=== PATIENT | male | born 1960 | race Caucasian/White ===

== ENCOUNTER → 2017-12-19 14:55 | Outpatient (CLI) | payer MEDICARE, SELFPAY ==
--- NOTE | 2017-12-19 15:12 | ECHOD_ITS ---
Reason For Study: High Risk Meds, SOB Procedure This was a 2D Doppler, Color Flow transthoracic echocardiogram. Exam performed in department. Left Ventricle Normal LV size. Mild concentric left ventricular hypertrophy. Left ventricular systolic function is normal. The estimated ejection fraction is 60 %. No regional wall motion abnormalities noted. Right Ventricle Normal RV size. Normal systolic function. Atria Normal left atrium. Normal right atrium. Lipomatous hypertrophy of the atrial septum. Mitral Valve Normal mitral valve. Tricuspid Valve Normal tricuspid valve. Aortic Valve Trisinus/trileaflet aortic valve. Mild (1+) eccentric aortic valve insufficiency. Pulmonic Valve Normal pulmonic valve. Great Vessels Normal aortic root. The pulmonary artery is normal size. Normal inferior vena cava. Pericardium/Pleural No pericardial effusion. MMode/2D Measurements & Calculations LVIDd: 5.2 cm IVSd: 1.2 cm Ao root diam: 4.1 cm LVIDs: 3.5 cm LVPWd: 1.2 cm LA dimension: 4.7 cm RVDd: 3.5 cm FS: 32.1 % LAV(MOD-bp): 36.5 ml LA A4 area: 13.2 cm2 RA A4 area: 8.7 cm2 LAV(MOD-bp) Indexed: 19.5 ml/m2 LAV(MOD-sp2): 38.0 ml LAV(MOD-sp4): 33.9 ml Doppler Measurements & Calculations MV E max alfredo: 62.6 cm/sec Lat Peak E' Alfredo: 6.6 cm/sec Med Peak E' Alfredo: 5.0 cm/sec MV A max alfredo: 62.1 cm/sec E/E' lat: 9.5 E/E' med: 12.6 MV E/A: 1.0 Ao V2 max: 128.0 cm/sec LV V1 max: 126.2 cm/sec PA V2 max: 120.2 cm/sec Ao max P.6 mmHg LV V1 max P.4 mmHg Ao V2 mean: 97.0 cm/sec Ao mean P.1 mmHg Ao V2 VTI: 20.8 cm Interpretation Summary Normal LV size. Mild concentric left ventricular hypertrophy. Left ventricular systolic function is normal. The estimated ejection fraction is 60 %. Mild (1+) eccentric aortic valve insufficiency. Lipomatous hypertrophy of the atrial septum. Ordering Physician: Delbert Montes Referring Physician: Lolly Meyer Performed By: Pati Buchanan, LEO, RVT
== END ==
PROVIDERS: Family Provider Family Medicine; PCP Family Medicine
DX: R06.02 Shortness of breath (principal)
CPT/HCPCS: 93306

== ENCOUNTER → 2017-12-27 11:32 | Outpatient (CLI) | payer MEDICARE, SELFPAY ==
[2017-12-27 12:53] LABS: Rheumatoid Factor < 10.0 IU/mL (<15)
[2017-12-29 03:07] LABS: Cytoplasmic Ab (C-ANCA) <1:20 titer (Neg:<1:20)
[2017-12-29 10:13] LABS: CCP IgG Antibodies 6 units (0-19); Perinuclear Ab (P-ANCA) <1:20 titer (Neg:<1:20)
[2017-12-29 14:04] LABS: ANTINUCLEAR ANTIBODIES DIRECT Negative (Negative)
== END ==
PROVIDERS: Family Provider Family Medicine; PCP Family Medicine; Visit Provider Internal Medicine Critical Care Medicine
DX: J98.4 Other disorders of lung (principal)
CPT/HCPCS: 36415; 86038; 86200; 86225; 86235; 86256; 86431

== ENCOUNTER → 2018-01-13 13:33 | Outpatient (CLI) | payer MEDICARE, SELFPAY | PROVIDERS: Family Provider Family Medicine; PCP Family Medicine; Visit Provider Nurse Practitioner Acute Care | DX: G47.19 Other hypersomnia (principal) | CPT/HCPCS: 95806 ==

== ENCOUNTER → 2018-01-19 11:00 | Outpatient (CLI) | payer MEDICARE, SELFPAY ==
--- NOTE | 2018-01-19 13:33 | PFT ---
INTRODUCTION: The patient is a 57-year-old male currently under the care of myself the presents for pulmonary function testing secondary to a diagnosis of restrictive airway disease. Respiratory therapy reports good patient effort. Bronchodilators were used during testing. INTERPRETATION: Forced expiration spirometry demonstrates the presence of a severe large airways obstructive ventilatory defect. There was a significant response to aerosolized bronchodilators noted, based upon changes in FEV1. Spirograms are of good quality and do not plateau. The respiratory flow volume loop reveals decreased expiratory flow rates at all lung volumes consistent with airways obstruction. Body plethysmography was performed and reveals a decreased TLC to 4.69 L, 70% of predicted, indicative of a mild restrictive ventilatory impairment. The remainder of the lung volumes are symmetrically reduced. Diffusing capacity by single breath CO is within normal limits at 93% of predicted. IMPRESSION: These pulmonary function studies demonstrate the presence of a partially reversible severe mixed ventilatory defect with preserved diffusing capacity. There are no previous pulmonary function studies available for comparison.
== END ==
PROVIDERS: Family Provider Family Medicine; PCP Family Medicine; Visit Provider Internal Medicine Critical Care Medicine
DX: J98.4 Other disorders of lung (principal)
CPT/HCPCS: 94060; 94726; 94729

== ENCOUNTER → 2018-01-20 12:33 | Outpatient (CLI) | payer MEDICARE, SELFPAY ==
[2018-01-20 12:30] VITALS: PULSE 102; PULSE 103; PULSE 105; PULSE 107; PULSE 111; O2SAT 88; O2SAT 89; O2SAT 90; O2SAT 94
--- NOTE | 2018-01-22 09:48 | WT_ITS ---
PSN 6 Minute Walk Test - 6 Minute Walk Test 6 Minute Walk Test: 6 Minute Walk Test PSN:6-Minute Walk Test Start: 01/20/18 13: 01 Freq: Status: Active Protocol: [id number] Document 01/20/18 12:30 HG (Rec: 01/20/18 13:05 HG [id number]) 6 Minute Walk Test Date Performed 01/20/18 Time Performed 12:30 Height 5 ft 10 in Weight: 158 lb Weight in Pounds 158.[address]: Ruy Regan Assistive device used: None Pre-test Oxygen Delivery Method Room Air Pulse Ox (%) 90 Pulse Rate (60-100 beats/min) 102 H Dyspnea Addison Scale (0-10) 2 Exertion Addison Scale (6-20) 8 1st minute Oxygen Delivery Method Room Air Pulse Ox (%) 88 Pulse Rate (60-100 beats/min) 105 H 2nd minute Oxygen Flow Rate (L/min) (L/min) 2 Oxygen Delivery Method Nasal Cannula Pulse Ox (%) 89 Pulse Rate (60-100 beats/min) 103 H 3rd minute Oxygen Flow Rate (L/min) (L/min) 2 Oxygen Delivery Method Nasal Cannula Pulse Ox (%) 89 Pulse Rate (60-100 beats/min) 103 H 4th minute Oxygen Flow Rate (L/min) (L/min) 2 Oxygen Delivery Method Nasal Cannula Pulse Ox (%) 90 Pulse Rate (60-100 beats/min) 107 H 5th minute Oxygen Flow Rate (L/min) (L/min) 2 Oxygen Delivery Method Nasal Cannula Pulse Ox (%) 90 Pulse Rate (60-100 beats/min) 107 H 6th minute Oxygen Flow Rate (L/min) (L/min) 2 Oxygen Delivery Method Nasal Cannula Pulse Ox (%) 90 Pulse Rate (60-100 beats/min) 111 H Post-test Oxygen Flow Rate (L/min) (L/min) 2 Oxygen Delivery Method Nasal Cannula Pulse Ox (%) 94 Pulse Rate (60-100 beats/min) 103 H Dyspnea Addison Scale (0-10) 3 Exertion Addison Scale (6-20) 13 Full Laps Walked 16 Partial Lap, Number of Tiles Walked 0 Total Distance Walked (ft) 944 - Interpretation Interpretation: The patient ambulated 944 feet over the course of 6 minutes on room air without assistive devices or breaks. Pretesting oxygen saturation was noted to be 90% on room air. With ambulation, the ifeoma oxygen saturation was 88% at minute 1 of testing. 2 L/min of supplemental oxygen was applied, and the patient was able to complete the remainder of the test while maintaining oxygen saturations at or above 88%. The patient did develop physiologic tachycardia with exertion. There was evidence of significant exertional oxygen desaturation. - Recommendations Recommendations: 2 L/min of supplemental oxygen should be utilized with exertion.
== END ==
PROVIDERS: Family Provider Family Medicine; PCP Family Medicine; Visit Provider Internal Medicine Critical Care Medicine
DX: J98.4 Other disorders of lung (principal)
CPT/HCPCS: 94618

== ENCOUNTER → 2018-02-14 13:00 | Outpatient (CLI) | payer MEDICARE, SELFPAY | PROVIDERS: Family Provider Family Medicine; PCP Family Medicine; Visit Provider Nurse Practitioner Acute Care | DX: G47.33 Obstructive sleep apnea (adult) (pediatric) (principal) | CPT/HCPCS: 95811 ==

== ENCOUNTER 2018-04-24 10:15 | Outpatient (RCR) | payer MEDICARE, SELFPAY ==
--- NOTE | 2018-04-19 13:04 | PCM.PR.TP ---
General Information - General Information Admitting Diagnosis: COPD Gold Classification:: GOLD 3: Severe Oxygen: 2 liters 21/03 home use; [facility] - PFT FEV1:: 1.51 FVC:: 2.40 FEV1/FVC%:: 63 - Education/Goals Barriers to Learning: None Individual Counseling: Initial Assessment: Dyspnea control techniques at rest, activity, and ADLs, O2, Rx, system, safety, ADL management and pacing, Home exercise plan & guidelines Patient Goals: Breathe better: Initial Assessment, Increase endurance/stamina: Initial Assessment, Return to recreation/hobby: Initial Assessment Exercise - Initial Assessment - Visit Date of Eval: 04/19/18 - Problem/Goals Problems: Knowledge deficit exercise guidelines, Knowledge deficit exercise safety Goals:: Aerobic exercise 30-60 mins x 9 weeks - Exercise Prescription Mode:: Treadmill, Rower, Airdyne, NuStep Frequency (x/week): 3 Duration:: 30 MET LEVEL:: 2.5 HR (bpm):: 113 - 106-113 THHR - Plan Plan and Plan to Review:: Benefits of exercise, Core components of exercise, How to measure dyspnea level, How to monitor dyspnea level, Exercise intensity, Exercise safety guideline, Home exercise guidelines, Addison: 3-4/11-13 Disease Management - Initial - Problems/Goals-Hypoxemia Hypoxemia Problems:: Hypoxemia Hypoxemia Goals:: Using O2 as Rx's safely - Problems/Goals-Bronchial Hygiene Bronchial Hygiene Goals:: Pt demonstrates effective cough, effective secretion clearance., Pt describes signs and symptoms of infection. - Initial Assessment SpO2:: 90 FiO2:: 21 Port O2:: 2 DME:: [facility] Does pt report taking home meds as prescribed?: Yes Medications: Yes MDI, Yes NEB, Yes Spacer Patient Reports:: No cough - Plans Hypoxemia Plan:: Monitor SpO2 rest & with exercise, Train appropriate O2 use at rest, Train appropriate O2 use with exercise, Train O2 safety & systems Reviewed prescribed medications:: Purpose, Schedule, Side effects, Importance of compliance Instruct correct technique/timing & care:: Return demo use of inhaler Bronchial Hygiene Plan: Controlled cough, Vibratory PEP device, Hydration, Hand hygiene, Signs/symptoms to report: Psychosocial - Initial Assess - Problems/Goals Problems: Impaired Q.O.L. Psychosocial Goals: Improved Q.O.L. - Psychosocial Test Depression:: Impaired QOL Referred to MD for counseling:: No - Plan Reviewed screening results: Yes Instructions given regarding:: Benefits of exercise, Relaxation techniques, Training in coping strategies Tobacco - Initial Assessment - Program Goals Tobacco Program Goals: Complete smoking cessation. Attend education classes. Improve Knowledge Test score - Stage of Change Stages of Change:: Action - Learning Barriers Learning Barriers: Vision, Ready to Learn - Family Support Do you have family support?: Yes - Tobacco Use Tobacco Use: Non-smoker How long ago did you quit using tobacco products?: Less than 6 months ago Do you use smokeless tobacco?: No - Intervention Smoking Cessation Referral:: No Individual Education/Counseling:: No Education Schedule Given:: Yes - Education Gave Education Materials For:: Tobacco Triggers, Pulmonary Disease, Risk Factors, Breathing Techniques, Medical Compliance, Pulmonary A&P, Exacerbation Signs & Symptoms, Stress & Relaxation Nutrition/Wt Mgmt - Initial - Problems/Goals Goals: BMI 21-25 - Weight Management Admit Height:: 5 ft 10 in Admit Weight:: 157 lb Admit BMI:: 22.5 - Diabetes Diabetes:: No - Intervention Referral to dietitian:: No Referral to Diabetic Clinic:: No Will attend diet classes:: Yes - Plan Nutrition Plan: Yes Nutrition education class:, Yes Education re: Need for ongoing weight monitoring Patient Health Questionnaire Initial Assessment 1. Little interest or pleasure in doing things: Not at all 2. Feeling down, depressed, or hopeless: Several days 3. Trouble falling or staying asleep, or sleeping too much: More than half the days 4. Feeling tired or having little energy: Several days 5. Poor appetite or overeating: Not at all 6. Feeling bad about yourself -- or that you are a failure or have let yourself or your family down: Not at all 7. Trouble concentrating on things, such as reading the newspaper or watching television: Not at all 8. Moving or speaking so slowly that other people could have noticed. Or the opposite - being so fidgety or restless that you have been moving around a lot more than usual: Not at all 9. Thoughts that you would be better off , or of hurting yourself in some way: Not at all How difficult have these problems made it for you to do your work, take care of things at home, or get along with other people?: Somewhat difficult Total Score: 4 COPD Knowledge Test Initial COPD is a lung disease that:: Makes it hard to breathe & gets worse over time In the [place] the term COPD describes 2 main lung conditions:: Cystic fibrosis & chronic bronchitis The most common lung irritant that causes COPD is:: Allergies Common signs and symptoms of COPD include:: An ongoing cough/cough that produces a large amount of mucus, & SOB If you have COPD, what steps can you take?: All of the above Swelling of the ankles is common in COPD:: True Fatigue [tiredness] is common in COPD:: True Wheezing is common in COPD:: True Crushing chest pain is common in COPD:: False Rapid weight loss is common in COPD:: False Breathlessness is a normal response to exercise: True Exercise should be avoided if it makes you short of breath: False All bronchodilators act within 10 minutes: False A spacer device increases the medication to the lungs: True Annual flu vaccine is recommended for pts w/lung disease: False COPD Knowledge Test Total Score:: 11 COPD Assessment Test [CAT] - Questions Never cough = 0, Cough all the time = 5: 0 No phlegm = 0, Chest full of phlegm = 5: 4 No chest tightness = 0, Chest very tight = 5: 4 No breathless w/exertion = 0, Very breathless w/exertion = 5: 4 No limitations w/activity = 0, Very limited w/activity = 5: 4 Confident leaving home = 0, Not at all confident = 5: 2 Sleep soundly = 0, Don't sleep soundly = 5: 4 Lots of energy = 0, No energy at all = 5: 3 Total CAT score:: 25 Self-Efficacy Initial Assessment We would like to know how confident you are in doing certain activities. Please select your confidence level for:: Select your confidence level for the following using the scale 1-10 where 1 is not at all confident and 10 is totally confident. Your score is the average of all 6 responses. Fatigue: How confident are you that you can keep the fatigue caused by your disease from interfering with the things you want to do? Select Number: 4 Physical Discomfort or Pain: How confident are you that you can keep the physical discomfort or pain of your disease from interfering with the things you want to do? Select Number: 3 Emotional Distress: How confident are you that you can keep the emotional distress caused by your disease from interfering with the things you want to do? Select Number: 4 Other Symptoms or Health Problems: How confident are you that you can keep other symptoms or health problems from interfering with the things you want to do? Select Number: 4 Different Tasks and Activities: How confident are you that you can do the different tasks and activities needed to manage your health condition so as to reduce your need to see a doctor? Select Number: 3 Medication: How confident are you that you can do things other than just taking medication to reduce how much your illness affects your everyday life? Select Number: 8 Total Score:: 4 Nutrition Survey - Nutrition Survey Instructions Scoring Instructions: Scoring is as follows: Yes = 1 points. No = 0 point. Patient score that is >/=12 is considered to be at potential nutritional risk and could benefit from a referral to a registered dietitian. - Nutrition Survey Initial Have you lost >10 lbs over the past 2 months without trying?: No Are you following a special diet at home for diabetes, low fat, or low salt?: No Are you interested in meeting with a dietitian for help understanding your diet?: No Do you eat less than 3 meals a day?: No Do you eat fatty meats (tsang, sausage, ribs, etc), fried foods, desserts, large amounts of salad dressings, margarine, butter, or cheese most days?: Yes Do you have food allergies? [Enter types in comment field]: No Do you eat in restaurants more than 3 times a week?: Yes Do you season food with salt, seasoning salt, or garlic salt?: No Do you used canned, boxed, frozen meals, or soups, seasoning packets?: No Total Score:: 2
--- NOTE | 2018-04-19 13:04 | PCM.PR.HP ---
History of Present Illness Arrival date:: 04/19/18 Arrival time:: 13:04 Date of Referral:: 03/15/18 Date of Evaluation: 04/19/18 Referring Physician: Dr. Russel Marquez Primary Diagnosis: COPD Gold III severe History of Present Illness: The patient is a 57 yr old male of Dr. Marquez's who presents to pulmonary rehab today for his COPD. [facility] Breathless Scale: When is the patient short of breath? Y/N Grade: Description of Breathlessness: 0 I only get breathless with strenuous exercise. 1 I get short of breath when hurrying on level ground or walking up a slight hill. 2 On level ground, I walk slower than people of the same age because of breathless, or have to stop for breath when walking at my own pace. 3 I stop for breath after walking 100 yards or after a few minutes on level ground. 4 I am too breathless to leave the house or I am breathless when dressing. Respiratory Problems: Yes: Fatigue, Wheezing, Able to Speak in Full Sentences, Dyspnea with Activity No: Dizziness, Ankle Swelling, Dyspnea at Rest Home Medications: Home Medications Albuterol Aerosols [Ventolin Aerosols] 2.5 mg INHALATION BID 04/02/16 Ondansetron [Zofran Odt] 4 mg PO Q8H PRN PRN 04/02/16 Diclofenac 5%, baclofen 2% and ketamine 10 % cream TRANSDERMAL .q4-6h PRN 12/26/17 diazepam 5 mg tablet See Label Instructions PO TID PRN 12/26/17 doxycycline hyclate 50 mg capsule 50 mg PO BID PRN cap 12/26/17 etodolac 200 mg capsule 400 mg PO ONCE cap 12/26/17 gabapentin 300 mg capsule 300 mg PO TID cap 12/26/17 ginkgo biloba 120 mg tablet 120 mg PO BID 12/26/17 hydromorphone 2 mg tablet See Label Instructions PO Q4H PRN tab 12/26/17 ibrutinib 140 mg capsule See Label Instructions PO QDAY 12/26/17 loteprednol etabonate 0.5 % eye gel drops 2 drp OPHTHALMIC ONCE 12/26/17 melatonin 10 mg capsule 10 mg PO HS 12/26/17 methadone 5 mg tablet 5 mg PO Q12H tab 12/26/17 methylphenidate 5 mg tablet 5 mg PO BID 12/26/17 miconazole nitrate 2 % topical cream 1 applic TOPICAL BID 12/26/17 omega-3 fatty acids 500 mg capsule 2,000 mg PO BID cap 12/26/17 pantoprazole 40 mg tablet,delayed release 40 mg PO QAM 12/26/17 sulfamethoxazole 800 mg-trimethoprim 160 mg tablet 1 tab PO .COMPLEX 12/26/17 tadalafil 5 mg tablet 5 mg PO ONCE PRN 12/26/17 testosterone cypionate 200 mg/mL intramuscular oil 100 mg IM QWEEK ml 12/26/17 tizanidine 2 mg capsule 2 mg PO BID PRN cap 12/26/17 triamcinolone acetonide 0.1 % topical cream 1 applic TOPICAL QDAY 12/26/17 zolpidem 5 mg tablet 5 mg PO HS PRN 12/26/17 montelukast 10 mg tablet 10 mg PO QPM #30 tab 03/15/18 fluticasone 100 mcg-umeclid 62.5 mcg-vilant 25 mcg powd for inhalation 1 inh INHALATION QDAY #1 device 03/30/18 albuterol sulfate HFA 90 mcg/actuation aerosol inhaler 2 puff INHALATION Q4H #1 inh 04/12/18 prednisone 10 mg tablet 8.5 mg PO DAILY tab 04/12/18 Allergies/Adverse Reactions: Allergies No Known Allergies Allergy (Unverified 03/15/18 10:52) - Secretions Thick:: No Thin:: No Hx of Sleep Apnea: Yes Do you snore loudly (louder than talking or can be heard through closed doors)?: Yes - Diagnosed wtih JUAN ALBERTO and uses home BiPaP system w/oxygen. Do you often feel tired/ fatigued/ sleepy during daytime?: No Has anyone observed you stop breathing during sleep?: No History of Hypertension (for STOP score): Yes STOP Results: Positive Medical Utilization Do you use a peak flow meter at home?: No Do you use a spacer device with your inhalers?: Yes Number of hospital visits in the last year?: 0 Number of emergency room visits in the last year?: 0 Do you see your physician on a regular schedule?: Yes How often?: 3 mo w/each doctor Advanced Directives - Advanced Directives Power of Supply Chain Specialist: Yes Living Will: Yes Advance Directives Information Provided: No Advance Directives on File: Yes - can't say for sure DNR Order?:: Yes - MOLST See MOLST form: No Past Medical History Medical History: Past Medical History (Last Reviewed 04/13/18 @ 11:53 by Tiarra Sales NP-C) Non-Hodgkin lymphoma (Chronic) C85.90 History of immunosuppression therapy (Chronic) Z92.25 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 History of asthma (Chronic) Z87.09 Cardiogenic shock R57.0 Respiratory failure J96.90 Severe sepsis A41.9, R65.20 Bronchiolitis obliterans syndrome J42 DVT prophylaxis Hypogonadism 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 Restrictive lung disease J98.4 Surgical History: Past Surgical History (Last Reviewed 04/13/18 @ 11:53 by Tiarra Sales NP-C) H/O eye surgery Z98.890 bilateral lacrimal plugs 11/08 History of lung surgery Z98.890 S/P PICC central line placement Z95.828 11/12/12 Family History: Family History (Last Reviewed 04/13/18 @ 11:53 by Tiarra Sales NP-C) Father Leukemia Grandfather Lymphoma Uncle Leukemia - Current/ Previous Services Pulmonary Rehab:: No Social History - Smoking History Smoking Status: Former smoker Years Smokin Packs Smoked per Day: 1 - daily cigar per day. Hx Tobacco Use: Yes Hx Smoking Exposure: No - Alcohol Use Alcohol Usage: Yes - couple of drinks per week. - Substance Abuse Hx Substance Use: No - Occupation Occupation (List type of work in comments):: Retired - Hobbies, Recreation, Social Activities Hobbies: Reading, Walking, Exercise - home elliptical Recreational Activities: I am able to engage in most, but not all activities Functioning ADL/IADL - Current Ability Current Ability: Independent Self-Care (e.g.,grooming, dressing, & bathing), Independent Ambulation, Independent Transfer, Independent Household tasks (e.g., light meal prep, laundry, shopping) - Pt Functioning Prior to Problem Prior Functioning: Self-Care (e.g.,grooming, dressing, & bathing): Independent, Ambulation: Independent, Transfer: Independent, Household tasks (e.g., light meal prep, laundry, shopping): Independent Social Environment - Status Marital Status: - Current Living Arrangements Living Environment:: Spouse - Children How many children do you have?: 3 Do any of your children live nearby?: Yes - [place], [facility] - Safety Do you feel safe in your surroundings?: Yes - Assistance Do you need any assistance at home?: none Review of Systems Review of Systems: Right click = Denies ([place]ash). Left click = Reports ([place]) Respiratory: Reports: SOB upon Exertion, Appetite, Normal, Fatigue, Sexual changes - not really change, but sometimes struggle with lack of oxygen., Sleep, Normal - 4-5 hr sleep a night 1-2 laying around. Denies: Cough, SOB at Rest, Wheezing, Dizziness/Lightheadedness Is Patient Pain Free?: No Pain Location: other - jaw pain from wisdom tooth extraction yesterday. Pain Level: 09/07 Risk Factor Assessment - Vital Signs Temperature: 98.7 F Pulse Rate: 96 Pulse Rhythm: Regular Respiratory Rate: 16 Pulse Ox: 90 Blood Pressure: 154/84 Nailbeds:: pink - Diabetes Nutrition Referral for Diabetes: No - Obesity Height: 5 ft 10 in Weight:: 157 lb Weight in Pounds: 157.0 lbs Weight Source: Standing Scale Body Mass Index (BMI): 22.5 Nutritional Referral for Obesity: No - Physical Activity Physical Inactivity: Reg Exercise 30 min/day - Risk Stratification Risk Guidelines: Lowest Risk: Risk Factor for Smoking, Risk Factor for Dyslipidemia, Risk Factor for Diabetes, Risk Factor for Obesity, Risk Factor for Hypertension, Risk Factor for Sedentary Lifestyle, Risk Factor for Depression - For Smoking Smoking Risk Guidelines: Smoking Low Risk: None or quit greater than 6 months ago. Smoking Moderate Risk: Smoker or quit 6 months or less ago. Smoking High Risk: Smoker - For Dyslipidemia Dyslipidemia Risk Guidelines: Low Risk: Moderate Risk: High Risk: 15-25% fat 25.1-29% fat >/= 30% fat. <7% sat fat 7-9% sat fat >9% sat fat. <150 mg chol 150-299 mg chol >/= 300 mg chol. LDL <100 LDL 100-129 LDL >/= 130. Chol/HDL ratio <5.0 Chol/HDL ratio 5.0-6.0 Chol/HDL ratio >6.0. Triglycerides <100 Triglycerides 100-149 Triglycerides >/= 150 - For Diabetes Mellitus Diabetes Risk Guidelines: Diabetes Low Risk: HgA1c <6.5% and/or FBG <120. Diabetes Moderate Risk: HgA1c 6.6-7.9% and/or FBG 120-180. Diabetes High Risk: HgA1c >/= 8% and/or FBG >180 - For Obesity/Overweight Obesity/Overweight Risk Guidelines: Obesity Low Risk: BMI <25.0. Obesity Moderate Risk: BMI 25-29.9. Obesity High Risk: BMI >/= 30.0 - For Hypertension Hypertension Risk Guidelines: Hypertension Low Risk: Systolic <120 and Diastolic <80. Hypertension Moderate Risk: Systolic 120-139 and Diastolic 80-89. Hypertension High Risk: Systolic >/= 140 and Diastolic >/= 90 - For Sedentary Lifestyle Sedentary Lifestyle Risk Guidelines: Sedentary Lifestyle Low Risk: >/= 1,500 kcal/week. Sedentary Lifestyle Moderate Risk: 700-1,499 kcal/week. Sedentary Lifestyle High Risk: < 700 kcal/week - For Depression Depression Risk Guidelines: Depression Low Risk: Not clinically depressed. Depression Moderate Risk: Mildly depressed. Depression High Risk: Clinically depressed Motivation - Motivation to Participate On a scale of 1 to 10, how prepared are you to commit to attending program?: 8 What do you see as barriers to successfully being able to complete the program?: traveling June and again in August What do you see as the benefits of succesfully completing the program? In other words, what do you hope to get out of participating in the program?: improve my breathing, generally with any exertion drops and runs out of air Are there issues you are dealing with that will interfere with completing the program?: last year started using oxygen Do you have a spouse or signficant other, family or friends who will help support you to complete the program?: yes Diagnostic Data Review - Pulmonary Function Test FEV1:: 1.51 FVC:: 2.4 FEV1/FVC%:: 63 Gold Classification: GOLD class III(severe COPD)with FEV1/FVC<70, 30%</=FEV1< 50% predicted
--- NOTE | 2018-04-19 13:08 | PR.HP_ITS ---
History of Present Illness Arrival date:: 04/19/18 Arrival time:: 13:04 Date of Referral:: 03/15/18 Date of Evaluation: 04/19/18 Referring Physician: Dr. Russel Marquez Primary Diagnosis: COPD Gold III severe History of Present Illness: The patient is a 57 yr old male of Dr. Marquez's who presents to pulmonary rehab today for his COPD. [facility] Breathless Scale: When is the patient short of breath? Y/N Grade: Description of Breathlessness: 0 I only get breathless with strenuous exercise. 1 I get short of breath when hurrying on level ground or walking up a slight hill. 2 On level ground, I walk slower than people of the same age because of breathless, or have to stop for breath when walking at my own pace. 3 I stop for breath after walking 100 yards or after a few minutes on level ground. 4 I am too breathless to leave the house or I am breathless when dressing. Respiratory Problems: Yes: Fatigue, Wheezing, Able to Speak in Full Sentences, Dyspnea with Activity No: Dizziness, Ankle Swelling, Dyspnea at Rest Home Medications: Home Medications Albuterol Aerosols [Ventolin Aerosols] 2.5 mg INHALATION BID 04/02/16 Ondansetron [Zofran Odt] 4 mg PO Q8H PRN PRN 04/02/16 Diclofenac 5%, baclofen 2% and ketamine 10 % cream TRANSDERMAL .q4-6h PRN diazepam 5 mg tablet See Label Instructions PO TID PRN 12/26/17 doxycycline hyclate 50 mg capsule 50 mg PO BID PRN cap 12/26/17 etodolac 200 mg capsule 400 mg PO ONCE cap 12/26/17 gabapentin 300 mg capsule 300 mg PO TID cap 12/26/17 ginkgo biloba 120 mg tablet 120 mg PO BID 12/26/17 hydromorphone 2 mg tablet See Label Instructions PO Q4H PRN tab 12/26/17 ibrutinib 140 mg capsule See Label Instructions PO QDAY 12/26/17 loteprednol etabonate 0.5 % eye gel drops 2 drp OPHTHALMIC ONCE 12/26/17 melatonin 10 mg capsule 10 mg PO HS 12/26/17 methadone 5 mg tablet 5 mg PO Q12H tab 12/26/17 methylphenidate 5 mg tablet 5 mg PO BID 12/26/17 miconazole nitrate 2 % topical cream 1 applic TOPICAL BID 12/26/17 omega-3 fatty acids 500 mg capsule 2,000 mg PO BID cap 12/26/17 pantoprazole 40 mg tablet,delayed release 40 mg PO QAM 12/26/17 sulfamethoxazole 800 mg-trimethoprim 160 mg tablet 1 tab PO .COMPLEX 12/26/17 tadalafil 5 mg tablet 5 mg PO ONCE PRN 12/26/17 testosterone cypionate 200 mg/mL intramuscular oil 100 mg IM QWEEK ml 12/26/17 tizanidine 2 mg capsule 2 mg PO BID PRN cap 12/26/17 triamcinolone acetonide 0.1 % topical cream 1 applic TOPICAL QDAY 12/26/17 zolpidem 5 mg tablet 5 mg PO HS PRN 12/26/17 montelukast 10 mg tablet 10 mg PO QPM #30 tab 03/15/18 fluticasone 100 mcg-umeclid 62.5 mcg-vilant 25 mcg powd for inhalation 1 inh INHALATION QDAY #1 device 03/30/18 albuterol sulfate HFA 90 mcg/actuation aerosol inhaler 2 puff INHALATION Q4H #1 inh 04/12/18 prednisone 10 mg tablet 8.5 mg PO DAILY tab 04/12/18 Allergies/Adverse Reactions: Allergies No Known Allergies Allergy (Unverified 03/15/18 10:52) - Secretions Thick:: No Thin:: No Hx of Sleep Apnea: Yes Do you snore loudly (louder than talking or can be heard through closed doors)? : Yes - Diagnosed wtih JUAN ALBERTO and uses home BiPaP system w/oxygen. Do you often feel tired/ fatigued/ sleepy during daytime?: No Has anyone observed you stop breathing during sleep?: No History of Hypertension (for STOP score): Yes STOP Results: Positive Medical Utilization Do you use a peak flow meter at home?: No Do you use a spacer device with your inhalers?: Yes Number of hospital visits in the last year?: 0 Number of emergency room visits in the last year?: 0 Do you see your physician on a regular schedule?: Yes How often?: 3 mo w/each doctor Advanced Directives - Advanced Directives Power of Planograph Operator: Yes Living Will: Yes Advance Directives Information Provided: No Advance Directives on File: Yes - can't say for sure DNR Order?:: Yes - MOLST See MOLST form: No Past Medical History Medical History: Past Medical History (Last Reviewed 04/13/18 @ 11:53 by Tiarra Sales NP-C) Non-Hodgkin lymphoma (Chronic) C85.90 History of immunosuppression therapy (Chronic) Z92.25 Krylj-acqrqm-ecbm disease (Chronic) D89.813 History of asthma (Chronic) Z87.09 Cardiogenic shock R57.0 Respiratory failure J96.90 Severe sepsis A41.9, R65.20 Bronchiolitis obliterans syndrome J42 DVT prophylaxis Hypogonadism 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 Restrictive lung disease J98.4 Surgical History: Past Surgical History (Last Reviewed 04/13/18 @ 11:53 by Tiarra Sales NP-C) H/O eye surgery Z98.890 bilateral lacrimal plugs 11/08 History of lung surgery Z98.890 S/P PICC central line placement Z95.828 11/12/12 Family History: Family History (Last Reviewed 04/13/18 @ 11:53 by Tiarra Sales NP-C) Father Leukemia Grandfather Lymphoma Uncle Leukemia - Current/ Previous Services Pulmonary Rehab:: No Social History - Smoking History Smoking Status: Former smoker Years Smokin Packs Smoked per Day: 1 - daily cigar per day. Hx Tobacco Use: Yes Hx Smoking Exposure: No - Alcohol Use Alcohol Usage: Yes - couple of drinks per week. - Substance Abuse Hx Substance Use: No - Occupation Occupation (List type of work in comments):: Retired - Hobbies, Recreation, Social Activities Hobbies: Reading, Walking, Exercise - home elliptical Recreational Activities: I am able to engage in most, but not all activities Functioning ADL/IADL - Current Ability Current Ability: Independent Self-Care (e.g.,grooming, dressing, & bathing), Independent Ambulation, Independent Transfer, Independent Household tasks (e.g. , light meal prep, laundry, shopping) - Pt Functioning Prior to Problem Prior Functioning: Self-Care (e.g.,grooming, dressing, & bathing): Independent, Ambulation: Independent, Transfer: Independent, Household tasks (e.g., light meal prep, laundry, shopping): Independent Social Environment - Status Marital Status: - Current Living Arrangements Living Environment:: Spouse - Children How many children do you have?: 3 Do any of your children live nearby?: Yes - [place], [facility] - Safety Do you feel safe in your surroundings?: Yes - Assistance Do you need any assistance at home?: none Review of Systems Review of Systems: Right click = Denies (Slash). Left click = Reports ([place]) Respiratory: Reports: SOB upon Exertion, Appetite, Normal, Fatigue, Sexual changes - not really change, but sometimes struggle with lack of oxygen., Sleep , Normal - 4-5 hr sleep a night 1-2 laying around. Denies: Cough, SOB at Rest, Wheezing, Dizziness/Lightheadedness Is Patient Pain Free?: No Pain Location: other - jaw pain from wisdom tooth extraction yesterday. Pain Level: 09/07 Risk Factor Assessment - Vital Signs Temperature: 98.7 F Pulse Rate: 96 Pulse Rhythm: Regular Respiratory Rate: 16 Pulse Ox: 90 Blood Pressure: 154/84 Nailbeds:: pink - Diabetes Nutrition Referral for Diabetes: No - Obesity Height: 5 ft 10 in Weight:: 157 lb Weight in Pounds: 157.0 lbs Weight Source: Standing Scale Body Mass Index (BMI): 22.5 Nutritional Referral for Obesity: No - Physical Activity Physical Inactivity: Reg Exercise 30 min/day - Risk Stratification Risk Guidelines: Lowest Risk: Risk Factor for Smoking, Risk Factor for Dyslipidemia, Risk Factor for Diabetes, Risk Factor for Obesity, Risk Factor for Hypertension, Risk Factor for Sedentary Lifestyle, Risk Factor for Depression - For Smoking Smoking Risk Guidelines: Smoking Low Risk: None or quit greater than 6 months ago. Smoking Moderate Risk: Smoker or quit 6 months or less ago. Smoking High Risk: Smoker - For Dyslipidemia Dyslipidemia Risk Guidelines: Low Risk: Moderate Risk: High Risk: 15-25% fat 25.1-29% fat >/= 30% fat. <7% sat fat 7-9% sat fat >9% sat fat. <150 mg chol 150-299 mg chol >/= 300 mg chol. LDL <100 LDL 100-129 LDL >/= 130. Chol/HDL ratio <5.0 Chol/HDL ratio 5.0-6.0 Chol/HDL ratio >6.0. Triglycerides <100 Triglycerides 100-149 Triglycerides >/= 150 - For Diabetes Mellitus Diabetes Risk Guidelines: Diabetes Low Risk: HgA1c <6.5% and/or FBG <120. Diabetes Moderate Risk: HgA1c 6.6-7.9% and/or FBG 120-180. Diabetes High Risk: HgA1c >/= 8% and/or FBG >180 - For Obesity/Overweight Obesity/Overweight Risk Guidelines: Obesity Low Risk: BMI <25.0. Obesity Moderate Risk: BMI 25-29.9. Obesity High Risk: BMI >/= 30.0 - For Hypertension Hypertension Risk Guidelines: Hypertension Low Risk: Systolic <120 and Diastolic <80. Hypertension Moderate Risk: Systolic 120-139 and Diastolic 80-89. Hypertension High Risk: Systolic >/= 140 and Diastolic >/= 90 - For Sedentary Lifestyle Sedentary Lifestyle Risk Guidelines: Sedentary Lifestyle Low Risk: >/= 1 ,500 kcal/week. Sedentary Lifestyle Moderate Risk: 700-1,499 kcal/week. Sedentary Lifestyle High Risk: < 700 kcal/week - For Depression Depression Risk Guidelines: Depression Low Risk: Not clinically depressed. Depression Moderate Risk: Mildly depressed. Depression High Risk: Clinically depressed Motivation - Motivation to Participate On a scale of 1 to 10, how prepared are you to commit to attending program?: 8 What do you see as barriers to successfully being able to complete the program? : traveling June and again in August What do you see as the benefits of succesfully completing the program? In other words, what do you hope to get out of participating in the program?: improve my breathing, generally with any exertion drops and runs out of air Are there issues you are dealing with that will interfere with completing the program?: last year started using oxygen Do you have a spouse or signficant other, family or friends who will help support you to complete the program?: yes Diagnostic Data Review - Pulmonary Function Test FEV1:: 1.51 FVC:: 2.4 FEV1/FVC%:: 63 Gold Classification: GOLD class III(severe COPD)with FEV1/FVC<70, 30%</=FEV1< 50 % predicted
[2018-04-19 13:20] VITALS: BP 154/84; PULSE 96; RESP 16; TEMP 37.1; O2SAT 90; BMI 22.5
[2018-04-19 14:14] VITALS: O2SAT 90; BMI 22.5
--- NOTE | 2018-04-19 14:16 | PR.DATECOV_ITS ---
Dates of Coverage Times for Dates Of Coverage; All dates of coverage are for physician supervision /medical practice administrator for during the times of 08:00 AM through 4:30 PM. Effective Apr 29, 2013 our hours will be changing to 8:00 to 4:30 on Tuesday, Tuesday and Tuesday. First Date of the Month: 04/24/18 Last Date of the Month: 04/28/18
== END 2018-04-28 23:59 ==
LOC: PR 10:15
PROVIDERS: Family Provider Family Medicine; PCP Family Medicine; Visit Provider Internal Medicine Critical Care Medicine
DX: J44.9 Chronic obstructive pulmonary disease, unspecified (principal)
CPT/HCPCS: 97150; G0424

== ENCOUNTER 2018-05-03 10:02 | Outpatient (RCR) | payer MEDICARE, SELFPAY ==
[2018-04-29 00:21] VITALS: BP 154/84; PULSE 96; RESP 16; TEMP 37.1; O2SAT 90
== END 2018-05-28 23:59 ==
LOC: PR 10:02
PROVIDERS: Family Provider Family Medicine; PCP Family Medicine; Visit Provider Internal Medicine Critical Care Medicine
DX: J44.9 Chronic obstructive pulmonary disease, unspecified (principal)
CPT/HCPCS: 97150; G0424

== ENCOUNTER → 2018-05-16 14:59 | Outpatient (CLI) | payer MEDICARE, SELFPAY ==
[2018-05-16 18:56] LABS: Absolute Lymphocyte Count 1.78 X10^3/ul (0.83-4.51); Absolute Neutrophil Count 5.1 X10^3/uL (2.0-7.7); Basophil# 0.03 X10^3/uL; Basophil% 0.4 % (0-1); Eosinophil# 0.08 X10^3/uL; Hematocrit 51.8 % (40-54); Hemoglobin 17.2 g/dl (13.0-16.5); Lymphocyte # 1.78 X10^3/ul (4.0); Lymphocyte % 22.8 % (19-41); Mean Corp Hgb Conc 33.2 g/gl (32-36); Mean Corpuscular Hgb 33.9 pg (27.0-32.0); Mean Platelet Vol. 10.2 fl (6.2-12.0); Monocyte# 0.77 X10^3/uL; Monocyte% 9.9 % (0-10); Neutrophil # 5.12 X10^3/uL (2.7-7.7); Neutrophil % 65.8 % (47-70); POSITIVE COUNT NO; POSITIVE DIFFERENTIAL NO; POSITIVE MORPHOLOGY NO; Platelet Count 227 K/mm3 (150-450); RBC Distribution Width CV 15.2 % (11.6-14.6); RBC Distribution Width SD 57.5 fl (35.1-43.9); Red Blood Count 5.08 M/mm3 (4.6-6.2); White Blood Count 7.8 K/mm3 (4.4-11.0)
== END ==
PROVIDERS: Family Provider Family Medicine; PCP Family Medicine; Visit Provider Family Medicine
DX: E29.1 Testicular hypofunction (principal); R39.15 Urgency of urination
CPT/HCPCS: 36415; 84403; 85025

== ENCOUNTER 2018-08-08 12:02 | Day surgery (SDC) | payer MEDICARE, SELFPAY ==
[2018-07-27 14:30] VITALS: BP 147/85; PULSE 89; RESP 16; TEMP 37.1; O2SAT 90; BMI 22.4
--- NOTE | 2018-07-27 14:39 | SDCEKG_ITS ---
Test Reason : Blood Pressure : / mmHG Vent. Rate : 085 BPM Atrial Rate : 085 BPM P-R Int : 152 ms QRS Dur : 112 ms QT Int : 382 ms P-R-T Axes : 056 001 042 degrees QTc Int : 454 ms Normal sinus rhythm Possible Left atrial enlargement Poor R wave progression Borderline ECG Confirmed by LAZARUS SALINAS, YOUNG ([id number]), general expeditor JO ANN DELEON ([id number]) on 08/01/2018 2:12:59 PM Referred By: Matias Day Confirmed By:YOUNG QIU MD
[2018-07-27 15:15] LABS: Hematocrit 48.5 % (40-54); Hemoglobin 16.7 g/dl (13.0-16.5); Mean Corp Hgb Conc 34.4 g/gl (32-36); Mean Corpuscular Hgb 35.5 pg (27.0-32.0); Mean Corpuscular Volume 103.2 fL (80-94); Mean Platelet Vol. 9.8 fl (6.2-12.0); Platelet Count 207 K/mm3 (150-450); RBC Distribution Width CV 15.9 % (11.6-14.6); RBC Distribution Width SD 61.5 fl (35.1-43.9); White Blood Count 7.2 K/mm3 (4.4-11.0)
[2018-07-27 15:18] LABS: Scan Indicated on CBC? Y/N NO
[2018-07-27 15:32] LABS: Anion Gap 3 (5-15); BUN 18 mg/dL (7-18); BUN/Creat Ratio 19.3 RATIO (10-20); Calcium,Total 8.8 mg/dL (8.5-10.1); Chloride 104 mmol/L (98-107); Creatinine, Serum 0.93 mg/dL (0.70-1.30); EST Glomerular Filtration Rate 88 mL/min (>60); Est Glom Filt Rate - Afr Amer 107 mL/min (>60); Estimated Creatinine Clearance 87.07 ml/min; Glucose 112 mg/dL (74-106); Potassium 4.2 mmol/L (3.5-5.1); Sodium Level 139 mmol/L (136-145)
[2018-08-08] VITALS (7 sets, daily range): BP systolic 121–152; BP diastolic 84–95; PULSE 79–88; RESP 16; TEMP 36.8–37.3; O2SAT 92–99; BMI 22.4
--- NOTE | 2018-08-08 14:05 | DCINST_ITS ---
You will use the following diet at home:: No restrictions Discharge Activity: Return to Normal Activity Call your doctor if your incision/area has: Increased Pain/ Swelling Additional Dressing/Incision Instructions:: irrigate nose 5-6 times / day with saline spray. place the given mupirocin ointment on your incision twice daily. sleep with your head of bed elevated. do not get the bridge of nose wet until the morning of your follow up, then get it very wet so it comes off in the office easily Allergies/Adverse Reactions: Allergies No Known Allergies Allergy (Unverified 07/27/18 14:12) Medications to take at Discharge Albuterol Aerosols [Ventolin Aerosols] 2.5 mg INHALATION BID 04/02/16 Ondansetron [Zofran Odt] 4 mg PO Q8H PRN PRN 04/02/16 Diclofenac 5%, baclofen 2% and ketamine 10 % cream 1 TRANSDERMAL .q4-6h PRN 12/26/17 diazepam 5 mg tablet See Rx Instructions PO TID PRN 12/26/17 doxycycline hyclate 50 mg capsule 50 mg PO BID PRN cap 12/26/17 etodolac 200 mg capsule 400 mg PO PRN PRN cap 12/26/17 gabapentin 300 mg capsule 300 mg PO TID PRN cap 12/26/17 ginkgo biloba 120 mg tablet 120 mg PO BID PRN 12/26/17 hydromorphone 2 mg tablet See Rx Instructions PO Q4H PRN tab 12/26/17 loteprednol etabonate 0.5 % eye gel drops 2 drp RIGHT EYE DAILY 12/26/17 melatonin 10 mg capsule 10 mg PO HS 12/26/17 methadone 5 mg tablet 5 mg PO Q12H PRN tab 12/26/17 methylphenidate 5 mg tablet 5 mg PO BID PRN 12/26/17 miconazole nitrate 2 % topical cream 1 applic TOPICAL BID PRN 12/26/17 omega-3 fatty acids 500 mg capsule 2,000 mg PO BID cap 12/26/17 pantoprazole 40 mg tablet,delayed release 40 mg PO QAM 12/26/17 tadalafil 5 mg tablet 5 mg PO ONCE PRN 12/26/17 testosterone cypionate 200 mg/mL intramuscular oil 100 mg IM QWEEK ml 12/26/17 tizanidine 2 mg capsule 2 mg PO BID PRN cap 12/26/17 triamcinolone acetonide 0.1 % topical cream 1 applic TOPICAL QDAY 12/26/17 zolpidem 5 mg tablet 5 mg PO HS PRN 12/26/17 fluticasone 100 mcg-umeclid 62.5 mcg-vilant 25 mcg powd for inhalation 1 inh INH ALATION QDAY #1 device 03/30/18 montelukast 10 mg tablet 10 mg PO QPM #90 tab 05/29/18 Albuterol Sulfate [Proventil Hfa] 2 puff INHALATION Q4H 07/27/18 Hydrocortisone 40 mg PO DAILY 07/27/18 Oxycodone HCl/Acetaminophen [Percocet 5/325] 1 tab PO Q6H PRN PRN 5 Days #15 tab 08/08/18 Smz/Tmp Ds [Bactrim Ds] 1 tab PO BID #14 tab 08/08/18 The following prescriptions were given: Oxycodone HCl/Acetaminophen [Percocet 5/325] 1 tab PO Q6H PRN PRN 5 Days #15 tab PRN Reason: Pain Smz/Tmp Ds [Bactrim Ds] 1 tab PO BID #14 tab Primary Care Physician: Lolly Meyer MD [Primary Care Provider] - Test Results: Test results from this visit will be discussed in further detail at your follow- up appointment, if applicable. Please Follow Up With: Moose Day MD When: 1 week
--- NOTE | 2018-08-08 14:09 | PCM.OPRPT ---
Problem List (1) Nasal congestion Status: Chronic (2) Nasal turbinate hypertrophy Status: Chronic (3) Nasal valve collapse Status: Chronic Report of Operation Date of Procedure: 08/08/18 Pre-Operative Diagnosis: 1. nasal congestion. 2. nasal septal deviation. 3. internal nasal valve collapse, right and left. 4. inferior turbinate hypertrophy, right and left Post-Operative Diagnosis: 1. nasal congestion. 2. nasal septal deviation. 3. internal nasal valve collapse, right and left. 4. inferior turbinate hypertrophy, right and left Surgery/Procedure Performed:: 1. open septorhinoplasty with anterior septal reconstruction. 2. correction internal nasal valve stenosis, right and left. 3. submucous resection inferior turbinates, right and left Type of Anesthesia:: General Description of Procedure: on the day of the procedure, after appropriate informed consent was obtained, the patient was brought to the operating room and placed in supine position on the operating table. he was placed under general endotracheal anesthesia by the anesthesiologist; the endotracheal tube was secured, the eyes were taped. the table was rotated 90 degrees toward the surgeon. the nose was injected with lidocaine/epinephrine and decongested with oxymetazoline soaked pledgets. the face was prepped and draped in sterile fashion. an inverted v columellar incision was made with a confederated goshute blade. this traversed to marginal incisions on the left then right using three point retraction and an iris scissor. the lower lateral cartilages were skeletonized with an iris scissor. the medial crura were lateralized and the anterior septal angle was located. the bovie was used to expose the anterior septum which was severely deviated in a C-shaped deformity with the tip to the left. a submucoperichondrial plane was developed on the left then the right with a jose elevator. this was taken posteriorly to the bony/cartilaginous junction and inferiorly to the maxillary crest. the upper lateral cartilages were skeletonized and then disarticulated from the septum with a #15 blade. a 1cm area of cartilaginous septum was preserved off of the keystone area and the remainder of the septum was removed with a D knife and jose elevator. a large left-sided septal spur was removed with a jose elevator as well. the septum was saved for future use. a jennifer mata was used to remove deviated portions of the perpendicular plate of the ethmoid and vomer. the head of the right and left inferior turbinates were injected with lidocaine/epinephrine. the head of the left inferior turbinate was incised with a #15 blade, reduced using suction cautery and outfractured using a boies elevator. the head of the right inferior turbinate was incised with a #15 blade, reduced using suction cautery and outfractured using a boies elevator. the harvested septal cartilage was reshaped to perform an anterior septal reconstruction. due to its fragmentation, it was sutured in multiple places to a PDS plate. the graft was placed as a right internal blacktop spreader graft and sutured between the septum and right upper lateral cartilage as well as to the maxillary crest with a 4-0 PDS. a 1cm x 2mm internal blacktop spreader graft was placed on the right with 4-0 PDS. the septal flaps were reapproximated with numerous 4-0 chromic quilting sutures, several incorporating the anterior septal reconstruction. the inverted V columellar incision was closed with 7-0 vicryl. the marginal incisions were closed with 4-0 chromic. the latera implant was loaded into the trocar. the right ala was everted using a double pronged skin hook and the vestibular skin was entered. the trocar was taken deep to the skin and soft tissue envelope lateral to the nasal bones. the implant was deployed and the trocar removed. the latera implant was loaded into the trocar. the left ala was everted using a double pronged skin hook and the vestibular skin was entered. the trocar was taken deep to the skin and soft tissue envelope lateral to the nasal bones. the implant was deployed and the trocar removed. a dorsal nasal splint and peña splints were placed. the patient was rotated 90 degrees toward the anesthesiologist and extubated uneventfully. the patient was transferred to the PACU in stable condition. - Admit VTE Documentation VTE Mechan Device Prophylaxis: SCD's
--- NOTE | 2018-08-08 14:15 | OP.PCM_ITS ---
Problem List (1) Nasal congestion Status: Chronic (2) Nasal turbinate hypertrophy Status: Chronic (3) Nasal valve collapse Status: Chronic Report of Operation Date of Procedure: 08/08/18 Pre-Operative Diagnosis: 1. nasal congestion. 2. nasal septal deviation. 3. internal nasal valve collapse, right and left. 4. inferior turbinate hypertrophy, right and left Post-Operative Diagnosis: 1. nasal congestion. 2. nasal septal deviation. 3. internal nasal valve collapse, right and left. 4. inferior turbinate hypertrophy, right and left Surgery/Procedure Performed:: 1. open septorhinoplasty with anterior septal reconstruction. 2. correction internal nasal valve stenosis, right and left. 3. submucous resection inferior turbinates, right and left Type of Anesthesia:: General Description of Procedure: on the day of the procedure, after appropriate informed consent was obtained, the patient was brought to the operating room and placed in supine position on the operating table. he was placed under general endotracheal anesthesia by the anesthesiologist; the endotracheal tube was secured, the eyes were taped. the table was rotated 90 degrees toward the surgeon. the nose was injected with lidocaine/epinephrine and decongested with oxymetazoline soaked pledgets. the face was prepped and draped in sterile fashion. an inverted v columellar incision was made with a qawalangin blade. this traversed to marginal incisions on the left then right using three point retraction and an iris scissor. the lower lateral cartilages were skeletonized with an iris scissor. the medial crura were lateralized and the anterior septal angle was located. the bovie was used to expose the anterior septum which was severely deviated in a C-shaped deformity with the tip to the left. a submucoperichondrial plane was developed on the left then the right with a jose elevator. this was taken posteriorly to the bony/cartilaginous junction and inferiorly to the maxillary crest. the upper lateral cartilages were skeletonized and then disarticulated from the septum with a #15 blade. a 1cm area of cartilaginous septum was preserved off of the keystone area and the remainder of the septum was removed with a D knife and jose elevator. a large left-sided septal spur was removed with a jose elevator as well. the septum was saved for future use. a jennifer mata was used to remove deviated portions of the perpendicular plate of the ethmoid and vomer. the head of the right and left inferior turbinates were injected with lidocaine/epinephrine. the head of the left inferior turbinate was incised with a #15 blade, reduced using suction cautery and outfractured using a boies elevator. the head of the right inferior turbinate was incised with a #15 blade, reduced using suction cautery and outfractured using a boies elevator. the harvested septal cartilage was reshaped to perform an anterior septal reconstruction. due to its fragmentation, it was sutured in multiple places to a PDS plate. the graft was placed as a right internal farm management agent graft and sutu red between the septum and right upper lateral cartilage as well as to the maxillary crest with a 4-0 PDS. a 1cm x 2mm internal farm management agent graft was placed on the right with 4-0 PDS. the septal flaps were reapproximated with numerous 4-0 chromic quilting sutures, several incorporating the anterior septal reconstruction. the inverted V columellar incision was closed with 7-0 vicryl. the marginal incisions were closed with 4-0 chromic. the latera implant was loaded into the trocar. the right ala was everted using a double pronged skin hook and the vestibular skin was entered. the trocar was taken deep to the skin and soft tissue envelope lateral to the nasal bones. the implant was deployed and the trocar removed. the latera implant was loaded into the trocar. the left ala was everted using a double pronged skin hook and the vestibular skin was entered. the trocar was taken deep to the skin and soft tissue envelope lateral to the nasal bones. the implant was deployed and the trocar removed. a dorsal nasal splint and peña splints were placed. the patient was rotated 90 degrees toward the anesthesiologist and extubated uneventfully. the patient was transferred to the PACU in stable condition. - Admit VTE Documentation VTE Mechan Device Prophylaxis: SCD's
[2018-08-08] MEDS: Oxymetazoline 0.05% 1 SPRAY SPRAY.BTL 15 SPRAY (14:30)
[2018-08-08] MEDS: Mupirocin Ointment 22gm Tube 1 APPLIC (14:30)
== END 2018-08-08 18:20 | disposition home or self-care (01) ==
LOC: SDC 12:03 → AC 12:04
PROVIDERS: Family Provider Family Medicine; PCP Family Medicine; Referring Provider Otolaryngology; Visit Provider Otolaryngology
PROC: (CPT C9749; principal; 2018-08-08 13:15)
DX: J34.2 Deviated nasal septum (principal); J34.3 Hypertrophy of nasal turbinates; M95.0 Acquired deformity of nose; D89.89 Other specified disorders involving the immune mechanism, not elsewhere classified; C85.90 Non-Hodgkin lymphoma, unspecified, unspecified site; F17.290 Nicotine dependence, other tobacco product, uncomplicated; K21.9 Gastro-esophageal reflux disease without esophagitis; Z90.2 Acquired absence of lung [part of]; Z99.81 Dependence on supplemental oxygen; Z79.899 Other long term (current) drug therapy
CPT/HCPCS: 00160; 30140; 30420; C9749; 80048; 85027; 93005; J7120; J2405; J3490

== ENCOUNTER → 2018-08-14 12:45 | Outpatient (CLI) | payer MEDICARE, SELFPAY ==
[2018-08-08 12:28] VITALS: BMI 22.4
[2018-08-14 13:43] VITALS: PULSE 100; PULSE 103; PULSE 104; PULSE 107; PULSE 109; PULSE 88; PULSE 89; O2SAT 87; O2SAT 88; O2SAT 89; O2SAT 91; O2SAT 93; O2SAT 96
[2018-08-14 14:10] LABS: Allen Test POS; Base Excess 4 mmol/L (-2 to +2); Blood Gas Specimen Type ART; O2 Delivery Device Room Air; PO2 53 mmHG (75-100); SITE R Radial; SO2 84 % (95-99); Time Given 1350; Total Carbon Dioxide 32 mmol/L; pCO2 55.6 mmHg (35-45); pH 7.34 (7.35-7.45)
--- NOTE | 2018-08-16 15:10 | PCM.PSN.6M ---
PSN 6 Minute Walk Test - 6 Minute Walk Test 6 Minute Walk Test: 6 Minute Walk Test PSN:6-Minute Walk Test Start: 08/14/18 13:42 Freq: Status: Active Protocol: RESP.6MINW Document 08/14/18 13:43 GISSELLE (Rec: 08/14/18 13:45 ANKITAENTON [id number]) 6 Minute Walk Test Date Performed 08/14/18 Time Performed 13:00 Height 5 ft 10 in Weight: 157 lb Weight in Pounds 157.[address]: Ruy Regan Assistive device used: None Pre-test Oxygen Flow Rate (L/min) (L/min) 2 Oxygen Delivery Method Nasal Cannula Pulse Ox (%) 93 Pulse Rate (60-100 beats/min) 88 Dyspnea Addison Scale (0-10) 0 Exertion Addison Scale (6-20) 6 1st minute Oxygen Flow Rate (L/min) (L/min) 2 Oxygen Delivery Method Nasal Cannula Pulse Ox (%) 87 Pulse Rate (60-100 beats/min) 100 2nd minute Oxygen Flow Rate (L/min) (L/min) 3 Oxygen Delivery Method Nasal Cannula Pulse Ox (%) 88 Pulse Rate (60-100 beats/min) 103 H 3rd minute Oxygen Flow Rate (L/min) (L/min) 4 Oxygen Delivery Method Nasal Cannula Pulse Ox (%) 91 Pulse Rate (60-100 beats/min) 104 H 4th minute Oxygen Flow Rate (L/min) (L/min) 4 Oxygen Delivery Method Nasal Cannula Pulse Ox (%) 88 Pulse Rate (60-100 beats/min) 107 H 5th minute Oxygen Flow Rate (L/min) (L/min) 6 Oxygen Delivery Method Nasal Cannula Pulse Ox (%) 89 Pulse Rate (60-100 beats/min) 109 H 6th minute Oxygen Flow Rate (L/min) (L/min) 6 Oxygen Delivery Method Nasal Cannula Pulse Ox (%) 89 Pulse Rate (60-100 beats/min) 109 H Dyspnea Addison Scale (0-10) 3 Exertion Addison Scale (6-20) 11 Post-test Oxygen Flow Rate (L/min) (L/min) 6 Oxygen Delivery Method Nasal Cannula Pulse Ox (%) 96 Pulse Rate (60-100 beats/min) 89 Full Laps Walked 19 Partial Lap, Number of Tiles Walked 20 Total Distance Walked (ft) 1141 - Interpretation Interpretation: The patient ambulated 1141 feet over the course of 6 minutes beginning on room air without assistive devices or breaks. Pretesting oxygen saturation was noted to be 86% on room air. 2 L of supplemental oxygen was applied prior to the beginning of the test. However, throughout the test, the patient desaturated multiple times requiring an escalation in his supplemental oxygen flow rate to 6 L/min. There was evidence of both resting and exertional oxygen desaturations. - Recommendations Recommendations: 2 L/min of supplemental oxygen should be utilized at rest and 6 L/min should be utilized with exertion.
== END ==
PROVIDERS: Family Provider Family Medicine; PCP Family Medicine; Referring Provider Nurse Practitioner Acute Care; Visit Provider Nurse Practitioner Acute Care
DX: J96.11 Chronic respiratory failure with hypoxia (principal)
CPT/HCPCS: 36600; 82803; 94618

== ENCOUNTER → 2018-11-06 12:30 | Outpatient (CLI) | payer MEDICARE, SELFPAY ==
[2018-08-24 14:40] VITALS: BMI 22.4
[2018-11-06 13:57] LABS: Absolute Lymphocyte Count 1.53 X10^3/ul (0.83-4.51); Basophil# 0.04 X10^3/uL; Basophil% 0.4 % (0-1); Eosinophil# 0.03 X10^3/uL; Eosinophils% 0.3 % (0-5); Hematocrit 54.6 % (40-54); Hemoglobin 17.8 g/dl (13.0-16.5); Lymphocyte # 1.53 X10^3/ul (4.0); Lymphocyte % 16.1 % (19-41); Mean Corp Hgb Conc 32.6 g/gl (32-36); Mean Corpuscular Hgb 33.6 pg (27.0-32.0); Mean Corpuscular Volume 103.2 fL (80-94); Mean Platelet Vol. 10.3 fl (6.2-12.0); Monocyte# 0.89 X10^3/uL; Monocyte% 9.4 % (0-10); Neutrophil # 7.01 X10^3/uL (2.7-7.7); Neutrophil % 73.7 % (47-70); Platelet Count 238 K/mm3 (150-450); RBC Distribution Width CV 15.8 % (11.6-14.6); RBC Distribution Width SD 60.3 fl (35.1-43.9); Red Blood Count 5.29 M/mm3 (4.6-6.2); White Blood Count 9.5 K/mm3 (4.4-11.0)
[2018-11-06 14:02] LABS: POSITIVE COUNT NO; POSITIVE DIFFERENTIAL NO; POSITIVE MORPHOLOGY NO
[2018-11-06 14:24] LABS: ALB/GLOB Ratio 0.9 RATIO (0.9-2.4); AST(SGOT) 38 U/L (15-37); Alanine Aminotransfer ALT/SGPT 67 U/L (16-61); Albumin, Serum 3.9 g/dL (3.2-5.0); Alkaline Phosphatase 89 U/L (45-117); Anion Gap 10 (5-15); BUN 14 mg/dL (7-18); BUN/Creat Ratio 19.6 RATIO (10-20); Chloride 102 mmol/L (98-107); Creatinine, Serum 0.71 mg/dL (0.70-1.30); EST Glomerular Filtration Rate 120 mL/min (>60); Est Glom Filt Rate - Afr Amer 145 mL/min (>60); Globulin 4.3 g/dL (2.2-4.2); Glucose 101 mg/dL (74-106); Potassium 4.2 mmol/L (3.5-5.1); Protein, Total 8.2 g/dL (6.4-8.2); Sodium Level 141 mmol/L (136-145)
== END ==
PROVIDERS: Family Provider Family Medicine; PCP Family Medicine; Referring Provider Family Medicine; Visit Provider Family Medicine
DX: R53.81 Other malaise (principal); R53.83 Other fatigue
CPT/HCPCS: 36415; 80053; 84403; 84443; 85025

== ENCOUNTER → 2018-12-22 13:26 | Outpatient (CLI) | payer MEDICARE, SELFPAY ==
[2018-12-13 10:21] VITALS: BMI 22.4
[2018-12-22 14:10] LABS: Absolute Lymphocyte Count 1.54 X10^3/ul (0.83-4.51); Absolute Neutrophil Count 6.6 X10^3/uL (2.0-7.7); Basophil# 0.02 X10^3/uL; Basophil% 0.2 % (0-1); Eosinophil# 0.06 X10^3/uL; Eosinophils% 0.7 % (0-5); Hemoglobin 16.4 g/dl (13.0-16.5); Lymphocyte # 1.54 X10^3/ul (4.0); Lymphocyte % 17.2 % (19-41); Mean Corp Hgb Conc 34.2 g/gl (32-36); Mean Corpuscular Hgb 35.1 pg (27.0-32.0); Mean Corpuscular Volume 102.8 fL (80-94); Mean Platelet Vol. 10.1 fl (6.2-12.0); Monocyte# 0.69 X10^3/uL; Monocyte% 7.7 % (0-10); Neutrophil # 6.61 X10^3/uL (2.7-7.7); Neutrophil % 74.1 % (47-70); Platelet Count 241 K/mm3 (150-450); RBC Distribution Width CV 14.3 % (11.6-14.6); RBC Distribution Width SD 53.4 fl (35.1-43.9); Red Blood Count 4.67 M/mm3 (4.6-6.2); White Blood Count 8.9 K/mm3 (4.4-11.0)
[2018-12-22 14:12] LABS: POSITIVE COUNT NO; POSITIVE DIFFERENTIAL NO; POSITIVE MORPHOLOGY NO
== END ==
PROVIDERS: Family Provider Family Medicine; PCP Family Medicine; Referring Provider Family Medicine; Visit Provider Family Medicine
DX: E29.1 Testicular hypofunction (principal); R53.81 Other malaise
CPT/HCPCS: 36415; 84403; 85025

== ENCOUNTER → 2019-01-24 13:48 | Outpatient (CLI) | payer MEDICARE, SELFPAY ==
[2018-12-13 10:21] VITALS: BMI 22.4
--- NOTE | 2019-01-24 13:54 | RAD_ITS ---
STUDY: X-RAY - THORACIC SPINE REASON FOR EXAM: Male, 58 years old. Back pain. TECHNIQUE: 3 view(s) of the thoracic spine were obtained. COMPARISON: None. FINDINGS: Normal kyphosis of the thoracic spine. There is no substantial scoliosis. There is multilevel endplate spondylosis of the thoracic vertebrae. Normal disc space heights. The soft tissue structures are unremarkable. RAD/Thoracic Spine 3 Views IMPRESSION: Spondylosis in the lower dorsal spine. Electronically Signed: Ash Montaño, at 15:32 EDT , Service support ,
== END ==
LOC: MTLAB 13:50 → MTRAD 13:51
PROVIDERS: Family Provider Family Medicine; PCP Family Medicine; Referring Provider Family Medicine; Visit Provider Family Medicine
DX: M81.0 Age-related osteoporosis without current pathological fracture (principal)
CPT/HCPCS: 72072

== ENCOUNTER → 2019-01-26 16:47 | Outpatient (CLI) | payer MEDICARE, SELFPAY ==
[2018-12-13 10:21] VITALS: BMI 22.4
--- NOTE | 2019-01-26 16:50 | RAD_ITS ---
HISTORY:CHRONIC LBP, NKI CHRONIC LBP, NKI EXAMINATION/TECHNIQUE: XR Spine Lumbar Min 4 Views: COMPARISON: None FINDINGS: VERTEBRAE: Preserved vertebral body height. No fracture. No spondylolisthesis. Degenerative changes of the posterior elements. Preservation of the normal lumbar lordosis. DISCS: Degenerative changes are noted. Decreased disc space at L1-2, L4-5 with anterior osteophytes INCLUDED ABDOMEN: Included bowel gas pattern is non-obstructive. RAD/L/S Spine Min 4 Views IMPRESSION: Degenerative changes. No acute fracture or spondylolisthesis. at 2228 Reported and signed by: Tasneem Vazquez DO Electronically Signed: Tasneem Vazquez DO at 22:26 EDT Tel , Service support ,
== END ==
PROVIDERS: Family Provider Family Medicine; PCP Family Medicine; Referring Provider Family Medicine; Visit Provider Family Medicine
DX: M54.9 Dorsalgia, unspecified (principal)
CPT/HCPCS: 72110

== ENCOUNTER 2019-03-06 12:52 | Outpatient (RCR) | payer MEDICARE, SELFPAY ==
[2018-12-13 10:21] VITALS: BMI 22.4
--- NOTE | 2019-03-06 14:01 | HP.PTEVAL_ITS ---
Patient's Visit Information AKSHAT LUCERO is a 58 year old M referred to Physical Therapy by Lolly Meyer MD with a diagnosis of CHRONIC BACK PAIN. Date of Evaluation: 03/06/19 Physical Therapist: Jimbo Garza, PT, Cert MDT, OCS - Visit Plan Frequency: 1 VISIT Plan: PT EVALUATION ONLY FOR HEP - Subjective Findings: This 58 y/o male presents to physical therapy with chronic low back pain for many years. Patient has had left lumbar pain which became progessivly worse . Patient seen chiropractor which helped some. Patient has comorbities with non hodkins lympoma , auto-immnune ,osteoporosis ,graft verses host diseaae(GVHD) causes other medical condtion fascai,vision,hearing,nerves Patient had h/o doner blood. Patient condition causes muscle spasms,cramping,dry eyes. Aggravating factors worse in morning ,walking,standing . Alleviating factors dilodid ,sitting. Denies parathesia/tingling. Bowel/bladder-.Coughing/sneezing-. Sleeping okay from pain. Patient condition of back pain affects ability to perform ADL'S and housework chores. Patient condition affects QOL and function. SOCAIL: . VOCATION: disablity - Pain Left Back Pain Intensity (Out of 10): 2 Pain Intensity Range: 10 Comment: 7/10 in morning - Objective POSTURE : mild foward posture. GAIT: ambulates with reciprocal patterm. NEURO: denies parathesia/tingling,reflexes L3-4,L4-5,L5-S1. MMT: quads/hams/hip 4- /5,ankl e4/5. FLEXABILITY: hams severe tight. LUMBAR ROM: flexion mod loss ,extension mod loss,side glides mod loss - Special Tests L/S Slump test left side: Negative L/S Slump test right side: Negative L/S Left Straight Leg Raise: Negative L/S Right Straight Leg Raise: Negative - Goals Goal 1:: Independant with HEP. Goal Time Frame: 1visits Goal 2:: Provide exercises for prophalaxis and strengthening Goal Time Frame: 1 visits - Rehabilitation Potential Physical Therapy Diagnosis: This patient has chronic back pain with poor ROM ,strength ,poor endurance along with comorbities affects QOL and function. Rehabilitation Potential: Good - Anticipated Interventions Patient/Client Instruction: Educate patient on: Condition, Plan of Care For the Purpose of:: To decrease pain, To increase ROM, To improve muscle performance and motor function, To improve ability to perform ADL's, To increase tolerance to activity/condition/position, To improve performance and independence with ADL's, To decrease level of supervision to perform tasks, To improve health of tissue, To decrease soft tissue restriction, To increase flexibility/ROM, To reduce risk of recurrence Therapeutic Exercise to Include: Strength training, Postural training, Flexibilty training, Dynamic Lumbar Stabilization For the Purpose of:: To decrease pain, To improve muscle performance and motor function, To improve ability to perform ADL's, To improve ability of physical actions for home/community/work/leisure, To improve health of tissue, To decrease soft tissue restriction, To improve health and function, To improve ability to perform tasks related to life management Thank you for the opportunity to evaluate your patient. For Medicare and Medicare HMO plans, please review the plan of care and approve it. It will need to be FAXED BACK to us at [phone] for Medicare purposes. For Medicare only, by signing this I certify the plan of care. Please let me know if there are questions or concerns regarding this plan of care. Physician Signature: Date:
== END 2019-03-06 19:00 | disposition home or self-care (01) ==
LOC: PT 12:52
PROVIDERS: Family Provider Family Medicine; PCP Family Medicine; Referring Provider Family Medicine; Visit Provider Family Medicine
DX: M54.9 Dorsalgia, unspecified (principal); G89.29 Other chronic pain
CPT/HCPCS: 97110; 97162

== ENCOUNTER → 2019-03-29 14:18 | Outpatient (CLI) | payer MEDICARE, SELFPAY ==
[2018-12-13 10:21] VITALS: BMI 22.4
--- NOTE | 2019-03-29 14:23 | CT_ITS ---
STUDY: CT MAXILLOFACIAL SINUSES REASON FOR EXAM: Male, 58 years old. Sinus RADIATION DOSAGE (If Supplied By Facility): CTDIvol = ( 33.45 ) mGy, DLP = ( 855.81 ) mGycm TECHNIQUE: The patient was scanned in a multi detector CT scanner. High resolution axial imaging was performed without the administration of intravenous contrast material. Sagittal and coronal images were reconstructed. Individualized dose optimization techniques were used for this CT. COMPARISON: None. FINDINGS: FRONTAL SINUSES: Normal aeration, without mucosal inflammatory disease. ETHMOIDAL SINUSES: Normal aeration, without mucosal inflammatory disease. MAXILLARY SINUSES: Normal aeration, without mucosal inflammatory disease. SPHENOIDAL SINUSES: Normal aeration, without mucosal inflammatory disease. There is patency of the bilateral maxillary infundibuli with normal uncinate processes, ethmoid bullae, and hiatus semilunaris. Normal bilateral middle turbinates. Normal bilateral inferior turbinates. Normal midline nasal septum. There is patency of the bilateral nasal airways. The visualized osseous structures are normal. The visualized bilateral orbital contents are normal. CT/Sinus/Facial Bone IMPRESSION: Normal CT examination of the maxillofacial sinuses. Electronically Signed: Clemente Huerta, at 15:44 EDT Tel , Service support ,
== END ==
PROVIDERS: Family Provider Family Medicine; PCP Family Medicine; Referring Provider Otolaryngology; Visit Provider Otolaryngology
DX: J32.9 Chronic sinusitis, unspecified (principal)
CPT/HCPCS: 70486

== ENCOUNTER 2019-04-24 07:55 | Emergency (ER) | payer MEDICARE, SELFPAY ==
[2018-12-13 10:21] VITALS: BMI 22.4
[2019-04-24 07:56] VITALS: BP 125/74; PULSE 102; RESP 16; TEMP 36.9; O2SAT 90; BMI 22.2
--- NOTE | 2019-04-24 08:13 | ED.VIS.GEN ---
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 He states he stretches daily because of his scleroderma. He localizes the pain to the left AC, proximal humerus and shoulder region. He denies paresthesia, anesthesia or motor weakness. He is short of breath. He is normally on oxygen at home. He has stage III COPD. He denies cardiac symptoms. He denies fever, chills or night sweats. He denies history of gout or pseudogout. He denies history of infected joint. Prior similar symptoms: No Recent Illness/Hospitalization: No - Past Medical History (1) JUAN ALBERTO (obstructive sleep apnea) Status: Acute Comment: BiPAP 13/07 (2) Avoal-uiymxu-fnpl disease Status: Chronic (3) History of immunosuppression therapy Status: Chronic (4) Non-Hodgkin lymphoma Status: Chronic Past Medical History - Allergies and Home Meds Allergies/Adverse Reactions: Allergies No Known Allergies Allergy (Unverified 12/13/18 09:11) Primary Care Physician: Lolly Meyer MD [Primary Care Provider] - Prior records reviewed: Yes - Daily hydrocortisone use Surgical History: bone marrow transplant Lives: Spouse/ Significant Other Smoking Status: Current some day smoker Alcohol: Rare Drugs: None Review of Systems General: Denies: Chills, Fever, Malaise, Subjective, Sweats, Weight loss, - Eyes: Denies: Visual changes - bilaterally, Blurred Vision - bilaterally ENT: Reports: - - Lateral jaw spasm, which patient and informed me is secondary to 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 Denies: Cough, Orthopnea Gastrointestinal: Denies: Abdominal pain, Nausea, Vomiting, Diarrhea, Melena, Hematochezia Genitourinary: Denies: Dysuria, Hematuria, Frequency Musculoskeletal: Reports: Myalgias, Extremity Pain. Denies: Neck pain, Back pain, Swelling Skin: Reports: Rash - In [place] to scleroderma Neurological: Denies: Weakness, Parasthesia, Numbness Hematologic: Denies: Easy bruising, Easy bleeding Allergy: Denies: Uticaria, Swelling of the mouth Physical Exam Vital Signs/Narrative: Vital Signs Temp Pulse Resp BP Pulse Ox 04/24/19 07:56 98.5 F 102 H 16 125/74 H 90 Inital Vital Signs reviewed: Yes General: Well nourished, Well developed, Acute Distress Head: Normocephalic, Atraumatic Eyes: Perrl, EOMI. Negative for: Pale conjunctiva, Scleral icterus, - ENT: Moist mucous membranes, No rhinorrhea Neck: Supple, Nontender, No JVD Cardiovascular: Regular rate, Regular rhythm, No murmurs, Normal S1, Normal S2 Respiratory: No distress, CTA bilaterally, Chest nontender Extremities: Nontender, No edema, - - Passive range of motion causes patient exquisite pain. There is no pain the patient of the clavicle or AC joint. There is no fullness or bogginess to the left shoulder joint. Axillary, median, radial and ulnar function intact. Radial pulses palpable and 2+. There is limited extension and flexion at the elbow. There is atrophy of his left upper extremity. Skin: No Trauma, Rash - Dermatologic changes with discoloration secondary to scleroderma. Negative for: Cyanosis, Diaphoresis, Jaundice Neurological: Alert, Oriented x3, Cranial nerves II-XII grossly intact, Normal Strength, Normal Sensation Psychological: Normal affect Diagnostic/Tx/Re-eval Chest X-Ray - ED: 2 View Three-view x-ray of the shoulder reveals no acute changes. There is no widening of the joint space. There is no abnormality of the clavicle or AC joint. The ribs that are seen revealed no acute process. No obvious infiltrate or pneumothorax noted. - Medical Decision Making Frontal diagnosis includes crystal induced arthritis, degenerative arthritis, pyogenic arthritis. Work-up included an x-ray, CBC, conference of metabolic panel, ESR and CRP. This may also represent his graft versus host disease. Patient reports improvement after 1 mg of Dilaudid. His ESR is normal. Based on onset of symptoms one would expect ESR to be elevated at this point in time. CRP is elevated. Uncertain whether this is secondary to the host graft reaction versus scleroderma versus other causes. Patient has atrophy of the left upper extremity with limited range of motion prior to today's presentation. He states he is never been seen by an orthopedic surgeon. Plan is to minimize pain so it is tolerable. He was ordered an additional dose of Dilaudid and received 50 mg of Toradol IV push and 5 mg of Valium p.o. Will reassess in 30 to 60 minutes. Performed at 1105 patient states his pain is much better and would like to go home. He was referred to orthopedics. ED Disposition - Plan for ED Patient: Disposition: Home or Assisted Living Diagnosis: Pain of left shoulder joint on movement Instructions: SHOULDER PAIN (Uncertain Cause) Referrals: Lolly Meyer MD [Primary Care Provider] - As Needed Mack Ross DO [STAFF PHYSICIAN] - 3-5 Days
[2019-04-24] MEDS: HYDROmorphone 1 MG/ML Syringe IV ×2 (08:41→10:38)
--- NOTE | 2019-04-24 08:45 | RAD_ITS ---
STUDY: X-RAY - LEFT SHOULDER REASON FOR EXAM: Male, 58 years old. Atraumatic left shoulder pain. TECHNIQUE: 3 view(s) of the shoulder. COMPARISON: None. FINDINGS: Normal glenohumeral articulation. Normal acromioclavicular joint. Normal acromion. Heterogeneous appearance of the proximal shaft of the left humerus. The soft tissue structures are unremarkable. Surgical sutures overlying the right lung base. Increased markings at the left lung base. RAD/Shoulder min 2 Views IMPRESSION: No fracture or dislocation. Heterogeneous appearance of the proximal shaft of the humerus. Dedicated imaging of the left humerus is recommended. Electronically Signed: Ash Montaño, at 9:12 EDT , Service support ,
[2019-04-24 08:54] LABS: Erythrocyte Sedimentation Rate 10 mm/hr (0-20)
[2019-04-24 08:55] LABS: Absolute Lymphocyte Count 0.92 X10^3/uL (0.83-4.51); Absolute Neutrophil Count 10.3 X10^3/uL (2.0-7.7); Basophil# 0.03 X10^3/uL; Basophil% 0.2 % (0-1); Eosinophils% 1.5 % (0-5); Hematocrit 50.4 % (40-54); Hemoglobin 16.9 g/dL (13.0-16.5); Lymphocyte # 0.92 X10^3/ul (4.0); Mean Corp Hgb Conc 33.5 g/dL (32-36); Mean Corpuscular Hgb 34.4 pg (27.0-32.0); Mean Corpuscular Volume 102.6 fL (80-94); Mean Platelet Vol. 9.6 fl (6.2-12.0); Monocyte# 1.72 X10^3/uL; NRBC Flagged by Analyzer 0 % (0-5); Neutrophil # 10.29 X10^3/uL (2.7-7.7); POSITIVE DIFFERENTIAL YES; Platelet Count 181 K/mm3 (150-450); RBC Distribution Width CV 15.1 % (11.6-14.6); RBC Distribution Width SD 58.1 fl (35.1-43.9); Red Blood Count 4.91 M/mm3 (4.6-6.2); White Blood Count 13.2 K/mm3 (4.4-11.0)
[2019-04-24 09:00] LABS: Differential Indicated SCAN CRITERIA MET
[2019-04-24 09:07] LABS: ALB/GLOB Ratio 0.9 RATIO (0.9-2.4); AST(SGOT) 29 U/L (15-37); Alanine Aminotransfer ALT/SGPT 45 U/L (16-61); Albumin, Serum 3.3 g/dL (3.2-5.0); Alkaline Phosphatase 77 U/L (45-117); Anion Gap 6 (5-15); BUN 13 mg/dL (7-18); Calcium,Total 8.5 mg/dL (8.5-10.1); Chloride 105 mmol/L (98-107); Creatinine, Serum 0.69 mg/dL (0.70-1.30); EST Glomerular Filtration Rate 125 mL/min (>60); Est Glom Filt Rate - Afr Amer 152 mL/min (>60); Estimated Creatinine Clearance 114.63 ml/min; Globulin 3.5 g/dL (2.2-4.2); Glucose 103 mg/dL (74-106); Potassium 3.5 mmol/L (3.5-5.1); Protein, Total 6.8 g/dL (6.4-8.2); Sodium Level 142 mmol/L (136-145)
[2019-04-24] MEDS: Ketorolac 15 MG/ML Vial IV (10:38)
[2019-04-24] MEDS: diazePAM 5 MG Tablet PO (10:38)
[2019-04-24 11:31] VITALS: BP 132/69; PULSE 75; RESP 16; O2SAT 98
[2019-04-26 08:25] LABS: Pathologist Review Reviewed
== END 2019-04-24 11:33 | disposition home or self-care (01) ==
PROVIDERS: Emergency Provider Emergency Medicine; Family Provider Family Medicine; PCP Family Medicine
DX: M25.512 Pain in left shoulder (principal); J44.9 Chronic obstructive pulmonary disease, unspecified; M34.9 Systemic sclerosis, unspecified; G47.33 Obstructive sleep apnea (adult) (pediatric); D89.811 Chronic graft-versus-host disease; Z85.72 Personal history of non-Hodgkin lymphomas; Z99.81 Dependence on supplemental oxygen; Z79.899 Other long term (current) drug therapy; Z87.891 Personal history of nicotine dependence
CPT/HCPCS: 73030; 80053; 85025; 85652; 86140; 96374; 96375; 96376; 99284; A4216

== ENCOUNTER 2019-04-27 15:25 | Inpatient (IN) | payer MEDICARE, SELFPAY ==
[2019-04-27] VITALS (12 sets, daily range): BP systolic 159–195; BP diastolic 90–120; PULSE 101–129; RESP 20–31; TEMP 36.8–39.1; O2SAT 89–96; BMI 22.9; BMI 23.0; BMI 22.7
--- NOTE | 2019-04-27 15:56 | EKG12_ITS ---
Test Reason : FEVER Blood Pressure : / mmHG Vent. Rate : 126 BPM Atrial Rate : 126 BPM P-R Int : 142 ms QRS Dur : 108 ms QT Int : 302 ms P-R-T Axes : 051 092 -01 degrees QTc Int : 437 ms Sinus tachycardia Possible Left atrial enlargement Rightward axis Inferior infarct , age undetermined , cannot be excluded Poor R-wave progression Abnormal ECG When compared with ECG of 27-JUL-2018 14:43, Inferior infarct is now Present T wave inversion now evident in Inferior leads Confirmed by LAZARUS SALINAS, YOUNG ([id number]), web content editor RUSS VERA ([id number]) on 05/01/2019 11:18:21 AM Referred By: GEOFF Confirmed By:YOUNG QIU MD
[2019-04-27] MEDS: Morphine 4 MG/ML Syringe IV (15:58)
[2019-04-27] MEDS: Ondansetron 4 MG/2 ML Vial IV (15:58)
--- NOTE | 2019-04-27 16:00 | RAD_ITS ---
STUDY: X-RAY CHEST REASON FOR EXAM: Male, 58 years old. Chest pain and left shoulder pain TECHNIQUE: AP portable COMPARISON: April 02, 2016 FINDINGS: There is mild pulmonary vascular congestion.. Blunted right costophrenic sulcus possibly due to pleural effusion. Heart is enlarged Normal mediastinum and april. Normal visualized pulmonary arteries. Tortuous visualized aortic arch and descending thoracic aorta. Dorsal spine demonstrates degenerative change. Normal visualized ribs, clavicles, and shoulders. Postsurgical changes at the level of the right diaphragm There is no demonstrated abnormality of the visualized soft tissue structures of the upper abdomen. RAD/Chest 1 View (Portable) IMPRESSION: Probable congestive failure. Clinical correlation recommended Electronically Signed: Yasmany Salomon MD at 16:17 EDT , Service support ,
--- NOTE | 2019-04-27 16:02 | ED.DCSUM_ITS ---
History of Present Illness Chief Complaint: Fever Informant: Patient, Family Onset: Today Narrative: Patient was seen here for acute onset left shoulder pain while stretching the skin on his chest which he does daily because of tight skin from scleroderma, 3 days ago. The pain has been getting worse, he was at the office to see orthopedics today, but had developed a high fever and so was sent to the ER. He denies any new symptoms. He has chronic dyspnea related to non-COPD chronic lung disease, states that is no worse. Denies any coughing. No dysuria, states he is actually urinating less than usual, but seems to be drinking fluids well but is extremely thirsty and mouth feels very dry. - Past Medical History (1) JUAN ALBERTO (obstructive sleep apnea) Status: Chronic Comment: BiPAP 13/07 (2) Rsmbl-bvjsag-adhp disease Status: Chronic (3) Non-Hodgkin lymphoma Status: Chronic Past Medical History - Allergies and Home Meds Allergies/Adverse Reactions: Allergies No Known Allergies Allergy (Unverified 12/13/18 09:11) Primary Care Physician: Lolly Meyer MD [Primary Care Provider] - Surgical History: bone marrow transplant Lives: Spouse/ Significant Other Smoking Status: Former smoker Drugs: None Review of Systems General: Reports: Chills, Fever, Malaise. Denies: Sweats Eyes: Denies: Visual changes - bilaterally, Diplopia ENT: Denies: Bilateral ear pain, Rhinorrhea, Sore throat Cardiovascular: Denies: Chest pain, Palpitations, Heart racing Respiratory: Reports: Dyspnea, Dyspnea on exertion. Denies: Cough, Sputum, Orthopnea Gastrointestinal: Denies: Abdominal pain, Nausea, Vomiting, Diarrhea, Melena, Hematochezia Genitourinary: Denies: Dysuria, Hematuria, Frequency Musculoskeletal: Reports: Extremity Pain - Left shoulder anteriorly and down into biceps, helped minimally by lidocaine patches on biceps. Denies: Neck pain, Back pain, Swelling Skin: Denies: Rash, Wounds Neurological: Denies: Headache, Weakness, Numbness Physical Exam Vital Signs/Narrative: Vital Signs Temp Pulse Resp BP Pulse Ox 04/27/19 15:56 124 H 24 H 96 04/27/19 15:26 102.3 F H 129 H 24 H 188/120 H 95 Inital Vital Signs reviewed: Yes General: Well nourished, Well developed, Acute Distress - Painful distress, with regards to left shoulder Head: Normocephalic, Atraumatic Eyes: Perrl, EOMI ENT: Moist mucous membranes, No rhinorrhea, TM's clear. Negative for: Nasal congestion, Sinus tenderness Neck: Supple, Nontender, No lymphadenopathy, No JVD Cardiovascular: Regular rate, Regular rhythm, No murmurs, Normal S1, Normal S2, Tachycardia Respiratory: No distress, Chest nontender, Rhonchi - Few high-pitched throughout all lung valentin Abdomen: Soft, Nontender, Nondistended, Normal bowel sounds Back: Nontender, Normal Inspection Extremities: No edema, Tenderness - Anterior left shoulder and biceps. Compartments swollen but soft. Able to move just a little in all directions with regards of the shoulder, but extremely painful, and very limited. Holding in position of comfort. Good range of all other joints.. Negative for: Calf Tenderness Skin: No rash, No Trauma, - - Hyperemic skin across chest, upper back, face, worse than usual according to ; otherwise, normal color Neurological: Alert, Oriented x3, Cranial nerves II-XII grossly intact, Normal Strength, Normal Sensation Psychological: Normal affect, Normal Mood Diagnostic/Tx/Re-eval Impressions Chest X-Ray 04/27/19 16:00 IMPRESSION: Probable congestive failure. Clinical correlation recommended Electronically Signed: Yasmany Salomon MD at 16:17 EDT , Service support , 04/27/19 16:00 Chest 1 View (Portable) [RAD] Stat Laboratory Results 04/27/19 04/27/19 04/27/19 15:45 15:45 15:45 WBC 12.8 H RBC 4.45 L Hgb 15.9 Hct 46.3 MCV 104.0 H MCH 35.7 H MCHC 34.3 RDW Std Deviation 58.8 H RDW Coeff of Elisa 15.2 H Plt Count 200 MPV 10.1 Immature Gran % (Auto) 0.400 Neut % (Auto) 76.1 H Lymph % (Auto) 9.5 L [place] % (Auto) 13.3 H Eos % (Auto) 0.5 Baso % (Auto) 0.2 Absolute Neuts (auto) 9.8 H Absolute Lymphs (auto) 1.22 Nucleated RBC % 0 Differential Comment SCANNED Diff Path Review May foll PT 14.8 INR 1.2 APTT 29.7 Sodium 138 Potassium 3.9 Chloride 102 Carbon Dioxide 32.0 Anion Gap 4 L BUN 16 Creatinine 0.63 L Estim Creat Clear Calc 129.60 Est GFR (MDRD) Af Amer 169 Est GFR (MDRD) Non-Af 139 BUN/Creatinine Ratio 25.6 H Glucose 121 H Lactic Acid Calcium 9.0 Total Bilirubin 0.60 AST 27 ALT 42 Alkaline Phosphatase 92 Troponin I 0.016 Total Protein 7.7 Albumin 2.9 L Globulin 4.8 H Albumin/Globulin Ratio 0.6 L Urine Color Urine Clarity Urine pH Ur Specific [place] Urine Protein Urine Glucose (UA) Urine Ketones Urine Occult Blood Urine Nitrite Urine Bilirubin Urine Urobilinogen Ur Leukocyte Esterase Urine RBC Urine WBC Ur Squamous Epith Cells Urine Bacteria Urine Mucus Fluid Crystals Fluid Crystal Source Fl Crystal Path Review Synovial Source Synovial Color Synovial Appearance Synovial Volume Synovial Viscosity Synovial WBC Synovial RBC Synovial Tot Cell Ct Synov Polynuclear WBCs Synov Mononuclear WBCs Synovial Neutrophils Synovial Lymphocytes Synovial Monocytes Synovial Plasma Cells Synovial Other Cells Synovial Polynuclear % Synovial Mononuclear % Synovial Path Comment 04/27/19 04/27/19 04/27/19 15:45 16:26 16:55 WBC RBC Hgb Hct MCV MCH MCHC RDW Std Deviation RDW Coeff of Elisa Plt Count MPV Immature Gran % (Auto) Neut % (Auto) Lymph % (Auto) [place] % (Auto) Eos % (Auto) Baso % (Auto) Absolute Neuts (auto) Absolute Lymphs (auto) Nucleated RBC % Differential Comment Diff Path Review PT INR APTT Sodium Potassium Chloride Carbon Dioxide Anion Gap BUN Creatinine Estim Creat Clear Calc Est GFR (MDRD) Af Amer Est GFR (MDRD) Non-Af BUN/Creatinine Ratio Glucose Lactic Acid 0.8 Calcium Total Bilirubin AST ALT Alkaline Phosphatase Troponin I Total Protein Albumin Globulin Albumin/Globulin Ratio Urine Color Yellow Urine Clarity Clear Urine pH 7.0 Ur Specific [place] 1.010 Urine Protein 30 H Urine Glucose (UA) Normal Urine Ketones Negative Urine Occult Blood Negative Urine Nitrite Negative Urine Bilirubin 3 H Urine Urobilinogen 1 H Ur Leukocyte Esterase 25 H Urine RBC 0 SEEN Urine WBC 0-5 SEEN Ur Squamous Epith Cells 0 SEEN Urine Bacteria 0 SEEN Urine Mucus 0 SEEN Fluid Crystals SEE PATH REV Fluid Crystal Source SYNOVIAL Fl Crystal Path Review Will follow Synovial Source Cancelled Synovial Color Cancelled Synovial Appearance Cancelled Synovial Volume Cancelled Synovial Viscosity Cancelled Synovial WBC Cancelled Synovial RBC Cancelled Synovial Tot Cell Ct Cancelled Synov Polynuclear WBCs Cancelled Synov Mononuclear WBCs Cancelled Synovial Neutrophils Cancelled Synovial Lymphocytes Cancelled Synovial Monocytes Cancelled Synovial Plasma Cells Cancelled Synovial Other Cells Cancelled Synovial Polynuclear % Cancelled Synovial Mononuclear % Cancelled Synovial Path Comment Cancelled - Rhythm Strip Rhythm Strip: Sinus Tach Rate: 125 Ectopy: None - EKG Initial EKG Interpretation: No Acute Injury Pattern, Sinus Tachycardia - Medical Decision Making On further history, the patient and were unsure that his stretching resulted in his left shoulder pain. It appears that the onset of pain was more gradual, although initially both of their history was consistent with it starting acutely from stretching. It seems they were making that assumption, but on further questioning they are not sure if that is actually the case or not. Therefore, given his high temperature and immunocompromise state, I recommended a left shoulder arthrocentesis prior to giving antibiotics. This was done as written consent was obtained after discussing pros and cons, only a small amount of fluid was able to be obtained and it was bloody. Therefore cell count was not able to be obtained, Gram stain is negative for organisms, culture of that and his blood and urine were sent, he is feeling much better after morphine followed by Dilaudid, and he was giving Tylenol for his temperature which was coming down and empiric cefepime after cultures were obtained. He still has a leukocytosis, a little less than it was 3 days ago. Plan is for admission with IV antibiotics until cultures return given his immunocompromise state and unknown source, with risk for bacteremia. ED Disposition - Plan for ED Patient: Disposition: Acute Care Hospital [facility] Diagnosis: SIRS (systemic inflammatory response syndrome), Immunocompromised state, Left shoulder pain Referrals: Lolly Meyer MD [Primary Care Provider] -
[2019-04-27] MEDS: Acetaminophen 500 MG Tablet 1000 MG PO (16:08)
[2019-04-27] MEDS: 0.9% Normal Saline 1,000 ML 250 ML IV (16:09)
[2019-04-27 16:13] LABS: Absolute Lymphocyte Count 1.22 X10^3/uL (0.83-4.51); Absolute Neutrophil Count 9.8 X10^3/uL (2.0-7.7); Basophil# 0.02 X10^3/uL; Basophil% 0.2 % (0-1); Eosinophil# 0.06 X10^3/uL; Eosinophils% 0.5 % (0-5); Hematocrit 46.3 % (40-54); Hemoglobin 15.9 g/dL (13.0-16.5); Lymphocyte # 1.22 X10^3/ul (4.0); Lymphocyte % 9.5 % (19-41); Mean Corp Hgb Conc 34.3 g/dL (32-36); Mean Corpuscular Hgb 35.7 pg (27.0-32.0); Mean Platelet Vol. 10.1 fl (6.2-12.0); Monocyte# 1.71 X10^3/uL; Monocyte% 13.3 % (0-10); NRBC Flagged by Analyzer 0 % (0-5); Neutrophil # 9.78 X10^3/uL (2.7-7.7); Neutrophil % 76.1 % (47-70); POSITIVE DIFFERENTIAL YES; Platelet Count 200 K/mm3 (150-450); RBC Distribution Width CV 15.2 % (11.6-14.6); RBC Distribution Width SD 58.8 fl (35.1-43.9); Red Blood Count 4.45 M/mm3 (4.6-6.2); White Blood Count 12.8 K/mm3 (4.4-11.0)
[2019-04-27] MEDS: HYDROmorphone 1 MG/ML Syringe IV ×3 (16:13→22:29)
[2019-04-27 16:15] LABS: International Normalized Ratio 1.2; Prothrombin Time (Protime)PT. 14.8 SECONDS (11.7-14.9)
[2019-04-27 16:16] LABS: Differential Indicated SCAN CRITERIA MET; Partial Thromboplast Time 29.7 Seconds (24.1-36.2)
[2019-04-27 16:18] LABS: Lactic Acid 0.8 mmol/L (0.4-2.0)
[2019-04-27 16:25] LABS: ALB/GLOB Ratio 0.6 RATIO (0.9-2.4); AST(SGOT) 27 U/L (15-37); Alanine Aminotransfer ALT/SGPT 42 U/L (16-61); Albumin, Serum 2.9 g/dL (3.2-5.0); Alkaline Phosphatase 92 U/L (45-117); Anion Gap 4 (5-15); BUN 16 mg/dL (7-18); BUN/Creat Ratio 25.6 RATIO (10-20); Chloride 102 mmol/L (98-107); Creatinine, Serum 0.63 mg/dL (0.70-1.30); EST Glomerular Filtration Rate 139 mL/min (>60); Est Glom Filt Rate - Afr Amer 169 mL/min (>60); Globulin 4.8 g/dL (2.2-4.2); Glucose 121 mg/dL (74-106); Potassium 3.9 mmol/L (3.5-5.1); Protein, Total 7.7 g/dL (6.4-8.2); Sodium Level 138 mmol/L (136-145)
[2019-04-27 16:35] LABS: Bacteria 0 SEEN /hpf (None Seen); Mucous, Urine 0 SEEN /hpf (<or=2+); Red Blood Cells-Urine 0 SEEN /hpf (0-5); Squamous Epithelial Cells - UA 0 SEEN /hpf (0-5)
[2019-04-27 16:36] LABS: Differential Comment SCANNED
[2019-04-27 16:39] LABS: Color, Urine Yellow (Yellow); Glucose, Dipstick Normal (Normal); Ketone-Dipstick Negative (Negative); Leukocyte Esterase-Dipstick 25 /ul (Negative); Nitrite-Dipstick Negative (Negative); Occult Blood-Urine Negative /ul (Negative); Protein-Dipstick 30 mg/dl (Negative); Urine Clarity Clear (Clear); Urine Urobilinogen 1 mg/dl (Normal)
--- NOTE | 2019-04-27 16:41 | ED.RN ---
antibiotic tx delayed related to shoulder arthrocentesis. ed dr wants antibiotics after procedure. flores landaverde rn [id number]
[2019-04-27 17:00] LABS: Urine Bilirubin Dipstick 3 mg/dL (Negative)
[2019-04-27 17:11] LABS: White Blood Cells 0-5 SEEN /hpf (0-5)
--- NOTE | 2019-04-27 17:26 | ED.RN ---
LAB CALLED TO STATE THEY WOULD BE UNABLE TO GET AN ACCURATE BLOOD COUNT ON THE FLUID THAT WAS SENT DOWN. DR. SAMUEL NOTIFIED.
[2019-04-27 17:37] LABS: Source- Body Fluid SYNOVIAL
[2019-04-27 17:38] LABS: Body Fluid QC Type(s) BF1Q
--- NOTE | 2019-04-27 19:00 | HP.PCM_ITS ---
Problem List (1) Sepsis Status: Acute Qualifiers: Sepsis type: sepsis due to unspecified organism Sepsis acute organ dysfunction status: unspecified Qualified Code(s): A41.9 - Sepsis, unspecified organism (2) Septic joint Status: Acute Qualifiers: Septic arthritis location: shoulder Septic arthritis organism: due to unspecified organism Laterality: left Qualified Code(s): M00.9 - Pyogenic arthritis, unspecified (3) Immunocompromised state Status: Chronic (4) Respiratory failure with hypoxia Status: Chronic Qualifiers: Chronicity: chronic Qualified Code(s): J96.11 - Chronic respiratory failure with hypoxia Comment: 2 L/min with exertion (5) JUAN ALBERTO (obstructive sleep apnea) Status: Chronic Comment: BiPAP 13/07 (6) Non-Hodgkin lymphoma Status: Chronic Qualifiers: Non-Hodgkin lymphoma type: unspecified type (7) Appcd-parmyo-miow disease Status: Chronic (8) History of asthma Status: Chronic History of Present Illness Date of Admission: 04/27/19 Chief Complaint: Fever, Shoulder pain The patient is a 58 y/o M w/ PMHx: 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 Chronic Hypoxic Respiratory Failure (2L at rest and 6 L with exertion), JUAN ALBERTO on BIPAP 13/07, Scleroderma, non-Hodgkin's lymp clarisse s/p stem cell transplant w/ history of jftor-crxbxx-wfug disease on immunosuppressive therapy who presents to the [facility] ED on 04/27/19 with history of gradual L shoulder pain with worsening more severe pain over the last 2 weeks but increased to 10 out of 10 in severity, severe over the last 24 hours with complete inability to abduct or externally rotate with planned outpatient orthopedics visit on day of presentation; however, given appearance in the office as well as notable fever 102 patient immediately referred to the ED. He denies any specific trauma. He does note that he has had loose stools approximately 3-4 loose stools daily for the last 2 days but denies any recent antibiotic therapy or ill contacts.. Work-up in the ED included T 99.5, heart rate 122, BP initially 192/108 with repeat 159/90, respiratory rate 31, 93% on 2 L nasal cannula--> 6% on 6 L nasal cannula--> 91% on 6 L nasal cannula, CBC with WC 12.8, hemoglobin 15.9, platelet 200 with left shift, unremarkable coags, CMP with BUN 16, creatinine 0.63, glucose 121, lactic acid 0.8, troponin 0 0.016, urinalysis with no acute evidence of infection, left shoulder synovial fluid aspiration pending per ED, chest x-ray with mild pulmonary vascular congestion with blunting right costophrenic sulcus possible pleural effusion, Bld Cx x 2 pending per ED. In the ED patient ministered Zofran, morphine, Dilaudid, cefepim e, Tylenol and normal saline. Past Medical History Past Medical History (Chronic Problems): Chronic Problems (Last Reviewed 12/13/18 @ 09:12 by Janessa Frias) Nasal congestion (Chronic) Nasal turbinate hypertrophy (Chronic) Nasal valve collapse (Chronic) Immunocompromised state (Chronic) Respiratory failure with hypoxia (Chronic) 2 L/min with exertion JUAN ALBERTO (obstructive sleep apnea) (Chronic) BiPAP 13/07 Non-Hodgkin lymphoma (Chronic) History of immunosuppression therapy (Chronic) Tdozn-fbxghb-zkqz disease (Chronic) History of asthma (Chronic) Medical History: Medical History (Last Reviewed 12/13/18 @ 09:12 by Janessa Frias) Non-Hodgkin lymphoma (Chronic) C85.90 History of immunosuppression therapy (Chronic) Z92.25 Aiavs-gidmnd-ggys disease (Chronic) D89.813 History of asthma (Chronic) Z87.09 Cardiogenic shock R57.0 Respiratory failure J96.90 Severe sepsis A41.9, R65.20 Bronchiolitis obliterans syndrome J42 DVT prophylaxis Hypogonadism 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 Restrictive lung disease J98.4 Allergies No Known Allergies Allergy (Unverified 12/13/18 09:11) Home Medications: Ambulatory Orders Medication Instructions Recorded Albuterol Aerosols [Ventolin 2.5 mg INHALATION BID 04/02/16 Aerosols] Ondansetron [Zofran Odt] 4 mg PO Q8H PRN PRN 04/02/16 diazepam 5 mg tablet 5 mg PO Q8H PRN PRN 12/26/17 etodolac 200 mg capsule 200 - 400 mg PO DAILY PRN PRN cap 12/26/17 gabapentin 300 mg capsule 300 mg PO TID PRN PRN cap 12/26/17 ginkgo biloba 120 mg tablet 120 mg PO BID PRN 12/26/17 hydromorphone 2 mg tablet 2 - 4 mg PO Q4H PRN PRN tab 12/26/17 methadone 5 mg tablet 5 mg PO Q12H PRN tab 12/26/17 methylphenidate 5 mg tablet 5 mg PO BID PRN 12/26/17 pantoprazole 40 mg tablet,delayed 40 mg PO QAM 12/26/17 release tadalafil 5 mg tablet 5 mg PO ONCE PRN 12/26/17 tizanidine 2 mg capsule 2 mg PO BID PRN PRN cap 12/26/17 Albuterol Sulfate [Proventil Hfa] 2 puff INHALATION Q4H 07/27/18 Fluticasone/Umeclidin/Vilanter 1 puff INHALATION DAILY 04/27/19 [Treleking Ellipta 100-62.5-25] Hydrocortisone 20 mg PO DAILY 04/27/19 Hydrocortisone 30 mg PO DAILY 04/27/19 Melatonin 10 mg PO DAILY 04/27/19 [place]-3 Fatty Acids [[place]-3] 2,000 mg PO BID 04/27/19 Testosterone Cypionate 1 ml IM QWEEK 04/27/19 Surgical History: Surgical History (Last Reviewed 12/13/18 @ 09:12 by Janessa Frias) H/O eye surgery Z98.890 bilateral lacrimal plugs 11/08 History of lung surgery Z98.890 S/P PICC central line placement Z95.828 11/12/12 Surgical History: - - Right lower lobe lobectomy, cataract surgery, bilateral lid partial closure for dry eyes, tonsillectomy, septoplasty, stem cell transplant. Psychiatric History: No pertinent psych hx Lives: Spouse/ Significant Other Smoking Status: Current some day smoker - Patient notes smoking 1 to 2 cigars every other month, in the past smoke cigars routinely for about 2 years. Tobacco Use: Cigars Alcohol: Occasional Drugs: None - *Family History Maternal Family History: Family History (Last Reviewed 12/13/18 @ 09:12 by Janessa Frias) Father Leukemia Grandfather Lymphoma Uncle Leukemia History Items: Diabetes Paternal Family History: Family History (Last Reviewed 12/13/18 @ 09:12 by Janessa Frias) Father Leukemia Grandfather Lymphoma Uncle Leukemia History Items: Cancer Review of Systems Constitutional: Reports: Fever, Malaise, Weakness, Fatigue. Denies: Chills, Weight Change HEENT: Denies: Head Aches, Sinus Congestion, Sinus Drainage Cardiovascular: Denies: Chest Pain, Palpitations Respiratory: Reports: Shortness of Breath, Shortness of breath at rest, Shortness of breath upon exertion. Denies: Cough, Sputum production Gastrointestinal: Denies: Abdominal Pain, Nausea, Vomiting Genitourinary: Denies: Dysuria Musculoskeletal: Reports: Arm Pain, Muscle pain, Shoulder Pain. Denies: Joint Pain, Joint Tenderness Skin: Denies: Rash, Wounds Neurological: Denies: Numbness, Tingling, Focal weakness Psychiatric: Denies: Anxiety, Depression, Homicidal Ideations, Suicidal Ideatio ns Hematologic/ Lymphatic: Denies: Easy Bruising, Easy Bleeding VTE Information - Inpt Only VTE Present on Admission: No VTE Mechan Device Prophylaxis: SCD's VTE Pharm Prophylaxis ordered?: Yes Patient Problems: Active and Suspected Problems (Last Reviewed 12/13/18 @ 09:12 by Janessa Frias) SIRS (systemic inflammatory response syndrome) (Acute) Left shoulder pain (Acute) Sepsis (Acute) Septic joint (Acute) Subjective: Seated upright in the bed, fatigued appearance, uncomfortable appearing, severe pain with any attempted movement left upper extremity. Objective: Physical Examination: General: awake, alert, oriented x 3 and cooperative, seated upright in the ED bed, severely uncomfortable appearing, fatigued. Skin: normal color, turgor, no icterus, cyanosis except noted thickened skin upon palpation. HEENT: AT/NC, EOMI, PERRLA, dry MM, no carotid bruits or JVD noted. Lungs: Severely diminished throughout, greater bilateral bases, moderate effort, no rales, ronchi or wheezing. Heart: Mildly tachycardic with regular rhythm; no gallop, rub audible. Abdomen: soft, thin habitus, NTTP, ND, normal BS, no HSM. Extremities: no cyanosis, clubbing, left upper extremity with severe debility, i nability to nearly move his arm at all, more severe pain with any attempted abduction or rotation, peripheral pulses intact Neurological: patient awake, alert, oriented x 3; cognitive function intact; pupils equally reactive to light and accomodation; cranial nerves II-XII grossly normal, moving extremities except severely limited left upper extremity, nearly unable to move, strength accordingly severely global decrease. Psychiatric: affect appears fatigued, uncomfortable, no acute evidence of depressive or anxiety feelings. - Physical Exam Vital Signs Temp Pulse Resp BP Pulse Ox 98.6 F 115 H 23 H 159/90 H 91 04/27/19 17:51 04/27/19 18:05 04/27/19 18:05 04/27/19 18:05 04/27/19 18:05 Oxygen Flow Rate (L/min) 6 Oxygen Delivery Method Nasal Cannula Weight: 160 lb Body Mass Index (BMI) 22.9 Intake and Output for Last 24 Hours 04/25/19 04/26/19 04/27/19 23:59 23:59 23:59 Intake Total 50 / 50 Balance 50 / 50 Microbiology Past 72 Hours 04/27/19 16:55 Gram Stain - Preliminary Fluid - Synovial (joint) Laboratory Tests Past 24 Hrs 04/27/19 04/27/19 04/27/19 15:45 15:45 15:45 WBC 12.8 H RBC 4.45 L Hgb 15.9 Hct 46.3 MCV 104.0 H MCH 35.7 H MCHC 34.3 RDW Std Deviation 58.8 H RDW Coeff of Elisa 15.2 H Plt Count 200 MPV 10.1 Immature Gran % (Auto) 0.400 Neut % (Auto) 76.1 H Lymph % (Auto) 9.5 L [place] % (Auto) 13.3 H Eos % (Auto) 0.5 Baso % (Auto) 0.2 Absolute Neuts (auto) 9.8 H Absolute Lymphs (auto) 1.22 Nucleated RBC % 0 Differential Comment SCANNED Diff Path Review December foll PT 14.8 INR 1.2 APTT 29.7 Sodium 138 Potassium 3.9 Chloride 102 Carbon Dioxide 32.0 Anion Gap 4 L BUN 16 Creatinine 0.63 L Estim Creat Clear Calc 129.60 Est GFR (MDRD) Af Amer 169 Est GFR (MDRD) Non-Af 139 BUN/Creatinine Ratio 25.6 H Glucose 121 H Lactic Acid Calcium 9.0 Total Bilirubin 0.60 AST 27 ALT 42 Alkaline Phosphatase 92 Troponin I 0.016 Total Protein 7.7 Albumin 2.9 L Globulin 4.8 H Albumin/Globulin Ratio 0.6 L Urine Color Urine Clarity Urine pH Ur Specific [place] Urine Protein Urine Glucose (UA) Urine Ketones Urine Occult Blood Urine Nitrite Urine Bilirubin Urine Urobilinogen Ur Leukocyte Esterase Urine RBC Urine WBC Ur Squamous Epith Cells Urine Bacteria Urine Mucus Fluid Crystals Fluid Crystal Source Fl Crystal Path Review Synovial Source Synovial Color Synovial Appearance Synovial Volume Synovial Viscosity Synovial WBC Synovial RBC Synovial Tot Cell Ct Synov Polynuclear WBCs Synov Mononuclear WBCs Synovial Neutrophils Synovial Lymphocytes Synovial Monocytes Synovial Plasma Cells Synovial Other Cells Synovial Polynuclear % Synovial Mononuclear % Synovial Path Comment 04/27/19 04/27/19 04/27/19 15:45 16:26 16:55 WBC RBC Hgb Hct MCV MCH MCHC RDW Std Deviation RDW Coeff of Elisa Plt Count MPV Immature Gran % (Auto) Neut % (Auto) Lymph % (Auto) [place] % (Auto) Eos % (Auto) Baso % (Auto) Absolute Neuts (auto) Absolute Lymphs (auto) Nucleated RBC % Differential Comment Diff Path Review PT INR APTT Sodium Potassium Chloride Carbon Dioxide Anion Gap BUN Creatinine Estim Creat Clear Calc Est GFR (MDRD) Af Amer Est GFR (MDRD) Non-Af BUN/Creatinine Ratio Glucose Lactic Acid 0.8 Calcium Total Bilirubin AST ALT Alkaline Phosphatase Troponin I Total Protein Albumin Globulin Albumin/Globulin Ratio Urine Color Yellow Urine Clarity Clear Urine pH 7.0 Ur Specific [place] 1.010 Urine Protein 30 H Urine Glucose (UA) Normal Urine Ketones Negative Urine Occult Blood Negative Urine Nitrite Negative Urine Bilirubin 3 H Urine Urobilinogen 1 H Ur Leukocyte Esterase 25 H Urine RBC 0 SEEN Urine WBC 0-5 SEEN Ur Squamous Epith Cells 0 SEEN Urine Bacteria 0 SEEN Urine Mucus 0 SEEN Fluid Crystals SEE PATH REV Fluid Crystal Source SYNOVIAL Fl Crystal Path Review Will follow Synovial Source Cancelled Synovial Color Cancelled Synovial Appearance Cancelled Synovial Volume Cancelled Synovial Viscosity Cancelled Synovial WBC Cancelled Synovial RBC Cancelled Synovial Tot Cell Ct Cancelled Synov Polynuclear WBCs Cancelled Synov Mononuclear WBCs Cancelled Synovial Neutrophils Cancelled Synovial Lymphocytes Cancelled Synovial Monocytes Cancelled Synovial Plasma Cells Cancelled Synovial Other Cells Cancelled Synovial Polynuclear % Cancelled Synovial Mononuclear % Cancelled Synovial Path Comment Cancelled Assessment/Plan All Active Problems (Last Reviewed 12/13/18 @ 09:12 by Janessa Frias) SIRS (systemic inflammatory response syndrome) (Acute) Left shoulder pain (Acute) Sepsis (Acute) Septic joint (Acute) The patient is a 58 y/o M w/ PMHx: Mixed obstructive and restrictive ventilatory defect w/ Chronic Hypoxic Respiratory Failure, JUAN ALBERTO, Scleroderma, non-Hodgkin's lymphoma s/p stem cell transplant w/ history of dmzbe-ahajbv-eyve disease on immunosuppressive therapy who presents to the [facility] ED on 04/27/19 with history of gradually worsening left shoulder pain, recent ED visit with improvement with pain regimen however worsened over the last 48 hours with onset fever up to 102 in addition to 2-day history of loose stools. 1. Acute Sepsis secondary to Severe left upper extremity, left shoulder pain, debility with fever suspicious for possible septic joint: Will admit to [facility] w/ telemetry, maintain on IV vanc and cefepime pending synovial culture results, plan repeat CBC in AM, NB status, discussed with Orthopedic surgery and will obtain MRI shoulder as well as humerus given pain location and noted recent outpatient film with questionable humeral lesion. PT, OT, CM consulted. If evidence of any malignancy per discussion with orthopedic surgery given patient history would likely require tertiary facility with orthopedic oncologist. PRN pain, antiemetic regimens in addition to continuation of his chronic home oral pain regimen. 2. Diarrhea, new onset, possibly related to febrile illness: Recent onset loose stools, no recent antibiotic therapy or ill contacts, will obtain stool culture, enteric pathogen, C. difficile and adjust regimen as needed. Monitor strict I&O's. 3. Elevated BP without hypertensive diagnosis: Elevated blood pressure, suspect likely secondary to severity of pain, will continue pain treatment as noted, PRN IV hydralazine in interim with oral regimen initiation if felt appropriate. 4. Mixed obstructive and restrictive ventilatory defect w/ chronic hypoxic respiratory failure: Lung with pulmonary, s/p right lower lobe lobectomy with chronic hypoxic respiratory failure with 2L at rest and 6 L with exertion, continue home albuterol regimen, head of bed, IS, chest x-ray findings similar to prior and likely secondary to underlying pulmonary disease. 5. Hx on-Hodgkin's lymphoma s/p stem cell transplant w/ history of koyjx-jljmpz-ygli disease: Patient continued on immunosuppressive therapy, complicates presentation as noted possible humeral lesion on outpatient plain film, MRI of humerus and shoulder pending as noted. 6. Chronic pain syndrome: We will continue home diazepam, tizanidine, methadone, and oral hydromorphone with additional oral and IV breakthrough medications. 7. Tobacco Abuse: Encouraged cessation, inpatient consultation per RT, NR if desired. 8. JUAN ALBERTO: Continue on home BIPAP 13/07. 9. DVT prophylaxis: SCDs, Lovenox. Code Visit Inpatient E&M: 86395 Init Hosp L3
[2019-04-27] MEDS: 0.9% Normal Saline 1,000 ML 125 ML IV (20:35)
[2019-04-27] MEDS: Ipratropium/Albuterol Sulfate 3 ML AMPUL.NEB INHALATION (22:02)
[2019-04-27] MEDS: Budesonide Respules 0.5 MG/2 ML AMPUL.NEB. INHALATION (22:02)
--- NOTE | 2019-04-27 22:12 | PCM.RX.CS ---
Consult Pharmacy has been consulted to manage selected antiobiotic: Vancomycin Type of Consult: New start Suspected Infection: Sepsis Labs: Sodium 138 mmol/L (136-145) 04/27/19 15:45 Potassium 3.9 mmol/L (3.5-5.1) 04/27/19 15:45 Chloride 102 mmol/L (98-107) 04/27/19 15:45 Carbon Dioxide 32.0 mmol/L (21.0-32.0) 04/27/19 15:45 4 (5-15) L 04/27/19 15:45 BUN 16 mg/dL (7-18) 04/27/19 15:45 0.63 mg/dL (0.70-1.30) L 04/27/19 15:45 Est GFR (MDRD) Af Amer 169 mL/min (>60) 04/27/19 15:45 Est GFR (MDRD) Non-Af 139 mL/min (>60) 04/27/19 15:45 25.6 RATIO (10-20) H 04/27/19 15:45 Glucose 121 mg/dL (74-106) H 04/27/19 15:45 Microbiology: Microbiology 04/27/19 16:55 Fluid - Synovial (joint) Gram Stain - Preliminary Weight used for dosin kg Estimated Creatinine Clearance: 130 Goal Trough: 15-20 mcg/mL Pharmacy Plan for Drug Dosing: Pharmacy Service will continue to monitor and adjust dosing as required. Medications Vancomycin HCl (Vancomycin) 1,000 mg in 200 mls @ 200 mls/hr IV Q8H SH[facility]NA Vancomycin HCl 1,750 mg/ (Sodium Chloride) 535 mls @ 250 mls/hr IV X1 ONE Stop: 04/27/19 23:08 Last Admin: 04/27/19 21:02 Dose: 250 mls/hr Documented by: Follow-Up Labs: Trough Vancomycin Labs to be done on [date and time ordered]: 04/28 @ 2030
[2019-04-27] MEDS: Ketorolac 30 MG/ML Syringe IV (22:28)
[2019-04-27] MEDS: MELATONIN 10 MG TABLET PO (22:28)
[2019-04-27] MEDS: 0.9% NaCl Peripheral Flush Adult/Peds IV (22:29)
[2019-04-28] VITALS (19 sets, daily range): BP systolic 164–214; BP diastolic 83–106; PULSE 73–119; RESP 12–28; TEMP 36.1–38.3; O2SAT 91–99
[2019-04-28] MEDS: diazePAM 5 MG Tablet PO ×2 (01:37→09:24)
[2019-04-28] MEDS: HYDROmorphone 1 MG/ML Syringe IV ×3 (02:35→11:55)
[2019-04-28] MEDS: 0.9% NaCl Peripheral Flush Adult/Peds IV (02:35)
[2019-04-28] MEDS: Ketorolac 30 MG/ML Syringe IV ×2 (02:40→08:19)
[2019-04-28] MEDS: hydrALAZINE 20 MG/ML Vial 10 MG IV ×2 (02:44→08:17)
[2019-04-28] MEDS: Albuterol 2.5 MG/3 ML VIAL.NEB. INHALATION ×2 (05:32→06:36)
[2019-04-28] MEDS: Budesonide Respules 0.5 MG/2 ML AMPUL.NEB. INHALATION (06:36)
[2019-04-28] MEDS: Ipratropium/Albuterol Sulfate 3 ML AMPUL.NEB INHALATION (06:36)
[2019-04-28] MEDS: 0.9% Normal Saline 1,000 ML 125 ML IV (06:55)
[2019-04-28 07:31] LABS: Absolute Lymphocyte Count 0.92 X10^3/uL (0.83-4.51); Absolute Neutrophil Count 10.3 X10^3/uL (2.0-7.7); Basophil# 0.04 X10^3/uL; Basophil% 0.3 % (0-1); Eosinophil# 0.19 X10^3/uL; Eosinophils% 1.4 % (0-5); Hematocrit 48.9 % (40-54); Hemoglobin 16.1 g/dL (13.0-16.5); Lymphocyte # 0.92 X10^3/ul (4.0); Lymphocyte % 6.9 % (19-41); Mean Corp Hgb Conc 32.9 g/dL (32-36); Mean Corpuscular Hgb 35.1 pg (27.0-32.0); Mean Corpuscular Volume 106.5 fL (80-94); Mean Platelet Vol. 10.1 fl (6.2-12.0); Monocyte# 1.94 X10^3/uL; Monocyte% 14.5 % (0-10); NRBC Flagged by Analyzer 0 % (0-5); Neutrophil # 10.26 X10^3/uL (2.7-7.7); Neutrophil % 76.4 % (47-70); POSITIVE DIFFERENTIAL YES; Platelet Count 177 K/mm3 (150-450); RBC Distribution Width CV 15.7 % (11.6-14.6); RBC Distribution Width SD 62.2 fl (35.1-43.9); Red Blood Count 4.59 M/mm3 (4.6-6.2); White Blood Count 13.4 K/mm3 (4.4-11.0)
[2019-04-28 07:33] LABS: Differential Indicated SCAN CRITERIA MET
[2019-04-28 07:46] LABS: Anion Gap 7 (5-15); BUN 14 mg/dL (7-18); BUN/Creat Ratio 26.2 RATIO (10-20); Calcium,Total 8.9 mg/dL (8.5-10.1); Chloride 102 mmol/L (98-107); Creatinine, Serum 0.53 mg/dL (0.70-1.30); EST Glomerular Filtration Rate 167 mL/min (>60); Est Glom Filt Rate - Afr Amer 202 mL/min (>60); Estimated Creatinine Clearance 152.83 ml/min; Glucose 96 mg/dL (74-106); Sodium Level 139 mmol/L (136-145)
--- NOTE | 2019-04-28 07:54 | PCM.CONS.GEN ---
Reason for Consult Date of Consultation: 04/28/19 History of Present Illness: The patient is a 58 year old male patient with a history of lymphoma, complicated medical history with chronic rnyxv-vwjoaf-vnmm disease, scleroderma, chronic pain syndrome treated by pain management. On Tuesday of this week patient developed some left shoulder pain. He states he had been stretching as normal because of his scleroderma. He thinks he may have overdone it injuring his left shoulder somehow. On Tuesday he had worsening left shoulder pain and was taken to the emergency room. He was discharged home. He had an appointment with a physician investment sales assistant yesterday at our office. Patient was noted to have significant temperature elevation, hypertension and clammy skin. He was sent to the emergency room for evaluation and admission. According to his he felt fine in the morning yesterday but had increasing pain as well as some fevers and chills. Patient does self medicate with pain medications, chronic steroid use. Lately he states his pain is 2 out of 10. Worse yesterday. Using Dilaudid. He is uncertain how he had an abrasion on his left shoulder. Pain is at the left shoulder and arm. Pain numbness or tingling below the elbow. Chronic elbow stiffness. New onset left shoulder pain and stiffness. Since shoulder was aspirated in the emergency room. MRI is pending [] Past Medical History Past Medical History (Chronic Problems): Chronic Problems (Last Reviewed 12/13/18 @ 09:12 by Janessa Frias) Nasal congestion (Chronic) Nasal turbinate hypertrophy (Chronic) Nasal valve collapse (Chronic) Immunocompromised state (Chronic) Respiratory failure with hypoxia (Chronic) 2 L/min with exertion JUAN ALBERTO (obstructive sleep apnea) (Chronic) BiPAP 13/07 Non-Hodgkin lymphoma (Chronic) History of immunosuppression therapy (Chronic) Slznq-djmwin-zcge disease (Chronic) History of asthma (Chronic) Medical History: Medical History (Last Reviewed 12/13/18 @ 09:12 by Janessa Frias) Non-Hodgkin lymphoma (Chronic) C85.90 History of immunosuppression therapy (Chronic) Z92.25 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 History of asthma (Chronic) Z87.09 Cardiogenic shock R57.0 Respiratory failure J96.90 Severe sepsis A41.9, R65.20 Bronchiolitis obliterans syndrome J42 DVT prophylaxis Hypogonadism 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 Restrictive lung disease J98.4 Allergies No Known Allergies Allergy (Unverified 12/13/18 09:11) Home Medications: Ambulatory Orders Medication Instructions Recorded Albuterol Aerosols [Ventolin 2.5 mg INHALATION BID 04/02/16 Aerosols] Ondansetron [Zofran Odt] 4 mg PO Q8H PRN PRN 04/02/16 diazepam 5 mg tablet 5 mg PO Q8H PRN PRN 12/26/17 etodolac 200 mg capsule 200 - 400 mg PO DAILY PRN PRN cap 12/26/17 gabapentin 300 mg capsule 300 mg PO TID PRN PRN cap 12/26/17 ginkgo biloba 120 mg tablet 120 mg PO BID PRN 12/26/17 hydromorphone 2 mg tablet 2 - 4 mg PO Q4H PRN PRN tab 12/26/17 methadone 5 mg tablet 5 mg PO Q12H PRN tab 12/26/17 methylphenidate 5 mg tablet 5 mg PO BID PRN 12/26/17 pantoprazole 40 mg tablet,delayed 40 mg PO QAM 12/26/17 release tadalafil 5 mg tablet 5 mg PO ONCE PRN 12/26/17 tizanidine 2 mg capsule 2 mg PO BID PRN PRN cap 12/26/17 Albuterol Sulfate [Proventil Hfa] 2 puff INHALATION Q4H 07/27/18 Fluticasone/Umeclidin/Vilanter 1 puff INHALATION DAILY 04/27/19 [Trelegy Ellipta 100-62.5-25] Hydrocortisone 20 mg PO DAILY 04/27/19 Hydrocortisone 30 mg PO DAILY 04/27/19 Melatonin 10 mg PO DAILY 04/27/19 [place]-3 Fatty Acids [[place]-3] 2,000 mg PO BID 04/27/19 Testosterone Cypionate 1 ml IM QWEEK 04/27/19 Surgical History: Surgical History (Last Reviewed 12/13/18 @ 09:12 by Janessa Frias) H/O eye surgery Z98.890 bilateral lacrimal plugs 11/08 History of lung surgery Z98.890 S/P PICC central line placement Z95.828 11/12/12 Surgical History: - - Right lower lobe lobectomy, cataract surgery, bilateral lid partial closure for dry eyes, tonsillectomy, septoplasty, stem cell transplant. Psychiatric History: No pertinent psych hx Lives: Spouse/ Significant Other Smoking Status: Current some day smoker - Patient notes smoking 1 to 2 cigars every other month, in the past smoke cigars routinely for about 2 years. Tobacco Use: Cigars Alcohol: Occasional Drugs: None - *Family History Maternal Family History: Family History (Last Reviewed 12/13/18 @ 09:12 by Janessa Frias) Father Leukemia Grandfather Lymphoma Uncle Leukemia History Items: Diabetes Paternal Family History: Family History (Last Reviewed 12/13/18 @ 09:12 by Janessa Frias) Father Leukemia Grandfather Lymphoma Uncle Leukemia History Items: Cancer Patient Problems: Active and Suspected Problems (Last Reviewed 12/13/18 @ 09:12 by Janessa Frias) SIRS (systemic inflammatory response syndrome) (Acute) Left shoulder pain (Acute) Sepsis (Acute) Septic joint (Acute) Objective: Review of Systems Constitutional: Reports: Fever, Malaise, Weakness, Fatigue. Denies: Chills, Weight Change HEENT: Denies: Head Aches, Sinus Congestion, Sinus Drainage Cardiovascular: Denies: Chest Pain, Palpitations Respiratory: Reports: Shortness of Breath, Shortness of breath at rest, Shortness of breath upon exertion. Denies: Cough, Sputum production Gastrointestinal: Denies: Abdominal Pain, Nausea, Vomiting Genitourinary: Denies: Dysuria Musculoskeletal: Reports: Arm Pain, Muscle pain, Shoulder Pain. Denies: Joint Pain, Joint Tenderness Skin: Denies: Rash, Wounds Neurological: Denies: Numbness, Tingling, Focal weakness Psychiatric: Denies: Anxiety, Depression, Homicidal Ideations, Suicidal Ideations Hematologic/ Lymphatic: Denies: Easy Bruising, Easy Bleeding Left shoulder has mild warmth and mild swelling. Some redness about the shoulder and arm. Forward elevation is 45 degrees. Passive forward elevation is 90 degrees. Elbow motion is very limited from scleroderma, unchanged according to him and his . He has a scab at the top of the left shoulder without surrounding erythema or signs of infection there. He has weakness at the left shoulder because of pain. Distal pulses are intact. No abnormal masses palpated about the shoulder. Laboratory work and vital signs reviewed. Fluid from shoulder from yesterday negative for bacteria on Gram stain X-rays reviewed from April 24 showing a possible abnormality of the humeral shaft proximally in the bone marrow. No obvious acute fractures or dislocations of the shoulder. - Physical Exam Vital Signs Temp Pulse Resp BP Pulse Ox 101.0 F H 112 H 24 H 193/92 H 96 04/28/19 06:20 04/28/19 06:36 04/28/19 06:36 04/28/19 06:20 04/28/19 06:36 Oxygen Flow Rate (L/min) 5 Oxygen Delivery Method Nasal Cannula Weight: 72 kg Body Mass Index (BMI) 22.7 Intake and Output for Last 24 Hours 04/26/19 04/27/19 04/28/19 23:59 23:59 23:59 Intake Total 1722.50 / 1955.83 1662.50 / 1662.50 Balance 1722.50 / 1955.83 1662.50 / 1662.50 Microbiology Past 72 Hours 04/27/19 16:55 Gram Stain - Preliminary Fluid - Synovial (joint) Laboratory Tests Past 24 Hrs 04/27/19 04/27/19 04/27/19 15:45 15:45 15:45 WBC 12.8 H RBC 4.45 L Hgb 15.9 Hct 46.3 MCV 104.0 H MCH 35.7 H MCHC 34.3 RDW Std Deviation 58.8 H RDW Coeff of Elisa 15.2 H Plt Count 200 MPV 10.1 Immature Gran % (Auto) 0.400 Neut % (Auto) 76.1 H Lymph % (Auto) 9.5 L [place] % (Auto) 13.3 H Eos % (Auto) 0.5 Baso % (Auto) 0.2 Absolute Neuts (auto) 9.8 H Absolute Lymphs (auto) 1.22 Nucleated RBC % 0 Differential Comment SCANNED Diff Path Review December foll PT 14.8 INR 1.2 APTT 29.7 Sodium 138 Potassium 3.9 Chloride 102 Carbon Dioxide 32.0 Anion Gap 4 L BUN 16 Creatinine 0.63 L Estim Creat Clear Calc 129.60 Est GFR (MDRD) Af Amer 169 Est GFR (MDRD) Non-Af 139 BUN/Creatinine Ratio 25.6 H Glucose 121 H Lactic Acid Calcium 9.0 Total Bilirubin 0.60 AST 27 ALT 42 Alkaline Phosphatase 92 Troponin I 0.016 Total Protein 7.7 Albumin 2.9 L Globulin 4.8 H Albumin/Globulin Ratio 0.6 L Urine Color Urine Clarity Urine pH Ur Specific [place] Urine Protein Urine Glucose (UA) Urine Ketones Urine Occult Blood Urine Nitrite Urine Bilirubin Urine Urobilinogen Ur Leukocyte Esterase Urine RBC Urine WBC Ur Squamous Epith Cells Urine Bacteria Urine Mucus Fluid Crystals Fluid Crystal Source Fl Crystal Path Review Synovial Source Synovial Color Synovial Appearance Synovial Volume Synovial Viscosity Synovial WBC Synovial RBC Synovial Tot Cell Ct Synov Polynuclear WBCs Synov Mononuclear WBCs Synovial Neutrophils Synovial Lymphocytes Synovial Monocytes Synovial Plasma Cells Synovial Other Cells Synovial Polynuclear % Synovial Mononuclear % Synovial Path Comment 04/27/19 04/27/19 04/27/19 15:45 16:26 16:55 WBC RBC Hgb Hct MCV MCH MCHC RDW Std Deviation RDW Coeff of Elisa Plt Count MPV Immature Gran % (Auto) Neut % (Auto) Lymph % (Auto) [place] % (Auto) Eos % (Auto) Baso % (Auto) Absolute Neuts (auto) Absolute Lymphs (auto) Nucleated RBC % Differential Comment Diff Path Review PT INR APTT Sodium Potassium Chloride Carbon Dioxide Anion Gap BUN Creatinine Estim Creat Clear Calc Est GFR (MDRD) Af Amer Est GFR (MDRD) Non-Af BUN/Creatinine Ratio Glucose Lactic Acid 0.8 Calcium Total Bilirubin AST ALT Alkaline Phosphatase Troponin I Total Protein Albumin Globulin Albumin/Globulin Ratio Urine Color Yellow Urine Clarity Clear Urine pH 7.0 Ur Specific [place] 1.010 Urine Protein 30 H Urine Glucose (UA) Normal Urine Ketones Negative Urine Occult Blood Negative Urine Nitrite Negative Urine Bilirubin 3 H Urine Urobilinogen 1 H Ur Leukocyte Esterase 25 H Urine RBC 0 SEEN Urine WBC 0-5 SEEN Ur Squamous Epith Cells 0 SEEN Urine Bacteria 0 SEEN Urine Mucus 0 SEEN Fluid Crystals SEE PATH REV Fluid Crystal Source SYNOVIAL Fl Crystal Path Review Will follow Synovial Source Cancelled Synovial Color Cancelled Synovial Appearance Cancelled Synovial Volume Cancelled Synovial Viscosity Cancelled Synovial WBC Cancelled Synovial RBC Cancelled Synovial Tot Cell Ct Cancelled Synov Polynuclear WBCs Cancelled Synov Mononuclear WBCs Cancelled Synovial Neutrophils Cancelled Synovial Lymphocytes Cancelled Synovial Monocytes Cancelled Synovial Plasma Cells Cancelled Synovial Other Cells Cancelled Synovial Polynuclear % Cancelled Synovial Mononuclear % Cancelled Synovial Path Comment Cancelled 04/28/19 04/28/19 07:03 07:03 WBC 13.4 H RBC 4.59 L Hgb 16.1 Hct 48.9 MCV 106.5 H MCH 35.1 H MCHC 32.9 RDW Std Deviation 62.2 H RDW Coeff of Elisa 15.7 H Plt Count 177 MPV 10.1 Immature Gran % (Auto) 0.500 Neut % (Auto) 76.4 H Lymph % (Auto) 6.9 L [place] % (Auto) 14.5 H Eos % (Auto) 1.4 Baso % (Auto) 0.3 Absolute Neuts (auto) 10.3 H Absolute Lymphs (auto) 0.92 Nucleated RBC % 0 Differential Comment Diff Path Review PT INR APTT Sodium 139 Potassium 4.0 Chloride 102 Carbon Dioxide 30.0 Anion Gap 7 BUN 14 Creatinine 0.53 L Estim Creat Clear Calc 152.83 Est GFR (MDRD) Af Amer 202 Est GFR (MDRD) Non-Af 167 BUN/Creatinine Ratio 26.2 H Glucose 96 Lactic Acid Calcium 8.9 Total Bilirubin AST ALT Alkaline Phosphatase Troponin I Total Protein Albumin Globulin Albumin/Globulin Ratio Urine Color Urine Clarity Urine pH Ur Specific [place] Urine Protein Urine Glucose (UA) Urine Ketones Urine Occult Blood Urine Nitrite Urine Bilirubin Urine Urobilinogen Ur Leukocyte Esterase Urine RBC Urine WBC Ur Squamous Epith Cells Urine Bacteria Urine Mucus Fluid Crystals Fluid Crystal Source Fl Crystal Path Review Synovial Source Synovial Color Synovial Appearance Synovial Volume Synovial Viscosity Synovial WBC Synovial RBC Synovial Tot Cell Ct Synov Polynuclear WBCs Synov Mononuclear WBCs Synovial Neutrophils Synovial Lymphocytes Synovial Monocytes Synovial Plasma Cells Synovial Other Cells Synovial Polynuclear % Synovial Mononuclear % Synovial Path Comment Assessment/Plan All Active Problems (Last Reviewed 12/13/18 @ 09:12 by Janessa Frias) SIRS (systemic inflammatory response syndrome) (Acute) Left shoulder pain (Acute) Sepsis (Acute) Septic joint (Acute) Left shoulder pain, arm pain, rule out septic shoulder, rule out underlying metastatic process versus recurrent lymphoma. After explaining risk benefits and alternative procedures they did wish to have the shoulder aspirated again today. Procedure: After obtaining appropriate consent patient's left shoulder was prepped with Betadine and alcohol. An 18-gauge needle was used to enter his subacromial space from the lateral approach obtaining 4 cc of bloody type somewhat thickened fluid. He tolerated that well. Sterile bandage was applied. Fluid was immediately given to the nurse to be sent to the lab for Gram stain, culture and sensitivities, cell count, crystal exam, fungal cultures. Band aid was applied. Multiple medical problems including history of lymphoma, avzfl-ivfode-vphn disease, scleroderma, chronic pain syndrome continue evaluation and treatment per hospitalist service.continue IV antibiotics.
--- NOTE | 2019-04-28 08:00 | MRI_ITS ---
STUDY: MRI LEFT SHOULDER REASON FOR EXAM: Male, 58 years old. Left shoulder pain. History of non-Hodgkin's lymphoma. Laceration left shoulder. Redness, swelling, limited range of motion. TECHNIQUE: Standardized fat and water weighted pulse sequences were obtained in all 3 orthogonal planes. COMPARISON: None. FINDINGS: Large shoulder joint effusion extending into the subscapularis bursa. There is a large subdeltoid-subacromial bursal effusion consistent with bursitis. Supraspinatus, infraspinatus, subscapularis, and teres minor tendons are intact, with no tendinosis or tear. Proximal muscles are intact. Normal biceps labral complex. Normal intracapsular long biceps tendon. Normal labrum. There is mild marrow edema in the posterior superior humeral head suspicious for bone contusion. Marrow edema is noted in the left humeral shaft, suspicious for neoplastic infiltration in this patient with non-Hodgkin's lymphoma. There is no cortical erosion or destructive bone change. Osteomyelitis is considered less likely. Marrow signal is otherwise unremarkable. Normal acromioclavicular articulation. There is a Type II morphology (curved), with a neutral orientation. There is mild edema of the deltoid muscle, with relative sparing posteriorly. This is concerning for myositis in the context of recent injury and suspected infection. No organized collection. Additional considerations include muscle contusion or strain. There is moderate edema in the subcutaneous soft tissues. No soft tissue mass or cystic lesion. MRI/Upper Ext Joint Only(Routine) IMPRESSION: 1. Large joint effusion. If clinically warranted, consider joint aspiration to exclude septic arthritis. 2. Infiltration of the left humeral shaft. Malignancy is favored over osteomyelitis. 3. Mild edema in the deltoid muscle concerning for myositis. 4. Subcutaneous edema. Electronically Signed: Moni Knight MD at 15:54 EDT Tel , Service support ,
--- NOTE | 2019-04-28 08:00 | MRI_ITS ---
STUDY: MR HUMERUS WITHOUT CONTRAST LEFT REASON FOR EXAM: Male, 58 years old. Non-Hodgkin's lymphoma. Laceration left shoulder, severe pain, redness, swelling. Limited range of motion. TECHNIQUE: Multiplanar acquisitions were performed utilizing routine T1 and T2-weighted protocols. COMPARISON: None. FINDINGS: Quality: Adequate. This study is significantly limited by patient motion. There is a large shoulder joint effusion. There is extensive marrow edema throughout the left humeral. Associated with heterogeneous lucency on the left shoulder radiograph, this is suspicious for neoplastic infiltration in this patient with history of NHL. Humeral cortex is intact. No destructive bone changes. Osteomyelitis is considered less likely. There is moderate subcutaneous edema of the arm. No solid or cystic soft tissue lesion is identified. MRI/Upper Ext/No Jt/ wo IMPRESSION: 1. Signal abnormality in the humeral shaft, suspicious for neoplastic infiltration. Osteomyelitis is considered less likely. 2. Large left shoulder joint effusion. Electronically Signed: Moni Knight MD at 15:45 EDT Tel , Service support ,
[2019-04-28] MEDS: Pantoprazole Sodium 40 MG Tablet PO (08:18)
[2019-04-28] MEDS: Hydrocortisone 10 MG Tablet 30 MG PO (08:19)
[2019-04-28 08:20] LABS: Erythrocyte Sedimentation Rate 96 mm/hr (0-20)
[2019-04-28] MEDS: Vancomycin IV 1,000 MG/200 ML BAG 200 MG IV (08:20)
--- NOTE | 2019-04-28 11:03 | DS.PCM_ITS ---
Discharge Date and Diagnosis - Problem List Patient Problems: Active and Suspected Problems (Last Reviewed 12/13/18 @ 09:12 by Janessa Frias) SIRS (systemic inflammatory response syndrome) (Acute) Left shoulder pain (Acute) Sepsis (Acute) Septic joint (Acute) Date of Admission: 04/27/19 Date of Discharge: 04/28/19 - Primary Discharge Diagnosis Active and Suspected Problems (Last Reviewed 12/13/18 @ 09:12 by Janessa Sosa on) Sepsis (Acute) due to septic left shoulder joint in an immunocompromised host Left shoulder pain (Acute) Acute on chronic respiratory failure - Secondary Discharge Diagnosis Chronic Problems (Last Reviewed 12/13/18 @ 09:12 by Janessa Frias) Nasal congestion (Chronic) Nasal turbinate hypertrophy (Chronic) Nasal valve collapse (Chronic) Immunocompromised state (Chronic) Respiratory failure with hypoxia (Chronic) 2 L/min with exertion JUAN ALBERTO (obstructive sleep apnea) (Chronic) BiPAP 13/07 Non-Hodgkin lymphoma (Chronic) Chronic immunosuppression therapy (Chronic) Jausf-jmhqlz-zzmr disease (Chronic) History of asthma (Chronic) Mild left ventricular hypertrophy on echocardiogram in November 2017, ejection fraction 60%, +1 AI and lipomatous hypertrophy of the atrial septum Hospital Course and Treatment Imaging Results: 04/28/19 08:00 Upper Ext Joint Only(Routine) [MRI] Stat Upper Ext No Joint W/WO Cont [MRI] Stat Clinical Impression(s) from Imaging Studies Chest X-Ray 04/27/19 16:00 IMPRESSION: Probable congestive failure. Clinical correlation recommended Electronically Signed: Yasmany Salomon MD at 16:17 EDT , Service support , Laboratory Tests 04/28/19 04/28/19 04/28/19 Range/Units 07:03 07:03 07:03 WBC (4.4-11.0) K/mm3 RBC (4.6-6.2) M/mm3 Hgb (13.0-16.5) g/dL Hct (40-54) % MCV (80-94) fL MCH (27.0-32.0) pg MCHC (32-36) g/dL RDW Std Deviation (35.1-43.9) fl RDW Coeff of Elisa (11.6-14.6) % Plt Count (150-450) K/mm3 MPV (6.2-12.0) fl Immature Gran % (Auto) (0.0-0.9) % Neut % (Auto) (47-70) % Lymph % (Auto) (19-41) % [place] % (Auto) (0-10) % Eos % (Auto) (0-5) % Baso % (Auto) (0-1) % Absolute Neuts (auto) (2.0-7.7) X10^3/uL Absolute Lymphs (auto) (0.83-4.51) X10^3/uL Nucleated RBC % (0-5) % Differential Comment Diff Path Review ESR 96 H (0-20) mm/hr PT (11.7-14.9) SECONDS INR APTT (24.1-36.2) Seconds Sodium 139 (136-145) mmol/L Potassium 4.0 (3.5-5.1) mmol/L Chloride 102 (98-107) mmol/L Carbon Dioxide 30.0 (21.0-32.0) mmol/L Anion Gap 7 (5-15) BUN 14 (7-18) mg/dL Creatinine 0.53 L (0.70-1.30) mg/dL Estim Creat Clear Calc 152.83 ml/min Est GFR (MDRD) Af Amer 202 (>60) mL/min Est GFR (MDRD) Non-Af 167 (>60) mL/min BUN/Creatinine Ratio 26.2 H (10-20) RATIO Glucose 96 (74-106) mg/dL Lactic Acid (0.4-2.0) mmol/L Calcium 8.9 (8.5-10.1) mg/dL Total Bilirubin (0.20-1.00) mg/dL AST (15-37) U/L ALT (16-61) U/L Alkaline Phosphatase (45-117) U/L Troponin I (<0.045) ng/mL C-React Prot Ext Range 291.00 H (0.0-3.0) mg/L Total Protein (6.4-8.2) g/dL Albumin (3.2-5.0) g/dL Globulin (2.2-4.2) g/dL Albumin/Globulin Ratio (0.9-2.4) RATIO Urine Color (Yellow) Urine Clarity (Clear) Urine pH (5.0 - 8.0) Ur Specific [place] (1.002-1.030) Urine Protein (Negative) mg/dl Urine Glucose (UA) (Normal) mg/dl Urine Ketones (Negative) mg/dl Urine Occult Blood (Negative) /ul Urine Nitrite (Negative) Urine Bilirubin (Negative) mg/dL Urine Urobilinogen (Normal) mg/dl Ur Leukocyte Esterase (Negative) /ul Urine RBC (0-5) /hpf Urine WBC (0-5) /hpf Ur Squamous Epith Cells (0-5) /hpf Urine Bacteria (None Seen) /hpf Urine Mucus (<or=2+) /hpf Fluid Crystals Fluid Crystal Source Fl Crystal Path Review Synovial Source Synovial Color Synovial Appearance Synovial Volume Synovial Viscosity Synovial WBC Synovial RBC Synovial Tot Cell Ct Synov Polynuclear WBCs Synov Mononuclear WBCs Synovial Neutrophils Synovial Lymphocytes Synovial Monocytes Synovial Plasma Cells Synovial Other Cells Synovial Polynuclear % Synovial Mononuclear % Synovial Path Comment 04/28/19 04/27/19 04/27/19 Range/Units 07:03 16:55 16:26 WBC 13.4 H (4.4-11.0) K/mm3 RBC 4.59 L (4.6-6.2) M/mm3 Hgb 16.1 (13.0-16.5) g/dL Hct 48.9 (40-54) % MCV 106.5 H (80-94) fL MCH 35.1 H (27.0-32.0) pg MCHC 32.9 (32-36) g/dL RDW Std Deviation 62.2 H (35.1-43.9) fl RDW Coeff of Elisa 15.7 H (11.6-14.6) % Plt Count 177 (150-450) K/mm3 MPV 10.1 (6.2-12.0) fl Immature Gran % (Auto) 0.500 (0.0-0.9) % Neut % (Auto) 76.4 H (47-70) % Lymph % (Auto) 6.9 L (19-41) % [place] % (Auto) 14.5 H (0-10) % Eos % (Auto) 1.4 (0-5) % Baso % (Auto) 0.3 (0-1) % Absolute Neuts (auto) 10.3 H (2.0-7.7) X10^3/uL Absolute Lymphs (auto) 0.92 (0.83-4.51) X10^3/uL Nucleated RBC % 0 (0-5) % Differential Comment Diff Path Review ESR (0-20) mm/hr PT (11.7-14.9) SECONDS INR APTT (24.1-36.2) Seconds Sodium (136-145) mmol/L Potassium (3.5-5.1) mmol/L Chloride (98-107) mmol/L Carbon Dioxide (21.0-32.0) mmol/L Anion Gap (5-15) BUN (7-18) mg/dL Creatinine (0.70-1.30) mg/dL Estim Creat Clear Calc ml/min Est GFR (MDRD) Af Amer (>60) mL/min Est GFR (MDRD) Non-Af (>60) mL/min BUN/Creatinine Ratio (10-20) RATIO Glucose (74-106) mg/dL Lactic Acid (0.4-2.0) mmol/L Calcium (8.5-10.1) mg/dL Total Bilirubin (0.20-1.00) mg/dL AST (15-37) U/L ALT (16-61) U/L Alkaline Phosphatase (45-117) U/L Troponin I (<0.045) ng/mL C-React Prot Ext Range (0.0-3.0) mg/L Total Protein (6.4-8.2) g/dL Albumin (3.2-5.0) g/dL Globulin (2.2-4.2) g/dL Albumin/Globulin Ratio (0.9-2.4) RATIO Urine Color Yellow (Yellow) Urine Clarity Clear (Clear) Urine pH 7.0 (5.0 - 8.0) Ur Specific [place] 1.010 (1.002-1.030) Urine Protein 30 H (Negative) mg/dl Urine Glucose (UA) Normal (Normal) mg/dl Urine Ketones Negative (Negative) mg/dl Urine Occult Blood Negative (Negative) /ul Urine Nitrite Negative (Negative) Urine Bilirubin 3 H (Negative) mg/dL Urine Urobilinogen 1 H (Normal) mg/dl Ur Leukocyte Esterase 25 H (Negative) /ul Urine RBC 0 SEEN (0-5) /hpf Urine WBC 0-5 SEEN (0-5) /hpf Ur Squamous Epith Cells 0 SEEN (0-5) /hpf Urine Bacteria 0 SEEN (None Seen) /hpf Urine Mucus 0 SEEN (<or=2+) /hpf Fluid Crystals SEE PATH REV Fluid Crystal Source SYNOVIAL Fl Crystal Path Review Will follow Synovial Source Cancelled Synovial Color Cancelled Synovial Appearance Cancelled Synovial Volume Cancelled Synovial Viscosity Cancelled Synovial WBC Cancelled Synovial RBC Cancelled Synovial Tot Cell Ct Cancelled Synov Polynuclear WBCs Cancelled Synov Mononuclear WBCs Cancelled Synovial Neutrophils Cancelled Synovial Lymphocytes Cancelled Synovial Monocytes Cancelled Synovial Plasma Cells Cancelled Synovial Other Cells Cancelled Synovial Polynuclear % Cancelled Synovial Mononuclear % Cancelled Synovial Path Comment Cancelled 04/27/19 04/27/19 04/27/19 Range/Units 15:45 15:45 15:45 WBC (4.4-11.0) K/mm3 RBC (4.6-6.2) M/mm3 Hgb (13.0-16.5) g/dL Hct (40-54) % MCV (80-94) fL MCH (27.0-32.0) pg MCHC (32-36) g/dL RDW Std Deviation (35.1-43.9) fl RDW Coeff of Elisa (11.6-14.6) % Plt Count (150-450) K/mm3 MPV (6.2-12.0) fl Immature Gran % (Auto) (0.0-0.9) % Neut % (Auto) (47-70) % Lymph % (Auto) (19-41) % [place] % (Auto) (0-10) % Eos % (Auto) (0-5) % Baso % (Auto) (0-1) % Absolute Neuts (auto) (2.0-7.7) X10^3/uL Absolute Lymphs (auto) (0.83-4.51) X10^3/uL Nucleated RBC % (0-5) % Differential Comment Diff Path Review ESR (0-20) mm/hr PT 14.8 (11.7-14.9) SECONDS INR 1.2 APTT 29.7 (24.1-36.2) Seconds Sodium 138 (136-145) mmol/L Potassium 3.9 (3.5-5.1) mmol/L Chloride 102 (98-107) mmol/L Carbon Dioxide 32.0 (21.0-32.0) mmol/L Anion Gap 4 L (5-15) BUN 16 (7-18) mg/dL Creatinine 0.63 L (0.70-1.30) mg/dL Estim Creat Clear Calc 129.60 ml/min Est GFR (MDRD) Af Amer 169 (>60) mL/min Est GFR (MDRD) Non-Af 139 (>60) mL/min BUN/Creatinine Ratio 25.6 H (10-20) RATIO Glucose 121 H (74-106) mg/dL Lactic Acid 0.8 (0.4-2.0) mmol/L Calcium 9.0 (8.5-10.1) mg/dL Total Bilirubin 0.60 (0.20-1.00) mg/dL AST 27 (15-37) U/L ALT 42 (16-61) U/L Alkaline Phosphatase 92 (45-117) U/L Troponin I 0.016 (<0.045) ng/mL C-React Prot Ext Range (0.0-3.0) mg/L Total Protein 7.7 (6.4-8.2) g/dL Albumin 2.9 L (3.2-5.0) g/dL Globulin 4.8 H (2.2-4.2) g/dL Albumin/Globulin Ratio 0.6 L (0.9-2.4) RATIO Urine Color (Yellow) Urine Clarity (Clear) Urine pH (5.0 - 8.0) Ur Specific [place] (1.002-1.030) Urine Protein (Negative) mg/dl Urine Glucose (UA) (Normal) mg/dl Urine Ketones (Negative) mg/dl Urine Occult Blood (Negative) /ul Urine Nitrite (Negative) Urine Bilirubin (Negative) mg/dL Urine Urobilinogen (Normal) mg/dl Ur Leukocyte Esterase (Negative) /ul Urine RBC (0-5) /hpf Urine WBC (0-5) /hpf Ur Squamous Epith Cells (0-5) /hpf Urine Bacteria (None Seen) /hpf Urine Mucus (<or=2+) /hpf Fluid Crystals Fluid Crystal Source Fl Crystal Path Review Synovial Source Synovial Color Synovial Appearance Synovial Volume Synovial Viscosity Synovial WBC Synovial RBC Synovial Tot Cell Ct Synov Polynuclear WBCs Synov Mononuclear WBCs Synovial Neutrophils Synovial Lymphocytes Synovial Monocytes Synovial Plasma Cells Synovial Other Cells Synovial Polynuclear % Synovial Mononuclear % Synovial Path Comment 04/27/19 Range/Units 15:45 WBC 12.8 H (4.4-11.0) K/mm3 RBC 4.45 L (4.6-6.2) M/mm3 Hgb 15.9 (13.0-16.5) g/dL Hct 46.3 (40-54) % MCV 104.0 H (80-94) fL MCH 35.7 H (27.0-32.0) pg MCHC 34.3 (32-36) g/dL RDW Std Deviation 58.8 H (35.1-43.9) fl RDW Coeff of Elisa 15.2 H (11.6-14.6) % Plt Count 200 (150-450) K/mm3 MPV 10.1 (6.2-12.0) fl Immature Gran % (Auto) 0.400 (0.0-0.9) % Neut % (Auto) 76.1 H (47-70) % Lymph % (Auto) 9.5 L (19-41) % [place] % (Auto) 13.3 H (0-10) % Eos % (Auto) 0.5 (0-5) % Baso % (Auto) 0.2 (0-1) % Absolute Neuts (auto) 9.8 H (2.0-7.7) X10^3/uL Absolute Lymphs (auto) 1.22 (0.83-4.51) X10^3/uL Nucleated RBC % 0 (0-5) % Differential Comment SCANNED Diff Path Review May foll ESR (0-20) mm/hr PT (11.7-14.9) SECONDS INR APTT (24.1-36.2) Seconds Sodium (136-145) mmol/L Potassium (3.5-5.1) mmol/L Chloride (98-107) mmol/L Carbon Dioxide (21.0-32.0) mmol/L Anion Gap (5-15) BUN (7-18) mg/dL Creatinine (0.70-1.30) mg/dL Estim Creat Clear Calc ml/min Est GFR (MDRD) Af Amer (>60) mL/min Est GFR (MDRD) Non-Af (>60) mL/min BUN/Creatinine Ratio (10-20) RATIO Glucose (74-106) mg/dL Lactic Acid (0.4-2.0) mmol/L Calcium (8.5-10.1) mg/dL Total Bilirubin (0.20-1.00) mg/dL AST (15-37) U/L ALT (16-61) U/L Alkaline Phosphatase (45-117) U/L Troponin I (<0.045) ng/mL C-React Prot Ext Range (0.0-3.0) mg/L Total Protein (6.4-8.2) g/dL Albumin (3.2-5.0) g/dL Globulin (2.2-4.2) g/dL Albumin/Globulin Ratio (0.9-2.4) RATIO Urine Color (Yellow) Urine Clarity (Clear) Urine pH (5.0 - 8.0) Ur Specific [place] (1.002-1.030) Urine Protein (Negative) mg/dl Urine Glucose (UA) (Normal) mg/dl Urine Ketones (Negative) mg/dl Urine Occult Blood (Negative) /ul Urine Nitrite (Negative) Urine Bilirubin (Negative) mg/dL Urine Urobilinogen (Normal) mg/dl Ur Leukocyte Esterase (Negative) /ul Urine RBC (0-5) /hpf Urine WBC (0-5) /hpf Ur Squamous Epith Cells (0-5) /hpf Urine Bacteria (None Seen) /hpf Urine Mucus (<or=2+) /hpf Fluid Crystals Fluid Crystal Source Fl Crystal Path Review Synovial Source Synovial Color Synovial Appearance Synovial Volume Synovial Viscosity Synovial WBC Synovial RBC Synovial Tot Cell Ct Synov Polynuclear WBCs Synov Mononuclear WBCs Synovial Neutrophils Synovial Lymphocytes Synovial Monocytes Synovial Plasma Cells Synovial Other Cells Synovial Polynuclear % Synovial Mononuclear % Synovial Path Comment Microbiology 04/27/19 16:55 Fluid - Synovial (joint) Gram Stain - Preliminary 4+ WBC's, no organisms Dr. Basil Soto [facility] Operations: None Procedures: - - Arthrocentesis X 2 Left shoulder Summary of Care Provided: The patient is a 58 year old M with a past medical history of scleroderma, chronic respiratory failure on 2 L of nasal O2 chronically, chronic pain syndrome, JUAN ALBERTO on BIPAP 13/07, non-Hodgkin's lymphoma, status post stem cell transplant with history of facpo-gqbhta-yfjl disease, chronic immunosuppressive therapy with Hydrocortisone, asthma and partial lobectomy of the Right lung who presented to the ED at [facility] on 04/27/19 complaining of fever and intractable left shoulder pain. He went to the [facility] orthopedic office but, was sent immediately to the ED for temp of 102 and suspected Septic arthritis of the left shoulder. Vital signs at presentation to the emergency room were temperature 102.3, pulse rate 129, pressure 188/120, respiratory rate 24 and he was 95% saturated on a 4 L nasal cannula. Significant lab included an elevated white blood cell count at 12.8 with a left shift. Hemoglobin was 15.9 with macrocytic indices. Platelets were within normal limits at 200. PT and PTT were within normal limits. BUN was 16 with a creatinine of 0.63 and a BUN/creatinine ratio of 25.6. Lactic acid was normal at 0.8. Troponin was normal at 0.016. UA showed 0-5 WBCs per high-power field. LFTs were normal. Chest x-ray was reported as possible congestive heart failure but there was a poor inspiratory effort and he has significant restrictive lung disease. The lung markings were crowded together. There did not appear to be any infiltrates. There was blunting of the right costophrenic angle. A shoulder XRAY done on 04/24/19 with his first visit to the ED showed a possible abnormality of the proximal left humeral shaft. There were no obvious fractures or dislocations. On physical examination there was erythema, swelling and increased warmth to touch of the left shoulder and there was a scab at the top of the left shoulder with no surrounding erythema and no signs of infection there. The emergency room physician performed an arthrocentesis of the left shoulder and got a very small amount of fluid that was showed 4+ WBC's and no organisms. Culture is pending. He was admitted to a medical surgical floor on telemetry with a diagnosis of Septic Arthritis of the left shoulder. Cefepime and Vancomycin were ordered and consult was placed with Dr. Basil Soto from orthopedics. On 04/28 at 9:30 AM the temperature was 98.9 and the heart rate was 116 with a blood pressure of 214/106. Respiratory rate was 28 and he was 95% saturated on a 6 L nasal cannula. He did not bring his BIPAP unit to the hospital with him. White blood cell count was 13.4 with persistent left shift. Hemoglobin and platelets remained within normal limits. An ESR was 96 and the CRP was 291. He was seen by Dr. Soto who aspirated the left shoulder and withdrew 4 cc of bloody thick fluid. The fluid was sent for Gram stain, culture and sensitivities, cell count, crystal exam and fungal cultures. These lab test are pending at the time of DC. He became more acutely SOB in the morning on 04/28. No coughing. Denied chest pain. BNP was 68. Troponin was 0.03 which is within normal limits. EKG showed sinus tachycardia with no significant ST or T wave changes. He had not had BIPAP all night and on PE he had coarse crackles in both bases and some inspiratory wheezing in the bases, L>R. He was tachypneic and had conversational dyspnea. Aerosols were changed to Atrovent Q4 H because of the tachycardia. He was given a dose of Dilaudid and an Atrovent aerosol. He was placed on BIPAP. BP had been elevated since admission and he had been getting PRN Hydralazine IV. He was started on Clonidine and given 0.1 mg. With the BIPAP, better control of the BP and some pain medication he felt better and the RR came down. CXR showed no acute changes.....better inspiratory effort and no obvious infiltrates. I was in touch with [facility] and they accepted the pt and he will bee admitted to Dr. Cyril Perez accepting. The preliminary from the synovial fluid obtained 04/27 is Staph Aureus. This note was generated with [employer] dictation software. It may contain incorrect words, spelling, and punctuation that were not noted in checking the note before signing. Patient Problems: Active and Suspected Problems (Last Reviewed 12/13/18 @ 09:12 by Janessa Frias) SIRS (systemic inflammatory response syndrome) (Acute) Left shoulder pain (Acute) Sepsis (Acute) Septic joint (Acute) - Physical Exam Vital Signs Temp Pulse Resp BP Pulse Ox 98.9 F 116 H 28 H 214/106 H 95 04/28/19 09:31 04/28/19 09:31 04/28/19 09:31 04/28/19 09:31 04/28/19 09:31 Oxygen Flow Rate (L/min) 6 Oxygen Delivery Method Nasal Cannula Weight: 158 lb 11.725 oz Body Mass Index (BMI) 22.7 Intake and Output for Last 24 Hours 04/26/19 04/27/19 04/28/19 23:59 23:59 23:59 Intake Total 1722.50 / 1954.83 2040.67 / 2040. Balance 1722.50 / 5.83 2040. / Microbiology Past 72 Hours 04/27/19 16:55 Gram Stain - Preliminary Fluid - Synovial (joint) Laboratory Tests Past 24 Hrs 04/27/19 04/27/19 04/27/19 15:45 15:45 15:45 WBC 12.8 H RBC 4.45 L Hgb 15.9 Hct 46.3 MCV 104.0 H MCH 35.7 H MCHC 34.3 RDW Std Deviation 58.8 H RDW Coeff of Elisa 15.2 H Plt Count 200 MPV 10.1 Immature Gran % (Auto) 0.400 Neut % (Auto) 76.1 H Lymph % (Auto) 9.5 L [place] % (Auto) 13.3 H Eos % (Auto) 0.5 Baso % (Auto) 0.2 Absolute Neuts (auto) 9.8 H Absolute Lymphs (auto) 1.22 Nucleated RBC % 0 Differential Comment SCANNED Diff Path Review December ESR PT 14.8 INR 1.2 APTT 29.7 Sodium 138 Potassium 3.9 Chloride 102 Carbon Dioxide 32.0 Anion Gap 4 L BUN 16 Creatinine 0.63 L Estim Creat Clear Calc 129.60 Est GFR (MDRD) Af Amer 169 Est GFR (MDRD) Non-Af 139 BUN/Creatinine Ratio 25.6 H Glucose 121 H Lactic Acid Calcium 9.0 Total Bilirubin 0.60 AST 27 ALT 42 Alkaline Phosphatase 92 Troponin I 0.016 C-React Prot Ext Range Total Protein 7.7 Albumin 2.9 L Globulin 4.8 H Albumin/Globulin Ratio 0.6 L Urine Color Urine Clarity Urine pH Ur Specific [place] Urine Protein Urine Glucose (UA) Urine Ketones Urine Occult Blood Urine Nitrite Urine Bilirubin Urine Urobilinogen Ur Leukocyte Esterase Urine RBC Urine WBC Ur Squamous Epith Cells Urine Bacteria Urine Mucus Fluid Crystals Fluid Crystal Source Fl Crystal Path Review Synovial Source Synovial Color Synovial Appearance Synovial Volume Synovial Viscosity Synovial WBC Synovial RBC Synovial Tot Cell Ct Synov Polynuclear WBCs Synov Mononuclear WBCs Synovial Neutrophils Synovial Lymphocytes Synovial Monocytes Synovial Plasma Cells Synovial Other Cells Synovial Polynuclear % Synovial Mononuclear % Synovial Path Comment 04/27/19 04/27/19 04/27/19 15:45 16:26 16:55 WBC RBC Hgb Hct MCV MCH MCHC RDW Std Deviation RDW Coeff of Elisa Plt Count MPV Immature Gran % (Auto) Neut % (Auto) Lymph % (Auto) [place] % (Auto) Eos % (Auto) Baso % (Auto) Absolute Neuts (auto) Absolute Lymphs (auto) Nucleated RBC % Differential Comment Diff Path Review ESR PT INR APTT Sodium Potassium Chloride Carbon Dioxide Anion Gap BUN Creatinine Estim Creat Clear Calc Est GFR (MDRD) Af Amer Est GFR (MDRD) Non-Af BUN/Creatinine Ratio Glucose Lactic Acid 0.8 Calcium Total Bilirubin AST ALT Alkaline Phosphatase Troponin I C-React Prot Ext Range Total Protein Albumin Globulin Albumin/Globulin Ratio Urine Color Yellow Urine Clarity Clear Urine pH 7.0 Ur Specific [place] 1.010 Urine Protein 30 H Urine Glucose (UA) Normal Urine Ketones Negative Urine Occult Blood Negative Urine Nitrite Negative Urine Bilirubin 3 H Urine Urobilinogen 1 H Ur Leukocyte Esterase 25 H Urine RBC 0 SEEN Urine WBC 0-5 SEEN Ur Squamous Epith Cells 0 SEEN Urine Bacteria 0 SEEN Urine Mucus 0 SEEN Fluid Crystals SEE PATH REV Fluid Crystal Source SYNOVIAL Fl Crystal Path Review Will follow Synovial Source Cancelled Synovial Color Cancelled Synovial Appearance Cancelled Synovial Volume Cancelled Synovial Viscosity Cancelled Synovial WBC Cancelled Synovial RBC Cancelled Synovial Tot Cell Ct Cancelled Synov Polynuclear WBCs Cancelled Synov Mononuclear WBCs Cancelled Synovial Neutrophils Cancelled Synovial Lymphocytes Cancelled Synovial Monocytes Cancelled Synovial Plasma Cells Cancelled Synovial Other Cells Cancelled Synovial Polynuclear % Cancelled Synovial Mononuclear % Cancelled Synovial Path Comment Cancelled 04/28/19 04/28/19 04/28/19 07:03 07:03 07:03 WBC 13.4 H RBC 4.59 L Hgb 16.1 Hct 48.9 MCV 106.5 H MCH 35.1 H MCHC 32.9 RDW Std Deviation 62.2 H RDW Coeff of Elisa 15.7 H Plt Count 177 MPV 10.1 Immature Gran % (Auto) 0.500 Neut % (Auto) 76.4 H Lymph % (Auto) 6.9 L [place] % (Auto) 14.5 H Eos % (Auto) 1.4 Baso % (Auto) 0.3 Absolute Neuts (auto) 10.3 H Absolute Lymphs (auto) 0.92 Nucleated RBC % 0 Differential Comment Diff Path Review ESR 96 H PT INR APTT Sodium 139 Potassium 4.0 Chloride 102 Carbon Dioxide 30.0 Anion Gap 7 BUN 14 Creatinine 0.53 L Estim Creat Clear Calc 152.83 Est GFR (MDRD) Af Amer 202 Est GFR (MDRD) Non-Af 167 BUN/Creatinine Ratio 26.2 H Glucose 96 Lactic Acid Calcium 8.9 Total Bilirubin AST ALT Alkaline Phosphatase Troponin I C-React Prot Ext Range Total Protein Albumin Globulin Albumin/Globulin Ratio Urine Color Urine Clarity Urine pH Ur Specific [place] Urine Protein Urine Glucose (UA) Urine Ketones Urine Occult Blood Urine Nitrite Urine Bilirubin Urine Urobilinogen Ur Leukocyte Esterase Urine RBC Urine WBC Ur Squamous Epith Cells Urine Bacteria Urine Mucus Fluid Crystals Fluid Crystal Source Fl Crystal Path Review Synovial Source Synovial Color Synovial Appearance Synovial Volume Synovial Viscosity Synovial WBC Synovial RBC Synovial Tot Cell Ct Synov Polynuclear WBCs Synov Mononuclear WBCs Synovial Neutrophils Synovial Lymphocytes Synovial Monocytes Synovial Plasma Cells Synovial Other Cells Synovial Polynuclear % Synovial Mononuclear % Synovial Path Comment 04/28/19 07:03 WBC RBC Hgb Hct MCV MCH MCHC RDW Std Deviation RDW Coeff of Elisa Plt Count MPV Immature Gran % (Auto) Neut % (Auto) Lymph % (Auto) [place] % (Auto) Eos % (Auto) Baso % (Auto) Absolute Neuts (auto) Absolute Lymphs (auto) Nucleated RBC % Differential Comment Diff Path Review ESR PT INR APTT Sodium Potassium Chloride Carbon Dioxide Anion Gap BUN Creatinine Estim Creat Clear Calc Est GFR (MDRD) Af Amer Est GFR (MDRD) Non-Af BUN/Creatinine Ratio Glucose Lactic Acid Calcium Total Bilirubin AST ALT Alkaline Phosphatase Troponin I C-React Prot Ext Range 291.00 H Total Protein Albumin Globulin Albumin/Globulin Ratio Urine Color Urine Clarity Urine pH Ur Specific [place] Urine Protein Urine Glucose (UA) Urine Ketones Urine Occult Blood Urine Nitrite Urine Bilirubin Urine Urobilinogen Ur Leukocyte Esterase Urine RBC Urine WBC Ur Squamous Epith Cells Urine Bacteria Urine Mucus Fluid Crystals Fluid Crystal Source Fl Crystal Path Review Synovial Source Synovial Color Synovial Appearance Synovial Volume Synovial Viscosity Synovial WBC Synovial RBC Synovial Tot Cell Ct Synov Polynuclear WBCs Synov Mononuclear WBCs Synovial Neutrophils Synovial Lymphocytes Synovial Monocytes Synovial Plasma Cells Synovial Other Cells Synovial Polynuclear % Synovial Mononuclear % Synovial Path Comment Home Medications: Medications to take at Discharge Albuterol Aerosols [Ventolin Aerosols] 2.5 mg INHALATION BID 04/02/16 Ondansetron [Zofran Odt] 4 mg PO Q8H PRN PRN 04/02/16 diazepam 5 mg tablet 5 mg PO Q8H PRN PRN 12/26/17 etodolac 200 mg capsule 200 - 400 mg PO DAILY PRN PRN cap 12/26/17 gabapentin 300 mg capsule 300 mg PO TID PRN PRN cap 12/26/17 ginkgo biloba 120 mg tablet 120 mg PO BID PRN 12/26/17 hydromorphone 2 mg tablet 2 - 4 mg PO Q4H PRN PRN tab 12/26/17 methadone 5 mg tablet 5 mg PO Q12H PRN tab 12/26/17 methylphenidate 5 mg tablet 5 mg PO BID PRN 12/26/17 pantoprazole 40 mg tablet,delayed release 40 mg PO QAM 12/26/17 tadalafil 5 mg tablet 5 mg PO ONCE PRN 12/26/17 tizanidine 2 mg capsule 2 mg PO BID PRN PRN cap 12/26/17 Albuterol Sulfate [Proventil Hfa] 2 puff INHALATION Q4H 07/27/18 Fluticasone/Umeclidin/Vilanter [Trelegy Ellipta 100-62.5-25] 1 puff INHALATION DAILY 04/27/19 Hydrocortisone 20 mg PO DAILY 04/27/19 Hydrocortisone 30 mg PO DAILY 04/27/19 Melatonin 10 mg PO DAILY 04/27/19 [place]-3 Fatty Acids [[place]-3] 2,000 mg PO BID 04/27/19 Testosterone Cypionate 1 ml IM QWEEK 04/27/19 Primary Care Physician: Lolly Meyer MD [Primary Care Provider] - Disposition: [facility], Dr. Nam accepting Minutes spent on discharge:: 50 Patient Condition:: Guarded Medical Necessity - Tobacco Use Smoking Status: Current some day smoker - Patient notes smoking 1 to 2 cigars every other month, in the past smoke cigars routinely for about 2 years. Tobacco Use: Cigars Meaningful Use Info Meaningful Use Diagnoses (Choose all that apply): None applicable Code Visit Inpatient E&M: 25246 Disch Hosp
--- NOTE | 2019-04-28 11:16 | EKG12_ITS ---
Test Reason : Blood Pressure : / mmHG Vent. Rate : 112 BPM Atrial Rate : 112 BPM P-R Int : 140 ms QRS Dur : 120 ms QT Int : 336 ms P-R-T Axes : 000 173 165 degrees QTc Int : [address] & T wave abnormality, consider inferior ischemia Abnormal ECG Confirmed by RUDDY HILLMAN ([id number]), editor managing newspaper RUSS VERA ([id number]) on 05/03/2019 1:53:41 PM Referred By: BRADEN Confirmed By:RUDDY HILLMAN
--- NOTE | 2019-04-28 11:16 | NURSING ---
call recieved bed obtained pt will be transporting [facility] ICU bed 13 [id number]. Hospital to be send Critical care trasport call with ETA
--- NOTE | 2019-04-28 11:28 | NURSING ---
Call placed to RN who will be receiving pt at [facility]
[2019-04-28 11:43] LABS: BNP,B-Type NATRIURETIC PEPTIDE 68.1 pg/mL (0-100)
--- NOTE | 2019-04-28 11:47 | NURSING ---
Pt returned from MRI, VS retaken, Resp in room obtaining EKG, Doctor Danial on floor to assess pt
[2019-04-28] MEDS: Hydrocortisone 10 MG Tablet 20 MG PO (11:48)
--- NOTE | 2019-04-28 11:52 | RAD_ITS ---
STUDY: X-RAY CHEST REASON FOR EXAM: Male, 58 years old. Shortness of breath TECHNIQUE: Single AP portable view of the chest. COMPARISON: April 27, 2019 chest x-ray chest x-ray FINDINGS: There is focal opacity in the right upper lobe left lower lobe with streaky linear density in the right lung base. There is no demonstrated pleural abnormality. Normal size heart. Normal mediastinum and april. Normal visualized pulmonary arteries. Normal visualized aortic arch and descending thoracic aorta. Normal visualized thoracic spine. Normal visualized ribs, clavicles, and shoulders. There is no demonstrated abnormality of the visualized soft tissue structures of the upper abdomen. RAD/Chest 1 View (Portable) IMPRESSION: Findings are suspicious for multifocal infiltrates, possibly asymmetric edema. Right lower lobe atelectasis and/or scarring. Could consider follow-up noncontrast chest CT to confirm. Electronically Signed: Tasneem Manzano MD at 13:04 EDT Tel , Service support ,
[2019-04-28] MEDS: cloNIDine HCl 0.1 MG Tablet PO (12:05)
[2019-04-28] MEDS: Ipratropium 0.5 MG/2.5 ML SOLUTION INHALATION (12:15)
--- NOTE | 2019-04-28 12:25 | CM.UR ---
Patient to be transferred to [facility] per Dr. Alvares. Alba Guidry RN, CCM.
--- NOTE | 2019-04-28 12:52 | CPS ---
Placed on high flow nasal o2 at 8 l/m. SPo2 98%
[2019-05-01 12:14] LABS: Pathologist Review Reviewed
[2019-05-01 12:17] LABS: Pathologist Review Reviewed
== END 2019-04-28 12:58 | disposition short-term general hospital (02) | DRG 871 ==
LOC: ED 18:53 → MS3 19:36
PROVIDERS: Orthopaedic Surgery; Admitting Provider Family Medicine; Emergency Provider Emergency Medicine; Family Provider Family Medicine; PCP Family Medicine; Visit Provider Internal Medicine
DX: A41.9 Sepsis, unspecified organism (principal); J96.21 Acute and chronic respiratory failure with hypoxia; M00.812 Arthritis due to other bacteria, left shoulder; C85.90 Non-Hodgkin lymphoma, unspecified, unspecified site; Z94.84 Stem cells transplant status; G89.4 Chronic pain syndrome; G47.33 Obstructive sleep apnea (adult) (pediatric); Z99.81 Dependence on supplemental oxygen; M34.9 Systemic sclerosis, unspecified; Z72.0 Tobacco use; Z79.52 Long term (current) use of systemic steroids; Z90.2 Acquired absence of lung [part of]; Z79.899 Other long term (current) drug therapy; Z79.891 Long term (current) use of opiate analgesic
CPT/HCPCS: 36415; 71045; 73030; 73218; 73221; 80048; 80053; 81001; 83605; 83880; 84484; 85025; 85610; 85652; 85730; 86140; 87040; 87070; 87075; 87077; 87086; 87088; 87101; 87186; 87205; 89060; 93005; 94002; 94640; 96374; 96375; 96376; 99284; 99285; J7030; J7040; A4216; J2405

== ENCOUNTER 2019-05-04 11:10 | Inpatient (IN) | payer MEDICARE, SELFPAY ==
[2019-04-27 19:59] VITALS: BMI 22.7
[2019-05-04 11:50] VITALS: BP 147/82; PULSE 98; RESP 20; TEMP 36.8; O2SAT 95; BMI 22.9
--- NOTE | 2019-05-04 11:55 | NURSING ---
Patient admitted to room 17 from [facility] via cot. Oriented to room and call light system explained. Patient in contact precautions for MRSA in wound.
--- NOTE | 2019-05-04 15:27 | HP.PCM_ITS ---
Problem List (1) Acute respiratory failure Status: Acute (2) Debility Status: Acute (3) Septic arthritis of shoulder, left Status: Acute (4) DVT (deep venous thrombosis) Status: Chronic (5) Hypogonadism Status: Chronic (6) Sepsis Status: Chronic Qualifiers: (7) Non-Hodgkin lymphoma Status: Chronic (8) Stjvf-rxfvyh-ukwk disease Status: Chronic (9) Scleroderma Status: Chronic History of Present Illness Date of Admission: 05/04/19 Chief Complaint: Here for rehabilitation, strengthening, intravenous antibiotics, prior to discharge home with spouse. 58 year old male with below past medical history presented to [facility] with left shoulder pain, fever for 1 week. Evaluation at [facility] revealed septic arthritis of left shoulder (aspiration was positive for leukocytosis, culture positive for S. aureus, elevated ESR, elevated CRP). Patient was started on IV Vancomycin, IV Cefepime, and transferred to [facility]. Orthopedic service consulted for debridement, recommended transfer to [facility]. Patient was admitted to [facility] MICU and found to be comfortable. Orthopedic surgery, infectious disease, and palliative medicine consulted. Orthopedic surgery recommended wash out of left septic shoulder in OR completed 04/29/2019. Culture grew Methicillin resistant staph aureus. Infectious disease reviewed culture results and recommended intravenous daptomycin. Palliative medicine adjusted pain medications. 05/04/2019 Admit to TCU with debility, here for rehabilitation, strengthening, intravenous antibiotics, prior to discharge home with spouse. Past Medical History Past Medical History (Chronic Problems): Chronic Problems (Last Reviewed 12/13/18 @ 09:12 by Janessa Frias) Nasal congestion (Chronic) Nasal turbinate hypertrophy (Chronic) Nasal valve collapse (Chronic) Immunocompromised state (Chronic) DVT (deep venous thrombosis) (Chronic) Hypogonadism (Chronic) Sarcoidosis (Chronic) Scleroderma (Chronic) Respiratory failure with hypoxia (Chronic) 2 L/min with exertion JUAN ALBERTO (obstructive sleep apnea) (Chronic) BiPAP 13/07 Non-Hodgkin lymphoma (Chronic) History of immunosuppression therapy (Chronic) Hijvw-kpgrft-ggob disease (Chronic) History of asthma (Chronic) Medical History: Medical History (Last Reviewed 12/13/18 @ 09:12 by Janessa Frias) Non-Hodgkin lymphoma (Chronic) C85.90 History of immunosuppression therapy (Chronic) Z92.25 Sivih-jwsjuk-yvln disease (Chronic) D89.813 History of asthma (Chronic) Z87.09 Cardiogenic shock R57.0 Respiratory failure J96.90 Severe sepsis A41.9, R65.20 Bronchiolitis obliterans syndrome J42 DVT prophylaxis Hypogonadism 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 Restrictive lung disease J98.4 Allergies No Known Allergies Allergy (Unverified 12/13/18 09:11) Home Medications: Ambulatory Orders Medication Instructions Recorded Albuterol Aerosols [Ventolin 2.5 mg INHALATION Q4H 04/02/16 Aerosols] Ondansetron [Zofran Odt] 4 mg PO Q8H PRN PRN 04/02/16 diazepam 5 mg tablet 5 mg PO Q8H PRN PRN 12/26/17 etodolac 200 mg capsule 400 mg PO BID cap 12/26/17 gabapentin 300 mg capsule 300 mg PO TID PRN cap 12/26/17 ginkgo biloba 120 mg tablet 120 mg PO BID PRN 12/26/17 hydromorphone 2 mg tablet 4 mg PO Q3H PRN tab 12/26/17 methylphenidate 5 mg tablet 5 mg PO BID PRN 12/26/17 pantoprazole 40 mg tablet,delayed 40 mg PO QAM 12/26/17 release tadalafil 5 mg tablet 5 mg PO ONCE PRN 12/26/17 tizanidine 2 mg capsule 4 mg PO BID PRN PRN cap 12/26/17 Hydrocortisone 20 mg PO LUNCH 04/27/19 Hydrocortisone 30 mg PO BREAKFAST 04/27/19 Melatonin 10 mg PO DAILY 04/27/19 Mclouth-3 Fatty Acids [[place]clouth-3] 2,000 mg PO BID 04/27/19 Testosterone Cypionate 1 ml IM QWEEK 04/27/19 Acetaminophen 650 mg PO Q4H PRN 05/04/19 Amlodipine [Norvasc] 10 mg PO DAILY 05/04/19 Amoxicillin 250 mg PO BID 05/04/19 Budesonide/Formoterol 160/4.5 2 puff INHALATION BID 05/04/19 [Symbicort 160/4.5 Mcg Inhaler (SP)] Cyclobenzaprine HCl 10 mg PO TID PRN 05/04/19 DAPTOmycin [Cubicin] 450 mg IV Q24H 05/04/19 Heparin Injection 5,000 units SUBCUT BID 05/04/19 Loteprednol Etabonate [Lotemax] 1 drp OPHTHALMIC (EYE) BID 05/04/19 Naloxone HCl [Narcan] 4 mg NS PRN PRN 05/04/19 Senna [Senokot] 1 tab PO QHS 05/04/19 Triamcinolone 0.1% Ointment 1 applic TOPICAL BID PRN 05/04/19 [Kenalog] Valacyclovir HCl [Valacyclovir] 500 mg PO DAILY PRN 05/04/19 Zolpidem Tartrate 5 mg PO QHS PRN 05/04/19 Surgical History: Surgical History (Last Reviewed 12/13/18 @ 09:12 by Janessa Frias) H/O eye surgery Z98.890 bilateral lacrimal plugs 11/08 History of lung surgery Z98.890 S/P PICC central line placement Z95.828 11/12/12 Surgical History: cataract, tonsillectomy, - - Right lower lobe lobectomy, bilateral lid partial closure for dry eyes, septoplasty, stem cell transplant. Psychiatric History: No pertinent psych hx Lives: Spouse/ Significant Other Smoking Status: Current some day smoker Tobacco Use: Cigars Alcohol: None Drugs: None - *Family History Maternal Family History: Family History (Last Reviewed 12/13/18 @ 09:12 by Janessa Frias) Father Leukemia Grandfather Lymphoma Uncle Leukemia History Items: Diabetes Paternal Family History: Family History (Last Reviewed 12/13/18 @ 09:12 by Janessa Frias) Father Leukemia Grandfather Lymphoma Uncle Leukemia History Items: Cancer Review of Systems Constitutional: Denies: Chills, Fever, Weight Change HEENT: Denies: Head Aches, Sinus Congestion, Sinus Drainage Cardiovascular: Denies: Chest Pain, Palpitations Respiratory: Denies: Cough, Shortness of breath at rest, Sputum production Gastrointestinal: Denies: Abdominal Pain, Nausea, Vomiting Genitourinary: Denies: Dysuria Musculoskeletal: Reports: Shoulder Pain - Left.. Denies: Joint Pain, Joint Tenderness Skin: Denies: Rash, Wounds Neurological: Denies: Numbness, Tingling, Focal weakness Psychiatric: Denies: Anxiety, Depression, Homicidal Ideations, Suicidal Ideations Hematologic/ Lymphatic: Denies: Easy Bruising, Easy Bleeding VTE Information - Inpt Only VTE Present on Admission: No VTE Mechan Device Prophylaxis: Knee High RICARDO Hose VTE Pharm Prophylaxis ordered?: Yes Patient Problems: Active and Suspected Problems (Last Reviewed 12/13/18 @ 09:12 by Janessa Frias) Acute respiratory failure (Acute) Debility (Acute) Septic arthritis of shoulder, left (Acute) - Physical Exam General: Alert, Oriented x3, Cooperative HEENT: Atraumatic, PERRLA, EOMI, Normocephalic Neck: Supple, No JVD, Negative Carotid Bruits Lungs: Clear to auscultation, Normal air movement Cardiovascular: Regular rate, No murmurs Abdomen: Bowel Sounds Present, Soft, Non Tender Extremities: No edema, Capillary Refill Less than 3 Seconds, - - Right upper extremity PICC. Skin: No rashes, No breakdown, Incision - Dressing to left shoulder. Musculoskeletal: No Tenderness to Palpation of Joints or Extremities Neurological: Cranial nerves II-XII grossly intact Psych/Mental Status: Normal Affect, Appropriate Vital Signs Temp Pulse Resp BP Pulse Ox 98.2 F 98 20 H 147/82 H 95 05/04/19 11:50 05/04/19 11:50 05/04/19 11:50 05/04/19 11:50 05/04/19 11:50 Oxygen Flow Rate (L/min) 3 Oxygen Delivery Method Nasal Cannula Weight: 72.8 kg Body Mass Index (BMI) 22.9 Assessment/Plan All Active Problems (Last Reviewed 12/13/18 @ 09:12 by Janessa Frias) SIRS (systemic inflammatory response syndrome) (Acute) Left shoulder pain (Acute) Sepsis (Acute) Septic joint (Acute) Acute respiratory failure (Acute) Debility (Acute) Septic arthritis of shoulder, left (Acute) 58 year old male with below past medical history hospitalized for MRSA septic arthritis left shoulder, underwent arthroscopic washout 04/29/2019, admitted to TCU with debility, here for rehabilitation, strengthening, intravenous antibiotics, prior to discharge home with spouse. * Debility - PT/OT. * Pain - Tylenol 1000MG Q6H PRN mild pain, Dilaudid 4MG IV Q3H PRN severe pain, Etodolac 400MG BID. * Bowel - Senokot 1 tablet QHS. * Pneumonia vaccination - Pneumovax 23. * DVT prophylaxis - Lovenox 40MG SC daily. * Shortness of Breath - Advair inhaler 1 puff Q12H, Albuterol 2.5MG nebulized Q4H. * Hypertension - Amlodipine 10MG daily. * MRSA left shoulder septic arthritis - Daptomycin 450MG IV Q24H thru 05/27/2019, then Amoxil 250MG BID 05/28/2019. Consult Dr. Funes. * Skin irritation - Valisone 0.1% ointment BID PRN. * Neuropathic pain - Gabapentin 300MG TID. * Scleroderma - Hydrocortisone 30MG QAM, 20MG QLUNCH. * Ocular inflammation - Loteprednol 1GTT OU BID. * Insomnia - Melatonin 10MG QHS, Zolpidem 5MG QHS PRN. * Fatigue - Ritalin 5MG BID PRN. * Hyperlipidemia - Mclouth 3 2GM BID. * Nausea - Zofran ODT 4MG Q8H PRN. * GERD - Pantoprazole 40MG QAM. * Hypogonadism - Testosterone 100MG IM QFriday.
[2019-05-04 15:38] VITALS: BP 139/79; PULSE 95; RESP 20; TEMP 37.4; O2SAT 94
[2019-05-04] MEDS: Hydrocortisone 10 MG Tablet 20 MG PO (16:16)
[2019-05-04] MEDS: Gabapentin 300 MG Capsule PO (16:16)
[2019-05-04] MEDS: TESTOSTERONE CYPIONATE 200 MG/ML VIAL 100 MG IM (17:22)
--- NOTE | 2019-05-04 17:49 | NURSING ---
New order to D/C lotemax drops, symbicort and fish oils caps.
[2019-05-04 19:10] VITALS: PULSE 92; RESP 18
[2019-05-04] MEDS: Albuterol 2.5 MG/3 ML VIAL.NEB. INHALATION (19:10)
[2019-05-04] MEDS: HYDROmorphone 2 MG TABLET 4 MG PO (20:26)
[2019-05-04] MEDS: Senna Tablet 1 TABLET PO (20:32)
[2019-05-04] MEDS: MELATONIN 10 MG TABLET PO (20:32)
[2019-05-04] MEDS: Etodolac 200 MG Capsule 400 MG PO (21:06)
[2019-05-04] MEDS: HYDROmorphone 1 MG/ML Syringe IV (22:50)
--- NOTE | 2019-05-05 06:08 | NURSING ---
pt in isolation room, care was provided in his room.
[2019-05-05] MEDS: Enoxaparin 40 MG/0.4 ML Syringe SC (06:09)
[2019-05-05] MEDS: amLODIPine 10 MG Tablet PO (06:09)
[2019-05-05] MEDS: Acetaminophen 500 MG Tablet 1000 MG PO ×2 (06:25→12:27)
[2019-05-05 06:45] VITALS: PULSE 94; RESP 16; O2SAT 95
[2019-05-05] MEDS: Albuterol 2.5 MG/3 ML VIAL.NEB. INHALATION ×3 (06:45→14:45)
[2019-05-05 07:54] LABS: Absolute Lymphocyte Count 3.49 X10^3/uL (0.83-4.51); Absolute Neutrophil Count 7.3 X10^3/uL (2.0-7.7); Basophil# 0.06 X10^3/uL; Basophil% 0.5 % (0-1); Eosinophil# 0.84 X10^3/uL; Eosinophils% 6.4 % (0-5); Hematocrit 44.4 % (40-54); Hemoglobin 14.8 g/dL (13.0-16.5); Lymphocyte # 3.49 X10^3/ul (4.0); Lymphocyte % 26.5 % (19-41); Mean Corp Hgb Conc 33.3 g/dL (32-36); Mean Corpuscular Hgb 35.2 pg (27.0-32.0); Mean Corpuscular Volume 105.5 fL (80-94); Mean Platelet Vol. 10.2 fl (6.2-12.0); Monocyte% 9.9 % (0-10); NRBC Flagged by Analyzer 0 % (0-5); Neutrophil # 7.34 X10^3/uL (2.7-7.7); Neutrophil % 55.6 % (47-70); POSITIVE MORPHOLOGY YES; Platelet Count 320 K/mm3 (150-450); RBC Distribution Width CV 15.3 % (11.6-14.6); RBC Distribution Width SD 59.2 fl (35.1-43.9); Red Blood Count 4.21 M/mm3 (4.6-6.2); White Blood Count 13.2 K/mm3 (4.4-11.0)
[2019-05-05 08:05] LABS: Anion Gap 1 (5-15); BUN 11 mg/dL (7-18); BUN/Creat Ratio 25.9 RATIO (10-20); Calcium,Total 8.9 mg/dL (8.5-10.1); Chloride 99 mmol/L (98-107); Creatinine, Serum 0.42 mg/dL (0.70-1.30); EST Glomerular Filtration Rate 218 mL/min (>60); Est Glom Filt Rate - Afr Amer 264 mL/min (>60); Glucose 97 mg/dL (74-106); Potassium 3.7 mmol/L (3.5-5.1); Sodium Level 140 mmol/L (136-145)
[2019-05-05 08:19] LABS: Differential Indicated SCAN CRITERIA MET
[2019-05-05 08:30] LABS: Differential Comment SCANNED; Reactive Lymphocyte 2+
[2019-05-05] MEDS: Etodolac 200 MG Capsule 400 MG PO ×2 (08:54→20:34)
[2019-05-05] MEDS: Hydrocortisone 10 MG Tablet 30 MG PO (08:54)
[2019-05-05] MEDS: Gabapentin 300 MG Capsule PO ×3 (08:54→22:04)
--- NOTE | 2019-05-05 10:20 | NURSING ---
with many questions regarding his labs & meds, with some requests. Dr Forbes updated, new order for labs on tuesday & dilaudid IV changed to QHS & then PO dilaudid during day. feels the less that IV dilaudid used the less confused he will be. Will be contacting Dr Funes on Tuesday for consult.
[2019-05-05 10:50] VITALS: PULSE 94; RESP 16
[2019-05-05] MEDS: Pantoprazole Sodium 40 MG Tablet PO (10:53)
[2019-05-05] MEDS: Tuberculin,Purif.prot.deriv. 50 TU/ML Vial 5 ML ID (10:53)
[2019-05-05] MEDS: Hydrocortisone 10 MG Tablet 20 MG PO (12:27)
[2019-05-05] MEDS: HYDROmorphone 2 MG TABLET 4 MG PO ×3 (12:28→20:34)
[2019-05-05 14:45] VITALS: PULSE 98; RESP 16
--- NOTE | 2019-05-05 15:21 | CPS ---
Pt states he only takes aerosol rx once a day at home and would like to adhere to that rx here. Pt was informed that we would do rx once a day unless he calls and asks for more.
[2019-05-05 16:00] VITALS: BP 158/85; PULSE 100; RESP 20; TEMP 36.9; TEMP 37.5; O2SAT 96
[2019-05-05] MEDS: Senna Tablet 1 TABLET PO (22:04)
[2019-05-05] MEDS: MELATONIN 10 MG TABLET PO (22:04)
[2019-05-05] MEDS: 0.9% NaCl PICC Flush IV ×2 (22:04→23:30)
[2019-05-05] MEDS: HYDROmorphone 1 MG/ML Syringe IV (23:41)
--- NOTE | 2019-05-06 00:28 | NURSING ---
Pt remains in contact isolation this shift d/t MRSA, all care provided in room.
[2019-05-06] MEDS: HYDROmorphone 2 MG TABLET 4 MG PO ×6 (03:46→22:03)
--- NOTE | 2019-05-06 06:16 | NURSING ---
Pt called out requesting pain medication. This nurse into explain that pain medication was not due for about 45min. Pt becoming frustrated and stating When do I get a to see a stinken doctor around here because this is ridiculous! I have been moaning in pain all night. This nurse explained Dr. Forbes would be in Tuesday morning but we can contact at him any time if there was any concerns. Pt ignored this nurse. Offered an ice pack or heating pad to try nonpharmacological interventions. Pt stating If thats all you can do around this place but its not going to work. This nurse explained to pt that he has received his pain medication when due throughout the night and that when he was due again they would be offered. Pt in agreement and willing to try ice. Ice pack provided with call light in reach.
[2019-05-06 06:45] VITALS: PULSE 98; RESP 16; O2SAT 95
[2019-05-06] MEDS: Albuterol 2.5 MG/3 ML VIAL.NEB. INHALATION (06:45)
[2019-05-06] MEDS: Enoxaparin 40 MG/0.4 ML Syringe SC (06:45)
[2019-05-06] MEDS: amLODIPine 10 MG Tablet PO (06:45)
--- NOTE | 2019-05-06 06:47 | NURSING ---
All care provided in room d/t pt remains in precautions for MRSA.
[2019-05-06] MEDS: Etodolac 200 MG Capsule 400 MG PO ×2 (08:19→20:23)
[2019-05-06] MEDS: Gabapentin 300 MG Capsule PO ×3 (08:19→20:23)
--- NOTE | 2019-05-06 08:19 | NURSING ---
pt remains in contact isolation for MRSA, all care and treatments provided in pt room
[2019-05-06] MEDS: Hydrocortisone 10 MG Tablet 30 MG PO (08:20)
[2019-05-06] MEDS: Pantoprazole Sodium 40 MG Tablet PO (11:01)
[2019-05-06] MEDS: Hydrocortisone 10 MG Tablet 20 MG PO (12:28)
[2019-05-06] MEDS: 0.9% NaCl PICC Flush IV ×2 (15:55→20:24)
[2019-05-06 16:00] VITALS: BP 163/86; PULSE 100; RESP 19; TEMP 37.2; O2SAT 96
[2019-05-06] MEDS: MELATONIN 10 MG TABLET PO (20:23)
[2019-05-06] MEDS: Senna Tablet 1 TABLET PO (20:23)
[2019-05-06] MEDS: HYDROmorphone 1 MG/ML Syringe IV (20:24)
[2019-05-06] MEDS: Acetaminophen 500 MG Tablet 1000 MG PO (20:52)
--- NOTE | 2019-05-07 | NURSING ---
Pt remained in contact isolation during shift for MRSA.
[2019-05-07] MEDS: 0.9% NaCl PICC Flush IV ×2 (06:30→22:07)
[2019-05-07] MEDS: Enoxaparin 40 MG/0.4 ML Syringe SC (06:31)
[2019-05-07] MEDS: amLODIPine 10 MG Tablet PO (06:31)
[2019-05-07] MEDS: Acetaminophen 500 MG Tablet 1000 MG PO (06:58)
[2019-05-07 07:01] LABS: Absolute Lymphocyte Count 2.37 X10^3/uL (0.83-4.51); Basophil# 0.06 X10^3/uL; Basophil% 0.6 % (0-1); Eosinophil# 0.53 X10^3/uL; Eosinophils% 5.3 % (0-5); Hematocrit 46.2 % (40-54); Lymphocyte # 2.37 X10^3/ul (4.0); Lymphocyte % 23.9 % (19-41); Mean Corp Hgb Conc 32.5 g/dL (32-36); Mean Corpuscular Volume 107.9 fL (80-94); Mean Platelet Vol. 10.2 fl (6.2-12.0); Monocyte# 0.85 X10^3/uL; Monocyte% 8.6 % (0-10); NRBC Flagged by Analyzer 0 % (0-5); Neutrophil # 6.01 X10^3/uL (2.7-7.7); Neutrophil % 60.6 % (47-70); Platelet Count 348 K/mm3 (150-450); RBC Distribution Width CV 15.3 % (11.6-14.6); RBC Distribution Width SD 61.8 fl (35.1-43.9); Red Blood Count 4.28 M/mm3 (4.6-6.2); White Blood Count 9.9 K/mm3 (4.4-11.0)
[2019-05-07 07:08] LABS: Erythrocyte Sedimentation Rate 100 mm/hr (0-20)
[2019-05-07 07:30] LABS: Anion Gap 3 (5-15); BUN 12 mg/dL (7-18); BUN/Creat Ratio 24.8 RATIO (10-20); Calcium,Total 8.6 mg/dL (8.5-10.1); Chloride 101 mmol/L (98-107); Creatinine, Serum 0.48 mg/dL (0.70-1.30); EST Glomerular Filtration Rate 188 mL/min (>60); Est Glom Filt Rate - Afr Amer 227 mL/min (>60); Estimated Creatinine Clearance 170.63 ml/min; Glucose 128 mg/dL (74-106); Potassium 4.1 mmol/L (3.5-5.1); Sodium Level 143 mmol/L (136-145)
[2019-05-07] MEDS: HYDROmorphone 2 MG TABLET 4 MG PO ×5 (07:31→21:58)
--- NOTE | 2019-05-07 07:39 | NURSING ---
PRN pain medication administered from [id number] (Dilaudid and Tylenol). Per pt he fell asleep at midnight without pain and did not awaken till RN entered to draw labs at 0635. Pt reported sleeping much better than perviously. Will update at Dr Forbes.
[2019-05-07 07:45] VITALS: PULSE 91; RESP 18; O2SAT 95
[2019-05-07] MEDS: Albuterol 2.5 MG/3 ML VIAL.NEB. INHALATION ×2 (07:45→13:53)
[2019-05-07] MEDS: Etodolac 200 MG Capsule 400 MG PO ×2 (09:02→20:44)
[2019-05-07] MEDS: Hydrocortisone 10 MG Tablet 30 MG PO (09:02)
[2019-05-07] MEDS: Pantoprazole Sodium 40 MG Tablet PO (10:04)
--- NOTE | 2019-05-07 10:45 | NURSING ---
Per patient's request, appoint with Delbert Montes and Edson Bonner cancelled with CCM.
--- NOTE | 2019-05-07 11:08 | CASEMGMT ---
Insurance: Continued stay review emailed to [facility] secure email this day.
--- NOTE | 2019-05-07 11:24 | NURSING ---
Per Dr. White, orthopedic surgeon, patient may bear weight as tolerated to left shoulder, may shower and DSD to be changed daily to left shoulder. F/U appt scheduled for 05/16/19. Patient and aware. Dr. Funes notified of consult via answering service.
[2019-05-07] MEDS: Hydrocortisone 10 MG Tablet 20 MG PO (11:49)
[2019-05-07 13:53] VITALS: PULSE 90; RESP 18
--- NOTE | 2019-05-07 13:58 | PCM.HP.ID ---
Problem List (1) Septic joint Status: Acute Qualifiers: Septic arthritis location: shoulder Septic arthritis organism: due to unspecified organism Laterality: left Qualified Code(s): M00.9 - Pyogenic arthritis, unspecified Reason for Consult: MRSA septic arthritis Consulted by: Dr. Forbes History of Present Illness: The patient is a 58 year old M with h/o B cell lymphoma, s/p allo SCT at [facility] in 2005. 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 Has been off of prophylaxis for quite some time now per his decision. Presented to [facility] ED with L shoulder pain, aspiration done showed MRSA, transferred to [facility], taken to OR 04/29/19 for washout. Was on vanc, developed rash, changed to dapto, discharged to TCU. Feeling ok, L shoulder pain improving, no fever, no muscle aches, no n/v/d, no fever. provided additional history. Full ROS performed and neg except as noted above. - Medical History Past Medical History (Chronic Problems): Chronic Problems (Last Reviewed 12/13/18 @ 09:12 by Janessa Frias) Nasal congestion (Chronic) Nasal turbinate hypertrophy (Chronic) Nasal valve collapse (Chronic) Immunocompromised state (Chronic) DVT (deep venous thrombosis) (Chronic) Hypogonadism (Chronic) Sarcoidosis (Chronic) Scleroderma (Chronic) Respiratory failure with hypoxia (Chronic) 2 L/min with exertion JUAN ALBERTO (obstructive sleep apnea) (Chronic) BiPAP 13/07 Non-Hodgkin lymphoma (Chronic) History of immunosuppression therapy (Chronic) Lokvs-daqwbf-cror disease (Chronic) History of asthma (Chronic) Allergies/Adverse Reactions: Allergies No Known Allergies Allergy (Unverified 12/13/18 09:11) Home Medications: Ambulatory Orders Medication Instructions Recorded Albuterol Aerosols [Ventolin 2.5 mg INHALATION Q4H 04/02/16 Aerosols] Ondansetron [Zofran Odt] 4 mg PO Q8H PRN PRN 04/02/16 diazepam 5 mg tablet 5 mg PO Q8H PRN PRN 12/26/17 etodolac 200 mg capsule 400 mg PO BID cap 12/26/17 gabapentin 300 mg capsule 300 mg PO TID PRN cap 12/26/17 ginkgo biloba 120 mg tablet 120 mg PO BID PRN 12/26/17 hydromorphone 2 mg tablet 4 mg PO Q3H PRN tab 12/26/17 methylphenidate 5 mg tablet 5 mg PO BID PRN 12/26/17 pantoprazole 40 mg tablet,delayed 40 mg PO QAM 12/26/17 release tadalafil 5 mg tablet 5 mg PO ONCE PRN 12/26/17 tizanidine 2 mg capsule 4 mg PO BID PRN PRN cap 12/26/17 Hydrocortisone 20 mg PO LUNCH 04/27/19 Hydrocortisone 30 mg PO BREAKFAST 04/27/19 Melatonin 10 mg PO DAILY 04/27/19 [place]-3 Fatty Acids [[place]-3] 2,000 mg PO BID 04/27/19 Testosterone Cypionate 1 ml IM QWEEK 04/27/19 Acetaminophen 650 mg PO Q4H PRN 05/04/19 Amlodipine [Norvasc] 10 mg PO DAILY 05/04/19 Amoxicillin 250 mg PO BID 05/04/19 Budesonide/Formoterol 160/4.5 2 puff INHALATION BID 05/04/19 [Symbicort 160/4.5 Mcg Inhaler (SP)] Cyclobenzaprine HCl 10 mg PO TID PRN 05/04/19 DAPTOmycin [Cubicin] 450 mg IV Q24H 05/04/19 Heparin Injection 5,000 units SUBCUT BID 05/04/19 Loteprednol Etabonate [Lotemax] 1 drp OPHTHALMIC (EYE) BID 05/04/19 Naloxone HCl [Narcan] 4 mg NS PRN PRN 05/04/19 Senna [Senokot] 1 tab PO QHS 05/04/19 Triamcinolone 0.1% Ointment 1 applic TOPICAL BID PRN 05/04/19 [Kenalog] Valacyclovir HCl [Valacyclovir] 500 mg PO DAILY PRN 05/04/19 Zolpidem Tartrate 5 mg PO QHS PRN 05/04/19 - Social History Tobacco Use: cigarettes Vital Signs Temp Pulse Resp BP Pulse Ox 98.9 F 91 18 163/86 H 95 05/06/19 16:00 05/07/19 07:45 05/07/19 07:45 05/06/19 16:00 05/07/19 07:45 Oxygen Flow Rate (L/min) 3 Oxygen Delivery Method Nasal Cannula Weight: 72.8 kg Body Mass Index (BMI) 22.9 Laboratory Tests Past 24 Hrs 05/07/19 05/07/19 06:51 06:51 WBC 9.9 RBC 4.28 L Hgb 15.0 Hct 46.2 MCV 107.9 H MCH 35.0 H MCHC 32.5 RDW Std Deviation 61.8 H RDW Coeff of Elisa 15.3 H Plt Count 348 MPV 10.2 Immature Gran % (Auto) 1.000 H Neut % (Auto) 60.6 Lymph % (Auto) 23.9 [place] % (Auto) 8.6 Eos % (Auto) 5.3 H Baso % (Auto) 0.6 Absolute Neuts (auto) 6.0 Absolute Lymphs (auto) 2.37 Nucleated RBC % 0 ESR 100 H Sodium 143 Potassium 4.1 Chloride 101 Carbon Dioxide 39.0 H Anion Gap 3 L BUN 12 Creatinine 0.48 L Estim Creat Clear Calc 170.63 Est GFR (MDRD) Af Amer 227 Est GFR (MDRD) Non-Af 188 BUN/Creatinine Ratio 24.8 H Glucose 128 H Calcium 8.6 C-React Prot Ext Range 115.00 H - Other Studies Radiology: [] reviewed Other Studies: [] Route of nutrition/ use of supplements: [] Nutritional Intake: [] IV Site: [] Tejada Catheter: [] - Physical Exam General: Alert, Oriented x3, Cooperative, No apparent distress HEENT: Atraumatic, PERRLA, EOMI Neck: Supple, No Nodes Lungs: Clear to auscultation, Normal air movement Cardiovascular: Regular rate, Regular Rhythm Abdomen: Soft, Non Tender, Non-Distended Extremities: No edema Skin: Rash Present - chronic skin changes from GVHD IV Site: PICC, without redness Musculoskeletal: No Tenderness to Palpation of Joints or Extremities - mild L shoulder soreness and swelling Neurological: Cranial nerves II-XII grossly intact - Assessment/Plan Antibiotics: [] Assessment/Plan: [] Active and Suspected Problems (Last Reviewed 12/13/18 @ 09:12 by Janessa Frias) Acute respiratory failure (Acute) Debility (Acute) Septic arthritis of shoulder, left (Acute) MRSA L shoulder septic arthritis with 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 Continue dapto. He reports vanc caused issue with rash. Stop date planned for 05/27/19 for 4 week course s/p OR on 9/1 at [facility]. Ok for him to go home and complete course with dapto at infusion center. Will need weekly bmp, cbc, LFT, CK, and ESR. Will stop amoxicillin. Plan was for him to start this 05/28 once he completes dapto. He has chosen not to take prophylaxis for quite some time (had previously been on valtrex, bactrim, amox). Will request ID notes from [facility]. Will follow, thank you.
[2019-05-07 15:56] VITALS: BP 158/91; PULSE 104; RESP 20; TEMP 36.8; O2SAT 96
[2019-05-07] MEDS: Gabapentin 300 MG Capsule PO (20:44)
[2019-05-07] MEDS: MELATONIN 10 MG TABLET PO (20:44)
[2019-05-07] MEDS: Senna Tablet 1 TABLET PO (20:44)
[2019-05-08] MEDS: HYDROmorphone 2 MG TABLET 4 MG PO ×6 (03:25→22:38)
[2019-05-08] MEDS: amLODIPine 10 MG Tablet PO (04:29)
[2019-05-08] MEDS: Enoxaparin 40 MG/0.4 ML Syringe SC (04:29)
--- NOTE | 2019-05-08 04:34 | NURSING ---
Patient remained in contact isolation. Care provided to patient in room due to MRSA
[2019-05-08] MEDS: Gabapentin 300 MG Capsule PO ×2 (06:49→20:20)
--- NOTE | 2019-05-08 08:37 | NURSING ---
Addendum entered by Vanessa Campa 05/08/19 12:51: Cathpolo wilson, Dr. Forbes updated, order to insert new PICC and d/c old line. Original Note: New order for Cathflo to PICC line x1 dose, may repeat x1 if needed.
[2019-05-08] MEDS: Pantoprazole Sodium 40 MG Tablet PO (09:12)
[2019-05-08] MEDS: Hydrocortisone 10 MG Tablet 30 MG PO (09:12)
[2019-05-08] MEDS: Etodolac 200 MG Capsule 400 MG PO ×2 (09:12→20:21)
[2019-05-08] MEDS: Alteplase 2 MG/2 ML Vial IV ×2 (11:29→14:00)
[2019-05-08] MEDS: Hydrocortisone 10 MG Tablet 20 MG PO (11:55)
--- NOTE | 2019-05-08 12:55 | NURSING ---
Addendum entered by Vanessa Campa 05/08/19 14:01: Susan RN with [facility] here to evaluate PICC. Was able to flush current PICC and get blood return. Suggests we administer 2nd dose of Cathflo per order to ensure line stays patent. Original Note: Call placed with entrepreneur, will call back with time for PICC placement.
[2019-05-08 13:42] VITALS: PULSE 88; RESP 19; O2SAT 95
[2019-05-08] MEDS: Albuterol 2.5 MG/3 ML VIAL.NEB. INHALATION (13:42)
--- NOTE | 2019-05-08 14:49 | NURSING ---
Per Lyndsey, infection control, okay for patient to be in modified contact precautions d/t wound being close and without drainage.
--- NOTE | 2019-05-08 14:55 | NURSING ---
Patient to discharge tomorrow at 1000, will go down to infusion suite after discharge for first IV infusion and to set up future appointments.
[2019-05-08 15:58] VITALS: BP 148/81; PULSE 98; RESP 20; TEMP 37.4; O2SAT 94
--- NOTE | 2019-05-08 16:26 | CASEMGMT ---
Social Work IDT met with patient for care plan meeting. Discussed patient doing well in therapy - supervision for ADLs, transfers, SBA walking 400 ft in room, CGA with steps. Patient requesting to discharge home tomorrow. Therapy agreeable. Physician will need to clear patient medically. Patient can follow up daily at Infusion Center for IVs and PICC management, and [facility] for outpatient PT for shoulder, per pt request. Pt owns all needed DME. Insurance [employer] issued LCD 05/10, DC 05/11. Will await final DC date. Plan: DC home with 05/09 with infusion center and outpatient PT. Lucero Wheeler, [employer]
[2019-05-08] MEDS: Senna Tablet 1 TABLET PO (20:21)
[2019-05-08] MEDS: HYDROmorphone 1 MG/ML Syringe IV (20:21)
[2019-05-08] MEDS: MELATONIN 10 MG TABLET PO (20:21)
[2019-05-08] MEDS: Acetaminophen 500 MG Tablet 1000 MG PO (20:21)
[2019-05-08] MEDS: 0.9% NaCl PICC Flush IV (20:26)
--- NOTE | 2019-05-08 22:42 | DCINST_ITS ---
- Discharge Diagnoses Current Active Problems: Current Active and Chronic Problems (Last Reviewed 12/13/18 @ 09:12 by Janessa Frias) Acute respiratory failure (Acute) Debility (Acute) Septic arthritis of shoulder, left (Acute) DVT (deep venous thrombosis) (Chronic) Hypogonadism (Chronic) Sarcoidosis (Chronic) Scleroderma (Chronic) You will use the following diet at home:: No restrictions, Regular Your food should be the consistency of: Regular Your liquids should be the consistency of: Regular/Thin Discharge Activity: Return to Normal Activity, May Shower, Use Walker Weight Bearing Status: Weight bearing as tolerated Call your doctor if you observe: Fever of 101 or Higher, Inability to urinate, Inability to have a bowel movement, Shortness of breath, Chest pain, Uncontrolled pain Allergies/Adverse Reactions: Allergies No Known Allergies Allergy (Unverified 12/13/18 09:11) Medications to take at Discharge Albuterol Aerosols [Ventolin Aerosols] 2.5 mg INHALATION Q4H 04/02/16 Ondansetron [Zofran Odt] 4 mg PO Q8H PRN PRN 04/02/16 etodolac 200 mg capsule 400 mg PO BID cap 12/26/17 gabapentin 300 mg capsule 300 mg PO TID PRN cap 12/26/17 hydromorphone 2 mg tablet 4 mg PO Q3H PRN tab 12/26/17 methylphenidate 5 mg tablet 5 mg PO BID PRN 12/26/17 pantoprazole 40 mg tablet,delayed release 40 mg PO QAM 12/26/17 Hydrocortisone 20 mg PO LUNCH 04/27/19 Hydrocortisone 30 mg PO BREAKFAST 04/27/19 Melatonin 10 mg PO DAILY 04/27/19 Testosterone Cypionate 1 ml IM QWEEK 04/27/19 DAPTOmycin [Cubicin] 450 mg IV Q24H 05/04/19 Triamcinolone 0.1% Ointment [Kenalog] 1 applic TOPICAL BID PRN 05/04/19 Acetaminophen [Tylenol] 1,000 mg PO Q6H PRN PRN tablet 05/08/19 Albuterol Aerosols [Ventolin Aerosols] 2.5 mg INHALATION BID.RT vial.neb. 05/08/19 Amlodipine [Norvasc] 10 mg PO DAILY #30 tab 05/08/19 DAPTOmycin [Cubicin] 450 mg IV Q24H 20 Days #20 vial 05/08/19 HYDROmorphone tablet [Dilaudid] 4 mg PO Q3H PRN PRN 7 Days #60 tab 05/08/19 Zolpidem Tartrate 5 mg PO QHS PRN #30 tab 05/08/19 The following prescriptions were given: DAPTOmycin [Cubicin] 450 mg IV Q24H 20 Days #20 vial Prescription Printed HYDROmorphone tablet [Dilaudid] 4 mg PO Q3H PRN PRN 7 Days #60 tab PRN Reason: Severe Pain (-06/07) Prescription Printed Amlodipine [Norvasc] 10 mg PO DAILY #30 tab Transmission Status: Pending to [id number] Zolpidem Tartrate 5 mg PO QHS PRN #30 tab PRN Reason: Insomnia Prescription Printed Primary Care Physician: Lolly Meyer MD [Primary Care Provider] - Please follow up with your Primary Care Physician in: 1 week. Test Results: Test results from this visit will be discussed in further detail at your follow- up appointment, if applicable. Please Follow Up With: Dr. Mack White Please Follow Up With: Dr. Yasmany Carrera Please Follow Up With: Yasmany Carrera MD When: [phone] Please Follow Up With: Delbert Funes MD When: 3 weeks. Proposed Discharge Date: 05/09/19
--- NOTE | 2019-05-08 22:44 | PCM.DC.SUM ---
Discharge Date and Diagnosis - Problem List Patient Problems: Active and Suspected Problems (Last Reviewed 12/13/18 @ 09:12 by Janessa Frias) Acute respiratory failure (Acute) Debility (Acute) Septic arthritis of shoulder, left (Acute) Date of Admission: 05/04/19 Date of Discharge: 05/09/19 - Primary Discharge Diagnosis Active and Suspected Problems (Last Reviewed 12/13/18 @ 09:12 by Janessa Frias) Acute respiratory failure (Acute) Debility (Acute) Septic arthritis of shoulder, left (Acute) - Secondary Discharge Diagnosis Chronic Problems (Last Reviewed 12/13/18 @ 09:12 by Janessa Frias) Nasal congestion (Chronic) Nasal turbinate hypertrophy (Chronic) Nasal valve collapse (Chronic) Immunocompromised state (Chronic) DVT (deep venous thrombosis) (Chronic) Hypogonadism (Chronic) Sarcoidosis (Chronic) Scleroderma (Chronic) Respiratory failure with hypoxia (Chronic) 2 L/min with exertion JUAN ALBERTO (obstructive sleep apnea) (Chronic) BiPAP 13/07 Non-Hodgkin lymphoma (Chronic) History of immunosuppression therapy (Chronic) Vtvqf-jryttw-kgpm disease (Chronic) History of asthma (Chronic) Hospital Course and Treatment Imaging Results: 05/04/19 12:59 Diet: Regular Diet Labs (Last 48 Hours) 05/07/19 05/07/19 06:51 06:51 WBC 9.9 RBC 4.28 L Hgb 15.0 Hct 46.2 MCV 107.9 H MCH 35.0 H MCHC 32.5 RDW Std Deviation 61.8 H RDW Coeff of Elisa 15.3 H Plt Count 348 MPV 10.2 Immature Gran % (Auto) 1.000 H Neut % (Auto) 60.6 Lymph % (Auto) 23.9 Owsley % (Auto) 8.6 Eos % (Auto) 5.3 H Baso % (Auto) 0.6 Absolute Neuts (auto) 6.0 Absolute Lymphs (auto) 2.37 Nucleated RBC % 0 ESR 100 H Sodium 143 Potassium 4.1 Chloride 101 Carbon Dioxide 39.0 H Anion Gap 3 L BUN 12 Creatinine 0.48 L Estim Creat Clear Calc 170.63 Est GFR (MDRD) Af Amer 227 Est GFR (MDRD) Non-Af 188 BUN/Creatinine Ratio 24.8 H Glucose 128 H Calcium 8.6 C-React Prot Ext Range 115.00 H Operations: None Procedures: None Summary of Care Provided: The patient is a 58 year old Male with below past medical history hospitalized for MRSA septic arthritis left shoulder, underwent arthroscopic washout 04/29/2019, admitted to TCU with debility, here for rehabilitation, strengthening, intravenous antibiotics, prior to discharge home with spouse. IV Daptomycin via right upper extremity PICC line thru 05/27/2019, follow up with Dr. Funes. Discharge home with , infusion center, outpatient PT. Patient Problems: Active and Suspected Problems (Last Reviewed 12/13/18 @ 09:12 by Janessa Frias) Acute respiratory failure (Acute) Debility (Acute) Septic arthritis of shoulder, left (Acute) - Physical Exam Vital Signs Temp Pulse Resp BP Pulse Ox 99.3 F H 98 20 H 148/81 H 94 05/08/19 15:58 05/08/19 15:58 05/08/19 15:58 05/08/19 15:58 05/08/19 15:58 Oxygen Flow Rate (L/min) 4 Oxygen Delivery Method Nasal Cannula Weight: 72.8 kg Body Mass Index (BMI) 22.9 Intake and Output for Last 24 Hours 05/06/19 05/07/19 05/08/19 23:59 23:59 23:59 Intake Total 1019 / 1019 899 / 899 659 / 659 Balance 1019 / 1019 899 / 899 659 / 659 Discharge Diet: No Restrictions Discharge Activity: Return to Normal Activity, May Shower, Use Walker Weight Bearing Status: Weight bearing as tolerated Call your doctor if you observe: Fever of 101 or Higher, Inability to urinate, Inability to have a bowel movement, Shortness of breath, Chest pain, Uncontrolled pain Home Medications: Medications to take at Discharge Albuterol Aerosols [Ventolin Aerosols] 2.5 mg INHALATION Q4H 04/02/16 Ondansetron [Zofran Odt] 4 mg PO Q8H PRN PRN 04/02/16 etodolac 200 mg capsule 400 mg PO BID cap 12/26/17 gabapentin 300 mg capsule 300 mg PO TID PRN cap 12/26/17 hydromorphone 2 mg tablet 4 mg PO Q3H PRN tab 12/26/17 methylphenidate 5 mg tablet 5 mg PO BID PRN 12/26/17 pantoprazole 40 mg tablet,delayed release 40 mg PO QAM 04/30/18 Hydrocortisone 20 mg PO LUNCH 04/27/19 Hydrocortisone 30 mg PO BREAKFAST 04/27/19 Melatonin 10 mg PO DAILY 04/27/19 Testosterone Cypionate 1 ml IM QWEEK 04/27/19 DAPTOmycin [Cubicin] 450 mg IV Q24H 05/04/19 Triamcinolone 0.1% Ointment [Kenalog] 1 applic TOPICAL BID PRN 05/04/19 Acetaminophen [Tylenol] 1,000 mg PO Q6H PRN PRN tablet 05/08/19 Albuterol Aerosols [Ventolin Aerosols] 2.5 mg INHALATION BID.RT vial.neb. 05/08/19 Amlodipine [Norvasc] 10 mg PO DAILY #30 tab 05/08/19 DAPTOmycin [Cubicin] 450 mg IV Q24H 20 Days #20 vial 05/08/19 HYDROmorphone tablet [Dilaudid] 4 mg PO Q3H PRN PRN 7 Days #60 tab 05/08/19 Zolpidem Tartrate 5 mg PO QHS PRN #30 tab 05/08/19 Following Prescrptions Were Given to Patient: RX: DAPTOmycin [Cubicin] 450 mg IV Q24H 20 Days #20 vial Prescription Printed RX: HYDROmorphone tablet [Dilaudid] 4 mg PO Q3H PRN PRN 7 Days #60 tab PRN Reason: Severe Pain (-06/07) Prescription Printed RX: Amlodipine [Norvasc] 10 mg PO DAILY #30 tab Transmission Status: [id number] RX: Zolpidem Tartrate 5 mg PO QHS PRN #30 tab PRN Reason: Insomnia Prescription Printed Primary Care Physician: Lolly Meyer MD [Primary Care Provider] - Please follow up with your Primary Care Physician in: 1 week. Please Follow Up With: Dr. Mack White Please Follow Up With: Dr. Yasmany Carrera Please Follow Up With: Yasmany Carrera MD When: [phone] Please Follow Up With: Delbert Funes MD When: 3 weeks. Disposition: Home Minutes spent on discharge:: 35 Patient Condition:: Stable Medical Necessity - Tobacco Use Smoking Status: Current some day smoker Tobacco Use: Cigars Meaningful Use Info Meaningful Use Diagnoses (Choose all that apply): None applicable
[2019-05-09] MEDS: HYDROmorphone 2 MG TABLET 4 MG PO ×2 (03:03→06:28)
[2019-05-09] MEDS: amLODIPine 10 MG Tablet PO (05:04)
[2019-05-09] MEDS: 0.9% NaCl PICC Flush IV ×2 (05:06→08:49)
[2019-05-09] MEDS: Hydrocortisone 10 MG Tablet 30 MG PO (06:34)
[2019-05-09] MEDS: Etodolac 200 MG Capsule 400 MG PO (06:34)
[2019-05-09 07:38] VITALS: O2SAT 95
[2019-05-09] MEDS: Albuterol 2.5 MG/3 ML VIAL.NEB. INHALATION (07:38)
[2019-05-09] MEDS: Pantoprazole Sodium 40 MG Tablet PO (08:16)
[2019-05-09] MEDS: Acetaminophen 500 MG Tablet 1000 MG PO (08:18)
--- NOTE | 2019-05-09 08:50 | NURSING ---
0800 Sravanthi from infusion center called and would like us to administer todays IV ATB here before going home and then they will see him at 2p in infusion center tomorrow. and pt updated and agreeable. ATB administered and pt going home with . PICC drsg changed by health record technicianstem sizer.
[2019-05-09 08:58] VITALS: BP 139/84; PULSE 98; RESP 18; TEMP 36.7; O2SAT 94
--- NOTE | 2019-05-15 09:05 | MDS.RN ---
Information for the mds was obtained from review of the clinical record, interview of resident, staff, and direct observation of resident's care.
== END 2019-05-09 09:54 | disposition home or self-care (01) | DRG 549 ==
PROVIDERS: Admitting Provider Family Medicine Geriatric Medicine; Family Provider Family Medicine; PCP Family Medicine; Referring Provider Family Medicine Geriatric Medicine; Visit Provider Family Medicine Geriatric Medicine
DX: M00.012 Staphylococcal arthritis, left shoulder (principal); C85.90 Non-Hodgkin lymphoma, unspecified, unspecified site; J96.11 Chronic respiratory failure with hypoxia; D89.813 Graft-versus-host disease, unspecified; B95.62 Methicillin resistant Staphylococcus aureus infection as the cause of diseases classified elsewhere; F17.290 Nicotine dependence, other tobacco product, uncomplicated; Z86.718 Personal history of other venous thrombosis and embolism; J45.909 Unspecified asthma, uncomplicated; G47.33 Obstructive sleep apnea (adult) (pediatric); K21.9 Gastro-esophageal reflux disease without esophagitis; M34.9 Systemic sclerosis, unspecified; E78.5 Hyperlipidemia, unspecified; I10 Essential (primary) hypertension
CPT/HCPCS: 80048; 85025; 85652; 86140; 94640; 97110; 97127; 97162; 97166; 97530; 97535; 97802; J0878; J2997; A4216; G0515; J3490

== ENCOUNTER → 2019-05-10 13:53 | Outpatient (CLI) | payer MEDICARE, SELFPAY ==
[2019-05-04 11:50] VITALS: BMI 22.9
[2019-05-10 14:11] VITALS: BP 131/77; PULSE 95; RESP 18; TEMP 37.3; O2SAT 96; BMI 22.5
== END ==
PROVIDERS: Family Provider Family Medicine; PCP Family Medicine; Referring Provider Internal Medicine Infectious Disease; Visit Provider Internal Medicine Infectious Disease
DX: M00.812 Arthritis due to other bacteria, left shoulder (principal); B96.89 Other specified bacterial agents as the cause of diseases classified elsewhere
CPT/HCPCS: 96365; J0878; J7050; A4216; J3490

== ENCOUNTER → 2019-05-11 12:33 | Outpatient (CLI) | payer MEDICARE, SELFPAY ==
[2019-05-10 14:11] VITALS: BMI 22.5
[2019-05-11 12:46] VITALS: BP 155/84; PULSE 98; RESP 18; TEMP 37.4; O2SAT 95; BMI 22.9
== END ==
PROVIDERS: Family Provider Family Medicine; PCP Family Medicine; Referring Provider Internal Medicine Infectious Disease; Visit Provider Internal Medicine Infectious Disease
DX: M00.812 Arthritis due to other bacteria, left shoulder (principal); B96.89 Other specified bacterial agents as the cause of diseases classified elsewhere; B95.62 Methicillin resistant Staphylococcus aureus infection as the cause of diseases classified elsewhere
CPT/HCPCS: 96365; J0878; J7050; A4216; J3490

== ENCOUNTER 2019-05-12 10:52 | Outpatient (CLI) | payer MEDICARE, SELFPAY ==
[2019-05-10 14:11] VITALS: BMI 22.5
[2019-05-11 12:46] VITALS: BMI 22.9
[2019-05-12] MEDS: 0.9% NaCl Peripheral Flush Adult/Peds IV (12:00)
== END 2019-05-12 11:58 | disposition home or self-care (01) ==
LOC: MEDOUTP 10:53 → PCU 10:56
PROVIDERS: Family Provider Family Medicine; PCP Family Medicine; Referring Provider Internal Medicine Infectious Disease; Visit Provider Internal Medicine Infectious Disease
DX: M00.812 Arthritis due to other bacteria, left shoulder (principal); B96.89 Other specified bacterial agents as the cause of diseases classified elsewhere; B95.62 Methicillin resistant Staphylococcus aureus infection as the cause of diseases classified elsewhere
CPT/HCPCS: 96365; J0878; J7030; A4216; J3490

== ENCOUNTER 2019-05-13 10:57 | Outpatient (CLI) | payer MEDICARE, SELFPAY ==
[2019-05-10 14:11] VITALS: BMI 22.5
[2019-05-11 12:46] VITALS: BMI 22.9
[2019-05-13 11:14] VITALS: BP 154/82; PULSE 100; RESP 18; TEMP 36.7; O2SAT 98
[2019-05-13] MEDS: 0.9% NaCl PICC Flush IV ×2 (11:20→12:02)
[2019-05-13] MEDS: 0.9% NaCl IVPB Med Flush (250 mL) 15 ML IV (11:23)
== END 2019-05-13 12:07 | disposition home or self-care (01) ==
LOC: MEDOUTP 10:58 → MS3 10:59
PROVIDERS: Family Provider Family Medicine; PCP Family Medicine; Visit Provider Internal Medicine Infectious Disease
DX: M00.812 Arthritis due to other bacteria, left shoulder (principal); B96.89 Other specified bacterial agents as the cause of diseases classified elsewhere; B95.62 Methicillin resistant Staphylococcus aureus infection as the cause of diseases classified elsewhere
CPT/HCPCS: 96365; J0878; J7050; A4216; J3490

== ENCOUNTER → 2019-05-14 13:51 | Outpatient (CLI) | payer MEDICARE, SELFPAY ==
[2019-05-10 14:11] VITALS: BMI 22.5
[2019-05-11 12:46] VITALS: BMI 22.9
[2019-05-14 14:08] VITALS: BP 139/64; PULSE 95; RESP 18; TEMP 36.8; O2SAT 97; BMI 22.9
[2019-05-14 14:22] LABS: Erythrocyte Sedimentation Rate 100 mm/hr (0-20)
[2019-05-14 14:23] LABS: Hematocrit 42.9 % (40-54); Hemoglobin 14.1 g/dL (13.0-16.5); Mean Corp Hgb Conc 32.9 g/dL (32-36); Mean Corpuscular Hgb 34.6 pg (27.0-32.0); Mean Corpuscular Volume 105.1 fL (80-94); Mean Platelet Vol. 9.9 fl (6.2-12.0); Platelet Count 396 K/mm3 (150-450); RBC Distribution Width CV 14.7 % (11.6-14.6); RBC Distribution Width SD 57.8 fl (35.1-43.9); Red Blood Count 4.08 M/mm3 (4.6-6.2); White Blood Count 14.1 K/mm3 (4.4-11.0)
[2019-05-14 14:41] LABS: AST(SGOT) 20 U/L (15-37); Alanine Aminotransfer ALT/SGPT 40 U/L (16-61); Albumin, Serum 2.4 g/dL (3.2-5.0); Alkaline Phosphatase 117 U/L (45-117); Anion Gap 3 (5-15); BUN 14 mg/dL (7-18); BUN/Creat Ratio 20.5 RATIO (10-20); Bilirubin, Direct 0.12 mg/dL (0.00-0.30); CPK Total, Creatine Kinase 80 U/L (39-308); Calcium,Total 8.6 mg/dL (8.5-10.1); Chloride 99 mmol/L (98-107); Creatinine, Serum 0.68 mg/dL (0.70-1.30); EST Glomerular Filtration Rate 126 mL/min (>60); Est Glom Filt Rate - Afr Amer 153 mL/min (>60); Glucose 152 mg/dL (74-106); Protein, Total 8.4 g/dL (6.4-8.2); Sodium Level 136 mmol/L (136-145)
[2019-05-14 22:16] LABS: Xtra Tube EP Lab EXTRA TUBE
== END ==
PROVIDERS: Family Provider Family Medicine; PCP Family Medicine; Referring Provider Internal Medicine Infectious Disease; Visit Provider Internal Medicine Infectious Disease
DX: M00.812 Arthritis due to other bacteria, left shoulder (principal); B96.89 Other specified bacterial agents as the cause of diseases classified elsewhere; B95.62 Methicillin resistant Staphylococcus aureus infection as the cause of diseases classified elsewhere
CPT/HCPCS: 96365; 80048; 80076; 82550; 85027; 85652; J0878; J7050; A4216; J3490

== ENCOUNTER → 2019-05-15 13:25 | Outpatient (CLI) | payer MEDICARE, SELFPAY ==
[2019-05-10 14:11] VITALS: BMI 22.5
[2019-05-14 14:08] VITALS: BMI 22.9
[2019-05-15 13:43] VITALS: BP 131/78; PULSE 107; RESP 18; TEMP 36.5; O2SAT 97; BMI 22.8
== END ==
PROVIDERS: Family Provider Family Medicine; PCP Family Medicine; Referring Provider Internal Medicine Infectious Disease; Visit Provider Internal Medicine Infectious Disease
DX: M00.812 Arthritis due to other bacteria, left shoulder (principal); B96.89 Other specified bacterial agents as the cause of diseases classified elsewhere; B95.62 Methicillin resistant Staphylococcus aureus infection as the cause of diseases classified elsewhere
CPT/HCPCS: 96365; J0878; J7050; A4216; J3490

== ENCOUNTER → 2019-05-16 10:22 | Outpatient (CLI) | payer MEDICARE, SELFPAY ==
[2019-05-10 14:11] VITALS: BMI 22.5
[2019-05-15 13:43] VITALS: BMI 22.8
[2019-05-16 10:32] VITALS: BP 146/81; PULSE 103; RESP 18; TEMP 36.3; O2SAT 96; BMI 31.2
== END ==
PROVIDERS: Family Provider Family Medicine; PCP Family Medicine; Referring Provider Internal Medicine Infectious Disease; Visit Provider Internal Medicine Infectious Disease
DX: M00.812 Arthritis due to other bacteria, left shoulder (principal); B96.89 Other specified bacterial agents as the cause of diseases classified elsewhere
CPT/HCPCS: 96365; J0878; J7050; A4216; J3490

== ENCOUNTER → 2019-05-17 12:53 | Outpatient (CLI) | payer MEDICARE, SELFPAY ==
[2019-05-10 14:11] VITALS: BMI 22.5
[2019-05-16 10:32] VITALS: BMI 31.2
[2019-05-17 13:05] VITALS: BP 143/70; PULSE 100; RESP 18; TEMP 36.3; O2SAT 97; BMI 22.9
== END ==
PROVIDERS: Family Provider Family Medicine; PCP Family Medicine; Referring Provider Internal Medicine Infectious Disease; Visit Provider Internal Medicine Infectious Disease
DX: M00.812 Arthritis due to other bacteria, left shoulder (principal); B96.89 Other specified bacterial agents as the cause of diseases classified elsewhere; B95.62 Methicillin resistant Staphylococcus aureus infection as the cause of diseases classified elsewhere
CPT/HCPCS: 96365; J0878; J7050; A4216; J3490

== ENCOUNTER → 2019-05-18 13:00 | Outpatient (CLI) | payer MEDICARE, SELFPAY ==
[2019-05-10 14:11] VITALS: BMI 22.5
[2019-05-17 13:05] VITALS: BMI 22.9
[2019-05-18 13:15] VITALS: BP 140/78; PULSE 105; RESP 16; TEMP 36.9; O2SAT 91; BMI 22.9
== END ==
PROVIDERS: Family Provider Family Medicine; PCP Family Medicine; Referring Provider Internal Medicine Infectious Disease; Visit Provider Internal Medicine Infectious Disease
DX: M00.812 Arthritis due to other bacteria, left shoulder (principal); B96.89 Other specified bacterial agents as the cause of diseases classified elsewhere; B95.62 Methicillin resistant Staphylococcus aureus infection as the cause of diseases classified elsewhere
CPT/HCPCS: 96365; J0878; J7050; A4216; J3490

== ENCOUNTER 2019-05-19 10:59 | Outpatient (CLI) | payer MEDICARE, SELFPAY ==
[2019-05-10 14:11] VITALS: BMI 22.5
[2019-05-18 13:15] VITALS: BMI 22.9
[2019-05-19 11:28] VITALS: BP 128/71; PULSE 87; RESP 16; TEMP 36.7; O2SAT 97
[2019-05-19] MEDS: 0.9% NaCl PICC Flush IV (13:16)
[2019-05-19 13:19] VITALS: BP 154/88; PULSE 85; RESP 16; TEMP 36.8; O2SAT 97
== END 2019-05-19 13:21 | disposition home or self-care (01) ==
LOC: MEDOUTP 11:00 → PCU 11:01
PROVIDERS: Family Provider Family Medicine; PCP Family Medicine; Referring Provider Internal Medicine Infectious Disease; Visit Provider Internal Medicine Infectious Disease
DX: M00.812 Arthritis due to other bacteria, left shoulder (principal); B96.89 Other specified bacterial agents as the cause of diseases classified elsewhere; B95.62 Methicillin resistant Staphylococcus aureus infection as the cause of diseases classified elsewhere
CPT/HCPCS: 96365; J0878; A4216; J3490

== ENCOUNTER 2019-05-20 09:26 | Outpatient (CLI) | payer MEDICARE, SELFPAY ==
[2019-05-10 14:11] VITALS: BMI 22.5
[2019-05-18 13:15] VITALS: BMI 22.9
[2019-05-20 11:18] VITALS: BP 149/81; PULSE 86; RESP 16; TEMP 36.7; O2SAT 97
[2019-05-20] MEDS: 0.9% NaCl PICC Flush IV ×2 (11:21→12:16)
[2019-05-20 12:13] VITALS: BP 157/81; PULSE 91; RESP 16; TEMP 36.7; O2SAT 98
== END 2019-05-20 12:17 | disposition home or self-care (01) ==
LOC: MEDOUTP 09:26 → PCU 11:05
PROVIDERS: Family Provider Family Medicine; PCP Family Medicine; Visit Provider Internal Medicine Infectious Disease
DX: M00.812 Arthritis due to other bacteria, left shoulder (principal); B96.89 Other specified bacterial agents as the cause of diseases classified elsewhere; B95.62 Methicillin resistant Staphylococcus aureus infection as the cause of diseases classified elsewhere
CPT/HCPCS: 96365; J0878; A4216; J3490

== ENCOUNTER → 2019-05-21 10:25 | Outpatient (CLI) | payer MEDICARE, SELFPAY ==
[2019-05-10 14:11] VITALS: BMI 22.5
[2019-05-18 13:15] VITALS: BMI 22.9
[2019-05-21 10:42] VITALS: BP 146/78; PULSE 100; RESP 18; TEMP 36.7; BMI 22.9
[2019-05-21 10:48] LABS: Erythrocyte Sedimentation Rate > 130 mm/hr (0-20)
[2019-05-21 10:50] LABS: Hematocrit 43.2 % (40-54); Hemoglobin 14.1 g/dL (13.0-16.5); Mean Corp Hgb Conc 32.6 g/dL (32-36); Mean Corpuscular Hgb 33.7 pg (27.0-32.0); Mean Corpuscular Volume 103.3 fL (80-94); Mean Platelet Vol. 9.7 fl (6.2-12.0); Platelet Count 341 K/mm3 (150-450); RBC Distribution Width CV 14.6 % (11.6-14.6); RBC Distribution Width SD 56.6 fl (35.1-43.9); Red Blood Count 4.18 M/mm3 (4.6-6.2); White Blood Count 12.4 K/mm3 (4.4-11.0)
[2019-05-21 11:02] LABS: AST(SGOT) 23 U/L (15-37); Alanine Aminotransfer ALT/SGPT 32 U/L (16-61); Albumin, Serum 2.5 g/dL (3.2-5.0); Alkaline Phosphatase 106 U/L (45-117); Anion Gap 5 (5-15); BUN 13 mg/dL (7-18); BUN/Creat Ratio 19.2 RATIO (10-20); Bilirubin, Direct 0.17 mg/dL (0.00-0.30); CPK Total, Creatine Kinase 86 U/L (39-308); Chloride 101 mmol/L (98-107); Creatinine, Serum 0.68 mg/dL (0.70-1.30); EST Glomerular Filtration Rate 127 mL/min (>60); Est Glom Filt Rate - Afr Amer 154 mL/min (>60); Estimated Creatinine Clearance 120.07 ml/min; Glucose 165 mg/dL (74-106); Potassium 3.9 mmol/L (3.5-5.1); Protein, Total 8.5 g/dL (6.4-8.2); Sodium Level 138 mmol/L (136-145)
== END ==
PROVIDERS: Family Provider Family Medicine; PCP Family Medicine; Referring Provider Internal Medicine Infectious Disease; Visit Provider Internal Medicine Infectious Disease
DX: M00.812 Arthritis due to other bacteria, left shoulder (principal); B96.89 Other specified bacterial agents as the cause of diseases classified elsewhere; B95.62 Methicillin resistant Staphylococcus aureus infection as the cause of diseases classified elsewhere
CPT/HCPCS: 96365; 36592; 80048; 80076; 82550; 85027; 85652; J0878; J7050; A4216; J3490

== ENCOUNTER → 2019-05-22 13:22 | Outpatient (CLI) | payer MEDICARE, SELFPAY ==
[2019-05-10 14:11] VITALS: BMI 22.5
[2019-05-21 10:42] VITALS: BMI 22.9
[2019-05-22 13:34] VITALS: BP 137/74; PULSE 94; RESP 16; TEMP 36.4; O2SAT 96; BMI 21.5
== END ==
PROVIDERS: Family Provider Family Medicine; PCP Family Medicine; Referring Provider Internal Medicine Infectious Disease; Visit Provider Internal Medicine Infectious Disease
DX: M00.812 Arthritis due to other bacteria, left shoulder (principal); B96.89 Other specified bacterial agents as the cause of diseases classified elsewhere; B95.62 Methicillin resistant Staphylococcus aureus infection as the cause of diseases classified elsewhere
CPT/HCPCS: 96365; J0878; A4216; J3490

== ENCOUNTER → 2019-05-23 13:28 | Outpatient (CLI) | payer MEDICARE, SELFPAY ==
[2019-05-10 14:11] VITALS: BMI 22.5
[2019-05-22 13:34] VITALS: BMI 21.5
[2019-05-23 13:36] VITALS: BP 142/78; PULSE 92; RESP 18; TEMP 36.9; O2SAT 95; BMI 21.5
== END ==
PROVIDERS: Family Provider Family Medicine; PCP Family Medicine; Referring Provider Internal Medicine Infectious Disease; Visit Provider Internal Medicine Infectious Disease
DX: M00.812 Arthritis due to other bacteria, left shoulder (principal); B96.89 Other specified bacterial agents as the cause of diseases classified elsewhere; B95.62 Methicillin resistant Staphylococcus aureus infection as the cause of diseases classified elsewhere
CPT/HCPCS: 96365; J0878; J7050; A4216; J3490

== ENCOUNTER → 2019-05-24 13:22 | Outpatient (CLI) | payer MEDICARE, SELFPAY ==
[2019-05-10 14:11] VITALS: BMI 22.5
[2019-05-23 13:36] VITALS: BMI 21.5
[2019-05-24 14:16] VITALS: BP 133/74; PULSE 92; RESP 18; TEMP 36.9; O2SAT 95; BMI 21.5
== END ==
PROVIDERS: Family Provider Family Medicine; PCP Family Medicine; Referring Provider Internal Medicine Infectious Disease; Visit Provider Internal Medicine Infectious Disease
DX: M00.812 Arthritis due to other bacteria, left shoulder (principal); B96.89 Other specified bacterial agents as the cause of diseases classified elsewhere; B95.62 Methicillin resistant Staphylococcus aureus infection as the cause of diseases classified elsewhere
CPT/HCPCS: 96365; J0878; A4216; J3490

== ENCOUNTER → 2019-05-25 10:52 | Outpatient (CLI) | payer MEDICARE, SELFPAY ==
[2019-05-10 14:11] VITALS: BMI 22.5
[2019-05-24 14:16] VITALS: BMI 21.5
[2019-05-25 10:58] VITALS: BP 126/81; PULSE 100; RESP 16; TEMP 36.5; O2SAT 96; BMI 21.5
== END ==
PROVIDERS: Family Provider Family Medicine; PCP Family Medicine; Referring Provider Internal Medicine Infectious Disease; Visit Provider Internal Medicine Infectious Disease
DX: M00.812 Arthritis due to other bacteria, left shoulder (principal); B96.89 Other specified bacterial agents as the cause of diseases classified elsewhere; B95.62 Methicillin resistant Staphylococcus aureus infection as the cause of diseases classified elsewhere
CPT/HCPCS: 96365; J0878; J7050; A4216; J3490

== ENCOUNTER 2019-05-26 10:54 | Outpatient (CLI) | payer MEDICARE, SELFPAY ==
[2019-05-10 14:11] VITALS: BMI 22.5
[2019-05-25 10:58] VITALS: BMI 21.5
[2019-05-26 11:06] VITALS: BP 138/76; PULSE 91; RESP 20; TEMP 37.1; O2SAT 97
[2019-05-26] MEDS: 0.9% NaCl PICC Flush IV ×2 (11:14→12:10)
[2019-05-26] MEDS: 0.9% NaCl IVPB Med Flush (250 mL) 15 ML IV (11:14)
[2019-05-26 13:07] VITALS: O2SAT 97
== END 2019-05-26 12:10 | disposition other institution (70) ==
LOC: MEDOUTP 10:55 → PCU 10:56
PROVIDERS: Family Provider Family Medicine; PCP Family Medicine; Referring Provider Internal Medicine Infectious Disease; Visit Provider Internal Medicine Infectious Disease
DX: M00.812 Arthritis due to other bacteria, left shoulder (principal); B96.89 Other specified bacterial agents as the cause of diseases classified elsewhere; B95.62 Methicillin resistant Staphylococcus aureus infection as the cause of diseases classified elsewhere
CPT/HCPCS: 96365; J0878; J7050; A4216; J3490

== ENCOUNTER 2019-05-27 11:01 | Outpatient (CLI) | payer MEDICARE, SELFPAY ==
[2019-05-10 14:11] VITALS: BMI 22.5
[2019-05-25 10:58] VITALS: BMI 21.5
[2019-05-27 11:05] VITALS: BP 140/79; PULSE 93; RESP 18; TEMP 36.7; O2SAT 95
[2019-05-27] MEDS: 0.9% NaCl PICC Flush IV (12:16)
== END 2019-05-27 12:57 | disposition home or self-care (01) ==
LOC: MEDOUTP 11:03 → PCU 11:09
PROVIDERS: Family Provider Family Medicine; PCP Family Medicine; Visit Provider Internal Medicine Infectious Disease
DX: M00.812 Arthritis due to other bacteria, left shoulder (principal); B96.89 Other specified bacterial agents as the cause of diseases classified elsewhere; B95.62 Methicillin resistant Staphylococcus aureus infection as the cause of diseases classified elsewhere
CPT/HCPCS: 96365; J0878; J7040; A4216; J3490

== ENCOUNTER → 2019-06-04 17:13 | Outpatient (CLI) | payer MEDICARE, SELFPAY ==
[2019-05-25 10:58] VITALS: BMI 21.5
--- NOTE | 2019-06-04 17:39 | MRI_ITS ---
STUDY: MRI BRAIN WITH AND WITHOUT CONTRAST REASON FOR EXAM: Male, 58 years old. jaw cramping/SNAPPING X 5 YEARS TECHNIQUE: Standardized multiplanar fat and water weighted pulse sequences were obtained. IV Dotarem 14 was administered for the contrast portion of the examination. COMPARISON: None. FINDINGS: Normal size of the ventricles and extra-axial spaces for the patient's age. Normal white matter tracts of the supratentorial brain. Normal bilateral basal ganglia. Normal thalami. There is no extra-axial fluid accumulation. Normal flow voids within the major intracranial circulation suggesting patency by spin echo criteria. Normal venous enhancement. There is no enhancing intra-axial or extra-axial abnormality. There is asymmetric signal in the mandible noted in the post contrast images with fat saturation most likely due to an artifact from asymmetric fat suppression. Normal sella turcica, pituitary gland, infundibular stalk, optic chiasm and hypothalamus. Normal tectal plate and pineal gland. Normal midbrain, rosemary and medulla. Normal cerebellum. Normal basal cisterns. Normal bilateral temporal bones. Normal bilateral internal auditory canals. No demonstrated orbital abnormality, within the constraints of a routine brain study. Normal visualized paranasal sinuses. Normal calvarium and skull base. Normal visualized soft tissue structures. Normal visualized upper cervical spine. MRI/Brain W/WO Contrast IMPRESSION: Normal unenhanced and enhanced MRI of the brain. Electronically Signed: Bhupendra Gutierrez, at 4:01 EDT Tel , Service support ,
== END ==
PROVIDERS: Family Provider Family Medicine; PCP Family Medicine; Referring Provider Psychiatry & Neurology Neurology; Visit Provider Psychiatry & Neurology Neurology
DX: G50.0 Trigeminal neuralgia (principal)
CPT/HCPCS: 70553; A9575

== ENCOUNTER 2019-06-11 11:30 | Outpatient (RCR) | payer MEDICARE, SELFPAY ==
[2019-05-04 11:50] VITALS: BMI 22.9
[2019-05-10 14:11] VITALS: BMI 22.5
--- NOTE | 2019-05-11 12:51 | HP.PTEVAL ---
Patient's Visit Information AKSHAT LUCERO is a 58 year old M referred to Physical Therapy by Mansoor Forbes MD with a diagnosis of L SHOULDER PAIN. SEPTIC ARTHRITIS AND DABILITY.. Date of Evaluation: 05/11/19 Physical Therapist: Charley Angeles, PT, Cert MDT - Visit Plan Frequency: 3x /Week Duration: 6-8 Plan: POSTURE CORRECTION/STRENGTHENING, LEFT SHOULDER, ELBOW, FOREARM, WRIST AND HAND A/AA/PROM, STRETCHING AND STRENGTHEING TOLERATED TO HELP MEET SET GOALS. WRITTEN HOME EX INSTRUCTION. HOME EX INSTRUCTION FOR PATIENT AND CAREGIVER. - Subjective Findings: Work/Leisure: UNEMPLOYEED. Disability: YES - ABOUT 3 YEARS AGO. AUTOIMMUNINE DZ AND CHRONIC. Present symptoms: ABOUT 2 WEEKS AGO HAD INFECTION IN LEFT SHOULDER - MRSA - DID ARTHROSCOPIC SURGERY. BETWEEN INFECTION AND TREATMENTS THE LEFT SHOULDER HAS BECOME VERY SORE AND LOST ROM AND THAT IS WHY THEY ARE HERE TODAY. Present since: ROM ISSUES IN SHOULDER AND ELBOW FOR AWHILE BEFORE INFECTION BUT NOT BAD NOW. Pain Scale: WORST 8/10, LEAST 3/10. Currently: 3/10. Commenced as a result of: LEFT SHOULDER INFECTION. Symptoms at onset: LEFT SHOULDER PAIN. Worse: ANY MOVEMENT, TOUCHING IT. Better: PAIN MEDICINE, ICE, REST, MINIMAL MVMT. Disturbed sleep: YES. Previous history/Previous treatment: STIFFNESS AND WEAKNESS. Accidents: NO. Unexplained weight loss: NO. Imaging: MULTIPLE IMAGES - SEE [facility]. 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 VERY DECONDITIONED. BIGGEST PROBLEM WAS BREATHING BEFORE INFECTION. NO O2 AT REST BEFORE INFECTION. OTHER: PATIENT IS RIGHT HAND DOMINANT. SURGERY WAS DONE AT [facility]. SOME TESTING DONE AT [facility]. RESPIRATORY DISTRESS BEFORE AND AFTER SURGERY. ADMITTED TO ICU 04/28/19. DISCHARGED HOME FROM [facility] TCU Tuesday ON IV ANTIBIOTICS (OUTPATIENT). CURRENTLY NO HOME HEALTH SERVICES. PATIENT REPORTS HAVING OCCUPATIONAL THERAPY IN THE HOSPITAL AND EX'S GIVEN THAT THEY HAVE BEEN TRYING TO FOLLOW THROUGH WITH BUT DO NOT FEEL LIKE THEY HAVE HAD ENOUGH THERAPY. 05/07/19 AND 05/08/19 HAD 15 MINUTES OF OT FOR SHOULDER BUT NONE SINCE. NO PT FOR SHOULDER. *CURRENTLY ON 3 L OF 02 AND HAS PIC LINE* - Objective THIS PATIENT AMBULATES INDEP'LY INTO PT X APPROX 300 FEET WITHOUT ANY ASSISTIVE DEVICES WITH *3 L OF O2 AND PULLING PORTABLE TANK*. HIS SITTING AND STANDING POSTURE ARE POOR WITH INCREASED TRUNK FLEXION, FORWARD HEAD AND ROUNDED SHOULDERS. CERVICAL MVMT LOSS: FLEX - NIL, PRO - NIL, EXT - MOD, DIONISIO ROTATION - MOD, DIONISIO SB - MOD. RIGHT UE ROM IS WFL BUT UNABLE TO FULLY EXTEND RIGHT ELBOW. LIMITED LEFT UE ROM AND STRENGTH THROUGHOUT. AROM LEFT SHLD FLEX - UNALBE, ABD - 43 DEG, IR TO ABDOMEN, ER - 5 DEG, AROM LEFT ELBOW = 104 DEG EXT TO 134 DEG ELBOW FLEXION, FULL ACTIVE LEFT FOREARM PRONATION BUT SUPINATION LIMITED TO 50%. UNABLE TO ACTIVELY MAKE FULL FIST LEFT UE. LUE PASSIVE ROM: SHLD FLEX 65 DEG, ABD 60 DEG. LEFT UE STRENGTH 1-2/5. PATIENT FOLLOWS COMMANDS WELL. LEFT SHOULDER IS VERY TENDER AND ROM IS PAINFUL. - Goals Goal 1:: DECREASE C/O LEFT SHOULDER PAIN Goal Time Frame: 6-8 Weeks Goal 2:: INCREASE FUNCTIONAL ROM OF LEFT UE TO EASE ADL'S Goal Time Frame: 6-8 Weeks Goal 3:: INCREASE FUNCTIONAL STRENGTH OF LEFT UE TO EASE ADL'S. Goal Time Frame: 6-8 Weeks Goal 4:: INDEP HEP WITH HELP OF CAREGIVER NEEDED FOR CONTINUED IMPROVEMENT ONCE FORMAL PHYSICAL THERPAY CONCLUDES. Goal Time Frame: 6-8 Weeks - Rehabilitation Potential Rehabilitation Potential: Fair - Anticipated Interventions Patient/Client Instruction: Educate patient on: Condition, Plan of Care, Risk Factors For the Purpose of:: To improve self management Therapeutic Exercise to Include: Strength training, Body mechanics, Postural training, Flexibilty training, Passive ROM, Active ROM, Scapular Strength/Stabilization For the Purpose of:: To decrease pain, To increase ROM, To improve muscle performance and motor function, To increase tolerance to activity/condition/position, To improve ability of physical actions for home/community/work/leisure, To decrease soft tissue restriction, To improve tolerance to ADL's Manual Therapy Techniques to Include: Passive ROM For the Purpose of:: To increase ROM Thank you for the opportunity to evaluate your patient. For Medicare and Medicare HMO plans, please review the plan of care and approve it. It will need to be FAXED BACK to us at [phone] for Medicare purposes. For Medicare only, by signing this I certify the plan of care. Please let me know if there are questions or concerns regarding this plan of care. Physician Signature: Date:
--- NOTE | 2019-08-24 16:29 | HP.PTDCNRP_ITS ---
HP - Discharge Summary (1) - Patient Information AKSHAT Reshma LUCERO was seen in my office for initial evaluation on 05/11/19. The following Plan of Care was established for this patient: Initial Frequency: 3x /Week Initial Duration: 6-8 - Anticipated Interventions Patient/Client Instruction: Educate patient on: Condition, Plan of Care, Risk Factors For the Purpose of:: To improve self management Therapeutic Exercise to Include: Strength training, Body mechanics, Postural training, Flexibilty training, Passive ROM, Active ROM, Scapular Strength/Stabilization For the Purpose of:: To decrease pain, To increase ROM, To improve muscle performance and motor function, To increase tolerance to activity/condition/position, To improve ability of physical actions for soren e/community/work/leisure, To decrease soft tissue restriction, To improve tolerance to ADL's Manual Therapy Techniques to Include: Passive ROM For the Purpose of:: To increase ROM This patient was last seen in our office 06/11/19. Pertinent comments regarding their Physical therapy will appear below: This patient has not returned to Physical Therapy and is appropriate to return to MD for further follow-up as needed. At this point I will be discontinuing this patient from physical therapy. I would be happy to see this patient again in the future if found appropriate by the physician. Thank you! Charley Angeles, PT, Cert MDT
== END 2019-06-11 19:00 | disposition home or self-care (01) ==
LOC: PT 11:30
PROVIDERS: Family Provider Family Medicine; PCP Family Medicine; Referring Provider Family Medicine Geriatric Medicine; Visit Provider Family Medicine Geriatric Medicine
DX: M00.012 Staphylococcal arthritis, left shoulder (principal); B95.62 Methicillin resistant Staphylococcus aureus infection as the cause of diseases classified elsewhere; M53.81 Other specified dorsopathies, occipito-atlanto-axial region
CPT/HCPCS: 96365; 97110; 97140; 97162; 97530; J0878; J7050; A4216; J3490

== ENCOUNTER → 2019-06-21 09:57 | Outpatient (CLI) | payer MEDICARE, SELFPAY ==
[2018-12-13 10:21] VITALS: BMI 22.4
[2019-06-13 10:18] VITALS: BMI 22.2
--- NOTE | 2019-06-22 11:57 | PFT ---
INTRODUCTION: The patient is a 58-year-old male that presents for pulmonary function studies secondary to a diagnosis of COPD. Respiratory therapy reports good patient effort. Bronchodilators were used during testing. INTERPRETATION: Forced expiration spirometry demonstrates the presence of a severe large airways obstructive ventilatory defect. There was no significant response to aerosolized bronchodilators, based upon strict ATS criteria. Spirograms are of fair quality and do not plateau indicating slow emptying of the lungs. Body plethysmography was performed and reveals a decrease TLC to 4.54 L, 68% of predicted, indicative of a moderate restrictive ventilatory impairment. The remainder of the lung volumes are symmetrically reduced. Diffusing capacity by single breath CO is within normal limits at 77% of predicted. There has been a 19% improvement in the patient's FEV1 when compared to pulmonary function studies from 2018. IMPRESSION: Irreversible severe mixed ventilatory defect with preserved diffusing capacity.
== END ==
PROVIDERS: Family Provider Family Medicine; PCP Family Medicine; Referring Provider Internal Medicine Critical Care Medicine; Visit Provider Internal Medicine Critical Care Medicine
DX: J44.9 Chronic obstructive pulmonary disease, unspecified (principal)
CPT/HCPCS: 94060; 94726; 94729

== ENCOUNTER → 2019-08-03 11:21 | Outpatient (CLI) | payer MEDICARE, SELFPAY ==
[2019-06-13 10:18] VITALS: BMI 22.2
[2019-08-03 13:49] LABS: Absolute Lymphocyte Count 1.32 X10^3/uL (0.83-4.51); Absolute Neutrophil Count 5.1 X10^3/uL (2.0-7.7); Basophil# 0.05 X10^3/uL; Basophil% 0.7 % (0-1); Eosinophil# 0.09 X10^3/uL; Eosinophils% 1.2 % (0-5); Hematocrit 50.1 % (40-54); Hemoglobin 16.4 g/dL (13.0-16.5); Lymphocyte # 1.32 X10^3/ul (4.0); Lymphocyte % 17.7 % (19-41); Mean Corp Hgb Conc 32.7 g/dL (32-36); Mean Corpuscular Hgb 33.3 pg (27.0-32.0); Mean Corpuscular Volume 101.6 fL (80-94); Mean Platelet Vol. 9.8 fl (6.2-12.0); Monocyte# 0.89 X10^3/uL; NRBC Flagged by Analyzer 0 % (0-5); Neutrophil # 5.08 X10^3/uL (2.7-7.7); Neutrophil % 68.3 % (47-70); Platelet Count 249 K/mm3 (150-450); RBC Distribution Width CV 14.8 % (11.6-14.6); Red Blood Count 4.93 M/mm3 (4.6-6.2); White Blood Count 7.4 K/mm3 (4.4-11.0)
[2019-08-03 14:00] LABS: Erythrocyte Sedimentation Rate 19 mm/hr (0-20)
[2019-08-03 14:05] LABS: CRP 3.89 mg/L (0.0-3.0)
--- NOTE | 2019-08-03 16:20 | RAD_ITS ---
STUDY: X-RAY - CERVICAL SPINE REASON FOR EXAM: Male, 58 years old. Pain TECHNIQUE: 4 view(s) of the cervical spine were obtained. COMPARISON: None FINDINGS: Normal anterior atlantoaxial articulation. Normal odontoid process. Slightly exaggerated cervical lordosis. Normal vertebral bodies and endplates. Normal disc space heights. Multilevel spondylosis with a possible mild grade 1 anterolisthesis of C5 on C6 and significant spondylosis at C6-7. No prevertebral soft tissue swelling. IMPRESSION : Degenerative disease as above. Electronically Signed: Simon Krishnamurthy, at 17:51 EST Tel , Service support , RAD/Cerv Spine 4 or 5 Views
[2019-08-06 16:28] LABS: Procalcitonin 0.03 ng/mL (0.00-0.08)
== END ==
PROVIDERS: Family Provider Family Medicine; PCP Family Medicine; Referring Provider Family Medicine; Visit Provider Family Medicine
DX: M50.30 Other cervical disc degeneration, unspecified cervical region (principal); M54.12 Radiculopathy, cervical region
CPT/HCPCS: 36415; 72050; 84145; 85025; 85652; 86140

== ENCOUNTER → 2019-08-15 13:17 | Outpatient (CLI) | payer MEDICARE, SELFPAY ==
[2019-06-13 10:18] VITALS: BMI 22.2
--- NOTE | 2019-08-15 13:23 | CT_ITS ---
STUDY: CT SOFT TISSUE NECK WITH CONTRAST REASON FOR EXAM: Male, 58 years old. Neck pain. History of MRSA RADIATION DOSAGE (If Supplied By Facility): CTDIvol = ( 17.08 ) mGy, DLP = ( 422.27 ) mGycm TECHNIQUE: The patient was scanned in a multi-detector CT scanner. High resolution transaxial imaging was performed following intravenous administration of 100 ML ISOVUE 370. Sagittal and coronal images were reconstructed. Individualized dose optimization techniques were used for this CT. COMPARISON: None. FINDINGS: SUPRAHYOID HEAD AND NECK SHIP RIGGER SPACE (INCLUDING SUPRAZYGOMATIC PORTION): Normal with no evidence of an accessory parotid lobe. No calcification in parotid duct. PARAPHARYNGEAL SPACE: Normal and symmetric. No evidence of asymmetric pterygoid plexus. RETROPHARYNGEAL SPACE: Normal with no enlarged nodes of Rouvier laterally CAROTID SPACE: Normal PERIVERTEBRAL SPACE: A mild spondylolisthesis of C5 over C6 with intervertebral osteochondrosis at C4-C5 and C6-C7. Multilevel degenerative change of the facet joints PAROTID SPACE: Negative PHARYNGEAL MUCOSAL SPACE: The nasopharyngeal and oropharyngeal spaces including the tongue base are normal with no tonsillitis, adenoidal hypertrophy or any neoplastic processes. ORAL CAVITY : The mucosal surfaces including the anterior two thirds of the tongue and the submandibular and sublingual spaces are normal INFRAHYOID HEAD AND NECK: VISCERAL SPACE: The thyroid, trachea, esophagus, larynx and hypopharynx are normal. THE CAROTID, RETROPHARYNGEAL, PERIVERTEBRAL and POSTERIOR CERVICAL SPACES (Containing The Spinal Accessory Lymph Nodes): Normal . ORBITS AND PARANASAL SINUSES: Negative CERVICAL LYMPH NODES: Negative . CT/Soft Tissue Neck WITH Contrast IMPRESSION: No evidence of any infectious processes and head and neck region. Specifically there is no evidence of an abscess formation. A mild spondylolisthesis of C5 over C6 with intervertebral osteochondrosis at C4-C5 and C6-C7. Multilevel degenerative change of the facet join Electronically Signed: Enoc Roque MD at 0:29 EST Tel , Service support ,
== END ==
PROVIDERS: Family Provider Family Medicine; PCP Family Medicine; Referring Provider Family Medicine; Visit Provider Family Medicine
DX: M54.2 Cervicalgia (principal)
CPT/HCPCS: 70491; Q9967; A4216

== ENCOUNTER → 2020-01-08 10:03 | Outpatient (CLI) | payer MEDICARE, SELFPAY ==
[2019-12-21 09:48] VITALS: BMI 22.2
--- NOTE | 2020-01-08 10:04 | ECHOD_ITS ---
Reason For Study: DYSPNEA Procedure This was a 2D Doppler, Color Flow transthoracic echocardiogram. Myocardial strain analysis was performed in this exam to aid in the assessment of cardiac function. The study was technically difficult. Exam performed in department. Left Ventricle Normal LV size. Mild concentric left ventricular hypertrophy. Left ventricular systolic function is normal. The estimated ejection fraction is 65 %. The global longitudinal strain = -17% (borderline). No evidence for diastolic dysfunction. No regional wall motion abnormalities noted. Right Ventricle Normal RV size. Normal systolic function. Atria Normal left atrium. Normal right atrium. Lipomatous hypertrophy of the atrial septum. No doppler evidence for ASD. Mitral Valve There is no mitral annular calcification. Mild focal mitral valve calcification of the anterior leaflet. Trivial mitral valve insufficiency. Tricuspid Valve Normal tricuspid valve. Trivial tricuspid valve insufficiency. Right ventricular systolic pressure estimated to be 25 mmHg. Aortic Valve Trisinus/trileaflet aortic valve. Normal aortic valve. Mild (1+) aortic valve insufficiency. Pulmonic Valve The pulmonic valve is not well visualized. Trivial pulmonic valve insufficiency. Great Vessels Mildly dilated aortic root. Pericardium/Pleural Trivial pericardial effusion. There are no echocardiographic indications of cardiac tamponade. Medication 22 gauge I.V. with prn adaptor inserted into left arm. Performed a rapid injection of agitated mix of 9 cc saline and 1cc air to assess for atrial septal defect. MMode/2D Measurements & Calculations LVIDd: 4.9 cm IVSd: 1.3 cm Ao root diam: 4.4 cm LVIDs: 3.4 cm LVPWd: 1.2 cm RVDd: 3.6 cm FS: 28.9 % LAV(MOD-bp): 48.7 ml LA A4 area: 16.6 cm2 LA dimension(2D): 4.3 cm LAV(MOD-bp) Indexed: 25.5 ml/m2 LAV(MOD-sp2): 43.2 ml LAV(MOD-sp4): 47.7 ml RA A4 area: 11.0 cm2 Time Measurements MV dec time: 0.27 sec Doppler Measurements & Calculations MV E max alfredo: 63.1 cm/sec Lat Peak E' Alfredo: 8.9 cm/sec Med Peak E' Alfredo: 5.6 cm/sec MV A max alfredo: 66.1 cm/sec E/E' lat: 7.1 E/E' med: 11.3 MV E/A: 0.95 Ao V2 max: 172.4 cm/sec AI max alfredo: 428.3 cm/sec LV V1 max: 166.1 cm/sec Ao max P.9 mmHg AI max P.5 mmHg LV V1 max P.0 mmHg AI dec slope: 297.0 cm/sec2 AI P1/2t: 422.4 msec PA V2 max: 161.0 cm/sec PI end-d alfredo: 150.9 cm/sec TR max alfredo: 235.2 cm/sec TR max P.1 mmHg Interpretation Summary The study was technically difficult. Left ventricular systolic function is normal. The estimated ejection fraction is 65 %. The global longitudinal strain = -17% (borderline). Mild concentric left ventricular hypertrophy. Lipomatous hypertrophy of the atrial septum. Mild focal mitral valve calcification of the anterior leaflet. Trivial mitral valve insufficiency. Trivial tricuspid valve insufficiency. Mild (1+) aortic valve insufficiency. Trivial pulmonic valve insufficiency. Mildly dilated aortic root. Trivial pericardial effusion. There are no echocardiographic indications of cardiac tamponade. Right ventricular systolic pressure estimated to be 25 mmHg. No evidence for diastolic dysfunction. Ordering Physician: Tiarra Sales Referring Physician: FELI EDWARDS Performed By: Ioana Kent, RDCS, RVT
== END ==
PROVIDERS: PCP Family Medicine; Referring Provider Nurse Practitioner Acute Care; Visit Provider Nurse Practitioner Acute Care
DX: R06.02 Shortness of breath (principal); A41.9 Sepsis, unspecified organism
CPT/HCPCS: 93306

== ENCOUNTER → 2020-01-16 10:37 | Outpatient (CLI) | payer MEDICARE, SELFPAY ==
[2019-12-21 09:48] VITALS: BMI 22.2
[2020-01-16 12:36] LABS: Absolute Neutrophil Count 8.1 X10^3/uL (2.0-7.7); Basophil# 0.02 X10^3/uL; Basophil% 0.2 % (0-1); Hematocrit 48.1 % (40-54); Hemoglobin 16.2 g/dL (13.0-16.5); Mean Corp Hgb Conc 33.7 g/dL (32-36); Mean Corpuscular Hgb 34.3 pg (27.0-32.0); Mean Corpuscular Volume 101.9 fL (80-94); Monocyte# 1.67 X10^3/uL; Monocyte% 14.7 % (0-10); NRBC Flagged by Analyzer 0 % (0-5); Neutrophil # 8.05 X10^3/uL (2.7-7.7); Neutrophil % 70.7 % (47-70); POSITIVE DIFFERENTIAL YES; Platelet Count 295 K/mm3 (150-450); RBC Distribution Width SD 53.1 fl (35.1-43.9); Red Blood Count 4.72 M/mm3 (4.6-6.2); White Blood Count 11.4 K/mm3 (4.4-11.0)
[2020-01-16 12:43] LABS: BNP,B-Type NATRIURETIC PEPTIDE 24.9 pg/mL (0-100)
[2020-01-16 12:47] LABS: Color, Urine Yellow (Yellow); Glucose, Dipstick Normal (Normal); Ketone-Dipstick Negative (Negative); Leukocyte Esterase-Dipstick Negative /ul (Negative); Nitrite-Dipstick Negative (Negative); Occult Blood-Urine Negative /ul (Negative); Protein-Dipstick Negative (Negative); Specific Gravity, Urine 1.005 (1.002-1.030); Urine Bilirubin Dipstick Negative (Negative); Urine Clarity Clear (Clear); Urine Urobilinogen Normal (Normal); Urine pH 6.5 (5.0 - 8.0)
[2020-01-16 12:48] LABS: Differential Indicated SCAN CRITERIA MET
[2020-01-16 12:52] LABS: Vitamin D,25 Hydroxy 29.4 ng/mL
[2020-01-16 12:59] LABS: AST(SGOT) 35 U/L (15-37); Alanine Aminotransfer ALT/SGPT 49 U/L (16-61); Albumin, Serum 3.9 g/dL (3.2-5.0); Alkaline Phosphatase 153 U/L (45-117); Anion Gap 9 (5-15); BUN 15 mg/dL (7-18); BUN/Creat Ratio 10.7 RATIO (10-20); Calcium,Total 9.6 mg/dL (8.5-10.1); Chloride 104 mmol/L (98-107); Cholesterol 290 mg/dL (200); EST Glomerular Filtration Rate 55 mL/min (>60); Est Glom Filt Rate - Afr Amer 66 mL/min (>60); Globulin 4.1 g/dL (2.2-4.2); Glucose 121 mg/dL (74-106); High Density Lipoprotein 54 mg/dL; Potassium 4.1 mmol/L (3.5-5.1); Sodium Level 138 mmol/L (136-145); Triglycerides 234 mg/dL; Very Low Density Lipoprotein 47 mg/dL (5-40)
[2020-01-17 11:56] LABS: Pathologist Review Reviewed
[2020-01-18 16:07] LABS: Red Blood Cell Count Test/G6PD 4.79 x10E6/uL (4.14-5.80)
[2020-01-18 18:50] LABS: G6PD Quant Test 288 (146-376)
== END ==
PROVIDERS: PCP Family Medicine; Referring Provider Nurse Practitioner Family; Visit Provider Nurse Practitioner Family
DX: R53.82 Chronic fatigue, unspecified (principal); M62.81 Muscle weakness (generalized); R68.82 Decreased libido
CPT/HCPCS: 36415; 80053; 80061; 81002; 82306; 82955; 83880; 85025

== ENCOUNTER → 2020-01-28 14:03 | Outpatient (CLI) | payer MEDICARE, SELFPAY ==
[2020-01-23 08:47] VITALS: BMI 22.2
--- NOTE | 2020-01-28 14:04 | CT_ITS ---
STUDY: CT CHEST WITHOUT CONTRAST REASON FOR EXAM: Male, 59 years old. SHORTNESS OF BREATH, COPD, HX NHL RADIATION DOSAGE (If Supplied By Facility): CTDIvol = ( 7.78 ) mGy, DLP = ( 254.58 ) mGycm TECHNIQUE: Transaxial imaging was performed without the administration of intravenous contrast material. Coronal and sagittal reconstructions were performed. Individualized dose optimization techniques were used for this CT. COMPARISON: 07/15/2010. FINDINGS: Subpleural atelectases and subsegmental atelectases in the right lower lobe. No suspicious pulmonary nodules or infiltrates. Minimal subsegmental atelectasis in the left posterior lung base. Atypical thick calcific-like density along the right major fissure and overlying the right hemidiaphragm are unchanged. No pleural fluid. Normal heart and pericardium. Normal mediastinum. Normal hilar regions. Normal unenhanced pulmonary arteries. Mild dilatation of the ascending aorta with a diameter of 4.2 cm versus 3.2 cm for the descending thoracic aorta. This is unchanged. Normal osseous structures. There is no demonstrated abnormality of the visualized upper abdomen. CT/Chest without Contrast IMPRESSION: 1. No CT evidence of any suspicious mass or lymphadenopathy in the chest. 2. Atypical thick and long calcific like density along the right major fissure and overlying the right hemidiaphragm. They may be postop changes. They are unchanged. 3. Elongated subpleural atelectases in the right lower lobe and minimal subsegmental atelectases in the left posterior lung base. 4. Mild dilatation of the ascending aorta with a diameter of 4.2 cm versus 3.2 cm for the descending thoracic aorta. 5. No significant interval change when compared to 07/15/2010. Electronically Signed: Mike Ferrera MD at 15:59 EDT , Service support ,
== END ==
PROVIDERS: PCP Family Medicine; Referring Provider Nurse Practitioner Acute Care; Visit Provider Nurse Practitioner Acute Care
DX: R06.02 Shortness of breath (principal)
CPT/HCPCS: 71250

== ENCOUNTER 2020-02-19 16:30 | Outpatient (RCR) | payer MEDICARE, SELFPAY ==
[2020-01-23 08:47] VITALS: BMI 22.2
--- NOTE | 2020-02-11 10:52 | HP.PTEVAL ---
Patient's Visit Information AKSHAT LUCERO is a 59 year old M referred to Physical Therapy by Dr. Yasmany Carrera MD with a diagnosis of TMJ. Date of Evaluation: 02/11/20 Physical Therapist: Raphael Shahid DPT, OCS, CSCS - Visit Plan Frequency: 2x /Week Duration: 4-6 Weeks Plan: 2x/week for 2-4 weeks for. 1. Most of session should be STM to pterygoids, masseter, UT, lev scap, scalenes adn release of fascia monitorring for pain or improvement. 2. Please also show jaw opening ex for ROM, cervical retraction for posture and jaw opening and deviating isometric as an HEP. - Subjective Sees Dr. Moura for various pain issues. 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 Gets cramping in jaw. Some days constant and other not present. Worse with eating. Some spells where it does nto bother him. May grind at night but does not notice it. Has tried motuhpieces and cannot sleep with them. This has been going on 10 years and jaw is out of alignment. Gives him spasms in side of head. Dr. Moura recommended PT for realignment. Sometimes keeps him up at night. Today is no painful. Lately has been worse but not sure why, possibly increase consumption of sugar or stress. Not employed due to other health issues. Spends day with light workouts but has to be careful due to restircted breathing, stretches ribs and general flexibility. Has clamp device for stretching jaw but does not use it as it aggravates him. - Pain B jaw pain Pain Intensity (Out of 10): 0 Pain Intensity Range: 0, 5 - Objective Posture is forward head and protracted/elevated scap B. Patient ambulates and trasnfers I. He is tight in the neck and jaw muscles to palpation. Cervical AROM 42 B rotation, 45 ext adn feels pulling. Slightly tender to touch in [place] and pterygoids medial and lateral on both sides. Also in UT and lev scap and scalenes. UE AROM limited in elevation due to tightness to 130. Functional and strong. Palpation of B TMJ show no clicking or popping today. jaw opening 34 mm today, R and L lateral deviations are 15 mm B. jaw opens straight with deviating either direction. arthrokinematic joint movements seem normal today. jaw opening reflex is 1/3. Pt has lots of tightness/tone from his autoimmune disorder and seems to have fascialpain. - Goals Goal 1:: Jaw opening to 40 mm without pain Goal Time Frame: 4-6 Weeks Goal 2:: Pt fel 75% improvement in overall pain to 1/10 at worst adn very intermittent. Goal Time Frame: 4-6 Weeks Goal 3:: I approp HEp to minimize future problems. Goal Time Frame: 4-6 Weeks - Rehabilitation Potential Physical Therapy Diagnosis: TMJ B more soft tissue related to fasci and muscles. Rehabilitation Potential: Questionable - Anticipated Interventions Patient/Client Instruction: Educate patient on: Condition, Plan of Care For the Purpose of:: To decrease pain, To increase ROM Therapeutic Exercise to Include: Strength training, Flexibilty training, Passive ROM, Active ROM For the Purpose of:: To decrease pain, To increase ROM, To increase tolerance to activity/condition/position Manual Therapy Techniques to Include: Mobilization, Soft tissue mobilization Comment: mfr For the Purpose of:: To decrease pain, To increase ROM Thank you for the opportunity to evaluate your patient. For Medicare and Medicare HMO plans, please review the plan of care and approve it. It will need to be FAXED BACK to us at [phone] for Medicare purposes. For Medicare only, by signing this I certify the plan of care. Please let me know if there are questions or concerns regarding this plan of care. Physician Signature: Date:
--- NOTE | 2020-04-25 14:14 | HP.PT.NRP ---
AKSHAT Reshma LUCERO was seen in my office for initial evaluation on 02/11/20. The following Plan of Care was established for this patient: Initial Frequency: 2x /Week Initial Duration: 4-6 Weeks Patient/Client Instruction: Educate patient on: Condition, Plan of Care For the Purpose of:: To decrease pain, To increase ROM Therapeutic Exercise to Include: Strength training, Flexibilty training, Passive ROM, Active ROM For the Purpose of:: To decrease pain, To increase ROM, To increase tolerance to activity/condition/position Manual Therapy Techniques to Include: Mobilization, Soft tissue mobilization Comment: mfr For the Purpose of:: To decrease pain, To increase ROM This patient was last seen in our office 02/19/20. Pertinent comments regarding their Physical therapy will appear below: Pt seen 3 visits of POC and cancelled the rest without reason. At this point I will disconinue due to nonattendance. At this point I will be discontinuing this patient from physical therapy. I would be happy to see this patient again in the future if found appropriate by the physician. Thank you! Raphael Shahid, DPT, OCS, CSCS
== END 2020-02-19 19:00 | disposition home or self-care (01) ==
LOC: PT 16:30
PROVIDERS: PCP Family Medicine; Referring Provider Anesthesiology Pain Medicine; Visit Provider Anesthesiology Pain Medicine
DX: M26.609 Unspecified temporomandibular joint disorder, unspecified side (principal)
CPT/HCPCS: 97110; 97140; 97162

== ENCOUNTER → 2020-11-19 16:27 | Outpatient (CLI) | payer MEDICARE, SELFPAY ==
[2020-11-19 18:01] LABS: Absolute Lymphocyte Count 2.39 X10^3/uL (0.83-4.51); Basophil# 0.04 X10^3/uL; Basophil% 0.4 % (0-1); Eosinophil# 0.14 X10^3/uL; Eosinophils% 1.4 % (0-5); Hematocrit 48.9 % (40-54); Hemoglobin 16.3 g/dL (13.0-16.5); Lymphocyte # 2.39 X10^3/ul (4.0); Lymphocyte % 24.4 % (19-41); Mean Corp Hgb Conc 33.3 g/dL (32-36); Mean Corpuscular Hgb 33.2 pg (27.0-32.0); Mean Corpuscular Volume 99.6 fL (80-94); Mean Platelet Vol. 10.2 fl (6.2-12.0); Monocyte# 1.18 X10^3/uL; Monocyte% 12.1 % (0-10); NRBC Flagged by Analyzer 0 % (0-5); Neutrophil # 6.01 X10^3/uL (2.7-7.7); Neutrophil % 61.4 % (47-70); Platelet Count 279 K/mm3 (150-450); RBC Distribution Width CV 17.2 % (11.6-14.6); RBC Distribution Width SD 62.7 fl (35.1-43.9); Red Blood Count 4.91 M/mm3 (4.6-6.2); White Blood Count 9.8 K/mm3 (4.4-11.0)
[2020-11-19 18:42] LABS: Cholesterol 283 mg/dL (200); High Density Lipoprotein 35 mg/dL; Triglycerides 196 mg/dL; Very Low Density Lipoprotein 39 mg/dL (5-40)
== END ==
PROVIDERS: PCP Family Medicine; Referring Provider Family Medicine; Visit Provider Family Medicine
DX: E29.1 Testicular hypofunction (principal); Z79.899 Other long term (current) drug therapy
CPT/HCPCS: 36415; 80061; 84403; 85025

== ENCOUNTER → 2020-12-08 09:22 | Outpatient (CLI) | payer MEDICARE, SELFPAY ==
[2020-03-04 08:04] VITALS: BMI 22.2
--- NOTE | 2020-12-08 15:00 | PFTCOMP_ITS ---
COMPLETE PULMONARY FUNCTION TEST INTERPRETATION Brief HPI: Patient is a 60 year old male, currently under the care of Dr. Regan, who presents to [facility] for complete pulmonary function tests secondary to diagnosis of abnormal PFT. Respiratory therapist reports good effort and reproducible results. Interpretation: Forced expiration spirometry shows a moderately severe large airways obstructive ventilatory defect with an FEV1 of 53% predicted. There is no significant bron chodilator response by strict ATS criteria. Spirograms are of good quality and plateau slowly, indicating slowly emptying areas of the lungs. The respiratory flow volume loop shows decreased expiratory flow rates at all lung volumes consistent with airway obstruction. Lung volumes by body plethysmography show a decreased total lung capacity at 4.69 L, 71% predicted. All other lung volumes are within normal limits. Diffusion capacity by carbon monoxide is normal at 97% predicted. The airway resistance is elevated. Compared to previous pulmonary function tests from 06/21/2019, there is been a significant improvement in DLCO by 27%. Impression: Moderately severe mixed ventilatory defect with preserved diffusion capacity and improvement compared to 2019.
== END ==
PROVIDERS: PCP Family Medicine; Referring Provider Internal Medicine Critical Care Medicine; Visit Provider Internal Medicine Critical Care Medicine
DX: R94.2 Abnormal results of pulmonary function studies (principal)
CPT/HCPCS: 94060; 94726; 94729

== ENCOUNTER → 2020-12-15 12:28 | Outpatient (CLI) | payer MEDICARE, SELFPAY ==
[2020-03-04 08:04] VITALS: BMI 22.2
[2020-12-15 13:08] VITALS: PULSE 100; PULSE 103; PULSE 104; PULSE 107; PULSE 108; PULSE 90; PULSE 92; O2SAT 85; O2SAT 86; O2SAT 89; O2SAT 90; O2SAT 91; O2SAT 93
--- NOTE | 2020-12-15 13:12 | CPS ---
PATIENT ARRIVED FOR TESTING ON ROOM AIR. SPO2 AT REST 91%. HE WAS PLACED ON 2LPM OXYGEN FOR SPO2 85% AT 1MIN OF TESTING. INCREASED TO 3LPM AT MINUTE 3 FOR SPO2 86%. REMAINED ON 3LPM FOR DURATION OF TESTING. PT HAS OXYGEN AT HOME FOR USE AT NIGHT AND PRN, UNSURE OF DME AT TIME OF TEST. ONLY REST BREAKS TAKEN WERE TO APPLY OR INCREASE OXYGEN, PT ARRIVED AND LEFT AT HIS STATED BASELINE RESPIRATORY STATUS.
--- NOTE | 2020-12-16 10:06 | WT_ITS ---
PSN 6 Minute Walk Test - 6 Minute Walk Test 6 Minute Walk Test: 6 Minute Walk Test PSN:6-Minute Walk Test Start: 12/15/20 13:07 Freq: Status: Active Protocol: RESP.6MINW Document 12/15/20 13:08 [facility] (Rec: 12/15/20 13:15 [facility] [id number]) 6 Minute Walk Test Date Performed 12/15/20 Time Performed 12:30 Height 5 ft 10 in Weight: 165 lb Weight in Pounds 165.[address]: Ruy Regan Assistive device used: None Pre-test Oxygen Delivery Method Room Air Pulse Ox (%) 91 Pulse Rate (60-100 beats/min) 92 Dyspnea Addison Scale (0-10) 4 Reported Symptoms Increased Work of Breathing 1st minute Oxygen Delivery Method Room Air Pulse Ox (%) 85 Pulse Rate (60-100 beats/min) 100 Dyspnea Addison Scale (0-10) 5 Number of Rests Taken 1 Reported Symptoms Increased Work of Breathing 2nd minute Oxygen Flow Rate (L/min) (L/min) 2 Oxygen Delivery Method Nasal Cannula Pulse Ox (%) 89 Pulse Rate (60-100 beats/min) 104 H Dyspnea Addison Scale (0-10) 5 Number of Rests Taken 0 Reported Symptoms Increased Work of Breathing 3rd minute Oxygen Flow Rate (L/min) (L/min) 2 Oxygen Delivery Method Nasal Cannula Pulse Ox (%) 86 Pulse Rate (60-100 beats/min) 108 H Dyspnea Addison Scale (0-10) 6 Number of Rests Taken 1 Reported Symptoms Increased Work of Breathing 4th minute Oxygen Flow Rate (L/min) (L/min) 3 Oxygen Delivery Method Nasal Cannula Pulse Ox (%) 90 Pulse Rate (60-100 beats/min) 107 H Dyspnea Addison Scale (0-10) 5 Number of Rests Taken 0 Reported Symptoms Increased Work of Breathing 5th minute Oxygen Flow Rate (L/min) (L/min) 3 Oxygen Delivery Method Nasal Cannula Pulse Ox (%) 89 Pulse Rate (60-100 beats/min) 107 H Dyspnea Addison Scale (0-10) 5 Number of Rests Taken 0 Reported Symptoms Increased Work of Breathing 6th minute Oxygen Flow Rate (L/min) (L/min) 3 Oxygen Delivery Method Nasal Cannula Pulse Ox (%) 89 Pulse Rate (60-100 beats/min) 103 H Dyspnea Addison Scale (0-10) 5 Number of Rests Taken 0 Reported Symptoms Increased Work of Breathing Post-test Oxygen Delivery Method Room Air Pulse Ox (%) 93 Pulse Rate (60-100 beats/min) 90 Dyspnea Addison Scale (0-10) 4 Reported Symptoms Increased Work of Breathing Full Laps Walked 15 Partial Lap, Number of Tiles Walked 37 Total Distance Walked (ft) 922 12/15/20 13:12 Cardiopulmonary Services by Kendra Joseph PATIENT ARRIVED FOR TESTING ON ROOM AIR. SPO2 AT REST 91%. HE WAS PLACED ON 2LPM OXYGEN FOR SPO2 85% AT 1MIN OF TESTING. INCREASED TO 3LPM AT MINUTE 3 FOR SPO2 86%. REMAINED ON 3LPM FOR DURATION OF TESTING. PT HAS OXYGEN AT HOME FOR USE AT NIGHT AND PRN, UNSURE OF DME AT TIME OF TEST. ONLY REST BREAKS TAKEN WERE TO APPLY OR INCREASE OXYGEN, PT ARRIVED AND LEFT AT HIS STATED BASELINE RESPIRATORY STATUS. Initialized on 12/15/20 13:12 - END OF NOTE - Interpretation Interpretation: The patient ambulated 922 feet over the course of 6 minutes beginning on room air without assistive devices or breaks. Pretesting oxygen saturation was noted to be 91% on room air. With ambulation, the patient desaturated multiple times requiring the initiation and subsequent escalation in flow rate to 3 L/min to maintain appropriate exertional oxygen saturations. - Recommendations Recommendations: 3 L/min of supplemental oxygen should be utilized with exertion.
== END ==
PROVIDERS: PCP Family Medicine; Referring Provider Internal Medicine Critical Care Medicine; Visit Provider Internal Medicine Critical Care Medicine
DX: J96.11 Chronic respiratory failure with hypoxia (principal)
CPT/HCPCS: 94618

== ENCOUNTER → 2020-12-22 13:32 | Outpatient (CLI) | payer MEDICARE, SELFPAY ==
[2020-12-18 14:18] VITALS: BMI 23.8
[2020-12-22 15:21] LABS: Absolute Lymphocyte Count 2.36 X10^3/uL (0.83-4.51); Absolute Neutrophil Count 3.1 X10^3/uL (2.0-7.7); Basophil# 0.03 X10^3/uL; Basophil% 0.5 % (0-1); Eosinophil# 0.16 X10^3/uL; Eosinophils% 2.6 % (0-5); Hematocrit 50.1 % (40-54); Hemoglobin 15.9 g/dL (13.0-16.5); Lymphocyte # 2.36 X10^3/ul (0.83-4.51); Lymphocyte % 37.9 % (19-41); Mean Corp Hgb Conc 31.7 g/dL (32-36); Mean Corpuscular Hgb 32.1 pg (27.0-32.0); Mean Corpuscular Volume 101.2 fL (80-94); Mean Platelet Vol. 10.2 fl (6.2-12.0); Monocyte# 0.56 X10^3/uL; NRBC Flagged by Analyzer 0 % (0-5); Neutrophil % 49.8 % (47-70); Platelet Count 240 K/mm3 (150-450); RBC Distribution Width CV 15.3 % (11.6-14.6); RBC Distribution Width SD 58.2 fl (35.1-43.9); Red Blood Count 4.95 M/mm3 (4.6-6.2); White Blood Count 6.2 K/mm3 (4.4-11.0)
[2020-12-22 15:36] LABS: Cholesterol 246 mg/dL (200); High Density Lipoprotein 50 mg/dL; Triglycerides 253 mg/dL; Very Low Density Lipoprotein 51 mg/dL (5-40)
== END ==
PROVIDERS: PCP Family Medicine; Visit Provider Family Medicine
DX: E29.1 Testicular hypofunction (principal)
CPT/HCPCS: 36415; 80061; 84403; 85025

== ENCOUNTER → 2021-01-28 15:48 | Outpatient (CLI) | payer MEDICARE, SELFPAY ==
[2021-01-28 14:03] VITALS: BMI 22.8
[2021-01-28 17:54] LABS: Anion Gap 7 (5-15); BUN 11 mg/dL (7-18); BUN/Creat Ratio 17.5 RATIO (10-20); Calcium,Total 9.1 mg/dL (8.5-10.1); Chloride 102 mmol/L (98-107); Creatinine, Serum 0.63 mg/dL (0.70-1.30); EST Glomerular Filtration Rate 138 mL/min (>60); Est Glom Filt Rate - Afr Amer 167 mL/min (>60); Glucose 96 mg/dL (74-106); Potassium 4.1 mmol/L (3.5-5.1); Sodium Level 139 mmol/L (136-145)
== END ==
PROVIDERS: PCP Family Medicine; Visit Provider Internal Medicine Cardiovascular Disease
DX: I77.810 Thoracic aortic ectasia (principal); I35.9 Nonrheumatic aortic valve disorder, unspecified
CPT/HCPCS: 36415; 80048

== ENCOUNTER → 2021-02-09 06:35 | Outpatient (CLI) | payer MEDICARE, SELFPAY ==
[2021-01-28 14:03] VITALS: BMI 22.8
--- NOTE | 2021-02-09 06:40 | ECHOD_ITS ---
Version 2 Reason For Study: Murmur Procedure This was a 2D Doppler, Color Flow transthoracic echocardiogram. Myocardial strain analysis was performed in this exam to aid in the assessment of cardiac function. Exam performed in department. Left Ventricle Normal LV size. Moderate concentric left ventricular hypertrophy. Left ventricular systolic function is normal. The estimated ejection fraction is 55 %. Stage 2 diastolic dysfunction. No regional wall motion abnormalities noted. Right Ventricle Normal RV size. Normal systolic function. Atria Normal left atrium. Normal right atrium. Mitral Valve Normal mitral valve. Mild (1+) eccentric mitral valve insufficiency. Tricuspid Valve Normal tricuspid valve. Aortic Valve Trisinus/trileaflet aortic valve. Moderate (2+) aortic valve insufficiency. Pulmonic Valve Normal pulmonic valve. Great Vessels Mildly dilated aortic root. The pulmonary artery is normal size. Normal inferior vena cava. Pericardium/Pleural No pericardial effusion. MMode/2D Measurements & Calculations LVIDd: 5.1 cm IVSd: 1.6 cm Ao root diam: 3.8 cm LVIDs: 3.6 cm LVPWd: 1.5 cm RVDd: 3.4 cm FS: 30.4 % LAV(MOD-sp4): 50.6 ml LVAd ap4: 38.0 cm2 SV(MOD-sp4): 73.4 ml LVLd ap4: 8.5 cm EDV(MOD-sp4): 139.6 ml EDV(sp4-el): 143.9 ml LVAs ap4: 23.9 cm2 LVLs ap4: 7.4 cm ESV(MOD-sp4): 66.1 ml ESV(sp4-el): 65.5 ml EF(MOD-sp4): 52.6 % EF(sp4-el): 54.5 % SV(sp4-el): 78.4 ml LA A4 area: 17.5 cm2 LA dimension(2D): 4.6 cm RA A4 area: 9.1 cm2 Doppler Measurements & Calculations MV E max alfredo: 91.7 cm/sec Lat Peak E' Alfredo: 7.7 cm/sec Med Peak E' Alfredo: 5.0 cm/sec MV A max alfredo: 62.0 cm/sec E/E' lat: 11.9 E/E' med: 18.4 MV E/A: 1.5 Ao V2 max: 137.4 cm/sec AI max alfredo: 337.6 cm/sec LV V1 max: 131.9 cm/sec Ao max P.6 mmHg AI max P.6 mmHg LV V1 max P.0 mmHg Ao V2 mean: 97.4 cm/sec Ao mean P.1 mmHg AI dec slope: 264.2 cm/sec2 Ao V2 VTI: 25.7 cm AI P1/2t: 374.3 msec PA V2 max: 135.8 cm/sec ECHO/Echo Complete Interpretation Summary Normal LV size. Left ventricular systolic function is normal. Moderate concentric left ventricular hypertrophy. The estimated ejection fraction is 55 %. Stage 2 diastolic dysfunction. Mildly dilated aortic root. The global longitudinal strain is mildly abnormal. The global longitudinal stra in = -16.6% (abnormal). Ordering Physician: Billy Pruett Referring Physician: Lolly Meyer Performed By: Pati Buchanan, LEO, RVT
--- NOTE | 2021-02-09 09:00 | CT_ITS ---
STUDY: CTA CHEST REASON FOR EXAM: Male, 60 years old. Dilated thoracic aorta. RADIATION DOSAGE (If Supplied By Facility): CTDIvol = ( 19.195 ) mGy, DLP = ( 365.76 ) mGycm TECHNIQUE: The examination was performed with the intravenous administration of . Post-processing of the angiographic images was performed, with multiplanar reformation and 3D reconstruction. Individualized dose optimization techniques were used for this CT. COMPARISON: Comparison is made with prior study dated 01/28/2020. FINDINGS: Normal enhancement of the main pulmonary artery and right and left pulmonary arteries. Normal enhancement of the bilateral peripheral pulmonary arteries. There is no demonstrated pulmonary embolism. There is aneurysmal dilatation of the ascending aorta. The transverse diameter of the ascending aorta measures 42 mm''s. This is unchanged. There is no demonstrated aortic dissection. There is cardiomegaly. There are visualized mediastinal lymph nodes, which are within normal size limits, and with normal morphology. Normal hilar regions. Normal visualized trachea and bronchi. The lungs are well expanded. Since prior study, there has been progression of the increased linear markings at the lung bases as well as in the peripheral lateral aspect of the superior segment of the right lower lobe. This may represent either progressive scarring versus atelectasis. Stable focal calcified pleural plaques at the right lung base. Normal chest wall structures. There are degenerative changes of thoracic spine. Normal visualized upper abdomen. CT/CTA Chest W/WO Contrast IMPRESSION: Stable dilatation of the ascending thoracic aorta. Progressive increased markings at the lung bases as well as the superior aspect of the right lower lobe suggestive of progressive scarring and/or atelectasis. Electronically Signed: Ash Montaño MD at 10:02 EDT , Service support ,
--- NOTE | 2021-02-09 16:31 | STRESSREP ---
Stress Test Report Exercise myocardial perfusion stress test. 60-year-old man with a history of valvular heart disease. Stress protocol: Resting EKG demonstrates normal sinus rhythm with a rate of 78 bpm normal intervals are noted. The patient exercised according to regular Russel protocol for total duration of 5 minutes completing 2 minutes into stage II of the Russel protocol. The maximum heart rate attained was 142 bpm which was 89% of maximum predicted heart rate the maximum workload was 7 metabolic equivalents. At rest there were no ST or T wave changes noted to suggest ischemia and at peak exercise upsloping ST changes were noted with did not meet the criteria for ischemia. Patient did experience shortness of breath with exertion. The test was terminated due to the same. The peak blood pressure was 186/74 mmHg. Myocardial perfusion protocol. 11.3 mCi of technetium 99m sestamibi was injected at rest. The patient exercised according to regular Russel protocol for total duration of 5 minutes and at peak exercise 32.4 mCi of technetium 99m sestamibi was injected stress images were obtained stress and rest images were reconstructed and compared in the short axis vertical long horizontal long axis. Gated images were also obtained for Perfusion SPECT analysis: Review of the stress images demonstrate normal perfusion noted in all areas of the myocardium. The resting images similarly demonstrate normal perfusion in all areas of the myocardium. No areas of reversibility are noted suggest ischemia no previous infarct is noted. Gated SPECT analysis: The cardiac silhouette size is mildly dilated. The estimated ejection fraction was approximately 47%. Conclusion: Normal exercise myocardial perfusion stress test at a moderate workload. Mildly dilated cardiac silhouette size. Mild functional aerobic impairment.
== END ==
PROVIDERS: PCP Family Medicine; Referring Provider Internal Medicine Cardiovascular Disease; Visit Provider Internal Medicine Cardiovascular Disease
DX: R07.89 Other chest pain (principal); G47.33 Obstructive sleep apnea (adult) (pediatric); I77.810 Thoracic aortic ectasia
CPT/HCPCS: 71275; 78452; 93017; 93306; A9500; Q9967; A4216

== ENCOUNTER → 2021-02-26 15:47 | Outpatient (CLI) | payer MEDICARE, SELFPAY ==
[2021-02-26 14:43] VITALS: BMI 23.2
[2021-02-26 16:50] LABS: Absolute Lymphocyte Count 2.03 X10^3/uL (0.83-4.51); Absolute Neutrophil Count 5.9 X10^3/uL (2.0-7.7); Basophil# 0.05 X10^3/uL; Basophil% 0.5 % (0-1); Eosinophils% 2.1 % (0-5); Hematocrit 51.3 % (40-54); Hemoglobin 16.8 g/dL (13.0-16.5); Lymphocyte # 2.03 X10^3/ul (0.83-4.51); Lymphocyte % 21.5 % (19-41); Mean Corp Hgb Conc 32.7 g/dL (32-36); Mean Corpuscular Hgb 32.6 pg (27.0-32.0); Mean Corpuscular Volume 99.6 fL (80-94); Mean Platelet Vol. 9.8 fl (6.2-12.0); Monocyte# 1.23 X10^3/uL; NRBC Flagged by Analyzer 0 % (0-5); Neutrophil # 5.89 X10^3/uL (2.7-7.7); Neutrophil % 62.6 % (47-70); Platelet Count 309 K/mm3 (150-450); RBC Distribution Width CV 15.4 % (11.6-14.6); RBC Distribution Width SD 57.6 fl (35.1-43.9); Red Blood Count 5.15 M/mm3 (4.6-6.2); White Blood Count 9.4 K/mm3 (4.4-11.0)
[2021-02-26 16:54] LABS: Anion Gap 7 (5-15); BUN 12 mg/dL (7-18); BUN/Creat Ratio 19.8 RATIO (10-20); Calcium,Total 9.2 mg/dL (8.5-10.1); Chloride 101 mmol/L (98-107); EST Glomerular Filtration Rate 144 mL/min (>60); Est Glom Filt Rate - Afr Amer 174 mL/min (>60); Glucose 100 mg/dL (74-106); Potassium 4.1 mmol/L (3.5-5.1); Sodium Level 138 mmol/L (136-145)
== END ==
PROVIDERS: PCP Family Medicine; Referring Provider Internal Medicine Cardiovascular Disease; Visit Provider Internal Medicine Cardiovascular Disease
DX: I77.810 Thoracic aortic ectasia (principal); Z87.09 Personal history of other diseases of the respiratory system
CPT/HCPCS: 36415; 80048; 85025

== ENCOUNTER 2021-03-06 07:50 | Day surgery (SDC) | payer MEDICARE, SELFPAY ==
[2021-02-26 14:43] VITALS: BMI 23.2
[2021-03-04 13:58] VITALS: BMI 23.2
--- NOTE | 2021-03-06 09:59 | CL.D_ITS ---
Patient Name: AKSHAT LUCERO Study Date: 03/06/2021 Performing: Billy Pruett MD Ht: 70.07 inches 178 cm : 1960 Wt: 160.94 lbs 73 kg Age: 60 Gender: male BSA: 1.9 PROCEDURE(S) PERFORMED [id number]-[id number]/COR [id number]-AO ROOT ANGIO WITH HEART CATH CLINICAL PROFILE AND INDICATIONS Indications: Valvular Disease Heart Failure: None Stress/Imaging Stress/Image Study Performed: No CAD Presentations: Symptom unlikely to be ischemic. CONCLUSIONS Minimal coronary artery disease, RECOMMENDATIONS Consider TASH and surgical evaluation DESCRIPTION OF PROCEDURE The patient arrived to the procedure lab. The risks and benefits of the procedure as well as a full d escription of our services here and current unavailability of surgical backup were fully explained to the patient and/or their significant other prior to the catheterization. The Timeout was completed, verifying the correct patient and procedure. The patient's procedural site was prepped and draped in the usual fashion. Local anesthetic was given subcutaneously to right radial region with Lidocaine 2% . Using a modified Seldinger technique, arterial access was obtained via the right radial artery, a 6 Fr sheath was inserted. Right Coronary Artery selective angiography was then performed in multiple v iews using a 5 Fr. 4.0 [place] catheter. Left Coronary Artery selective angiography was performed in mu ltiple views using a 5 Fr. 4.0 [place] catheter.The arterial sheath was pulled and a TR Band was applie d for hemostasis CORONARY ANGIOGRAPHY DOMINANCE: Right Dominant LEFT HEART ASSESSMENT Left Ventricular Ejection Fraction: by Echo 55 % Normal LV wall motion Normal Left Ventricular systolic function LEFT MAIN: Angiographically normal LEFT ANTERIOR DESCENDING ARTERY: MID LAD: Mild to moderate luminal irregularities ranging between 30 and 50% CIRCUMFLEX ARTERY: Mild luminal irregularities less than 30% RIGHT CORONARY ARTERY: Mild luminal irregularities VALVE FINDINGS: Aortic Valve Insufficiency: Grade 3 AORTIC ROOT: Dilated COMPLICATIONS No Complications PROCEDURE MEDICATIONS Versed 1 mg IV Fentanyl 50 mcg IV Versed 1 mg IV Fentanyl 25 mcg IV Oxygen: 2 L/min via nasal cannula Heparin given IA 03/06/2021 09:42:11 Verapamil 2.5mg, 2000 units of Heparin given IA 03/06/2021 09:42:11 SUMMARY OF HEMODYNAMIC DATA Time AIR REST ECG 08:15:38 AO 130/69 (98) SA 09:41:17 AO 131/66 (96) 09:49:55 Signed By Billy Pruett MD On 03/06/2021 9:58:43 AM Billy Pruett MD
== END 2021-03-06 11:30 | disposition home or self-care (01) ==
PROVIDERS: PCP Family Medicine; Referring Provider Internal Medicine Cardiovascular Disease; Visit Provider Internal Medicine Cardiovascular Disease
DX: I25.10 Atherosclerotic heart disease of native coronary artery without angina pectoris (principal); D86.9 Sarcoidosis, unspecified; J45.909 Unspecified asthma, uncomplicated; J96.10 Chronic respiratory failure, unspecified whether with hypoxia or hypercapnia; I10 Essential (primary) hypertension; E78.5 Hyperlipidemia, unspecified; I77.810 Thoracic aortic ectasia; G47.33 Obstructive sleep apnea (adult) (pediatric); Z87.891 Personal history of nicotine dependence; Z85.72 Personal history of non-Hodgkin lymphomas; Z79.899 Other long term (current) drug therapy; Z92.21 Personal history of antineoplastic chemotherapy; R93.1 Abnormal findings on diagnostic imaging of heart and coronary circulation
CPT/HCPCS: 93454; 93567; 99152; 99153; J7040; Q9967; C1769; C1894

== ENCOUNTER → 2021-03-16 11:59 | Outpatient (CLI) | payer MEDICARE, SELFPAY ==
[2021-03-04 13:58] VITALS: BMI 23.2
--- NOTE | 2021-03-16 12:02 | ECHOTEE_ITS ---
Reason For Study: Valve Replacement Eval Medication TASH probe 6VT-D (SN [id number]) passed without difficulty. No complications were noted. Cetacaine Topical [place] given X2 orally. Versed 1 mg given slow IVP. Fentanyl 50 mcg given slow IVP. Performed a rapid injection of agitated mix of 9 cc saline and 1cc air to assess for atrial septal defect. Left Ventricle Normal left ventricle. Left ventricular systolic function is normal. The estimated ejection fraction is 65 %. No regional wall motion abnormalities noted. Right Ventricle Normal RV size. Normal systolic function. Atria Bubble contrast study negative for right to left interatrial shunt. Normal left atrium. Normal right atrium. Mitral Valve Normal mitral valve. Mild (1+) eccentric mitral valve insufficiency. Tricuspid Valve Normal tricuspid valve. Aortic Valve Trisinus/trileaflet aortic valve. Moderately severe (3+) aortic valve insufficiency. Pulmonic Valve Normal pulmonic valve. Mild (1+) pulmonic valve insufficiency. Vessels Normal aortic root. Normal arch. The pulmonary artery is normal size. Pericardium No pericardial effusion. ECHO/Echo Transesophageal (TASH) Interpretation Summary Normal left ventricle. Left ventricular systolic function is normal. The estimated ejection fraction is 65 %. Moderately severe (3+) aortic valve insufficiency. Ordering Physician: Billy Pruett Referring Physician: Lolly Meyer Performed By: Pati Buchanan, RDCS, RVT
== END ==
PROVIDERS: PCP Family Medicine; Referring Provider Internal Medicine Cardiovascular Disease; Visit Provider Internal Medicine Cardiovascular Disease
DX: I35.1 Nonrheumatic aortic (valve) insufficiency (principal); I77.810 Thoracic aortic ectasia
CPT/HCPCS: 93312; 93320; 93325; J7040; A4216

== ENCOUNTER 2021-10-07 13:50 | Outpatient (CLI) | payer MEDICARE, SELFPAY ==
--- NOTE | 2021-10-07 13:56 | PCM.CR.HP2 ---
CR - History & Physical - General Arrival date:: 10/07/21 Arrival time:: 13:59 Date of Referral:: 09/10/21 Date of CR Evaluation:: 10/07/21 Referring Physician: Dr. Billy Pruett Primary Diagnosis: Heart valve replacement - History of Present Cardiac Event Onset Date: Enter Onset Date of cardiac illnesses in Comment field below Heart valve replacement or repair:: Yes - 09/01/2021 - Sleep Disorder Evaluation Hx of Sleep Apnea: Yes Do you snore loudly (louder than talking or can be heard through closed doors)?: No Do you often feel tired/ fatigued/ sleepy during daytime?: Yes Has anyone observed you stop breathing during sleep?: No History of Hypertension (for STOP score): No STOP Results: Negative - Medications Home Medications: Ambulatory Orders Medication Instructions Recorded ondansetron 4 mg PO Q8H PRN PRN 04/02/16 gabapentin 300 mg capsule 300 mg PO TID PRN cap 12/26/17 hydromorphone 2 mg tablet 4 mg PO Q3H PRN tab 12/26/17 methylphenidate HCl 5 mg tablet 5 mg PO BID PRN 12/26/17 pantoprazole 40 mg tablet,delayed 40 mg PO QAM 12/26/17 release triamcinolone acetonide 1 applic TOPICAL BID PRN 05/04/19 acetaminophen 1,000 mg PO Q6H PRN PRN tab 05/08/19 Marijuana Gummies PO QHS 01/28/21 fluticasone fur. 100 mcg-umeclid 1 inh INHALATION DAILY #60 ea 02/09/21 62.5 mcg-vilant 25 mcg inhalat.powder aspirin 81 mg tablet,delayed 81 mg PO DAILY 02/26/21 release albuterol sulfate 90 mcg/actuation 2 puff INHALATION Q6H PRN #18 g 04/13/21 aerosol inhaler atorvastatin 10 mg tablet 10 mg PO DAILY #90 tab 07/17/21 apixaban 5 mg tablet 5 mg PO BID #30 tab 09/22/21 camphor-menthol 0.5 %-0.5 % lotion 1 applic TOPICAL BID-TID PRN 09/22/21 etodolac 400 mg tablet 400 mg PO BID tab 09/22/21 hydrocortisone 5 mg tablet 25 mg PO BID tab 01/25/22 metoprolol tartrate 25 mg tablet 50 mg PO BID tab 09/22/21 tadalafil 5 mg tablet 5 mg PO DAILY 09/22/21 testosterone cypionate 100 mg/mL 100 mg IM QWEEK ml 09/22/21 intramuscular oil - Allergies Allergies/Adverse Reactions: Allergies No Known Allergies Allergy (Unverified 09/22/21 16:02) Advanced Directives - Advanced Directives Power of Software Engineering Manager: Yes Living Will: Yes Advance Directives Information Provided: Yes Advance Directives on File: No - unsure DNR Order?:: No Past Medical History - Covid-19 Screening Fever: No Unexplained muscle aches: No Current respiratory symptoms: No Upper respiratory infections symptoms: No Gastro-intestinal symptoms: No Luu-Gcml-Rzhlbw symptoms: No Has tested positive for COVID-19 in last 30 days: No Had contact w/person w/symptoms or Covid-19 (+) last 14 days: No Has High Risk Exposures ID'd by Health dept/Inf Control team: No 65 years or older:: No Lives in Assisted Living facility:: No Has a chronic lung disease or moderate to severe asthma:: Yes Has a serious heart condition:: Yes Severely obese (Body Mass Index of 40 or higher):: No Has chronic kidney disease undergoing dialysis:: No Has liver disease:: No - Past Medical Illness Medical History: Past Medical History (Last Reviewed 09/22/21 @ 16:[address] 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 He has cancer related fatigue, insomnia due to pain, and anxiety. Chronic respiratory failure J96.10 Current chronic use of systemic steroids Z79.52 Dilated aortic root I77.810 There is moderate dilation of the aortic root (4.7 cm-sinus to sinus measurement) and mild dilation of the midascending aorta (4.2 cm). The remainder of the thoracic aorta and abdominal aorta are normal in course, caliber and contour. 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 Osteomyelitis is considered less likely. Large left shoulder joint effusion. 03/2019 Severe sepsis A41.9, R65.20 SIRS (systemic inflammatory response syndrome) R65.10 - Past Surgical History Surgical History: Past Surgical History (Last Reviewed 09/22/21 @ 16:[address] Billy Pruett MD) H/O eye surgery Z98.890 bilateral lacrimal plugs 11/08 History of aortic valve replacement Onset Date: 09/01/21 Z95.2 Upper kay-sternotomy mini AVR (INSPIRIS RESILIA 25MM) 09/01/21 History of left heart catheterization Onset Date: 03/06/21 Z98.890 History of lobectomy of lung Onset Date: 02/2006 Z90.2 right thoracotomy with right mid lobectomy 02/2006 History of lung surgery Z98.890 History of stem cell transplant Onset Date: 2005 Z94.84 S/P PICC central line placement Z95.828 11/12/12 Surgical History: cataract, tonsillectomy, - - Right lower lobe lobectomy, bilateral lid partial closure for dry eyes, septoplasty, stem cell transplant. - Family History Summary Family History: Family History (Last Reviewed 09/22/21 @ 16:[address] Billy Pruett MD) Father Leukemia Grandfather Lymphoma Uncle Leukemia Social History - Smoking History Smoking Status: Former smoker - Alcohol Use Alcohol Usage: Yes - 1-2 drinks a week - Occupation Occupation (List type of work in comments):: Retired - Hobbies, Recreation, Social Activities Hobbies: Sports Recreational Activities: I am able to engage in most, but not all activities Social Environment - Status Marital Status: - Current Living Arrangements Living Environment:: Spouse - Children How many children do you have?: 3 Do any of your children live nearby?: Yes - Safety Do you feel safe in your surroundings?: Yes - Assistance Do you need any assistance at home?: no Review of Systems - Review of Systems Hints: Right click = Denies (Slash). Left click = Reports ([place]) Review of Present Symptoms: Reports: Shortness of Breath with Exertion, Operative Discomfort, Dizziness/Lightheadedness, Fatigue, Heart Arrhythmia/Irregularities - was in A flutter, Appetite - Normal, Sleep - Normal. Denies: Shortness of Breath at Rest, PVD, Angina, Wound Healing, Appetite - Special Diet, Sexual Changes - Pain Is Patient Pain Free?: No Pain Location: chest, other - shoulders Pain Level: 3/10 Risk Factor Assessment - Vital Signs Pulse Ox: 92 Blood Pressure: 130/78 - Pulse Pulse Rate: 92 Pulse Rhythm: Regular - Diabetes Nutrition Referral for Diabetes: No - Obesity Height: 5 ft 10 in Weight:: 71.214 kg Weight in Pounds: 157.0 lbs Body Mass Index (BMI): 22.5 Nutritional Referral for Obesity: No - Risk Stratification Risk Guidelines: Lowest Risk: Risk Factor for Diabetes, Risk Factor for Obesity, Moderate Risk: Risk Factor for Smoking, Risk Factor for Dyslipidemia, Risk Factor for Hypertension, Risk Factor for Sedentary Lifestyle, Risk Factor for Depression - Family History Family History: Family History (Last Reviewed 09/22/21 @ 16:[address] Billy Pruett MD) Father Leukemia Grandfather Lymphoma Uncle Leukemia Motivation - Motivation to Participate On a scale of 1 to 10, how prepared are you to commit to attending program?: 5 What do you see as barriers to successfully being able to complete the program?: none What do you see as the benefits of succesfully completing the program? In other words, what do you hope to get out of participating in the program?: improved health Are there issues you are dealing with that will interfere with completing the program?: no Do you have a spouse or signficant other, family or friends who will help support you to complete the program?: spouse
--- NOTE | 2021-10-07 13:57 | PCM.CR.ITP ---
Diagnosis - General Information Admitting Diagnosis: Heart valve replacement Personal Learning Style:: Audio/Visual Barriers to Learning: Vision Impairment Stage of change r/t lifestyle modifications:: Contemplation Gave educational material for:: Treating Heart Disease, Emotions & Heart Disease, Stress Management & Relaxation, Sleep Disorders & Heart Disease, How The Heart Works, What it means to have Heart Disease, How Coronary Artery Disease is Diagnosed, Heart Procedures, What Heart Medications Do, Risk Factors & Modifications, Living an Active Life, Nutrition - Education/Goals Cardiac Rehabilitation Goals: 1. Maintain the individual as the primary focus of care. 2. To improve the patient's quality of life. 3. Identification of cardiac risk factors and provide cardiac risk factor management. 4. Enhance the psychosocial status of the patient. 5. Reconditioning enough to allow the patient to resume customary activities. 6. Control symptoms of cardiac disease Personal Goals: Initial Assessment: Improve energy level, Participate in home exercise program, Improve muscle strength and endurance Scale for measuring improvement of personal goals: Enter appropriate number in Comments. 2 = Unchanged. 3 = Slightly Better. 4 = Moderate Improvement. 5 = Met my Goal - Diagnosis & Disease Process Outcomes/Goals: Pt IDs own risk factors & lifestyle modifications by Session 10, Verbalizes symptoms of angina & response by session 3., Pt independently manages, Other Additional Outcomes/Goals: Plan/Interventions: Assist Pt to ID & engage in lifestyle modification to reduce CVD risk, Instruct on individual risk factors, Review symptoms of angina & emergency actions, Review secondary diagnosis & identify educational needs., Other see comment 30 day Reassessments:: Not Met 30 day Reassessments:: Not Met 30 day Reassessments:: Not Met 30 day Reassessments:: Not Met Final Reassessments:: Not Met - Safety Referral to Physical Therapy: No Referral to [facility] Case Management: No Fall Risk Assessed:: Yes Assistive Devices:: None Exercise - Initial Assessment - Visit Date of Eval: 10/07/21 - initial eval Mets: Pre-: >3 METS for 30 minutes by discharge, >5 METS for 30 minutes by discharge, >7 METS for 30 minutes by discharge, Unable to meet goal due to: (see comment below) - Physician Prescribed Exercise Modalities: Treadmill, Airdyne, NuStep, SciFit, Lateral [place] Frequency: 3x/week for 12 weeks [36 sessions] Intensity: 60-80% of age predicted maximum heart rate reserve Current METSs:: 3 Target Heart Rate:: 102-134 Resting Blood Pressure: 130/78 EKG Type: sinus tachy - Outcomes & Goals Goals:: Verbalizes understanding of THR, RPE & goal METS by session 6, Documents in home exercise log/reports 30 min aerobic 5 day/wk by DC, Demonstrates accurate pulse taking by DC, Other additional outcome/goals: see below - Intervention & Plan Exercise Program Goals: Instruct on personal THR & RPE, Instruct on MET level & personal MET goal, Show patient to take own pulse /validate performance until accurate, Instruct on home exercise, Other additional plan/int - Physical Activity Home Exercise Physical Activity - Home Exercise: Safe Exercise, Warm-up, Self-monitoring, Cool-Down, Home Exercise > 30 min Daily, Sitting Time <3 hours/daily - Outcomes & Goals Outcomes/Goals: Demonstrates correct Warm-up/exercise Cool-Down (S3) if = 2.5 METs, Verbalizes symptoms of exercise intolerance by Session 3 (S3), Demonstrate safe equipment use (S3) & follows exercise prescrition (6), Other: See below - Intervention & Plan Plan/Intervention: Instruct warm-up & cool-down if exercising at > 2 METs, Instruct on symptoms of exercise intolerance & actions to take, Instruct & monitor on saf, Assess intial functional capacity & safety risk, Other See below Nutrition - Initial Assessment - Program Goals Nutrition Program Goals: LDL <100 optimal. 100 - 129 Near optimal. 130 - 159 Borderline High. 160 - 189 High. Total Cholesterol <200 desirable. 200 - 239 Borderline High. >/= 240 High. HDL < 40 Low >/=60 High. Triglycerides <150 desirable. <199 optimal. VlDL 5 - 40. HgbA1C <7%. BMI <25 Patient has diagnosis of Hyperlipidemia (ICD E78)?: Yes - Visit Date of Assessment:: 10/07/21 - initial eval - Cholesterol/Lipids Determine presence & major risk factors that modify LDL goal: Cigarette smoking, Low HDL cholesterol <40 mg/dL*, Family history of premature CHD in Male < 55 years: female <65 yearsFa, Age men > 45 years; women >/= 55 years Outcomes/Goals: Pt IDs own risk factors & lifestyle modifications by Session 10, Verbalizes symptoms of angina & response by session 3., Pt independently manages, Other Additional Outcomes/Goals: Intervention/Plan: Advocate for lipid panel cholesterol medication if applicable, Instruct on personal lipid levels & lipid goals/NCEP guidelines, Instruct on cholesterol, Other additional plan/int - Diabetes (Other Core Measures) Diabetes Type: Not Applicable - Weight Mgt (Other Care) Height: 5 ft 10 in Weight:: 71.214 kg BMI: 22.5 Outcomes/Goals: Pt sets, maintains & shows weight loss goal & trend during rehab, Other additional outcomes/goals Intervention/Plan: Instruct on ideal BMI & set weight loss goal w/patient, Assist pt to ID & incorporate diet changes for weight loss by S9, Refer to Structured Weight Loss program as appropriate, Encourage goal of using 250-300dcal per session for weight loss, Other additional plan/interventions - Healthy Eating Habits Will attend diet classes:: Yes Outcomes/Goals:: Consume diet rich in vegs,fruits,whole grain/high fiber,fish,lean meat, Limit sat/trans fats,cholesterol & added salts & sugars, Other additional outcome/goals: Intervention/Plan:: Assess current eating habits, Other Additional plan/interventions - Education Gave educational materials for:: Signs & symptoms of hypoglycemia, Signs & symptoms of hyperglycemia, Relate diabetes to coronary artery disease, Healthy eating Nutrition - 30-Day Assessment Nutrition - 60-Day Assessment Nutrition - 90-Day Assessment Nutrition - Final Assessment Medical - Initial Assessment - Visit Date of Eval: 10/07/21 - initial eval - Medication Compliance Preventative Medication(s):: Aspirin, Statin/lipid Doesn?t believe in the benefits of treatment?: No Believes medications are unnecessary or harmful?: No Has a concern about medication side effects?: No Expresses concern over the cost of medications?: No Outcomes/Goals: Verbalizes medications,desired effect & common side effects @ DC, Pt self-reports following medication regimen, Keeps card in wallet w/medications listed by DC, Other additional outcome/goals: Interventions/plans: Instruct on medication effects & side effects, Review medication list w/patient every two weeks, Instruct importance of taking meds as ordered & assist problem solving, Other additional - Tobacco Use Tobacco Use: Non-smoker Do you use smokeless tobacco?: No - Hypertension [place] [employer] Hypertension Guidelines: [place] [employer] Hypertension Guidelines. Normal BP Less than 120/80. Elevated BP 120/80. Hypertension Stage 1: BP 130-139/80-89. Hypertesnion Stage 2: BP 140 or higher/90 or higher. Hypertension Crisis: BP higher than 180/120 Outcomes/Goals: Able to verbalize/achieve optimal blood pressure <130/80, Incorporates diet changes & exercise for blood pressure control by DC, Other additional outcomes/goals Interventions/plan: Instruct on optimal blood pressure, hypertension & medications, Instruct on effects of sodium, alcohol, stress, exercise &hypertension, Other additional plan/interventions - Tobacco Cessation Referral Smoking Cessation Referral:: No Individual Education/Counseling:: No Education Schedule Given:: Yes Medical- 30-Day Assessment Medical- 60-Day Assessment Medical- 90-Day Assessment Medical - Final Assessment Psychosocial - Initial Assess - VIsit Date of Eval: 10/07/21 - initial eval History of previous Mental disease:: No - Outcomes/Goals: See list Psychosocial Outcomes/Goals:: ID's personal stressors & 2 strategies to manage stress by discharge, Other Additional outcome/goals: - Intervention/Plan: See List Interventions/Plan:: Assess stressors,coping strategies & signs of derpression on admission, Instruct/assist pt to develop coping & personal stress Mgt strategies, Refer to Behavioral Health if appropriate, Refer to Physician if appropriate, Instruct patient to recognize signs & symptoms of depression, Instruct patient to recog, Other additional plan/intervention Psychosocial - 30-Day Assess Psychosocial - 60-Day Assess Psychosocial - 90-Day Assess Psychosocial - Final Assessmen Patient Health Questionnaire Initial Assessment 1. Little interest or pleasure in doing things: Not at all 2. Feeling down, depressed, or hopeless: Several days 3. Trouble falling or staying asleep, or sleeping too much: Not at all 4. Feeling tired or having little energy: Nearly every day 5. Poor appetite or overeating: Not at all 6. Feeling bad about yourself -- or that you are a failure or have let yourself or your family down: Not at all 7. Trouble concentrating on things, such as reading the newspaper or watching television: Nearly every day 8. Moving or speaking so slowly that other people could have noticed. Or the opposite - being so fidgety or restless that you have been moving around a lot more than usual: Several days 9. Thoughts that you would be better off , or of hurting yourself in some way: Not at all How difficult have these problems made it for you to do your work, take care of things at home, or get along with other people?: Somewhat difficult Total Score: 8 SUSI-Q SV Test - Statements CAD is a disease of the arteries in the heart: False Examples of risk factors for heart disease: True Angina is chest pain or discomfort: True The benefits of resistance training include: True Eating more meat and dairy products: False Anti-platelet medications such as aspirin are important: True The only effective way to manage stress: False An exercise warm-up slowly increases heart rate: True Prepared, processed foods usually have high sodium: True Depression is common after a heart attack: True The statin medications lower cholesterol: True To control blood pressure, lower the amount of sodium: True If someone gets chest discomfort during walking: False Transfats are partially hydrogenated vegetable oils: True Sleep apnea that is not treated increases the risk: True To control cholesterol, one should become a vegetarian: True Someone knows if he/she is exercising at the right level: True Diabetes cannot be prevented with exercise & health eating: False Stress is a large risk for heart attack: I Don't Know A diet that can help lower blood pressure is rich in: True - Total Score Total Correct Responses: 17 Self-Efficacy Initial Assessment We would like to know how confident you are in doing certain activities. Please select your confidence level for:: Select your confidence level for the following using the scale 1-10 where 1 is not at all confident and 10 is totally confident. Your score is the average of all 6 responses. Fatigue: How confident are you that you can keep the fatigue caused by your disease from interfering with the things you want to do? Physical Discomfort or Pain: How confident are you that you can keep the physical discomfort or pain of your disease from interfering with the things you want to do? Select Number: 7 Emotional Distress: How confident are you that you can keep the emotional distress caused by your disease from interfering with the things you want to do? Select Number: 8 Other Symptoms or Health Problems: How confident are you that you can keep other symptoms or health problems from interfering with the things you want to do? Select Number: 2 Different Tasks and Activities: How confident are you that you can do the different tasks and activities needed to manage your health condition so as to reduce your need to see a doctor? Select Number: 7 Medication: How confident are you that you can do things other than just taking medication to reduce how much your illness affects your everyday life? Select Number: 9 Nutrition Survey - Nutrition Survey Initial Have you lost >10 lbs over the past 2 months without trying?: No Are you following a special diet at home for diabetes, low fat, or low salt?: No Are you interested in meeting with a dietitian for help understanding your diet?: No Do you eat less than 3 meals a day?: Yes Do you eat fatty meats (tsang, sausage, ribs, etc), fried foods, desserts, large amounts of salad dressings, margarine, butter, or cheese most days?: Yes Do you have food allergies? [Enter types in comment field]: No Do you eat in restaurants more than 3 times a week?: Yes Do you season food with salt, seasoning salt, or garlic salt?: No Do you used canned, boxed, frozen meals, or soups, seasoning packets?: No Total Score:: 3
[2021-10-07 14:55] VITALS: BP 130/78; PULSE 92; O2SAT 92; BMI 22.5
== END 2021-10-07 23:59 | disposition home or self-care (01) ==
LOC: CR 13:53
PROVIDERS: PCP Family Medicine; Referring Provider Internal Medicine Cardiovascular Disease; Visit Provider Internal Medicine Cardiovascular Disease
DX: I25.10 Atherosclerotic heart disease of native coronary artery without angina pectoris (principal); I11.9 Hypertensive heart disease without heart failure; Z95.2 Presence of prosthetic heart valve; Z87.891 Personal history of nicotine dependence

== ENCOUNTER 2021-10-23 14:30 | Outpatient (RCR) | payer MEDICARE, SELFPAY ==
[2021-10-07 14:55] VITALS: BMI 22.5
== END 2021-10-26 23:59 ==
LOC: CR 14:30
PROVIDERS: PCP Family Medicine; Referring Provider Internal Medicine Cardiovascular Disease; Visit Provider Internal Medicine Cardiovascular Disease
DX: R06.00 Dyspnea, unspecified (principal); C85.90 Non-Hodgkin lymphoma, unspecified, unspecified site; I77.810 Thoracic aortic ectasia; R53.83 Other fatigue; Z95.2 Presence of prosthetic heart valve; I35.1 Nonrheumatic aortic (valve) insufficiency; I25.10 Atherosclerotic heart disease of native coronary artery without angina pectoris; I51.9 Heart disease, unspecified; I10 Essential (primary) hypertension; E78.5 Hyperlipidemia, unspecified
CPT/HCPCS: 93798

== ENCOUNTER 2021-11-08 12:00 | Emergency (ER) | payer MEDICARE, SELFPAY ==
[2021-11-02 14:16] VITALS: BMI 21.6
[2021-11-08 12:01] VITALS: BP 166/98; PULSE 92; RESP 30; TEMP 37.2; O2SAT 86; BMI 22.8
--- NOTE | 2021-11-08 12:09 | RAD_ITS ---
STUDY: X-RAY CHEST REASON FOR EXAM: Male, 61 years old. chest pain TECHNIQUE: Single AP portable view of the chest. COMPARISON: 04/28/2019 FINDINGS: Interval heart valve replacement surgery. Poor inspiration with some bibasilar atelectasis. There are scattered calcified pleural plaques. There is moderate cardiac enlargement. Normal mediastinum and april. Normal visualized pulmonary arteries. Normal visualized aortic arch and descending thoracic aorta. Normal visualized thoracic spine. Normal visualized ribs, clavicles, and shoulders. There is no demonstrated abnormality of the visualized soft tissue structures of the upper abdomen. RAD/Chest 1 View (Portable) IMPRESSION: Poor inspiration with some bibasilar atelectasis. Electronically Signed: Martin Trammell MD at 12:56 EDT ,
--- NOTE | 2021-11-08 12:09 | EKG12_ITS ---
Test Reason : CP Blood Pressure : / mmHG Vent. Rate : 093 BPM Atrial Rate : 093 BPM P-R Int : 158 ms QRS Dur : 112 ms QT Int : 368 ms P-R-T Axes : 062 070 070 degrees QTc Int : 457 ms Normal sinus rhythm Nonspecific ST abnormality Abnormal ECG Confirmed by JUANIS SALINAS, ARMAAN ([id number]), fan mail editor PAIGE ALFORD ([id number]) on 11/10/2021 9:28:40 AM Referred By: GLORY Confirmed By:ARMAAN OLIVAREZ MD
--- NOTE | 2021-11-08 12:12 | CT_ITS ---
STUDY: CTA CHEST REASON FOR EXAM: Male, 61 years old. chest pain RADIATION DOSAGE (If Supplied By Facility): CTDIvol = ( 8.97 ) mGy, DLP = ( 340.44 ) mGycm TECHNIQUE: The examination was performed with the intravenous administration of IV 100mL Isovue-370. Post-processing of the angiographic images was performed, with multiplanar reformation and 3D reconstruction. Individualized dose optimization techniques were used for this CT. COMPARISON: 02/09/2021, chest x-ray earlier today. FINDINGS: Status post median sternotomy. Normal enhancement of the main pulmonary artery and right and left pulmonary arteries. Normal enhancement of the bilateral peripheral pulmonary arteries. There is no demonstrated pulmonary embolism. Normal thoracic aorta and visualized great vessels. There is no demonstrated aortic dissection. There is cardiomegaly. There is a large pericardial effusion. Normal mediastinum. Normal hilar regions. Normal visualized trachea and bronchi. The lungs are well expanded. Some dependent bibasilar atelectasis. Normal pleura. Normal chest wall structures. Normal osseous structures. Normal visualized upper abdomen. CT/CTA Chest W/WO Contrast IMPRESSION: 1. No CT evidence of pulmonary embolism. 2. Cardiomegaly with a large pericardial effusion. Electronically Signed: Martin Trammell MD at 13:45 EDT ,
[2021-11-08] MEDS: Aspirin 81 MG TAB.CHEW 324 MG PO (12:13)
[2021-11-08 12:21] VITALS: O2SAT 95
--- NOTE | 2021-11-08 12:23 | ED.VIS.CHEST ---
HPI History of Present Illness Chief Complaint: Chest Pain Narrative Narrative: 61-year-old male presenting with chest pressure. He states that started about 730 this morning when he awakened. Its been constant. It does not radiate. He feels a little more short of breath than usual and he does state that he is on 2 L of oxygen via nasal cannula typically. He states that sometimes if he is just relaxing he does not need any oxygen. He if he exercises he needs sometimes increased oxygen depending on what he is doing. He states he has a history of aortic valve replacement a couple of months ago done at [facility]. He denies history of OK. Patient does state that he has a history of atrial flutter and is supposed to be anticoagulated on Eliquis but states he stopped taking this weeks ago because he was not having any fluttering symptoms. Patient states he has no history of DVT/PE. He does have history of hyperlipidemia, aortic valve replacement, hypertension, non-Hodgkin's lymphoma, sarcoidosis [facility] Medical History Acute respiratory failure Aspergillosis Bronchiolitis obliterans syndrome Cardiogenic shock (11/09/12) Chronic pain after cancer treatment Chronic respiratory failure Current chronic use of systemic steroids Dilated aortic root Essential (primary) hypertension Yeemf-jlbqjr-mlhn disease History of asthma History of immunosuppression therapy Hyperlipidemia Hypogonadism Immunodeficiency Left ventricular diastolic dysfunction Lung abscess Nasal congestion Nasal turbinate hypertrophy Nasal valve collapse Non-Hodgkin lymphoma Nonobstructive atherosclerosis of coronary artery Nonrheumatic aortic (valve) insufficiency Respiratory failure Restrictive lung disease Scleroderma Septic arthritis of shoulder, left Severe sepsis SIRS (systemic inflammatory response syndrome) Home Medications ondansetron 4 mg PO Q8H PRN PRN 04/02/16 [History Last Taken 04/27/19] hydromorphone 2 mg tablet 4 mg PO Q3H PRN tab 12/26/17 [History Last Taken 05/04/19 06:51] pantoprazole 40 mg tablet,delayed release 40 mg PO QAM 12/26/17 [History Last Taken 04/27/19] triamcinolone acetonide 1 applic TOPICAL BID PRN 05/04/19 [History Last Taken Unknown] Marijuana Gummies 1 tab PO QHS 01/28/21 [History Last Taken Unknown] aspirin 81 mg tablet,delayed release 81 mg PO DAILY 02/26/21 [History Last Taken Unknown] albuterol sulfate 90 mcg/actuation aerosol inhaler 2 puff INHALATION Q6H PRN #18 g 04/13/21 [Rx Last Taken Unknown] atorvastatin 10 mg tablet 10 mg PO DAILY #90 tab 07/17/21 [Rx Last Taken Unknown] apixaban 5 mg tablet 5 mg PO BID #30 tab 09/22/21 [Rx Last Taken Unknown] etodolac 400 mg tablet 400 mg PO BID tab 09/22/21 [History Last Taken Unknown] hydrocortisone 5 mg tablet 10 mg PO BID tab 09/22/21 [History Last Taken Unknown] tadalafil 5 mg tablet 5 mg PO DAILY 09/22/21 [History Last Taken Unknown] testosterone cypionate 100 mg/mL intramuscular oil 100 mg IM QWEEK ml 09/22/21 [History Last Taken Unknown] metoprolol tartrate 25 mg tablet 25 mg PO BID #180 tab 10/26/21 [Rx Last Taken Unknown] tbsjzmsbyhu-gyuvxzvlc-lvavblvw [Trelegy Ellipta] 1 inh INHALATION DAILY 11/08/21 [History Last Taken Unknown] Allergy/AdvReac Type Severity Reaction Status Date / Time No Known Allergies Allergy Unverified 11/08/21 12:00 Family History Father Leukemia Grandfather Lymphoma Uncle Leukemia Surgical History H/O eye surgery History of aortic valve replacement (09/01/21) History of left heart catheterization (03/06/21) History of lobectomy of lung (02/2006) History of lung surgery History of stem cell transplant (2005) S/P PICC central line placement Social History Smoking Status: Former smoker second hand exposure: Yes alcohol intake: never substance use type: marijuana caffeine: Yes what type of physical activity do you participate in: walking and bicycling frequency: 3-4 times per week ROS ROS ED Constitutional Constitutional ED: Denies chills or fever(s) Eyes Eyes: Denies blurry vision or change in vision ENT ENT ED: Denies rhinorrhea or sore throat Cardiovascular Cardiovascular: Reports as per HPI Respiratory/Chest Respiratory/Chest: Reports dyspnea; Denies cough or sputum Gastrointestinal Gastrointestinal: Denies abdominal pain, nausea or vomiting Genitourinary Genitourinary ED: Denies dysuria or hematuria Musculoskeletal Musculoskeletal: Denies myalgias Integumentary Denies rash Neurologic Neurologic: Denies headache(s), paresthesias or weakness Psychiatric Psychiatric: Denies anxiety or depression EXAM Physical Exam Const Vital Signs: 11/08/21 12:01 11/08/21 12:21 11/08/21 12:22 Temperature 99.0 F Temperature Source Temporal Pulse Rate 92 Pulse Rate [Lying] Pulse Rate [Sitting (for 1 minute prior to obtaining)] Pulse Rate [Standing (for 1 minute prior to obtaining)] Respiratory Rate 30 H Respiratory Effort Normal Non-Labored Blood Pressure 166/98 H Blood Pressure [Lying] Blood Pressure [Sitting (for 1 minute prior to obtaining)] Blood Pressure [Standing (for 1 minute prior to obtaining)] Blood Pressure Mean 120 Blood Pressure Mean [Lying] Blood Pressure Mean [Sitting (for 1 minute prior to obtaining)] Blood Pressure Mean [Standing (for 1 minute prior to obtaining)] Pulse Ox 86 95 Oxygen Delivery Method Room Air Nasal Cannula Oxygen Flow Rate (L/min) 2 11/08/21 13:28 11/08/21 14:00 11/08/21 15:27 Temperature Temperature Source Pulse Rate 89 91 Pulse Rate [Lying] 91 Pulse Rate [Sitting (for 1 minute prior to obtaining)] 93 Pulse Rate [Standing (for 1 minute prior to obtaining)] 94 Respiratory Rate 22 H 17 Respiratory Effort Blood Pressure 143/91 H 122/87 H Blood Pressure [Lying] 116/84 H Blood Pressure [Sitting (for 1 minute prior to obtaining)] 121/89 H Blood Pressure [Standing (for 1 minute prior to obtaining)] 128/89 H Blood Pressure Mean 108 98 Blood Pressure Mean [Lying] 94 Blood Pressure Mean [Sitting (for 1 minute prior to obtaining)] 99 Blood Pressure Mean [Standing (for 1 minute prior to obtaining)] 102 Pulse Ox 95 95 Oxygen Delivery Method Nasal Cannula Nasal Cannula Oxygen Flow Rate (L/min) 2 2 Positive well nourished General Appearance ED: NAD; Negative for pallor HEENT Reports moist mucous membranes normocephalic and atraumatic Eyes PERRL and EOMs intact bilaterally General Eye ED: Negative for pale conjunctiva Chest Wall inspection of chest normal Resp normal respiratory effort Cardio regular rate and regular rhythm GI normal to inspection, nondistended, normoactive bowel sounds Neuro oriented x3 Sensorium / Orientation: awake and alert Psych mental status grossly normal Skin General Skin Exam: Negative for jaundice or pallor Heart Score History: Slightly/Non-Suspicious ECG: Normal Age: >45 - <65 years Risk Factors: >/= 3 Risk Factors or History of CAD Troponin: </= Normal Limit Score: 3 MDM MDM MDM Narrative Medical decision making narrative: Patient presenting with chest pain for about 5 hours now. On arrival he had an EKG performed which on my interpretation shows a sinus rhythm with a ventricular [address]-T wave changes. There is no sign of ST elevation or depression. Chest x-ray on my interpretation shows no acute cardiopulmonary process although there is cardiomegaly. Radiologist does agree. Patient CBC does show a slight leukocytosis however he does not have a cough or shortness of breath. There is no evidence of pneumonia on the chest x-ray. He does not have any urinary complaints. Patient's BMP is within normal limits. High-sensitivity troponin is 24 and his delta troponin is 24. Without significant change I do not believe this is ACS. I did obtain a CTA of the chest given that the patient is not anticoagulated and has not been taking his Eliquis because he does not like side effects. The CTA of the chest does not unify any pulmonary emboli or dissection. It does note that there is a very large pericardial effusion. I obtained orthostatic vital signs which are normal. Discussed with patient in the room and he states that he knows of this effusion and initially when he was hospitalized for his valve replacement they were concerned about pericarditis and then they stated it was not pericarditis and discharged home. I commended to the patient that he follow-up with cardiology. I discussed return precautions. I recommended that he take his Eliquis as prescribed. Impression: 1. Chest pain noncardiac 2. Pericardial effusion Lab Data Attestation: I reviewed the patient's lab results. Labs: Laboratory Results - last 24 hr 11/08/21 11/08/21 11/08/21 12:10 12:10 14:24 WBC 15.0 H RBC 4.85 Hgb 15.5 Hct 48.0 MCV 99.0 H MCH 32.0 MCHC 32.3 RDW Std Deviation 58.2 H RDW Coeff of Elisa 15.9 H Plt Count 296 MPV 9.9 Immature Gran % (Auto) 0.300 Neut % (Auto) 77.3 H Lymph % (Auto) 10.9 L [place] % (Auto) 9.2 Eos % (Auto) 1.9 Baso % (Auto) 0.4 Absolute Neuts (auto) 11.6 H Absolute Lymphs (auto) 1.64 Nucleated RBC % 0 Sodium 136 Potassium 4.8 Chloride 103 Carbon Dioxide 29.0 Anion Gap 4 L BUN 11 Creatinine 0.78 Estim Creat Clear Calc 100.14 Est GFR (MDRD) Af Amer 130 Est GFR (MDRD) Non-Af 107 BUN/Creatinine Ratio 14.1 Glucose 113 H Calcium 9.0 Troponin I High Sens 24 24 Radiography Diagnostic Testing: Clinical Impression(s) from Imaging Studies Chest X-Ray 11/08/21 12:09 IMPRESSION: Poor inspiration with some bibasilar atelectasis. Electronically Signed: Martin Trammell MD at 12:56 EDT Reading Location ID and State: [facility] / [id number] , Service support , Chest CTA 11/08/21 12:12 IMPRESSION: 1. No CT evidence of pulmonary embolism. 2. Cardiomegaly with a large pericardial effusion. Electronically Signed: Martin Trammell MD at 13:45 EDT Reading Location ID and State: [facility] / [id number] , Service support , Discharge Plan Triage Chief Complaint: Chest Pain ED Provider: Bunny Dover Dx/Rx/DC Orders Clinical Impression: Effusion, pericardium Instructions: Understanding Pericardial Effusion, ED Chest Pain, Noncardiac Prescriptions: No Action hydromorphone 2 mg tablet 4 mg PO Q3H PRN (Reason: Pain) RF: 0 pantoprazole [Protonix] 40 mg tablet,delayed release (DR/EC) 40 mg PO QAM RF: 0 Marijuana Gummies 1 tab PO QHS RF: 0 aspirin [Adult Aspirin Regimen] 81 mg tablet,delayed release (DR/EC) 81 mg PO DAILY RF: 0 atorvastatin [Lipitor] 10 mg tablet 10 mg PO DAILY Qty: 90 RF: 4 Eliquis 5 mg tablet 5 mg PO BID Qty: 30 RF: 1 etodolac 400 mg tablet 400 mg PO BID RF: 0 tadalafil 5 mg tablet 5 mg PO DAILY RF: 0 Hold Instructions: post AVR hydrocortisone [Cortef] 5 mg tablet 10 mg PO BID RF: 0 ondansetron 4 MG tablet 4 mg PO Q8H PRN PRN (Reason: Nausea) RF: 0 testosterone cypionate 100 mg/mL oil 100 mg IM QWEEK RF: 0 triamcinolone acetonide 1 APPLIC ointment 1 applic topical BID PRN (Reason: Rash/Topical Irritation) RF: 0 Trelegy Ellipta 100-62.5-25 mcg blister with device 1 inh INHALATION DAILY RF: 0 albuterol sulfate [ProAir HFA] 90 mcg/actuation HFA aerosol inhaler 2 puff INHALATION Q6H PRN (Reason: shortness of breath or wheezing) Qty: 18 RF: 6 metoprolol tartrate 25 mg tablet 25 mg PO BID Qty: 180 RF: 3 Primary Care Provider: Lolly Meyer Referrals: Lolly Meyer MD [Primary Care Provider] - Disposition Disposition: Home, Self Care
[2021-11-08 12:30] LABS: Absolute Lymphocyte Count 1.64 X10^3/uL (0.83-4.51); Absolute Neutrophil Count 11.6 X10^3/uL (2.0-7.7); Basophil# 0.06 X10^3/uL; Basophil% 0.4 % (0-1); Eosinophil# 0.29 X10^3/uL; Eosinophils% 1.9 % (0-5); Hemoglobin 15.5 g/dL (13.0-16.5); Lymphocyte # 1.64 X10^3/ul (0.83-4.51); Lymphocyte % 10.9 % (19-41); Mean Corp Hgb Conc 32.3 g/dL (32-36); Mean Platelet Vol. 9.9 fl (6.2-12.0); Monocyte# 1.39 X10^3/uL; Monocyte% 9.2 % (0-10); NRBC Flagged by Analyzer 0 % (0-5); Neutrophil # 11.61 X10^3/uL (2.7-7.7); Neutrophil % 77.3 % (47-70); Platelet Count 296 K/mm3 (150-450); RBC Distribution Width CV 15.9 % (11.6-14.6); RBC Distribution Width SD 58.2 fl (35.1-43.9); Red Blood Count 4.85 M/mm3 (4.6-6.2)
[2021-11-08 12:54] LABS: Anion Gap 4 (5-15); BUN 11 mg/dL (7-18); BUN/Creat Ratio 14.1 RATIO (10-20); Chloride 103 mmol/L (98-107); Creatinine, Serum 0.78 mg/dL (0.70-1.30); EST Glomerular Filtration Rate 107 mL/min (>60); Est Glom Filt Rate - Afr Amer 130 mL/min (>60); Estimated Creatinine Clearance 100.14 ml/min; Glucose 113 mg/dL (74-106); Potassium 4.8 mmol/L (3.5-5.1); Sodium Level 136 mmol/L (136-145); Troponin-I HS 24 pg/mL (3.0-78.0)
[2021-11-08 13:28] VITALS: BP 143/91; PULSE 89; RESP 22; O2SAT 95
[2021-11-08] MEDS: HYDROmorphone 0.5 MG/0.5 ML SYRINGE IV (13:53)
[2021-11-08 14:00] VITALS: BP 122/87; PULSE 91; RESP 17; O2SAT 95
[2021-11-08 15:04] LABS: Troponin-I HS 24 pg/mL (3.0-78.0)
[2021-11-08 15:27] VITALS: BP 116/84; BP 121/89; BP 128/89; PULSE 91; PULSE 93; PULSE 94
[2021-11-08 15:50] VITALS: BP 119/72; PULSE 89; RESP 24; O2SAT 96
== END 2021-11-08 15:51 | disposition home or self-care (01) ==
PROVIDERS: Emergency Provider Student in an Organized Health Care Education/Training Program; PCP Family Medicine; Visit Provider Student in an Organized Health Care Education/Training Program
DX: I31.3 Pericardial effusion (noninflammatory) (principal); I25.10 Atherosclerotic heart disease of native coronary artery without angina pectoris; I10 Essential (primary) hypertension; E78.5 Hyperlipidemia, unspecified; Z79.82 Long term (current) use of aspirin; Z79.899 Other long term (current) drug therapy; Z87.891 Personal history of nicotine dependence
CPT/HCPCS: 71045; 71275; 80048; 84484; 85025; 93005; 99285; Q9967; A4216

== ENCOUNTER 2021-11-09 10:06 | Emergency (ER) | payer MEDICARE, SELFPAY ==
[2021-11-02 14:16] VITALS: BMI 21.6
[2021-11-09 10:07] VITALS: BP 145/83; PULSE 87; RESP 17; TEMP 36.7; O2SAT 90; BMI 22.1
--- NOTE | 2021-11-09 10:33 | EX.ED.DYSGE1 ---
HPI History of Present Illness Chief Complaint: Nosebleed Informant: patient and spouse/S.O. Onset/Context/Timing Onset: Today Current Severity: Mild Maximum Severity: Moderate Narrative Narrative: Patient presents secondary to nosebleed. Patient states he gets frequent nosebleeds secondary to oxygen and CPAP. He had difficulty getting this well controlled at home. He is intermittently on Eliquis and did take a dose last evening. [facility] Medical History Acute respiratory failure Aspergillosis Bronchiolitis obliterans syndrome Cardiogenic shock (11/09/12) Chronic pain after cancer treatment Chronic respiratory failure Current chronic use of systemic steroids Dilated aortic root Essential (primary) hypertension Qgbia-hrflrz-hjvl disease History of asthma History of immunosuppression therapy Hyperlipidemia Hypogonadism Immunodeficiency Left ventricular diastolic dysfunction Lung abscess Nasal congestion Nasal turbinate hypertrophy Nasal valve collapse Non-Hodgkin lymphoma Nonobstructive atherosclerosis of coronary artery Nonrheumatic aortic (valve) insufficiency Respiratory failure Restrictive lung disease Scleroderma Septic arthritis of shoulder, left Severe sepsis SIRS (systemic inflammatory response syndrome) Home Medications ondansetron 4 mg PO Q8H PRN PRN 04/02/16 [History Last Taken 04/27/19] hydromorphone 2 mg tablet 4 mg PO Q3H PRN tab 12/26/17 [History Last Taken 05/04/19 06:51] pantoprazole 40 mg tablet,delayed release 40 mg PO QAM 12/26/17 [History Last Taken 04/27/19] triamcinolone acetonide 1 applic TOPICAL BID PRN 05/04/19 [History Last Taken Unknown] Marijuana Gummies 1 tab PO QHS 01/28/21 [History Last Taken Unknown] aspirin 81 mg tablet,delayed release 81 mg PO DAILY 02/26/21 [History Last Taken Unknown] albuterol sulfate 90 mcg/actuation aerosol inhaler 2 puff INHALATION Q6H PRN #18 g 04/13/21 [Rx Last Taken Unknown] atorvastatin 10 mg tablet 10 mg PO DAILY #90 tab 07/17/21 [Rx Last Taken Unknown] apixaban 5 mg tablet 5 mg PO BID #30 tab 09/22/21 [Rx Last Taken Unknown] etodolac 400 mg tablet 400 mg PO BID tab 09/22/21 [History Last Taken Unknown] hydrocortisone 5 mg tablet 10 mg PO BID tab 09/22/21 [History Last Taken Unknown] tadalafil 5 mg tablet 5 mg PO DAILY 09/22/21 [History Last Taken Unknown] testosterone cypionate 100 mg/mL intramuscular oil 100 mg IM QWEEK ml 09/22/21 [History Last Taken Unknown] metoprolol tartrate 25 mg tablet 25 mg PO BID #180 tab 10/26/21 [Rx Last Taken Unknown] [id number] [Trelegy Ellipta] 1 inh INHALATION DAILY 11/08/21 [History Last Taken Unknown] Allergy/AdvReac Type Severity Reaction Status Date / Time No Known Allergies Allergy Unverified 11/09/21 10:06 Family History Father Leukemia Grandfather Lymphoma Uncle Leukemia Other Effusion, pericardium Surgical History H/O eye surgery History of aortic valve replacement (09/01/21) History of left heart catheterization (03/06/21) History of lobectomy of lung (02/2006) History of lung surgery History of stem cell transplant (2005) S/P PICC central line placement Social History Smoking Status: Former smoker second hand exposure: Yes alcohol intake: never substance use type: marijuana caffeine: Yes what type of physical activity do you participate in: walking and bicycling frequency: 3-4 times per week ROS ROS ED Constitutional Constitutional ED: Denies chills or fever(s) Eyes Eyes: Denies change in vision ENT ENT ED: Reports other Details: Epistaxis ; Denies sore throat Cardiovascular Cardiovascular: Denies chest pain Respiratory/Chest Respiratory/Chest: Denies cough or dyspnea Gastrointestinal Gastrointestinal: Denies abdominal pain, nausea or vomiting Genitourinary Genitourinary ED: Denies dysuria Musculoskeletal Musculoskeletal: Denies back pain Integumentary Denies rash Neurologic Neurologic: Denies headache(s) or weakness Allergic/Immunologic Allergic/Immunologic ED: Denies urticaria EXAM Physical Exam Const Vital Signs: 11/09/21 10:07 Temperature 98.1 F Temperature Source Temporal Pulse Rate 87 Respiratory Rate 17 Blood Pressure 145/83 H Blood Pressure Mean 103 Pulse Ox 90 Oxygen Delivery Method Room Air Positive well nourished and well developed General Appearance ED: well developed HEENT Reports moist mucous membranes Eyes PERRL Neck supple Chest Wall inspection of chest normal and palpation of chest normal Resp normal respiratory effort and clear to auscultation bilaterally Cardio regular rate and regular rhythm GI non-tender Palpation: soft Extremity normal to inspection Neuro oriented x3 Sensorium / Orientation: alert Psych mental status grossly normal Skin no rashes or lesions noted [facility] Treatment and Re-Evaluation Narrative: Cottonball soaked with Afrin and Cetacaine placed in the right nare. This was removed and Merisel packing placed. Bleeding is well controlled at this time. Patient be discharged to go his echocardiogram. He has seen Dr. Day in the past and will call for a follow-up appointment within the next 1 to 2 days. Discharge Plan Triage Chief Complaint: Nosebleed ED Provider: Belem Caceres Dx/Rx/DC Orders Clinical Impression: Epistaxis Instructions: ED Epistaxis (Adult) Prescriptions: No Action hydromorphone 2 mg tablet 4 mg PO Q3H PRN (Reason: Pain) RF: 0 pantoprazole [Protonix] 40 mg tablet,delayed release (DR/EC) 40 mg PO QAM RF: 0 Marijuana Gummies 1 tab PO QHS RF: 0 aspirin [Adult Aspirin Regimen] 81 mg tablet,delayed release (DR/EC) 81 mg PO DAILY RF: 0 atorvastatin [Lipitor] 10 mg tablet 10 mg PO DAILY Qty: 90 RF: 4 Eliquis 5 mg tablet 5 mg PO BID Qty: 30 RF: 1 etodolac 400 mg tablet 400 mg PO BID RF: 0 tadalafil 5 mg tablet 5 mg PO DAILY RF: 0 Hold Instructions: post AVR hydrocortisone [Cortef] 5 mg tablet 10 mg PO BID RF: 0 ondansetron 4 MG tablet 4 mg PO Q8H PRN PRN (Reason: Nausea) RF: 0 testosterone cypionate 100 mg/mL oil 100 mg IM QWEEK RF: 0 triamcinolone acetonide 1 APPLIC ointment 1 applic topical BID PRN (Reason: Rash/Topical Irritation) RF: 0 Trelegy Ellipta 100-62.5-25 mcg blister with device 1 inh INHALATION DAILY RF: 0 albuterol sulfate [ProAir HFA] 90 mcg/actuation HFA aerosol inhaler 2 puff INHALATION Q6H PRN (Reason: shortness of breath or wheezing) Qty: 18 RF: 6 metoprolol tartrate 25 mg tablet 25 mg PO BID Qty: 180 RF: 3 Primary Care Provider: Lolly Meyer Referrals: Lolly Meyer MD [Primary Care Provider] - Moose Day MD [STAFF PHYSICIAN] - 2 Days Disposition Disposition: Home, Self Care
[2021-11-09] MEDS: Tetracaine/Benzocaine/Butamben 1 APPLIC TOPICAL (10:57)
[2021-11-09] MEDS: Oxymetazoline 0.05% 1 SPRAY SPRAY.BTL 2 SPRAY NASAL (10:57)
== END 2021-11-09 11:23 | disposition home or self-care (01) ==
PROVIDERS: Emergency Provider Emergency Medicine; PCP Family Medicine; Visit Provider Emergency Medicine
DX: R04.0 Epistaxis (principal); I25.10 Atherosclerotic heart disease of native coronary artery without angina pectoris; I10 Essential (primary) hypertension; E78.5 Hyperlipidemia, unspecified; Z95.4 Presence of other heart-valve replacement; Z79.01 Long term (current) use of anticoagulants; Z79.82 Long term (current) use of aspirin; Z79.899 Other long term (current) drug therapy; Z87.891 Personal history of nicotine dependence
CPT/HCPCS: 30901; 99282

== ENCOUNTER 2021-11-09 11:22 | Outpatient (CLI) | payer MEDICARE, SELFPAY ==
[2021-11-02 14:16] VITALS: BMI 21.6
--- NOTE | 2021-11-09 11:31 | ECHOD_ITS ---
Reason For Study: Pericardial Effusion Procedure This was a 2D Doppler, Color Flow transthoracic echocardiogram. Exam performed in department. Left Ventricle Normal LV size. Moderate concentric left ventricular hypertrophy. Left ventricular systolic function is normal. The estimated ejection fraction is 60 %. No regional wall motion abnormalities noted. Right Ventricle Normal RV size. Normal systolic function. Atria Normal left atrium. Normal right atrium. Mitral Valve Normal mitral valve. Tricuspid Valve Normal tricuspid valve. Aortic Valve Peak aortic valve gradient 16 mmHg. Mean aortic valve gradient 8 mmHg. Mild aortic stenosis. Mild (1+) aortic valve insufficiency. Stable appearing bioprosthetic aortic valve apparatus. Pulmonic Valve Normal pulmonic valve. Mild (1+) eccentric pulmonic valve insufficiency. Pericardium/Pleural There are no echocardiographic indications of cardiac tamponade. Appears to be loculated and in the largest areas 1.5cm Small to moderate pericardial effusion. MMode/2D Measurements & Calculations LVIDd: 4.1 cm IVSd: 1.7 cm LVOT diam: 2.0 cm LVIDs: 2.9 cm LVPWd: 1.4 cm LVOT area: 3.2 cm2 RVDd: 3.3 cm FS: 29.4 % Ao root diam: 4.1 cm LAV(MOD-bp): 48.7 ml LVAd ap4: 33.6 cm2 LAV(MOD-bp) Indexed: 26.4 ml/m2 LVLd ap4: 9.1 cm LAV(MOD-sp2): 38.5 ml EDV(MOD-sp4): 106.0 ml LAV(MOD-sp4): 50.3 ml EDV(sp4-el): 104.7 ml LVAs ap4: 22.6 cm2 LVLs ap4: 8.5 cm ESV(MOD-sp4): 52.4 ml ESV(sp4-el): 51.2 ml EF(MOD-sp4): 50.5 % EF(sp4-el): 51.1 % SV(MOD-sp4): 53.6 ml SV(MOD-sp2): 51.1 ml LVAd ap2: 31.3 cm2 LVLd ap2: 9.1 cm EDV(MOD-sp2): 92.1 ml EDV(sp2-el): 90.9 ml LVAs ap2: 18.6 cm2 LVLs ap2: 7.2 cm ESV(MOD-sp2): 41.1 ml ESV(sp2-el): 40.8 ml EF(MOD-sp2): 55.4 % SV(sp4-el): 53.5 ml LA A4 area: 18.6 cm2 RA A4 area: 13.3 cm2 Doppler Measurements & Calculations MV E max alfredo: 66.5 cm/sec Lat Peak E' Alfredo: 7.8 cm/sec Med Peak E' Alfredo: 4.7 cm/sec MV A max alfredo: 57.1 cm/sec E/E' lat: 8.5 E/E' med: 14.3 MV E/A: 1.2 Ao V2 max: 203.5 cm/sec LV V1 max: 146.6 cm/sec SV(LVOT): 72.3 ml Ao max P.6 mmHg LV V1 max P.6 mmHg Ao V2 mean: 130.9 cm/sec LV V1 mean P.4 mmHg Ao mean P.9 mmHg LV V1 mean: 98.7 cm/sec Ao V2 VTI: 29.5 cm LV V1 VTI: 22.7 cm ELVIN(I,D): 2.4 cm2 ELVIN(V,D): 2.3 cm2 PA V2 max: 105.8 cm/sec ECHO/Echo Complete Interpretation Summary Normal LV size. Moderate concentric left ventricular hypertrophy. Left ventricular systolic function is normal. The estimated ejection fraction is 60 %. Appears to be loculated and in the largest areas 1.5cm Small to moderate pericardial effusion Stable appearing bioprosthetic aortic valve apparatus. Mild (1+) aortic valve insufficiency. Ordering Physician: Billy Pruett Referring Physician: Lolly Meyer M.D. Performed By: Norah Eason RDCS
== END 2021-11-09 23:59 | disposition home or self-care (01) ==
LOC: CVS 11:24
PROVIDERS: PCP Family Medicine; Referring Provider Internal Medicine Cardiovascular Disease; Visit Provider Internal Medicine Cardiovascular Disease
DX: I31.3 Pericardial effusion (noninflammatory) (principal); R04.0 Epistaxis; I25.10 Atherosclerotic heart disease of native coronary artery without angina pectoris; I10 Essential (primary) hypertension; E78.5 Hyperlipidemia, unspecified; Z95.4 Presence of other heart-valve replacement; Z79.01 Long term (current) use of anticoagulants; Z79.82 Long term (current) use of aspirin; Z79.899 Other long term (current) drug therapy; Z87.891 Personal history of nicotine dependence
CPT/HCPCS: 30901; 93306; 99282

== ENCOUNTER 2021-11-16 13:52 | Outpatient (CLI) | payer MEDICARE, SELFPAY ==
[2021-11-02 14:16] VITALS: BMI 21.6
--- NOTE | 2021-11-16 14:00 | ECHOL_ITS ---
Reason For Study: Pericardial effusion Procedure This was a limited 2D transthoracic echocardiogram. Exam performed in department. Left Ventricle Normal LV size. Moderate concentric left ventricular hypertrophy. Left ventricular systolic function is normal. The estimated ejection fraction is 60 %. No regional wall motion abnormalities noted. Right Ventricle Normal RV size. Normal systolic function. Aortic Valve Stable appearing bioprosthetic aortic valve apparatus. Great Vessels Normal aortic root. Pericardium/Pleural Small pericardial effusion. MMode/2D Measurements & Calculations LVIDd: 4.3 cm IVSd: 1.5 cm LVIDs: 3.0 cm LVPWd: 1.4 cm FS: 30.3 % ECHO/Echo, Limited Study Interpretation Summary Normal LV size. Moderate concentric left ventricular hypertrophy. Left ventricular systolic function is normal. The estimated ejection fraction is 60 %. Stable appearing bioprosthetic aortic valve apparatus. Small pericardial effusion. Compared to the previous the pericardial effusion is less. Ordering Physician: Billy Pruett Referring Physician: Lolly Meyer M.D. Performed By: Norah Eason RDCS
== END 2021-11-16 23:59 | disposition home or self-care (01) ==
PROVIDERS: PCP Family Medicine; Referring Provider Internal Medicine Cardiovascular Disease; Visit Provider Internal Medicine Cardiovascular Disease
DX: I31.3 Pericardial effusion (noninflammatory) (principal); Z95.2 Presence of prosthetic heart valve
CPT/HCPCS: 93308

== ENCOUNTER 2021-11-25 14:30 | Outpatient (RCR) | payer MEDICARE, SELFPAY ==
[2021-10-07 14:55] VITALS: BMI 22.5
--- NOTE | 2021-11-02 13:36 | PCM.CR.ITP ---
Diagnosis Exercise - 30-day Assessment - Visit Date of Gisselle: 11/02/21 Session #:: 9 - 65% attendance rate Comments:: Patient has attended only 6 of his 9 scheduled sessions for various reasons. Frequently calls 1-hour prior to his session which limits the ability of us to offer alternative class times. - Physician Prescribed Exercise Modalities: Treadmill, Airdyne, NuStep Frequency: 3x/week for 12 weeks [36 sessions] Intensity: 60-80% of age predicted maximum heart rate reserve Current METSs:: 4.5 Target Heart Rate:: 102-134 Current RPE:: 11-12 Maximum Excercise HR:: 104 Resting Blood Pressure: 130/70 Maximum Exercise Blood Pressure: 150/84 EKG Type: NSR to ST without ectopy. Oxygen 4 liters W/exercise SpO2 >94% with oxygen Current Physical Activity or Exercising minutes: 43:24 - Outcomes & Goals Goals:: Verbalizes understanding of THR, RPE & goal METS by session 6, Documents in home exercise log/reports 30 min aerobic 5 day/wk by DC, Demonstrates accurate pulse taking by DC - Intervention & Plan Exercise Program Goals: Instruct on personal THR & RPE, Instruct on MET level & personal MET goal, Show patient to take own pulse /validate performance until accurate, Instruct on home exercise - 30-day Reassessments 30 day Reassessments:: Progressing - Physical Activity Home Exercise Physical Activity - Home Exercise: Safe Exercise, Warm-up, Self-monitoring, Cool-Down, Home Exercise > 30 min Daily, Sitting Time <3 hours/daily - Outcomes & Goals Outcomes/Goals: Demonstrates correct Warm-up/exercise Cool-Down (S3) if = 2.5 METs, Verbalizes symptoms of exercise intolerance by Session 3 (S3), Demonstrate safe equipment use (S3) & follows exercise prescrition (6) - Intervention & Plan Plan/Intervention: Instruct warm-up & cool-down if exercising at > 2 METs, Instruct on symptoms of exercise intolerance & actions to take, Instruct & monitor on saf, Assess intial functional capacity & safety risk - 30-day Reassessments 30 day Reassessments:: Progressing Nutrition - Initial Assessment Nutrition - 30-Day Assessment - Program Goals Nutrition Program Goals: LDL <100 optimal. 100 - 129 Near optimal. 130 - 159 Borderline High. 160 - 189 High. Total Cholesterol <200 desirable. 200 - 239 Borderline High. >/= 240 High. HDL < 40 Low >/=60 High. Triglycerides <150 desirable. <199 optimal. VlDL 5 - 40. HgbA1C <7%. BMI <25 Patient has diagnosis of Hyperlipidemia (ICD E78)?: Yes - Visit Date of Assessment:: 11/02/21 Session #:: 9 - Cholesterol/Lipids Determine presence & major risk factors that modify LDL goal: Hypertension or hypertensive medication, Family history of premature CHD in Male < 55 years: female <65 yearsFa, Age men > 45 years; women >/= 55 years Outcomes/Goals: Pt IDs own risk factors & lifestyle modifications by Session 10, Verbalizes symptoms of angina & response by session 3., Pt independently manages Intervention/Plan: Instruct on personal lipid levels & lipid goals/NCEP guidelines, Instruct on cholesterol Referral to dietitian:: No 30-day Reassessments:: Progressing - Diabetes (Other Core Measures) Diabetes Type: Not Applicable - Weight Mgt (Other Care) Height: 5 ft 10 in Weight:: 150 lb 8 oz BMI: 21.6 Diagnosis Overweight/Obesity BMI> 30% ICD-10 E66: No Diagnosis High BMI/Morbid Obesity BMI> 35% ICD-10 Z68: No Outcomes/Goals: Pt sets, maintains & shows weight loss goal & trend during rehab Intervention/Plan: Instruct on ideal BMI & set weight loss goal w/patient, Assist pt to ID & incorporate diet changes for weight loss by S9, Encourage goal of using 250-300dcal per session for weight loss 30 day Reassessments:: Progressing - Healthy Eating Habits Will attend diet classes:: Yes Outcomes/Goals:: Consume diet rich in vegs,fruits,whole grain/high fiber,fish,lean meat, Limit sat/trans fats,cholesterol & added salts & sugars Intervention/Plan:: Assess current eating habits 30-day Reassessments:: Progressing - Education Gave educational materials for:: Healthy eating Nutrition - 60-Day Assessment Nutrition - 90-Day Assessment Nutrition - Final Assessment Medical - Initial Assessment Medical- 30-Day Assessment - Visit Date of Eval: 11/02/21 Session #:: 9 - Medication Compliance Preventative Medication(s):: Aspirin, Statin/lipid, Beta corbin H/O mental health issues: depression, anxiety, or addiction?: No Doesn?t believe in the benefits of treatment?: No Believes medications are unnecessary or harmful?: No Has a concern about medication side effects?: No Expresses concern over the cost of medications?: No Outcomes/Goals: Verbalizes medications,desired effect & common side effects @ DC, Pt self-reports following medication regimen, Keeps card in wallet w/medications listed by DC Interventions/plans: Instruct on medication effects & side effects, Review medication list w/patient every two weeks, Instruct importance of taking meds as ordered & assist problem solving 30-day Reassessments:: Progressing - Tobacco Use Tobacco Use: Non-smoker - Hypertension Hypertension Diagnosis:: Hypertension ICD-10 I10 Resting Blood Pressure:: 130/70 [place] [employer] Hypertension Guidelines: [place] [employer] Hypertension Guidelines. Normal BP Less than 120/80. Elevated BP 120/80. Hypertension Stage 1: BP 130-139/80-89. Hypertesnion Stage 2: BP 140 or higher/90 or higher. Hypertension Crisis: BP higher than 180/120 Peak Exercise Blood Pressure:: 130/84 Outcomes/Goals: Able to verbalize/achieve optimal blood pressure <130/80, Incorporates diet changes & exercise for blood pressure control by DC Interventions/plan: Instruct on optimal blood pressure, hypertension & medications, Instruct on effects of sodium, alcohol, stress, exercise &hypertension 30 day Reassessments:: Progressing - Tobacco Cessation Referral Smoking Cessation Referral:: No Individual Education/Counseling:: No Education Schedule Given:: Yes Medical- 60-Day Assessment Medical- 90-Day Assessment Medical - Final Assessment Psychosocial - Initial Assess Psychosocial - 30-Day Assess - VIsit Date of Eval: 11/02/21 Session #:: 9 Not Applicable: Yes History of previous Mental disease:: No - Referral to Behavioral Health PS - Interventions: Yes Attend Stress Management Classes, No Referral to Behavioral Health if PHQ-9 score >9:, No Referral to [facility], No Referral to Physician if PHQ-9 if score is 5-9: - Outcomes/Goals: See list Psychosocial Outcomes/Goals:: ID's personal stressors & 2 strategies to manage stress by discharge - Intervention/Plan: See List Interventions/Plan:: Assess stressors,coping strategies & signs of derpression on admission, Instruct/assist pt to develop coping & personal stress Mgt strategies, Instruct patient to recognize signs & symptoms of depression, Instruct patient to recog - 30-day Reassessments: 30 day Reassessments:: Progressing Psychosocial - 60-Day Assess Psychosocial - 90-Day Assess Psychosocial - Final Assessmen Patient Health Questionnaire 30-Day Re-eval Assessment 1. Little interest or pleasure in doing things: Not at all 2. Feeling down, depressed, or hopeless: Several days 3. Trouble falling or staying asleep, or sleeping too much: Not at all 4. Feeling tired or having little energy: Nearly every day 5. Poor appetite or overeating: Not at all 6. Feeling bad about yourself -- or that you are a failure or have let yourself or your family down: Not at all 7. Trouble concentrating on things, such as reading the newspaper or watching television: Nearly every day 8. Moving or speaking so slowly that other people could have noticed. Or the opposite - being so fidgety or restless that you have been moving around a lot more than usual: Several days 9. Thoughts that you would be better off , or of hurting yourself in some way: Not at all How difficult have these problems made it for you to do your work, take care of things at home, or get along with other people?: Somewhat difficult Total Score: 8 Self-Efficacy Nutrition Survey
[2021-11-02 14:16] VITALS: BP 130/70; BP 130/84; BMI 21.6
== END 2021-11-26 23:59 | disposition home or self-care (01) ==
LOC: CR 14:30
PROVIDERS: PCP Family Medicine; Referring Provider Internal Medicine Cardiovascular Disease; Visit Provider Internal Medicine Cardiovascular Disease
DX: R06.00 Dyspnea, unspecified (principal); C85.90 Non-Hodgkin lymphoma, unspecified, unspecified site; I77.810 Thoracic aortic ectasia; R53.83 Other fatigue; I35.1 Nonrheumatic aortic (valve) insufficiency; I25.10 Atherosclerotic heart disease of native coronary artery without angina pectoris; I10 Essential (primary) hypertension; E78.5 Hyperlipidemia, unspecified; Z95.2 Presence of prosthetic heart valve
CPT/HCPCS: 93798

== ENCOUNTER 2021-12-02 14:30 | Outpatient (RCR) | payer MEDICARE, SELFPAY ==
[2021-11-02 14:16] VITALS: BMI 21.6
[2021-11-27 00:40] VITALS: BP 130/70; BP 130/84
== END 2021-12-26 23:59 ==
LOC: CR 14:30
PROVIDERS: PCP Family Medicine; Referring Provider Internal Medicine Cardiovascular Disease; Visit Provider Internal Medicine Cardiovascular Disease
DX: I25.10 Atherosclerotic heart disease of native coronary artery without angina pectoris (principal); R06.00 Dyspnea, unspecified; R53.83 Other fatigue; Z95.2 Presence of prosthetic heart valve; I35.1 Nonrheumatic aortic (valve) insufficiency; I77.810 Thoracic aortic ectasia; I11.9 Hypertensive heart disease without heart failure; E78.5 Hyperlipidemia, unspecified; C85.90 Non-Hodgkin lymphoma, unspecified, unspecified site
CPT/HCPCS: 93798

== ENCOUNTER → 2022-06-03 | Outpatient (CLI) | payer MEDICARE, SELFPAY ==
[2021-11-02 14:16] VITALS: BMI 21.6
[2022-06-03 10:17] LABS: Hematocrit 49.3 % (40-54); Hemoglobin 16.6 g/dL (13.0-16.5); Mean Corp Hgb Conc 33.7 g/dL (32-36); Mean Platelet Vol. 9.5 fl (6.2-12.0); Platelet Count 339 K/mm3 (150-450); RBC Distribution Width SD 61.5 fl (35.1-43.9); Red Blood Count 5.03 M/mm3 (4.6-6.2); White Blood Count 8.6 K/mm3 (4.4-11.0)
[2022-06-03 10:50] LABS: Anion Gap 6 (5-15); BUN 14 mg/dL (7-18); BUN/Creat Ratio 26.7 RATIO (10-20); Calcium,Total 9.3 mg/dL (8.5-10.1); Chloride 105 mmol/L (98-107); Creatinine, Serum 0.52 mg/dL (0.70-1.30); EST Glomerular Filtration Rate 169 mL/min (>60); Est Glom Filt Rate - Afr Amer 204 mL/min (>60); Glucose 102 mg/dL (74-106); Potassium 4.3 mmol/L (3.5-5.1); Sodium Level 139 mmol/L (136-145)
== END | disposition home or self-care (01) ==
LOC: PSN 09:35
PROVIDERS: PCP Family Medicine; Visit Provider Otolaryngology
DX: Z01.810 Encounter for preprocedural cardiovascular examination (principal)
CPT/HCPCS: 36415; 80048; 85027; 93005

== ENCOUNTER → 2022-06-11 | Outpatient (CLI) | payer MEDICARE, SELFPAY ==
[2021-11-02 14:16] VITALS: BMI 21.6
[2022-06-11 15:44] LABS: Absolute Lymphocyte Count 1.99 X10^3/uL (0.83-4.51); Absolute Neutrophil Count 5.6 X10^3/uL (2.0-7.7); Basophil# 0.05 X10^3/uL; Basophil% 0.6 % (0-1); Eosinophil# 0.27 X10^3/uL; Eosinophils% 3.1 % (0-5); Hematocrit 51.7 % (40-54); Hemoglobin 17.2 g/dL (13.0-16.5); Lymphocyte # 1.99 X10^3/ul (0.83-4.51); Lymphocyte % 22.7 % (19-41); Mean Corp Hgb Conc 33.3 g/dL (32-36); Mean Corpuscular Hgb 33.7 pg (27.0-32.0); Mean Corpuscular Volume 101.4 fL (80-94); Mean Platelet Vol. 10.1 fl (6.2-12.0); Monocyte# 0.83 X10^3/uL; Monocyte% 9.5 % (0-10); NRBC Flagged by Analyzer 0 % (0-5); Neutrophil % 63.9 % (47-70); Platelet Count 264 K/mm3 (150-450); RBC Distribution Width CV 16.6 % (11.6-14.6); RBC Distribution Width SD 62.6 fl (35.1-43.9); White Blood Count 8.8 K/mm3 (4.4-11.0)
[2022-06-11 17:49] LABS: Cholesterol 189 mg/dL (200); High Density Lipoprotein 40 mg/dL; Triglycerides 172 mg/dL; Very Low Density Lipoprotein 34 mg/dL (5-40)
== END | disposition home or self-care (01) ==
LOC: MFPLAB 12:08
PROVIDERS: PCP Family Medicine; Referring Provider Family Medicine; Visit Provider Family Medicine
DX: E78.5 Hyperlipidemia, unspecified (principal); R53.83 Other fatigue
CPT/HCPCS: 36415; 80061; 85025

== ENCOUNTER → 2022-09-02 | Outpatient (CLI) | payer MEDICARE, SELFPAY ==
[2021-11-02 14:16] VITALS: BMI 21.6
--- NOTE | 2022-09-02 14:08 | ECHOD_ITS ---
Reason For Study: MURMUR Procedure This was a 2D Doppler, Color Flow transthoracic echocardiogram. Exam performed in department. Left Ventricle Normal LV size. Moderate eccentric left ventricular hypertrophy. Left ventricular systolic function is normal. The estimated ejection fraction is 60 %. Stage 1 diastolic dysfunction. No regional wall motion abnormalities noted. Right Ventricle Normal RV size. Normal systolic function. Atria Normal left atrium. Normal right atrium. Mitral Valve Normal mitral valve. Tricuspid Valve Normal tricuspid valve. Mild tricuspid valve insufficiency. Aortic Valve Peak aortic valve gradient 22 mmHg. Mean aortic valve gradient 11 mmHg. Bioprosthetic aortic valve. Pulmonic Valve Normal pulmonic valve. Trivial pulmonic valve insufficiency. Great Vessels Normal aortic root. The pulmonary artery is normal size. Normal inferior vena cava. Pericardium/Pleural No pericardial effusion. MMode/2D Measurements & Calculations LVIDd: 5.1 cm IVSd: 1.6 cm LVOT diam: 2.0 cm LVIDs: 3.4 cm LVPWd: 1.3 cm LVOT area: 3.0 cm2 RVDd: 3.9 cm FS: 34.1 % Ao root diam: 4.2 cm LAV(MOD-bp): 64.0 ml LVAd ap4: 38.4 cm2 LAV(MOD-bp) Indexed: 34.2 ml/m2 LVLd ap4: 8.9 cm LAV(MOD-sp2): 65.1 ml EDV(MOD-sp4): 142.5 ml LAV(MOD-sp4): 63.5 ml EDV(sp4-el): 141.6 ml LVAs ap4: 21.4 cm2 LVLs ap4: 6.6 cm ESV(MOD-sp4): 58.8 ml ESV(sp4-el): 58.6 ml EF(MOD-sp4): 58.7 % EF(sp4-el): 58.6 % LVAd ap2: 36.4 cm2 SV(MOD-sp4): 83.7 ml SV(MOD-sp2): 69.1 ml LVLd ap2: 9.5 cm EDV(MOD-sp2): 118.5 ml EDV(sp2-el): 118.6 ml LVAs ap2: 20.8 cm2 LVLs ap2: 7.6 cm ESV(MOD-sp2): 49.5 ml ESV(sp2-el): 48.4 ml EF(MOD-sp2): 58.3 % SV(sp4-el): 83.0 ml LA dimension(2D): 4.2 cm LA A4 area: 19.9 cm2 Time Measurements MV dec time: 0.16 sec Doppler Measurements & Calculations MV E max alfredo: 60.2 cm/sec Lat Peak E' Alfredo: 7.8 cm/sec Med Peak E' Alfredo: 6.6 cm/sec MV A max alfredo: 70.8 cm/sec E/E' lat: 7.7 E/E' med: 9.1 MV E/A: 0.85 Ao V2 max: 235.7 cm/sec LV V1 max: 160.8 cm/sec SV(LVOT): 76.7 ml Ao max P.2 mmHg LV V1 max P.3 mmHg Ao V2 mean: 157.6 cm/sec LV V1 mean P.8 mmHg Ao mean P.1 mmHg LV V1 mean: 115.7 cm/sec Ao V2 VTI: 38.5 cm LV V1 VTI: 25.4 cm AV (velocity ratio): 0.66 ELVIN(I,D): 2.0 cm2 ELVIN(V,D): 2.1 cm2 PA V2 max: 132.6 cm/sec ECHO/Echo Complete Interpretation Summary Normal LV size. Left ventricular systolic function is normal. The estimated ejection fraction is 60 %. Stage 1 diastolic dysfunction. Moderate eccentric left ventricular hypertrophy. Bioprosthetic aortic valve. Mean aortic valve gradient 11 mmHg. Ordering Physician: Isabel Guerrero Referring Physician: Lolly Meyer Performed By: Adilene Ramirez, LEO, RVT
== END | disposition home or self-care (01) ==
LOC: CVS 14:06
PROVIDERS: PCP Family Medicine; Referring Provider Physician Assistant Medical; Visit Provider Physician Assistant Medical
DX: R01.1 Cardiac murmur, unspecified (principal); G47.33 Obstructive sleep apnea (adult) (pediatric); Z95.2 Presence of prosthetic heart valve
CPT/HCPCS: 93306

== ENCOUNTER → 2023-03-23 | Outpatient (CLI) | payer MEDICARE, SELFPAY ==
[2021-11-02 14:16] VITALS: BMI 21.6
--- NOTE | 2023-03-23 11:40 | RAD_ITS ---
INDICATION: Cough EXAMINATION/TECHNIQUE: X-RAY - XR Chest 2 Views COMPARISON: 11/08/2021 FINDINGS: LINES/DEVICES: None. LUNGS: Bibasilar subsegmental atelectasis and/or fibrosis. Patchy right lower lobe airspace opacity without consolidation or pleural effusion. No vascular congestion. MEDIASTINUM AND CARDIOVASCULAR STRUCTURES: Stable cardiomegaly with changes from aortic valve replacement. BONES AND SOFT TISSUES: No acute changes. RAD/Chest PA and Lateral IMPRESSION: Right lower lobe infiltrate consistent with pneumonia. Recommend short-term follow-up to resolution. Electronically Signed: Rafi Albrecht MD at 22:54 EDT ,
--- NOTE | 2023-03-23 12:57 | VDLE_ITS ---
Reason For Study: Rt Leg Swelling RIGHT LEFT GSV is normal. CFV is compressible, spontaneous, phasic, CFV is compressible, spontaneous, phasic, competent, and demonstrates normal competent and demonstrates normal augmentation. augmentation. FV is compressible, spontaneous, phasic, competent and demonstrates normal augmentation. POP V is compressible, spontaneous, phasic, competent and demonstrates normal augmentation. T/P Trunk is compressible. PTV is compressible. RT PerV is compressible. Procedure This is a venous duplex using B-mode, color flow and spectral Doppler. Exam performed in department. The exam was diagnostic. A preliminary report was called and/or faxed to Dr. Chambers's office. VL/Venous Duplex US, Unilateral Interpretation Summary Deep veins of the right lower extremity are patent and compressible segmentally . There is no evidence of right lower extremity deep vein thrombosis. The right great sapheno us vein appears patent and compressible segmentally. Ordering Physician: Olimpia Chambers Referring Physician: Lolly Carey Performed By: Axel Pedraza RVT
[2023-03-23 15:32] LABS: Absolute Lymphocyte Count 1.26 X10^3/uL (0.83-4.51); Absolute Neutrophil Count 5.4 X10^3/uL (2.0-7.7); Basophil# 0.05 X10^3/uL; Basophil% 0.6 % (0-1); Eosinophil# 0.13 X10^3/uL; Eosinophils% 1.6 % (0-5); Hematocrit 45.4 % (40-54); Hemoglobin 14.9 g/dL (13.0-16.5); Lymphocyte # 1.26 X10^3/ul (0.83-4.51); Lymphocyte % 15.7 % (19-41); Mean Corp Hgb Conc 32.8 g/dL (32-36); Mean Corpuscular Hgb 32.7 pg (27.0-32.0); Mean Corpuscular Volume 99.6 fL (80-94); Mean Platelet Vol. 10.7 fl (6.2-12.0); Monocyte# 1.16 X10^3/uL; Monocyte% 14.5 % (0-10); NRBC Flagged by Analyzer 0 % (0-5); Neutrophil # 5.38 X10^3/uL (2.7-7.7); Neutrophil % 67.2 % (47-70); Platelet Count 230 K/mm3 (150-450); RBC Distribution Width CV 16.7 % (11.6-14.6); RBC Distribution Width SD 61.8 fl (35.1-43.9); Red Blood Count 4.56 M/mm3 (4.6-6.2)
== END | disposition home or self-care (01) ==
LOC: CVS 12:45
PROVIDERS: PCP Family Medicine; Referring Provider Family Medicine; Visit Provider Family Medicine
DX: M79.89 Other specified soft tissue disorders (principal); M79.604 Pain in right leg; T14.8XXA Other injury of unspecified body region, initial encounter; X58.XXXA Exposure to other specified factors, initial encounter; R06.02 Shortness of breath; R05.9 Cough, unspecified
CPT/HCPCS: 36415; 71046; 85025; 93971

== ENCOUNTER 2023-03-28 10:56 | Emergency (ER) | payer MEDICARE, SELFPAY ==
[2021-11-02 14:16] VITALS: BMI 21.6
[2023-03-28 10:58] VITALS: BP 166/88; PULSE 88; RESP 12; TEMP 36.4; O2SAT 92; BMI 22.6
--- NOTE | 2023-03-28 11:52 | EKG12_ITS ---
Test Reason : CP/L SHOULDER PAIN Blood Pressure : / mmHG Vent. Rate : 084 BPM Atrial Rate : 084 BPM P-R Int : 164 ms QRS Dur : 118 ms QT Int : 378 ms P-R-T Axes : 074 102 032 degrees QTc Int : 446 ms Normal sinus rhythm Possible Left atrial enlargement Rightward axis Biventricular hypertrophy with QRS widening Possible Inferior infarct , age undetermined Abnormal ECG Confirmed by JUANIS SALINAS, ARMAAN ([id number]), film editor PAIGE ALFORD ([id number]) on 03/29/2023 11:01:03 AM Referred By: RAJ/GAVINO Confirmed By:ARMAAN OLIVAREZ MD
--- NOTE | 2023-03-28 11:53 | EDS_ITS ---
HPI History of Present Illness Chief Complaint: Chest Pain Detail of Chief Complaint: Shoulder pain and pain right leg Informant: patient Narrative Narrative: Patient presents to the emergency department complaint of pain in his left shoulder started yesterday. At times she will feel it into his chest. It was achy regardless of movement of the shoulder. He denies any injury. Patient also states that about 5 days ago he noticed some pain in his right leg and discoloration from the groin to the knee. He was seen by his primary care physician and had an ultrasound of the right lower extremity that was negative for DVT. Patient also had a chest x-ray and was diagnosed with possible pneumonia in the right lower lobe and was started on doxycycline. Patient had history of MRSA in his shoulder and this was his main concern today. He has had no fever or chills or sweats. He continues to have some discomfort in his right leg and he has had no injury or trauma to that leg. [facility] Medical History (Updated 03/28/23 @ 14:[address] Julio César Hennessy, ) Acute respiratory failure Aspergillosis Bronchiolitis obliterans syndrome Cardiogenic shock (11/09/12) Chronic otitis externa of right ear Chronic otitis media of right ear Chronic pain after cancer treatment Chronic respiratory failure Current chronic use of systemic steroids Dilated aortic root Essential (primary) hypertension Eustachian tube dysfunction Pywah-fsruhs-tcix disease History of asthma History of immunosuppression therapy Hyperlipidemia Hypogonadism Immunodeficiency Left ventricular diastolic dysfunction Lung abscess Nasal congestion Nasal turbinate hypertrophy Nasal valve collapse Non-Hodgkin lymphoma Nonobstructive atherosclerosis of coronary artery Nonrheumatic aortic (valve) insufficiency Respiratory failure Restrictive lung disease Scleroderma Septic arthritis of shoulder, left Severe sepsis SIRS (systemic inflammatory response syndrome) Home Medications ondansetron 4 mg disintegrating tablet 4 mg PO Q8H PRN PRN Nausea 04/02/16 [History Last Taken 04/27/19] hydromorphone 2 mg tablet 4 mg PO Q3H PRN Pain 12/26/17 [History Last Taken 05/04/19 06:51] pantoprazole 40 mg tablet,delayed release (Protonix) 40 mg PO QAM GERD 12/26/17 [History Last Taken 04/27/19] triamcinolone acetonide 0.1 % topical ointment 1 applic topical BID PRN Rash/Topical Irritation 05/04/19 [History Last Taken Unknown] Marijuana Gummies 1 tab PO QHS 01/28/21 [History Last Taken Unknown] aspirin 81 mg tablet,delayed release (Adult Aspirin Regimen) 81 mg PO DAILY 02/26/21 [History Last Taken Unknown] etodolac 400 mg tablet 400 mg PO BID 09/22/21 [History Last Taken Unknown] hydrocortisone 5 mg tablet (Cortef) 10 mg PO BID 09/22/21 [History Last Taken Unknown] tadalafil 5 mg tablet 5 mg PO DAILY 09/22/21 [History Last Taken Unknown] testosterone cypionate 100 mg/mL intramuscular oil 100 mg IM QWEEK supplement 09/22/21 [History Last Taken Unknown] metoprolol succinate 25 mg tablet,extended release 24 hr 25 mg PO DAILY #90 tabs 08/18/22 [Rx Last Taken Unknown] atorvastatin 10 mg tablet (Lipitor) 10 mg PO DAILY #90 tabs 09/20/22 [Rx Last Taken Unknown] albuterol sulfate 90 mcg/actuation aerosol inhaler (ProAir HFA) 2 puff inhalation Q6H PRN shortness of breath or wheezing #18 grams 01/17/23 [Rx Last Taken Unknown] ipratropium 0.5 mg-albuterol 3 mg (2.5 mg base)/3 mL nebulization soln 3 ml inhalation Q4H PRN shortness of breath or wheezing #180 mL 01/17/23 [Rx Last Taken Unknown] montelukast 10 mg tablet 10 mg PO QPM #30 tabs 01/25/23 [Rx Last Taken Unknown] fluticasone fur. 100 mcg-umeclid 62.5 mcg-vilant 25 mcg inhalat.powder (Trelegy Ellipta) 1 inh inhalation DAILY #60 ea 03/07/23 [Rx Last Taken Unknown] Allergy/AdvReac Type Severity Reaction Status Date / Time No Known Allergies Allergy Verified 03/28/23 10:58 Family History Father Leukemia Grandfather Lymphoma Uncle Leukemia Other Effusion, pericardium Surgical History H/O eye surgery History of aortic valve replacement (09/01/21) History of left heart catheterization (03/06/21) History of lobectomy of lung (02/2006) History of lung surgery History of stem cell transplant (2005) S/P PICC central line placement Social History Smoking Status: Former smoker second hand exposure: Yes alcohol intake: never substance use type: marijuana caffeine: Yes what type of physical activity do you participate in: walking and bicycling frequency: 3-4 times per week ROS ROS ED Review of Systems ROS Unobtainable: other Constitutional Constitutional ED: Reports lethargy; Denies chills, fever(s), sweats or weight loss Eyes Eyes: Denies blurry vision, change in vision or diplopia ENT ENT ED: Denies rhinorrhea or sore throat Cardiovascular Cardiovascular: Reports chest pain; Denies orthopnea or racing heartbeat Respiratory/Chest Respiratory/Chest: Denies cough, dyspnea, dyspnea on exertion, orthopnea or sputum Gastrointestinal Gastrointestinal: Denies abdominal pain, diarrhea, nausea or vomiting Genitourinary Genitourinary ED: Denies dysuria, hematuria or urinary frequency Musculoskeletal Musculoskeletal: Reports other Details: Left shoulder pain, right leg pain ; Denies arthralgias, back pain, myalgias or neck pain Integumentary Denies abscess, Abrasions or rash Neurologic Neurologic: Denies headache(s) or weakness Psychiatric Psychiatric: Denies anxiety, depression or suicidal thoughts Endocrine Endocrinology: Denies polydipsia, polyphagia or polyuria Hematologic/Lymphatic Hematologic/Lymphatic: Denies easy bleeding, easy bruising or lymphadenopathy Allergic/Immunologic Allergic/Immunologic ED: Denies mouth swelling, tongue swelling or urticaria EXAM Physical Exam Const Vital Signs: 03/28/23 10:58 Temperature 97.6 F L Temperature Source Temporal Pulse Rate 88 Respiratory Rate 12 Blood Pressure 166/88 H Blood Pressure Mean 114 Pulse Ox 92 Oxygen Delivery Method Room Air Positive well nourished and well developed General Appearance ED: well developed and NAD HEENT Reports TM's clear and moist mucous membranes normocephalic and atraumatic; Negative for trauma or tenderness Tympanic Membrane ED: Yes TM's clear Eyes PERRL and EOMs intact bilaterally General Eye ED: Negative for pale conjunctiva or scleral icterus Neck no lymphadenopathy, supple and no JVD General: Negative for tenderness Chest Wall inspection of chest normal and palpation of chest normal Chest: Negative for tenderness Resp normal respiratory effort and clear to auscultation bilaterally Effort and Inspection: Negative for respiratory distress or pain with movement Auscultation: Negative for rhonchi, wheezes or diminished lung sounds Cardio regular rate, regular rhythm, S1 normal heart sound, S2 normal heart sound and no murmurs Peripheral Pulses: pulses 2+ throughout GI normal to inspection, nondistended, normoactive bowel sounds, soft to palpation, non-tender, non-distended and no masses Back/Spine no CVA tenderness and no thoracic nor lumbar tenderness Extremity normal to inspection Extremity Narrative: Evaluation of the left shoulder reveals no erythema or soft tissue swelling. He has normal range of motion and its essentially painless. Neurovascular intact distally. Right leg-patient does have ecchymosis and bruising to the medial aspect of the right thigh from the groin down to the medial aspect of the knee. Evaluation of the knee reveals no effusion. No significant tenderness on exam. He has good range of motion flexion extension of the knee. He is neurovascular intact distally. General Extremety ED: Negative for edema General Extremity: Negative for edema Neuro oriented x3, CN's II-XII intact bilaterally, no sensory deficits noted and gait normal Sensorium / Orientation: awake, alert, oriented to person, oriented to place and oriented to time Motor Exam: strength 5/5 throughout and strength abnormal Psych mental status grossly normal Skin no rashes or lesions noted and no wounds MDM MDM MDM Narrative Medical decision making narrative: Patient present once with with concern for infection in his shoulder. Patient also with pain in his right leg without injury or trauma. EKG obtained arrival shows sinus rhythm with a ventricular rate of 84 bpm with no acute ST segment changes noted. CBC with differential showed a normal white count of 9.9 with hemoglobin 16 and platelet count of 264. Chemistries unremarkable. Troponin normal at 26. Sed rate was slightly elevated 24 and CRP was 23. Clinically I do not feel patient has a septic joint of his shoulder as he is able to move it without any pain. He is currently on doxycycline and he is advised to continue on that. I did obtain a CTA of the right lower extremity given the swelling and discoloration and this was read by radiology as a hypodense area in the posterior muscle groups of the thigh measuring 3 x 2.1 cm and etiology of this is unclear. I spoke with the radiologist and it was unclear if this was a mass or a hematoma at the end of resorption potentially but may need further work-up such as possibly MRI. I discussed these results with patient and will refer him to orthopedics for follow-up as he may require further imaging such as MRI or biopsy of the area potentially. I do not feel patient is having acute coronary syndrome. I do not feel he has a septic joint of the shoulder. Lab Data Attestation: I reviewed the patient's lab results. Labs: Laboratory Results - last 24 hr 03/28/23 12:19 WBC 9.9 RBC 4.87 Hgb 16.3 Hct 48.0 MCV 98.6 H MCH 33.5 H MCHC 34.0 RDW Std Deviation 61.5 H RDW Coeff of Elisa 17.0 H Plt Count 264 MPV 9.8 Immature Gran % (Auto) 0.300 Neut % (Auto) 70.8 H Lymph % (Auto) 15.2 L [place] % (Auto) 11.5 H Eos % (Auto) 1.8 Baso % (Auto) 0.4 Absolute Neuts (auto) 7.0 Absolute Lymphs (auto) 1.51 Nucleated RBC % 0 ESR 24 H Sodium 140 Potassium 4.0 Chloride 106 Carbon Dioxide 32.0 Anion Gap 2 L BUN 17 Creatinine 0.59 L Estim Creat Clear Calc 129.58 Est GFR (MDRD) Af Amer 177 Est GFR (MDRD) Non-Af 147 BUN/Creatinine Ratio 28.7 H Glucose 128 H Calcium 8.8 Troponin I High Sens 26 C-React Prot Ext Range 23.30 H Radiography Diagnostic Testing: Clinical Impression(s) from Imaging Studies Lower Extremity CTA 03/28/23 14:00 IMPRESSION: 3 cm x 2.1 cm hypodensity in the posterior-most group of the proximal thigh. No evidence of hemorrhage. Electronically Signed: Ash Montaño MD at 14:26 EDT , Discharge Plan Triage Chief Complaint: Chest Pain Other Complaint: Shortness of Breath Weakness ED Provider: Julio César Hennessy Dx/Rx/DC Orders Clinical Impression: Acute pain of left shoulder, Leg pain, right, Muscle mass of lower extremity Instructions: ED Chest Pain, Uncertain Cause, ED Pain, Acute, Uncertain Cause, ED Shoulder Pain, Uncertain Cause Prescriptions: No Action hydromorphone 2 mg tablet 4 mg PO Q3H PRN (Reason: Pain) Patient Comments: 1-2 tabs PO Q4H PRN pantoprazole [Protonix] 40 mg tablet,delayed release (DR/EC) 40 mg PO QAM Marijuana Gummies 1 tab PO QHS aspirin [Adult Aspirin Regimen] 81 mg tablet,delayed release (DR/EC) 81 mg PO DAILY etodolac 400 mg tablet 400 mg PO BID tadalafil 5 mg tablet 5 mg PO DAILY Hold Instructions: post AVR hydrocortisone [Cortef] 5 mg tablet 10 mg PO BID Rx Instructions: 15 mg am and 10 mg in pm albuterol sulfate [ProAir HFA] 90 mcg/actuation HFA aerosol inhaler 2 puff INHALATION Q6H PRN (Reason: shortness of breath or wheezing) Qty: 18 11RF ipratropium-albuterol 0.5 mg-3 mg(2.5 mg base)/3 mL solution for nebulization 3 ml inhalation Q4H PRN (Reason: shortness of breath or wheezing) Qty: 180 11RF metoprolol succinate 25 mg tablet extended release 24 hr 25 mg PO DAILY Qty: 90 3RF ondansetron 4 MG tablet 4 mg PO Q8H PRN PRN (Reason: Nausea) testosterone cypionate 100 mg/mL oil 100 mg IM QWEEK Rx Instructions: do not start until 10/08/21 triamcinolone acetonide 1 APPLIC ointment 1 applic topical BID PRN (Reason: Rash/Topical Irritation) Rx Instructions: apply to rash on face atorvastatin [Lipitor] 10 mg tablet 10 mg PO DAILY Qty: 90 4RF montelukast 10 mg tablet 10 mg PO QPM Qty: 30 11RF Trelegy Ellipta 100-62.5-25 mcg blister with device 1 inh INHALATION DAILY Qty: 60 11RF Primary Care Provider: Lolly Meyer Referrals: Lolly Meyer MD [Primary Care Provider] - 3-5 Days Activity Restrictions/Additional Instructions: Follow-up with orthopedics regarding the abnormality found in the muscles of the right thigh to rule out mass. You may need further imaging as possibly MRI or possible biopsy of the area. Disposition Disposition: Home, Self Care
[2023-03-28 12:42] LABS: Absolute Lymphocyte Count 1.51 X10^3/uL (0.83-4.51); Basophil# 0.04 X10^3/uL; Basophil% 0.4 % (0-1); Eosinophil# 0.18 X10^3/uL; Eosinophils% 1.8 % (0-5); Hemoglobin 16.3 g/dL (13.0-16.5); Lymphocyte # 1.51 X10^3/ul (0.83-4.51); Lymphocyte % 15.2 % (19-41); Mean Corpuscular Hgb 33.5 pg (27.0-32.0); Mean Corpuscular Volume 98.6 fL (80-94); Mean Platelet Vol. 9.8 fl (6.2-12.0); Monocyte# 1.14 X10^3/uL; Monocyte% 11.5 % (0-10); NRBC Flagged by Analyzer 0 % (0-5); Neutrophil # 7.02 X10^3/uL (2.7-7.7); Neutrophil % 70.8 % (47-70); Platelet Count 264 K/mm3 (150-450); RBC Distribution Width SD 61.5 fl (35.1-43.9); Red Blood Count 4.87 M/mm3 (4.6-6.2); White Blood Count 9.9 K/mm3 (4.4-11.0)
[2023-03-28 12:44] LABS: Erythrocyte Sedimentation Rate 24 mm/hr (0-20)
[2023-03-28 13:14] LABS: Anion Gap 2 (5-15); BUN 17 mg/dL (7-18); BUN/Creat Ratio 28.7 RATIO (10-20); Calcium,Total 8.8 mg/dL (8.5-10.1); Chloride 106 mmol/L (98-107); Creatinine, Serum 0.59 mg/dL (0.70-1.30); EST Glomerular Filtration Rate 147 mL/min (>60); Est Glom Filt Rate - Afr Amer 177 mL/min (>60); Estimated Creatinine Clearance 129.58 ml/min; Glucose 128 mg/dL (74-106); Sodium Level 140 mmol/L (136-145); Troponin-I HS 26 pg/mL (3.0-78.0)
--- NOTE | 2023-03-28 14:00 | CT_ITS ---
STUDY: CTA OF THE ABDOMINAL AORTA AND BILATERAL LOWER EXTREMITIES REASON FOR EXAM: Male, 62 years old. Right leg pain/ thigh discoloration/ hematoma RADIATION DOSAGE (If Supplied By Facility): CTDIvol = ( 8.68 ) mGy, DLP = ( 939.24 ) mGycm TECHNIQUE: Axial CT angiography multi-detector data acquisition was obtained from the iliac crests to the proximal leg following intravenous administration of IV 100mL [id number]-[id number]. Axial images and MIP images were reconstructed from the axial data set. Post-processing of the angiographic images was performed, with multiplanar reformation and 3D reconstruction. Individualized dose optimization techniques were used for this CT. TECHNICAL QUALITY: Good COMPARISON: None. Descriptors of Narrowing: None (0%) Mild (< 50%) Moderate (50-70%) Severe (70-90%) Subtotal/Total Occlusion (90-100%) Non-Evaluable (technically non-diagnostic FINDINGS: Abdominal aorta: Nonstenotic atherosclerotic plaque formation. Celiac and superior mesenteric arteries: No demonstrated narrowing. Right common iliac artery: Atheromatous plaque formation. Right external iliac artery: Atherosclerotic plaque formation. Right internal iliac artery: No demonstrated narrowing. Left common iliac artery: No demonstrated narrowing. Left external iliac artery: No demonstrated narrowing. Left internal iliac artery: No demonstrated narrowing. RIGHT LOWER EXTREMITY Right common femoral artery: No demonstrated narrowing. Right profundus femoris: No demonstrated narrowing. Right superficial femoral: No demonstrated narrowing. Right popliteal artery: No demonstrated narrowing. Right tibioperoneal trunk: No demonstrated narrowing. Right anterior tibial artery: No demonstrated narrowing. Right posterior tibial artery: No demonstrated narrowing. Right peroneal artery: No demonstrated narrowing. LEFT LOWER EXTREMITY Left common femoral artery: Atherosclerotic plaque formation. Prostatic enlargement with indentation at the bladder base. There is a 3 cm x 2.1 cm hypodensity in the posterior muscle group of the proximal thigh. No evidence of a hemorrhage. The bony structures are unremarkable. CT/CTA LWR EXTR W/O & W/DYE IMPRESSION: 3 cm x 2.1 cm hypodensity in the posterior-most group of the proximal thigh. No evidence of hemorrhage. Electronically Signed: Ash Montaño MD at 14:26 EDT ,
[2023-03-28 15:08] VITALS: BP 169/90; PULSE 82; RESP 16; O2SAT 99
== END 2023-03-28 15:11 | disposition home or self-care (01) ==
PROVIDERS: Emergency Provider Emergency Medicine; PCP Family Medicine; Visit Provider Emergency Medicine
DX: M25.512 Pain in left shoulder (principal); R22.41 Localized swelling, mass and lump, right lower limb; I25.10 Atherosclerotic heart disease of native coronary artery without angina pectoris; I10 Essential (primary) hypertension; E78.5 Hyperlipidemia, unspecified; Z79.899 Other long term (current) drug therapy; Z87.891 Personal history of nicotine dependence
CPT/HCPCS: 36415; 73706; 80048; 84484; 85025; 85652; 86140; 87040; 93005; 99284; Q9967; A4216

== ENCOUNTER → 2023-08-24 | Outpatient (CLI) | payer MEDICARE, SELFPAY ==
[2021-11-02 14:16] VITALS: BMI 21.6
--- NOTE | 2023-08-24 17:00 | RAD_ITS ---
STUDY: X-RAY CHESTModerate mucosal thickening and lobularity of the inner mucosa folds in the middle one third aspect of the body of the stomach is consistent with nonspecified gastritis. No masses are present. A small to moderate amount of food contents are present in the stomach. Mild REASON FOR EXAM: Male, 63 years old. SOB TECHNIQUE: PA and lateral views of the chest. COMPARISON: March 23, 2023 FINDINGS: Redemonstration of surgical suture material of the right lower lobe. Fibrotic scarring is present in the bilateral lower lobes as well. The heart is mildly enlarged but unchanged from the prior study. There is no demonstrated pleural abnormality. Sternal cerclage wires and vascular clips are present from a prior sternotomy and coronary artery bypass graft procedure (CABG). Normal mediastinum and april. There is prominence of the pulmonary hilar arteries and peripheral pulmonary arteries, consistent with congestive heart failure (CHF). There is atherosclerotic tortuosity of the aortic arch and descending thoracic aorta. There are diffuse degenerative changes of the visualized thoracic spine. Normal visualized ribs, clavicles, and shoulders. There is no demonstrated abnormality of the visualized soft tissue structures of the upper abdomen. RAD/Chest PA and Lateral IMPRESSION: Degenerative changes, as described above. No demonstrated acute cardiopulmonary process. Electronically Signed: Charan Garibay MD at 18:12 EST ,
[2023-08-24 17:38] LABS: Mean Corp Hgb Conc 33.2 g/dL (32-36); Mean Corpuscular Hgb 32.3 pg (27.0-32.0); Mean Corpuscular Volume 97.1 fL (80-94); Mean Platelet Vol. 10.1 fl (6.2-12.0); Platelet Count 192 K/mm3 (150-450); RBC Distribution Width CV 17.4 % (11.6-14.6); RBC Distribution Width SD 59.5 fl (35.1-43.9); Red Blood Count 5.86 M/mm3 (4.6-6.2); White Blood Count 9.4 K/mm3 (4.4-11.0)
[2023-08-24 17:40] LABS: Hematocrit 56.9 % (40-54)
[2023-08-24 18:15] LABS: Scan Indicated on CBC? Y/N YES- FLAGS NOTED
[2023-08-24 18:21] LABS: ALB/GLOB Ratio 0.9 RATIO (0.9-2.4); AST(SGOT) 44 U/L (15-37); Alanine Aminotransfer ALT/SGPT 60 U/L (16-61); Albumin, Serum 3.6 g/dL (3.2-5.0); Alkaline Phosphatase 103 U/L (45-117); Anion Gap 5 (5-15); BUN 13 mg/dL (7-18); BUN/Creat Ratio 19.8 RATIO (10-20); Calcium,Total 8.7 mg/dL (8.5-10.1); Chloride 105 mmol/L (98-107); Creatinine, Serum 0.66 mg/dL (0.70-1.30); EST Glomerular Filtration Rate 130 mL/min (>60); Est Glom Filt Rate - Afr Amer 157 mL/min (>60); Glucose 107 mg/dL (74-106); Protein, Total 7.6 g/dL (6.4-8.2); Sodium Level 140 mmol/L (136-145); Thyroid Stim Hormone (TSH) 0.96 uIU/mL (0.358-3.74)
[2023-08-24 18:22] LABS: Hemoglobin 18.9 g/dL (13.0-16.5)
[2023-08-25 13:02] LABS: Pathologist Review Reviewed
== END | disposition home or self-care (01) ==
LOC: MTLAB 16:57
PROVIDERS: PCP Family Medicine; Referring Provider Nurse Practitioner Family; Visit Provider Nurse Practitioner Family
DX: R53.83 Other fatigue (principal); J96.11 Chronic respiratory failure with hypoxia
CPT/HCPCS: 36415; 71046; 80053; 84443; 85027

== ENCOUNTER → 2023-08-26 | Outpatient (CLI) | payer MEDICARE, SELFPAY ==
[2021-11-02 14:16] VITALS: BMI 21.6
--- OUTSIDE RECORDS SUMMARY | 2023-08-26 14:31 | XMS RPT_ITS | CCD ---
Author Name Unknown Address [address] [place] [address] Organization [facility] Care Team Providers Care Counseling Services Manager Name Role Phone TOM CAMPOS Unavailable Unavailable TOM CAMPOS Unavailable Unavailable SALO MCFADDEN Attending Unavailable SALO MCFADDEN Primary Care Unavailable SALO MCFADDEN Admitting Unavailable Lolly Meyer Primary Care Provider Lukasz Olsen RN Unavailable Jeovanny Montes MD Unavailable Teo Cole MD Unavailable Milagro Hyman Unavailable Michael Mensah MD Unavailable Shivani Houser RN Unavailable Lolly Meyer Primary Care Provider Lukasz Olsen RN Unavailable Jeovanny Montes MD Unavailable Teo Cole MD Unavailable Milagro Hyman Unavailable Michael Mensah MD Unavailable Shivani Houser RN Unavailable Lolly Meyer Primary Care Provider Lukasz Olsen RN Unavailable Jeovanny Montes MD Unavailable Teo Cole MD Unavailable Milagro Hyman Unavailable Rodrick MD, Michael Unavailable Mik ROSA, Shivani Unavailable Rodrick SALINAS, Michael Unavailable Mik ROSA, Shivani Unavailable [phone] Che ROSA, Ester Unavailable Unavailable JOLLIFF, LOLLY SLIM Primary Care Unavailable HAKAN ARMIJO Attending Unavailable ARTUROJEOVANNY Tucker Referring Unavailable JOLLIFF, LOLLY SLIM Primary Care Unavailable JOLLIFF, LOLLY SLIM Primary Care Unavailable LI, MINGSI Referring Unavailable COLE, TEO A Attending Unavailable ARTURO, JEOVANNY Referring Unavailable JOLLIFF, LOLLY SLIM Primary Care Unavailable ARTURO, JEOVANNY Attending Unavailable ARTURO, JEOVANNY Referring Unavailable JOLLIFF, LOLLY SLIM Primary Care Unavailable LI, TEJALI Referring Unavailable JOLLIFF, LOLLY SLIM Primary Care Unavailable JOSEFINA MAHAN Attending Unavailable COLE, TEO A Referring Unavailable JOLLIFF, LOLLY SLIM Primary Care Unavailable COLE, TEO A Attending Unavailable JOLLIFF, LOLLY SLIM Primary Care Unavailable COLE, TEO A Attending Unavailable COLE, TEO A Referring Unavailable JOLLIFF, LOLLY SLIM Primary Care Unavailable JOLLIFF, LOLLY SLIM Primary Care Unavailable COLE, TEO A Attending Unavailable Allergies Allergy Classification Reported Allergen(s) Allergy Type Date of Onset Reaction(s) Facility (19 sources) DULoxetine; Translations: [DULOXETINE] Drug Allergy 5 Other: See Comments [facility] Repository (19 sources) pregabalin; Translations: [PREGABALIN] Drug Allergy 4 Other: See Comments [facility] Repository (18 sources) Vancomycin; Translations: [VANCOMYCIN] Drug Allergy 9 Rash [facility] Medications Current Medications Medication Drug Class(es) Dates Sig (Normalized) Sig (Original) ALPRAZolam 0.5 mg oral tablet (16 sources) Benzodiazepine Start: 08-04-2023 End: 11-02-2023 take 1 tablet by mouth at bedtime as needed ALPRAZolam (XANAX) 0.5 mg tablet Indications: Insomnia, unspecified type Take 1 tablet by mouth at bedtime as needed for sedation for up to 90 days. 30 tablet 2 08/04/2023 11/02/2023 Active Completed/Discontinued Medications Medication Drug Class(es) Dates Sig (Normalized) Sig (Original) acetaminophen 325 mg oral tablet (17 sources) Start: 09-07-2021 take 2 tablets by mouth every four hours as needed acetaminophen (TYLENOL) 325 mg tablet Take 2 tablets by mouth every 4 hours as needed for pain (for mild pain). 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] Onset: 01-28-2014 01-28-2014 Chronic Complication of device; implant or graft (20 sources) Fnmxj-ilkllk-jrci disease, unspecified; Translations: [Chronic izlta-eeprfd-moug disease] Onset: 09-23-2008 Chronic Congestive heart failure; nonhypertensive (17 sources) Heart failure with reduced ejection fraction; Translations: [Unspecified systolic (congestive) heart failure] Onset: 04-30-2019 05-01-2019 Chronic Heart valve disorders (17 sources) Aortic incompetence, non-rheumatic ; Translations: [Nonrheumatic aortic (valve) insufficiency] Onset: 04-01-2021 09-05-2021 Chronic Immunity disorders (17 sources) Immunodeficiency disorder; Translations: [Immunodeficiency, unspecified] Onset: 11-13-2012 Chronic Malaise and fatigue (3 sources) Cancer-related fatigue; Translations: [Neoplastic (malignant) related fatigue] Episodic Non-Hodgkin`s lymphoma (19 sources) B-cell lymphoma (clinical); Translations: [Small cell B-cell lymphoma, lymph nodes of multiple sites] Onset: 11-16-2005 Chronic Non-Hodgkin`s lymphoma (1 source) History of non-Hodgkins lymphoma; Translations: [Personal history of non-Hodgkin lymphomas] Episodic Osteoarthritis (17 sources) Arthritis; Translations: [Unspecified osteoarthritis, unspecified site] Onset: 04-28-2019 04-28-2019 Chronic Other aftercare (4 sources) Under care of palliative care physician; Translations: [Encounter for palliative care] Episodic Other aftercare (2 sources) Drug therapy finding; Translations: [buttermilk drier operator (current) use of opiate analgesic] Episodic Other connective tissue disease (4 sources) Spasm; Translations: [Other muscle spasm] Episodic Other ear and sense organ disorders (1 source) Asymmetrical sensorineural hearing loss; Translations: [Sensorineural hearing loss, bilateral] Chronic Other ear and sense organ disorders (2 sources) Otorrhea of right ear; Translations: [Otorrhea, right ear] Episodic Other ear and sense organ disorders (1 source) Impaired auditory discrimination; Translations: [Other abnormal auditory perceptions, right ear] Episodic Other ear and sense organ disorders (1 source) Otorrhea; Translations: [Otorrhea, right ear] Episodic Other nervous system disorders (4 sources) Chronic pain after cancer treatment; Translations: [Neoplasm related pain (acute) (chronic)] Chronic Residual codes; unclassified (1 source) H/O: tissue/organ recipient; Translations: [Bone marrow transplant status] Onset: 09-23-2008 05-03-2019 Chronic Residual codes; unclassified (16 sources) History of bone marrow transplant; Translations: [Bone marrow transplant status] Onset: 09-23-2008 05-03-2019 Chronic Residual codes; unclassified (1 source) Bone marrow transplant status; Translations: [Status post bone marrow transplant (HCC)] Onset: 05-03-2019 Chronic Residual codes; unclassified (1 source) Insomnia; Translations: [Insomnia, unspecified] 08-04-2023 Episodic Respiratory failure; insufficiency; arrest (adult) (17 sources) Chronic hypoxemic respiratory failure; Translations: [Chronic respiratory failure with hypoxia] Onset: 04-29-2019 09-01-2021 Chronic Past or Other Problems Problem Classification Problem Date Documented Date Episodic/Chronic Administrative/social admission (20 sources) Discharge status; Translations: [Encounter for administrative examinations, unspecified] Onset: 08-31-2021 08-31-2021 Episodic Complications of surgical procedures or medical care (17 sources) Postoperative hypertension; Translations: [Postprocedural hypertension] Onset: 05-03-2019 09-05-2021 Episodic Fluid and electrolyte disorders (20 sources) Disorder of electrolytes; Translations: [Other disorders of electrolyte and fluid balance, not elsewhere classified] Onset: 04-30-2019 05-01-2019 Episodic Immunizations and screening for infectious disease (17 sources) Culture positive for methicillin resistant Staphylococcus aureus; Translations: [Carrier or suspected carrier of Methicillin resistant Staphylococcus aureus] Onset: 04-29-2019 05-03-2019 Episodic Infective arthritis and osteomyelitis (except that caused by tuberculosis or sexually transmitted disease) (17 sources) Infective arthritis; Translations: [Pyogenic arthritis, unspecified] Onset: 04-28-2019 05-03-2019 Episodic Other aftercare (17 sources) Post-discharge follow-up; Translations: [Encounter for follow-up examination after completed treatment for conditions other than malignant neoplasm] Onset: 11-12-2012 05-04-2019 Episodic Other aftercare (17 sources) Long-term current use of systemic steroid; Translations: [buttermilk drier operator (current) use of systemic steroids] Onset: 09-01-2021 09-04-2021 Episodic Other aftercare (1 source) senior care (current) use of opiate analgesic; Translations: [Chronic use of opiate for therapeutic purpose] Onset: 03-14-2023 Episodic Other ear and sense organ disorders (1 source) Otorrhea, right ear; Translations: [Otorrhea of right ear] Onset: 08-25-2022 Episodic Other lower respiratory disease (17 sources) Restrictive lung disease; Translations: [Other disorders of lung] Onset: 01-28-2014 01-28-2014 Episodic Other lower respiratory disease (17 sources) Respiratory insufficiency; Translations: [Other abnormalities of breathing] Onset: 04-30-2019 09-05-2021 Episodic Other nervous system disorders (17 sources) Postoperative pain ; Translations: [Other acute postprocedural pain] Onset: 09-01-2021 09-05-2021 Episodic Other screening for suspected conditions (not mental disorders or infectious disease) (17 sources) Lung function restrictive; Translations: [Abnormal results of pulmonary function studies] Onset: 05-31-2016 05-31-2016 Episodic Other skin disorders (17 sources) Eruption; Translations: [Rash and other nonspecific skin eruption] Onset: 05-02-2019 05-03-2019 Episodic Residual codes; unclassified (17 sources) Pain; Translations: [Pain, unspecified] Onset: 07-06-2013 05-03-2019 Episodic Results Test Name Value Interpretation Reference Range Facil ity Vital Signs Date Time Vital Sign Value Performing Clinician Erick reeder 08-04-2023 13:30-0500 Body temperature 99.19 [degF] Teo Cole MD Work Phone: [facility] 08-04-2023 13:30-0500 Body weight 72.2 kg Teo Cole MD Work Phone: [facility] 08-04-2023 13:30-0500 Diastolic blood pressure 95 mm[Hg] Teo Cole MD Work Phone: [facility] 08-04-2023 13:30-0500 Heart rate 91 /min Teo Cole MD Work Phone: [facility] 08-04-2023 13:30-0500 Respiratory rate 18 /min Teo Cole MD Work Phone: [facility] 08-04-2023 13:30-0500 SaO2% (BldA) [Mass fraction] 93 % Teo Cole MD Work Phone: [facility] 08-04-2023 13:30-0500 Systolic blood pressure 161 mm[Hg] Teo Cole MD Work Phone: [facility] 03-17-2023 11:11-0400 Diastolic blood pressure 90 mm[Hg] Teo Cole MD Work Phone: [facility] 03-17-2023 11:11-0400 Systolic blood pressure 170 mm[Hg] Teo Cole MD Work Phone: [facility] 03-17-2023 11:10-0400 Body temperature 98.01 [degF] Teo Cole MD Work Phone: [facility] 03-17-2023 11:10-0400 Body weight 69.67 kg Teo Cole MD Work Phone: [facility] 03-17-2023 11:10-0400 Heart rate 85 /min Teo Cole MD Work Phone: [facility] 03-17-2023 11:10-0400 Respiratory rate 20 /min Teo Cole MD Work Phone: [facility] 03-17-2023 11:10-0400 SaO2% (BldA) [Mass fraction] 95 % Teo Cole MD Work Phone: [facility] 12-16-2022 11:20-0400 Body temperature 98.2 [degF] Teo Cole MD Work Phone: [facility] 12-16-2022 11:20-0400 Body weight 69.99 kg Teo Cole MD Work Phone: [facility] 12-16-2022 11:20-0400 Diastolic blood pressure 86 mm[Hg] Teo Cole MD Work Phone: [facility] 12-16-2022 11:20-0400 Heart rate 78 /min Teo Cole MD Work Phone: [facility] 12-16-2022 11:20-0400 Respiratory rate 18 /min Teo Cole MD Work Phone: [facility] 12-16-2022 11:20-0400 Systolic blood pressure 160 mm[Hg] Teo Cole MD Work Phone: [facility] 12-18-2021 10:21-0400 Body height 177.6 cm Jeovanny Montes MD Work Phone: [facility] 12-18-2021 10:21-0400 Body temperature 97.81 [degF] Jeovanny Montes MD Work Phone: [facility] 12-18-2021 10:21-0400 Body weight 69.81 kg Jeovanny Montes MD Work Phone: [facility] 12-18-2021 10:21-0400 Diastolic blood pressure 83 mm[Hg] Jeovanny Montes MD Work Phone: [facility] 12-18-2021 10:21-0400 Heart rate 74 /min Jeovanny Montes MD Work Phone: [facility] 12-18-2021 10:21-0400 Respiratory rate 16 /min Jeovanny Montes MD Work Phone: [facility] 12-18-2021 10:21-0400 SaO2% (BldA) [Mass fraction] 93 % Jeovanny Montes MD Work Phone: [facility] 12-18-2021 10:21-0400 Systolic blood pressure 153 mm[Hg] Jeovanny Montes MD Work Phone: [facility] Encounters Encounter Date Encounter Type Care Provider Facility Start: 08-04-2023 End: 08-04-2023 ambulatory TEO COLE Facility:[facility] Start: 08-04-2023 End: 08-04-2023 ambulatory Teo Cole MD Work Phone: Palliative Medicine Procedures Date Procedure Procedure Detail Performing Clinician Start: 08-25-2022 Ct orbit sella/post fossa/ear w/o contrast matrl Hakan Armijo MD Work Phone: Start: 06-04-2021 Adult depression screening assessment Jeovanny Montes MD Work Phone: Start: 04-01-2020 Lipid 1996 panel - S risa or Plasma Ct (I-Stat) Work Phone: Start: 04-28-2019 Antibody screen Plan of Treatment Date Care Activity Detail Author Start: 07-03-2030 Urine microalbumin profile [facility] Start: 08-25-2025 DIABETES SCREEN DIABETES SCREEN [facility] Start: 08-25-2025 Diabetes Screening Diabetes Screening [facility] Start: 04-01-2025 Lipid 1996 panel - Serum or Plasma Lipid Screening [facility] Start: 04-01-2025 LIPID SCREEN LIPID SCREEN [facility] Start: 12-17-2024 DIABETES SCREEN DIABETES SCREEN [facility] Start: 04-29-2023 Covid-19 Vaccine ( season) Covid-19 Vaccine () [facility] Start: 04-29-2023 Influenza vaccination [facility] Start: 02-22-2023 End: 04-24-2023 PAIN PANEL, UR QUANT PAIN PANEL, UR QUANT Lab Routine Chronic use of opiate for therapeutic purpose Expected: 02/22/2023, Expires: 04/24/[address] [facility] Work Phone: Immunizations Immunization Date Immunization Notes Care Provider Fa cility 11-04-2020 COVID-19 vaccine (STEVEN) Jeovanny Montes MD Work Phone: [facility] Work Phone: 07-03-2020 tetanus toxoid, redu aayush diphtheria toxoid, and acellular pertussis vaccine, adsorbed Hakan Armijo MD Work Phone: [facility] 06-12-2020 influenza, injectabl e, quadrivalent, preservative free Jeovanny Montes MD Work Phone: [facility] Work Phone: 06-12-2020 influenza virus vacc ine, unspecified formulation Ct (I-Stat) Work Phone: [facility] 06-12-2019 influenza, injectabl e, quadrivalent, preservative free Jeovanny Montes MD Work Phone: [facility] 08-31-2016 influenza, injectabl e, quadrivalent, preservative free Jeovanny Montes MD Work Phone: [facility] 06-23-2015 influenza, injectabl e, quadrivalent, preservative free Jeovanny Montes MD Work Phone: [facility] 06-13-2014 influenza nasal, unspecified formulation Hakan Armijo MD Work Phone: [facility] 06-13-2014 influenza, seasonal, injectable Jeovanny Montes MD Work Phone: [facility] 08-13-2013 haemophilus influenz ae type b vaccine, HbOC conjugate Jeovanny Montes MD Work Phone: [facility] 08-13-2013 hepatitis A vaccine, unspecified formulation Jeovanny Montes MD Work Phone: [facility] 08-13-2013 hepatitis B vaccine, adult dosage Jeovanny Montes MD Work Phone: [facility] 08-13-2013 pneumococcal polysaccharide vaccine, 23 valent Jeovanny Montes MD Work Phone: [facility] 07-09-2013 influenza virus vacc ine, unspecified formulation Jeovanny Montes MD Work Phone: [facility] 07-09-2013 pneumococcal conjuga te vaccine, 13 valent Jeovanny Montes MD Work Phone: [facility] 05-05-2011 haemophilus influenz ae type b vaccine, conjugate unspecified formulation Hakan Armijo MD Work Phone: [facility] 05-05-2011 hepatitis B vaccine, pediatric or pediatric/adolescent dosage Hakan Armijo MD Work Phone: [facility] 05-05-2011 influenza virus vacc ine, whole virus Hakan Armijo MD Work Phone: [facility] 05-05-2011 tetanus toxoid, redu aayush diphtheria toxoid, and acellular pertussis vaccine, adsorbed Hakan Armijo MD Work Phone: [facility] Payers Date Payer Category Payer Unknown [id number] 2019 Unknown ANTHEM BLUE CROS S AND BLUE SHIELD ANTHEM MEDIBLUE ACCESS [id number] 2019-Present [phone] [address] [place] [address] PPO [id number] 2019 Unknown ANTHEM BLUE CROS S AND BLUE SHIELD ANTHEM MEDIBLUE ACCESS [id number] 2019-Present [phone] [address] [place] [address] PPO [id number] 1960 Unknown [id number] Social History Date Type Detail Facility Start: 06-21-2018 End: 08-05-2022 Tobacco smoking status NHIS Ex-smoker [facility] Work Phone: End: 08-29-2017 History of tobacco use Current smoker [facility] Work Phone: End: 08-29-2017 History of tobacco use Cigar Smoker [facility] Work Phone: Start: 06-21-2018 End: 08-05-2022 Tobacco use and exposure Smokeless tobacco non-user [facility] Work Phone: Start: 11-02-2021 End: 03-17-2023 Alcohol intake Current drinker of alcohol (finding) [facility] Start: 11-02-2021 End: 03-17-2023 Alcohol intake [facility] Start: 04-23-2021 End: 08-05-2022 Tobacco Comment pt smoked cigar every day [facility] Start: 1960 Sex Assigned At Not on file [facility] Start: 12-08-2021 End: 12-18-2021 Exposure to SARS-CoV-2 (event) Not sure [facility] Start: 05-21-2022 End: 05-31-2022 Exposure to SARS-CoV-2 (event) Unable to assess [facility] Start: 08-20-2022 End: 03-17-2023 Tobacco use panel [facility] Adult Depression Screening Assessment 0 [facility] Medical Equipment Procedure Code Equipment Code Equipment Origin al Text Equipment Identifier Dates Valve Lyle In spiris Resilia 25mm Pericardial Aortic Bioprosthesis - [id number] Start: 09-01-2021 Clinical Notes 09-01-2021 to 08-04-2023 Teo Cole MD - 08/04/2023 2:07 PM Josefina Manriquez RN - 08/04/2023 1:30 PM Suzy Pepper LPN - 03/17/2023 11:07 AM Teo Jamil MD - 03/17/2023 11:04 AM EDTPatient Instructions Note Date & Type Note Facility 08-04-2023 Note HNO ID: [id number] Author: Teo Cole MD Service: ? 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 He was treated with IVIG which seemed to help the pain. He also has had botulinum toxin injection for muscle spasms with good relief. He also had complications of septic shock with respiratory failure complicated by a systolic arrest in 10/2012 and hypoxemic pneumonitis 03/2016. He has been diagnosed with Sleep Apnea and uses nocturnal BiPAP. S/p aortic valve replacement 09/01/2021. SH/FH: . 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 Followed by palliative medicine since outpatient consultation 07/06/13 for diffuse severe pain related to GVHD muscle cramping. INTERIM HISTORY: Last seen by palliative medicine 03/17/2023. Patient states he has been doing well since his last visit. Had a repeat Botox injection recently--has been helping with the spasms. Using Ritalin and Dilaudid sparingly for fatigue and pain respectively. Also uses Xanax as needed for insomnia intermittently. Staying active. No signs of aberrancy. Modified ESAS ([place] Symptom Assessment Scale) Information Provided By: Patient Pain: Mild Nausea: Not asked Loss of Appetite: Not asked Constipation: Not asked Shortness of Breath: Not asked Drowsiness: Not asked Tiredness: Not asked Depression: Not asked Anxiety: Not asked How you feel overall: Good Objective ECOG PERFORMANCE STATUS: 1- Restricted in physically strenuous activity. Carries out light duty. PHYSICAL EXAMINATION: Vital signs: BP 161/95 Pulse 91 Temp 37.3 ?C (99.2 ?F) (Temporal) Resp 18 Wt 72.2 kg (159 lb 2.8 oz) SpO2 93% BMI 22.89 kg/m? General Appearance: No apparent distress Skin: No rash Eyes: Normal HENT: Atraumatic Neck: Grossly normal Lungs: Unlabored CV: Not examined Abdomen: Nondistended : Not examined Musculoskeletal: No gross deformity Lymphatics: Not examined Neuro: Delirium absent Psych: Affect congruent with mood DATA: Diagnostic tests reviewed for today's visit: Most recent labs and imaging results. CrCl cannot be calculated (Patient's most recent lab result is older than the maximum 180 days allowed.). Opioid Management: Yes Indication for Opioid Prescribing: Chronic pain following cancer treatment ORT-OUD Score: Informed consent for chronic opiate therapy obtained and written pain agreement: On file (03/03/2021) Naloxone offered?: Previously prescribed 05/04/2019 Course of treatment, patient's response and adherence to the prescribed treatment plan reviewed, including non-pharmacological and non-opioid treatment modalities? Yes Have any complications or exacerbations of the underlying condition causing the pain been reviewed? Yes How much does pain impede patient?s ability to engage in work or other purposeful activities, interfere with your activities of daily living, physical activity, or quality of your family life and social activities? Significantly OARRS checked?: Yes, no abberancy Aberrancies in pain panel? No Any aberrant drug related behaviors since last visit? No Rationale for continuing opioid treatment: Improved pain and function based on an ongoing functional assessment Benefits of Opioid Therapy outweigh risks: Yes Prescribed Morphine Equivalent Daily Dose (MEDD): Yes < 50 MEDD Urine Panel: Lab Results Component Value Date Cannabinoid Quant, Urine 108 (H) 03/14/2023 Benzoylecgonine Quant, Urine <24 03/14/2023 6-Acetylmorphine Quant, Urine <5 03/14/2023 Amphetamine Quant, Urine <5 03/14/2023 Methamphetamine Quant, Urine <8 03/14/2023 Buprenorphine Quant, Urine <20 03/14/2023 Norbuprenorphine Quant, Urine <20 03/14/2023 Methadone Quant, Urine <16 03/14/2023 EDDP Quant, Urine <6 03/14/2023 Tramadol Quant, Urine <25 03/14/2023 Desmethyltramadol Quant, Urine <20 03/14/2023 Fentanyl Quant, Urine <6 03/14/2023 Norfentanyl Quant, Urine <6 03/14/2023 Codeine Quant, Urine <11 03/14/2023 M (more content not included)... 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 He was treated with IVIG which seemed to help the pain. He also has had botulinum toxin injection for muscle spasms with good relief. He also had complications of septic shock with respiratory failure complicated by a systolic arrest in 10/2012 and hypoxemic pneumonitis 03/2016. He has been diagnosed with Sleep Apnea and uses nocturnal BiPAP. S/p aortic valve replacement 09/01/2021. SH/FH: . 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 Followed by palliative medicine since outpatient consultation 07/06/13 for diffuse severe pain related to GVHD muscle cramping. INTERIM HISTORY: Last seen by palliative medicine 03/17/2023. Patient states he has been doing well since his last visit. Had a repeat Botox injection recently--has been helping with the spasms. Using Ritalin and Dilaudid sparingly for fatigue and pain respectively. Also uses Xanax as needed for insomnia intermittently. Staying active. No signs of aberrancy. Modified ESAS ([place] Symptom Assessment Scale) Information Provided By: Patient Pain: Mild Nausea: Not asked Loss of Appetite: Not asked Constipation: Not asked Shortness of Breath: Not asked Drowsiness: Not asked Tiredness: Not asked Depression: Not asked Anxiety: Not asked How you feel overall: Good Objective ECOG PERFORMANCE STATUS: 1- Restricted in physically strenuous activity. Carries out light duty. PHYSICAL EXAMINATION: Vital signs: BP 161/95 Pulse 91 Temp 37.3 C (99.2 F) (Temporal) Resp 18 Wt 72.2 kg (159 lb 2.8 oz) SpO2 93% BMI 22.89 kg/m General Appearance: No apparent distress Skin: No rash Eyes: Normal HENT: Atraumatic Neck: Grossly normal Lungs: Unlabored CV: Not examined Abdomen: Nondistended : Not examined Musculoskeletal: No gross deformity Lymphatics: Not examined Neuro: Delirium absent Psych: Affect congruent with mood DATA: Diagnostic tests reviewed for today's visit: Most recent labs and imaging results. CrCl cannot be calculated (Patient's most recent lab result is older than the maximum 180 days allowed.). Opioid Management: Yes Indication for Opioid Prescribing: Chronic pain following cancer treatment ORT-OUD Score: Informed consent for chronic opiate therapy obtained and written pain agreement: On file (03/03/2021) Naloxone offered?: Previously prescribed 05/04/2019 Course of treatment, patient's response and adherence to the prescribed treatment plan reviewed, including non-pharmacological and non-opioid treatment modalities? Yes Have any complications or exacerbations of the underlying condition causing the pain been reviewed? Yes How much does pain impede patient s ability to engage in work or other purposeful activities, interfere with your activities of daily living, physical activity, or quality of your family life and social activities? Significantly OARRS checked?: Yes, no abberancy Aberrancies in pain panel? No Any aberrant drug related behaviors since last visit? No Rationale for continuing opioid treatment: Improved pain and function based on an ongoing functional assessment Benefits of Opioid Therapy outweigh risks: Yes Prescribed Morphine Equivalent Daily Dose (MEDD): Yes < 50 MEDD Urine Panel: Lab Results Component Value Date Cannabinoid Quant, Urine 108 (H) 03/14/2023 Benzoylecgonine Quant, Urine <24 03/14/2023 6-Acetylmorphine Quant, Urine <5 03/14/2023 Amphetamine Quant, Urine <5 03/14/2023 Methamphetamine Quant, Urine <8 03/14/2023 Buprenorphine Quant, Urine <20 03/14/2023 Norbuprenorphine Quant, Urine <20 03/14/2023 Methadone Quant, Urine <16 03/14/2023 EDDP Quant, Urine <6 03/14/2023 Tramadol Quant, Urine <25 03/14/2023 Desmethyltramadol Quant, Urine <20 03/14/2023 Fentanyl Quant, Urine <6 03/14/2023 Norfentanyl Quant, Urine <6 03/14/2023 Codeine Quant, Urine <11 03/14/2023 Morphine Quant, Urine <10 03/14/2023 Dihydrocodeine Quant, Urine <5 03/14/2023 Hydrocodone Quant, Urine <8 03/14/2023 Oxycodone Quant, Urine <10 03/14/2023 Hydromorphone Quant, Urine 714 (H) 03/14/2023 Oxymorphone Quant, Urine <5 03/14/2023 Assessment & Plan 62 year old man with history of lymphoma s/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 He has cancer related fatigue, insomnia due to pain, and anxiety. Continue hydromorphone 2-4 mg up to every 4 hours as needed for severe pain Opioid Management Agreement signed 03/03/2021. As needed naloxone was prescribed 05/04/2019. Urine Drug Screen 03/14/2023 was consistent with prescribed meds. Continue Ritalin 5 mg twice daily as needed for fatigue Continue using both Ritalin and hydromorphone sparingly to avoid developing tolerance with long-term use. Continue Xanax as needed for insomnia. Discussed that if use becomes more frequent, he should follow-up with sleep medicine given history of JUAN ALBERTO Advance care planning Existence of Advance Directives: Unknown Continuing follow-up with Oncology for GVHD Follow-up Next Visit: 3-4 months in person Teo Cole MD August 04, 2023 2:07 PM Some elements copied from my note on 03/17/2023, the elements have been updated and all reflect current decision making from today, 08/04/2023. I spent a total of 20 minutes on the date of the service which included preparing to see the patient, [id number] patient care, completing clinical documentation, obtaining and/or reviewing separately obtained history, performing a medically appropriate examination, counseling and educating the patient/family/caregiver, and ordering medications, tests, or procedures. documented in this encounter [facility] 08-04-2023 Nurse Note Additional intake questions: Has the patient had fever, nausea, vomiting, diarrhea, constipation, fatigue for > 1 week? Yes, nausea, fatigue, and SOB Does the patient have a decreased appetite? No Does patient want to see a Jewellery Designer? No (yes to any of above refer patient to schedulers for dietitian appointment) ) Does patient have any new or increased numbness or tingling of extremities? No Is patient interested in fertility information? No Does patient need any prescription refills? Yes, LIP notified Does patient have an advanced directive in place? No Electronically Signed By: Josefina Watters RN documented in this encounter [facility] 03-17-2023 Note HNO ID: [id number] Author: Teo Cole MD Service: ? 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 He was treated with IVIG which seemed to help the pain. He also has had botulinum toxin injection for muscle spasms with good relief. He also had complications of septic shock with respiratory failure complicated by a systolic arrest in 10/2012 and hypoxemic pneumonitis 03/2016. He has been diagnosed with Sleep Apnea and uses nocturnal BiPAP. S/p aortic valve replacement 09/01/2021. SH/FH: . 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 Followed by palliative medicine since outpatient consultation 07/06/13 for diffuse severe pain related to GVHD muscle cramping. INTERIM HISTORY: Last seen by palliative medicine 12/16/2022. Per PDMP, he last refilled hydromorphone 2 mg tablets #42 on 12/16/2022, and Ritalin 5 mg tablets #60 on 12/21/2022. Using hydromorphone and Ritalin on an as-needed basis, sparingly. Staying active. No signs of aberrancy. No significant side effects. Modified ESAS ([place] Symptom Assessment Scale) Information Provided By: Patient Pain: Mild Nausea: Not asked Loss of Appetite: Not asked Constipation: Not asked Shortness of Breath: Not asked Drowsiness: Not asked Tiredness: Not asked Depression: Not asked Anxiety: Not asked How you feel overall: Good Objective ECOG PERFORMANCE STATUS: 1- Restricted in physically strenuous activity. Carries out light duty. PHYSICAL EXAMINATION: Vital signs: BP 170/90 Pulse 85 Temp 36.7 ?C (98 ?F) (Temporal) Resp 20 Wt 69.7 kg (153 lb 9.6 oz) SpO2 95% BMI 22.09 kg/m? General Appearance: No apparent distress Skin: No rash Eyes: Normal HENT: Atraumatic Neck: Grossly normal Lungs: Unlabored CV: Not examined Abdomen: Nondistended : Not examined Musculoskeletal: No gross deformity Lymphatics: Not examined Neuro: Delirium absent Psych: Affect congruent with mood DATA: Diagnostic tests reviewed for today's visit: Most recent labs and imaging results. CrCl cannot be calculated (Patient's most recent lab result is older than the maximum 180 days allowed.). Opioid Management: Yes Indication for Opioid Prescribing: Chronic pain following cancer treatment ORT-OUD Score: Informed consent for chronic opiate therapy obtained and written pain agreement: On file (03/03/2021) Naloxone offered?: Previously prescribed 05/04/2019 Course of treatment, patient's response and adherence to the prescribed treatment plan reviewed, including non-pharmacological and non-opioid treatment modalities? Yes Have any complications or exacerbations of the underlying condition causing the pain been reviewed? Yes How much does pain impede patient?s ability to engage in work or other purposeful activities, interfere with your activities of daily living, physical activity, or quality of your family life and social activities? Significantly OARRS checked?: Yes, no abberancy Aberrancies in pain panel? No Any aberrant drug related behaviors since last visit? No Rationale for continuing opioid treatment: Improved pain and function based on an ongoing functional assessment Benefits of Opioid Therapy outweigh risks: Yes Prescribed Morphine Equivalent Daily Dose (MEDD): Yes < 50 MEDD Urine Panel: Lab Results Component Value Date Cannabinoid Quant, Urine 269 (H) 03/03/2021 Benzoylecognine Quant, Urine <24 03/03/2021 6-Acetylmorphine Quant, Urine <5 03/03/2021 Amphetamine Quant, Urine <5 03/03/2021 Methamphetamine Quant, Urine <8 03/03/2021 Buprenorphine Quant, Urine <20 03/03/2021 Norbuprenorphine Quant, Urine <20 03/03/2021 Methadone Quant, Urine <16 03/03/2021 EDDP Quant, Urine <6 03/03/2021 Tramadol Quant, Urine <25 03/03/2021 Desmethyltramadol Quant, Urine <20 03/03/2021 Fentanyl Quant, Urine <6 03/03/2021 Norfentanyl Quant, Urine <6 03/03/2021 Codeine Quant, Urine <11 03/03/2021 Morphine Quant, Urine <10 03/03/2021 Dihydrocodeine (more content not included)... [facility] 03-17-2023 Nurse Note Additional intake questions: Has the patient had fever, nausea, vomiting, diarrhea, constipation, fatigue for > 1 week? Yes, fatigue and Provider Notified Does the patient have a decreased appetite? No Does patient want to see a Jewellery Designer? No (yes to any of above refer patient to schedulers for dietitian appointment) ) Does patient have any new or increased numbness or tingling of extremities? Yes, hands and feet Is patient interested in fertility information? No Does patient need any prescription refills? Yes, LIP notified Does patient have an advanced directive in place? 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 He was treated with IVIG which seemed to help the pain. He also has had botulinum toxin injection for muscle spasms with good relief. He also had complications of septic shock with respiratory failure complicated by a systolic arrest in 10/2012 and hypoxemic pneumonitis 03/2016. He has been diagnosed with Sleep Apnea and uses nocturnal BiPAP. S/p aortic valve replacement 09/01/2021. SH/FH: . 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 Followed by palliative medicine since outpatient consultation 07/06/13 for diffuse severe pain related to GVHD muscle cramping. INTERIM HISTORY: Last seen by palliative medicine 12/16/2022. Per PDMP, he last refilled hydromorphone 2 mg tablets #42 on 12/16/2022, and Ritalin 5 mg tablets #60 on 12/21/2022. Using hydromorphone and Ritalin on an as-needed basis, sparingly. Staying active. No signs of aberrancy. No significant side effects. Modified ESAS ([place] Symptom Assessment Scale) Information Provided By: Patient Pain: Mild Nausea: Not asked Loss of Appetite: Not asked Constipation: Not asked Shortness of Breath: Not asked Drowsiness: Not asked Tiredness: Not asked Depression: Not asked Anxiety: Not asked How you feel overall: Good Objective ECOG PERFORMANCE STATUS: 1- Restricted in physically strenuous activity. Carries out light duty. PHYSICAL EXAMINATION: Vital signs: BP 170/90 Pulse 85 Temp 36.7 C (98 F) (Temporal) Resp 20 Wt 69.7 kg (153 lb 9.6 oz) SpO2 95% BMI 22.09 kg/m General Appearance: No apparent distress Skin: No rash Eyes: Normal HENT: Atraumatic Neck: Grossly normal Lungs: Unlabored CV: Not examined Abdomen: Nondistended : Not examined Musculoskeletal: No gross deformity Lymphatics: Not examined Neuro: Delirium absent Psych: Affect congruent with mood DATA: Diagnostic tests reviewed for today's visit: Most recent labs and imaging results. CrCl cannot be calculated (Patient's most recent lab result is older than the maximum 180 days allowed.). Opioid Management: Yes Indication for Opioid Prescribing: Chronic pain following cancer treatment ORT-OUD Score: Informed consent for chronic opiate therapy obtained and written pain agreement: On file (03/03/2021) Naloxone offered?: Previously prescribed 05/04/2019 Course of treatment, patient's response and adherence to the prescribed treatment plan reviewed, including non-pharmacological and non-opioid treatment modalities? Yes Have any complications or exacerbations of the underlying condition causing the pain been reviewed? Yes How much does pain impede patient s ability to engage in work or other purposeful activities, interfere with your activities of daily living, physical activity, or quality of your family life and social activities? Significantly OARRS checked?: Yes, no abberancy Aberrancies in pain panel? No Any aberrant drug related behaviors since last visit? No Rationale for continuing opioid treatment: Improved pain and function based on an ongoing functional assessment Benefits of Opioid Therapy outweigh risks: Yes Prescribed Morphine Equivalent Daily Dose (MEDD): Yes < 50 MEDD Urine Panel: Lab Results Component Value Date Cannabinoid Quant, Urine 269 (H) 03/03/2021 Benzoylecognine Quant, Urine <24 03/03/2021 6-Acetylmorphine Quant, Urine <5 03/03/2021 Amphetamine Quant, Urine <5 03/03/2021 Methamphetamine Quant, Urine <8 03/03/2021 Buprenorphine Quant, Urine <20 03/03/2021 Norbuprenorphine Quant, Urine <20 03/03/2021 Methadone Quant, Urine <16 03/03/2021 EDDP Quant, Urine <6 03/03/2021 Tramadol Quant, Urine <25 03/03/2021 Desmethyltramadol Quant, Urine <20 03/03/2021 Fentanyl Quant, Urine <6 03/03/2021 Norfentanyl Quant, Urine <6 03/03/2021 Codeine Quant, Urine <11 03/03/2021 Morphine Quant, Urine <10 03/03/2021 Dihydrocodeine Quant, Urine <5 03/03/2021 Hydrocodone Quant, Urine <8 03/03/2021 Oxycodone Quant, Urine <10 03/03/2021 Hydromorphone Quant, Urine <5 03/03/2021 Oxymorphone Quant, Urine <5 03/03/2021 Creatinine,Ur Pain Rodriguez 57.9 03/03/2021 Urine pH, Pain Rodriguez 5.7 03/03/2021 Specific [place],Ur Pain Rodriguez 1.020 03/03/2021 Oxidants,Ur <38 03/03/2021 Assessment & Plan 62 year old man with history of lymphoma s/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 He has cancer related fatigue, insomnia due to pain, and anxiety. Continue hydromorphone 2-4 mg up to every 4 hours as needed for severe pain Opioid Management Agreement signed 03/03/2021. As needed naloxone was prescribed 05/04/2019. Urine Drug Screen 03/03/2021 was consistent with prescribed meds. Follow-up urine drug screen--results pending Continue Ritalin 5 mg twice daily as needed Continue using both Ritalin and hydromorphone sparingly to avoid developing tolerance with long-term use. Advance care planning Existence of Advance Directives: Unknown Follow-up Next Visit: 3-4 months in person Teo Cole MD March 17, 2023 11:04 AM Some elements copied from my note on 12/16/2022, the elements have been updated and all reflect current decision making from today, 03/17/2023. I spent a total of 20 minutes on the date of the service which included preparing to see the patient, [id number] patient care, completing clinical documentation, obtaining and/or reviewing separately obtained history, performing a medically appropriate examination, counseling and educating the patient/family/caregiver, and ordering medications, tests, or procedures. This note may have been partially generated using the [employer] voice recognition system. While every effort was made to correct voice recognition errors, kindly be aware that some errors may occasionally occur. documented in this encounter [facility] 12-16-2022 Note HNO ID: [id number] Author: Teo Cole MD Service: ? 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 He was treated with IVIG which seemed to help the pain. He also has had botulinum toxin injection for muscle spasms with good relief. He also had complications of septic shock with respiratory failure complicated by a systolic arrest in 10/2012 and hypoxemic pneumonitis 03/2016. He has been diagnosed with Sleep Apnea and uses nocturnal BiPAP. S/p aortic valve replacement 09/01/2021. SH/FH: . 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 Followed by palliative medicine since outpatient consultation 07/06/13 for diffuse severe pain related to GVHD muscle cramping. Subjective Last seen by palliative medicine 08/20/2022. Per PDMP, he last refilled hydromorphone 2 mg tablets #42 on 08/20/2022. States his pain is under adequate control currently. Taking hydromorphone and Ritalin sparingly, just a couple times a week. Staying active. No signs of aberrancy. No significant side effects. Modified ESAS ([place] Symptom Assessment Scale) Information Provided By: Patient Pain: Mild Nausea: Not asked Loss of Appetite: Not asked Constipation: Not asked Shortness of Breath: Not asked Drowsiness: Not asked Tiredness: Not asked Depression: Not asked Anxiety: Not asked How you feel overall: Good Objective ECOG PERFORMANCE STATUS: 1- Restricted in physically strenuous activity. Carries out light duty. PHYSICAL EXAMINATION: Vital signs: BP 160/86 Pulse 78 Temp 36.8 ?C (98.2 ?F) (Oral) Resp 18 Wt 70 kg (154 lb 4.8 oz) BMI 22.19 kg/m? General Appearance: No apparent distress Skin: No rash Eyes: Normal HENT: Atraumatic Neck: Grossly normal Lungs: Unlabored CV: Not examined Abdomen: Nondistended : Not examined Musculoskeletal: No gross deformity Lymphatics: Not examined Neuro: Delirium absent Psych: Affect congruent with mood DATA: Diagnostic tests reviewed for today's visit: Most recent labs and imaging results. Estimated Creatinine Clearance: 138.6 mL/min (A) (based on SCr of 0.54 mg/dL (L)). Opioid Management: Yes Indication for Opioid Prescribing: Chronic pain following cancer treatment ORT-OUD Score: Informed consent for chronic opiate therapy obtained and written pain agreement: On file (03/03/2021) Naloxone offered?: Previously prescribed 05/04/2019 Course of treatment, patient's response and adherence to the prescribed treatment plan reviewed, including non-pharmacological and non-opioid treatment modalities? Yes Have any complications or exacerbations of the underlying condition causing the pain been reviewed? Yes How much does pain impede patient?s ability to engage in work or other purposeful activities, interfere with your activities of daily living, physical activity, or quality of your family life and social activities? Significantly OARRS checked?: Yes, no abberancy Aberrancies in pain panel? No Any aberrant drug related behaviors since last visit? No Rationale for continuing opioid treatment: Improved pain and function based on an ongoing functional assessment Benefits of Opioid Therapy outweigh risks: Yes Prescribed Morphine Equivalent Daily Dose (MEDD): Yes < 50 MEDD Urine Panel: Lab Results Component Value Date Cannabinoid Quant, Urine 269 (H) 03/03/2021 Benzoylecognine Quant, Urine <24 03/03/2021 6-Acetylmorphine Quant, Urine <5 03/03/2021 Amphetamine Quant, Urine <5 03/03/2021 Methamphetamine Quant, Urine <8 03/03/2021 Buprenorphine Quant, Urine <20 03/03/2021 Norbuprenorphine Quant, Urine <20 03/03/2021 Methadone Quant, Urine <16 03/03/2021 EDDP Quant, Urine <6 03/03/2021 Tramadol Quant, Urine <25 03/03/2021 Desmethyltramadol Quant, Urine <20 03/03/2021 Fentanyl Quant, Urine <6 03/03/2021 Norfentanyl Quant, Urine <6 03/03/2021 Codeine Quant, Urine <11 03/03/2021 Morphine Quant, Urine <10 03/03/2021 Dihydrocodeine Quant, Urine <5 03/03/2021 Hydrocodon (more content not included)... 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 He was treated with IVIG which seemed to help the pain. He also has had botulinum toxin injection for muscle spasms with good relief. He also had complications of septic shock with respiratory failure complicated by a systolic arrest in 10/2012 and hypoxemic pneumonitis 03/2016. He has been diagnosed with Sleep Apnea and uses nocturnal BiPAP. S/p aortic valve replacement 09/01/2021. SH/FH: . 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 Followed by palliative medicine since outpatient consultation 07/06/13 for diffuse severe pain related to GVHD muscle cramping. Subjective Last seen by palliative medicine 08/20/2022. Per PDMP, he last refilled hydromorphone 2 mg tablets #42 on 08/20/2022. States his pain is under adequate control currently. Taking hydromorphone and Ritalin sparingly, just a couple times a week. Staying active. No signs of aberrancy. No significant side effects. Modified ESAS ([place] Symptom Assessment Scale) Information Provided By: Patient Pain: Mild Nausea: Not asked Loss of Appetite: Not asked Constipation: Not asked Shortness of Breath: Not asked Drowsiness: Not asked Tiredness: Not asked Depression: Not asked Anxiety: Not asked How you feel overall: Good Objective ECOG PERFORMANCE STATUS: 1- Restricted in physically strenuous activity. Carries out light duty. PHYSICAL EXAMINATION: Vital signs: BP 160/86 Pulse 78 Temp 36.8 C (98.2 F) (Oral) Resp 18 Wt 70 kg (154 lb 4.8 oz) BMI 22.19 kg/m General Appearance: No apparent distress Skin: No rash Eyes: Normal HENT: Atraumatic Neck: Grossly normal Lungs: Unlabored CV: Not examined Abdomen: Nondistended : Not examined Musculoskeletal: No gross deformity Lymphatics: Not examined Neuro: Delirium absent Psych: Affect congruent with mood DATA: Diagnostic tests reviewed for today's visit: Most recent labs and imaging results. Estimated Creatinine Clearance: 138.6 mL/min (A) (based on SCr of 0.54 mg/dL (L)). Opioid Management: Yes Indication for Opioid Prescribing: Chronic pain following cancer treatment ORT-OUD Score: Informed consent for chronic opiate therapy obtained and written pain agreement: On file (03/03/2021) Naloxone offered?: Previously prescribed 05/04/2019 Course of treatment, patient's response and adherence to the prescribed treatment plan reviewed, including non-pharmacological and non-opioid treatment modalities? Yes Have any complications or exacerbations of the underlying condition causing the pain been reviewed? Yes How much does pain impede patient s ability to engage in work or other purposeful activities, interfere with your activities of daily living, physical activity, or quality of your family life and social activities? Significantly OARRS checked?: Yes, no abberancy Aberrancies in pain panel? No Any aberrant drug related behaviors since last visit? No Rationale for continuing opioid treatment: Improved pain and function based on an ongoing functional assessment Benefits of Opioid Therapy outweigh risks: Yes Prescribed Morphine Equivalent Daily Dose (MEDD): Yes < 50 MEDD Urine Panel: Lab Results Component Value Date Cannabinoid Quant, Urine 269 (H) 03/03/2021 Benzoylecognine Quant, Urine <24 03/03/2021 6-Acetylmorphine Quant, Urine <5 03/03/2021 Amphetamine Quant, Urine <5 03/03/2021 Methamphetamine Quant, Urine <8 03/03/2021 Buprenorphine Quant, Urine <20 03/03/2021 Norbuprenorphine Quant, Urine <20 03/03/2021 Methadone Quant, Urine <16 03/03/2021 EDDP Quant, Urine <6 03/03/2021 Tramadol Quant, Urine <25 03/03/2021 Desmethyltramadol Quant, Urine <20 03/03/2021 Fentanyl Quant, Urine <6 03/03/2021 Norfentanyl Quant, Urine <6 03/03/2021 Codeine Quant, Urine <11 03/03/2021 Morphine Quant, Urine <10 03/03/2021 Dihydrocodeine Quant, Urine <5 03/03/2021 Hydrocodone Quant, Urine <8 03/03/2021 Oxycodone Quant, Urine <10 03/03/2021 Hydromorphone Quant, Urine <5 03/03/2021 Oxymorphone Quant, Urine <5 03/03/2021 Creatinine,Ur Pain Rodriguez 57.9 03/03/2021 Urine pH, Pain Rodriguez 5.7 03/03/2021 Specific [place],Ur Pain Rodriguez 1.020 03/03/2021 Oxidants,Ur <38 03/03/2021 Assessment & Plan 62 year old man with history of lymphoma s/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 He has cancer related fatigue, insomnia due to pain, and anxiety. Continue hydromorphone 2-4 mg up to every 4 hours as needed for severe pain Opioid Management Agreement signed 03/03/2021. As needed naloxone was prescribed 05/04/2019. Urine Drug Screen 03/03/2021 was consistent with prescribed meds. Ordered follow-up urine drug screen--he will obtain this at his local lab Continue Ritalin 5 mg twice daily as needed Discussed recommendation to continue using both Ritalin and hydromorphone sparingly to avoid developing tolerance with long-term use. Advance care planning Existence of Advance Directives: Unknown Follow-up Next Visit: 3 Months in person Teo Cole MD December 16, 2022 11:37 AM Some elements copied from my note on 08/20/2022, the elements have been updated and all reflect current decision making from today, 12/16/2022. I spent a total of 20 minutes on the date of the service which included preparing to see the patient, [id number] patient care, completing clinical documentation, obtaining and/or reviewing separately obtained history, performing a medically appropriate examination, counseling and educating the patient/family/caregiver, and ordering medications, tests, or procedures. This note may have been partially generated using the [employer] voice recognition system. While every effort was made to correct voice recognition errors, kindly be aware that some errors may occasionally occur. documented in this encounter [facility] 12-16-2022 Nurse Note Additional intake questions: Has the patient had fever, nausea, vomiting, diarrhea, constipation, fatigue for > 1 week? Yes, fatigue and Provider Notified Does the patient have a decreased appetite? No Does patient want to see a Jewellery Designer? No (yes to any of above refer patient to schedulers for dietitian appointment) ) Does patient have any new or increased numbness or tingling of extremities? No Is patient interested in fertility information? No Does patient need any prescription refills? Yes, LIP notified Does patient have an advanced directive in place? Yes, no copy found in [facility] Patient referred to [facility] documented in this encounter [facility] 09-09-2022 Note Patient Outreach ([facility]) NICAKSHAT Reshma ([id number]) 1960 M TRN Date Time Provider Department 09/09/22 SVITLANA PADRON During your visit today, we recorded the following information about you: Svitlana Padron RN 09/09/2022 11:04 AM Signed QOL Call Tracking Documentation Follow-Up Type: Phone Call Call Attempt: 1st Attempt Call Status: Patient will complete in Content [place] Allergies As of Date: 09/09/2022 Noted Allergy Reaction DULOXETINE 06/25/2015 14 - Other: See Comments Comments: had negative,depressing thoughts LYRICA (PREGABALIN) 11/14/2013 14 - Other: See Comments Comments: fogginess VANCOMYCIN 06/12/2019 2 - Rash Comments: rash possibly from Vanco Date Reviewed: 09/01/2022 Reviewed by: Gertrudis Francois - Fully Assessed Prescriptions as of 09/09/2022 - HYDROmorphone 2 mg tablet Take 1 tablet by mouth every 4 hours as needed (severe pain) for up to 7 days. - ofloxacin (FLOXIN) 0.3 % otic solution PLACE 5 DROPS INTO BOTH EARS TWICE A DAY DIRECTED - ALPRAZolam (XANAX) 0.5 mg tablet TAKE 1 TABLET BY MOUTH EVERY DAY NEEDED FOR SLEEP - hydrocortisone (CORTEF) 10 mg tablet TAKE 1 TABLET by mouth in the morning and take 1 tablet with 5 mg in the evening (15 mg in PM) - atorvastatin (LIPITOR) 10 mg tablet Take 10 mg by mouth once daily. - ondansetron (ZOFRAN) 4 mg tablet Take 1 tablet by mouth once daily. - hydrocortisone (CORTEF) 5 mg tablet Take 1 tablet by mouth once daily. Take with 10 mg in the PM ( total of 15 mg) - pantoprazole DR (PROTONIX) 40 mg tablet Take 1 tablet by mouth once daily. - methylphenidate (RITALIN) 5 mg tablet Take 1 tablet by mouth twice daily as needed for up to 30 days. (9 and 1 PM) - testosterone cypionate (DEPO-TESTOSTERONE) 200 mg/mL injection Inject 0.5 mL intramuscularly one time a week for 7 days. Do not start before October 08, 2021. - acetaminophen (TYLENOL) 325 mg tablet Take 2 tablets by mouth every 4 hours as needed for pain (for mild pain). - polyvinyl alcohol-povidone (REFRESH) 1.4-0.6 % ophthalmic solution Use 1 Drop in both eyes as needed. - metoprolol tartrate, short acting, (LOPRESSOR) 25 mg tablet Take 1 tablet by mouth twice daily. - naloxone 4 mg/actuation nasal spray (NARCAN) Use 1 spray in one nostril as needed for overdose. May repeat every 2 to 3 min in alternating nostrils until medical assistance is available - etodolac (LODINE) 400 mg tablet TAKE 1 TABLET BY MOUTH TWICE A DAY - tbalnykabpc-kbiyywdqs-advrbzkz (TRELEGY ELLIPTA) 100-62.5-25 mcg Inhale 1 Puff as instructed once daily. - aspirin, enteric coated (ADULT LOW DOSE ASPIRIN) 81 mg EC tablet Take 1 tablet by mouth once daily. - albuterol (PROVENTIL) 2.5 mg /3 mL (0.083 %) nebulizer solution Use 3 mL via nebulizer every 4 hours while awake. - melatonin 10 mg TbMP Take 1 tablet by mouth daily at bedtime. - OXYGEN, HOME THERAPY, Inhale 2 L/min as instructed as needed (SOB). 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 Chronic GVHD (HCC) [D89.811] 09/23/2008 Status post bone marrow transplant (HCC) [Z94.8*09/23/2008 SUMMARY [V999.95] 11/03/2012 08/31/2016 Severe sepsis(995.92) [A41.9, R65.20] 11/03/2012 02/11/2015 GVHD (graft versus host disease) (HCC) [D89.813]11/03/2012 05/27/2016 ARDS (adult respiratory distress syndrome) (HCC*11/06/2012 06/11/2016 Thrombocytopenia (HCC) [D69.6] 11/06/2012 11/09/2012 Transaminitis [R74.01] 11/06/2012 02/11/2015 Cardiogenic shock (HCC) [R57.0] 11/09/2012 05/27/2016 DVT prophylaxis [Z79.899] 11/09/2012 05/27/2016 Respiratory failure (HCC) [J96.90] 11/09/2012 06/11/2016 Acute hypernatremia [E87.0] 11/09/2012 11/11/2012 Hospital discharge follow-up [Z09] 11/12/2012 Diarrhea [R19.7] 11/12/2012 02/11/2015 Immunodeficiency (HCC) [D84.9] 11/13/2012 Pain [R52] 07/06/2013 Electrolyte and fluid disorders not elsewhere c*08/14/2013 02/11/2015 Fever [R50.9] 12/07/2013 02/11/2015 Hypotension [I95.9] 12/07/2013 09/02/2021 Hypoxia [R09.02] 12/07/2013 06/11/2016 Restrictive lung disease [J98.4] 01/28/2014 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 Restrictive ventilatory defect [R94.2] 05/31/2016 Arthritis [M19.90] 04/28/2019 Septic arthritis (HCC) [M00.9] 04/28/2019 MRSA (methicillin resistant staph aureus) cultu*04/29/2019 Hypoxemic respiratory failure, chronic (HCC) [J*04/29/2019 Respiratory insufficiency [R06.89] 04/30/2019 HFrEF (heart failure with reduced ejection frac*04/30/2019 Electrolyte abnormality [E87.8] 04/30/2019 Rash and nonspecific skin eruption [R21] 05/02/2019 Postoperative hypertension [I97.3] 05/03/2019 Nonrheumatic aortic valve insufficiency [I35.1] 04/01/2021 COPD (chronic obstructive pulmonary disease) (H* Pre-op testing [Z01.818] 08/31/2021 Discharge planning issues (more content not included)... [facility] 09-09-2022 Note HNO ID: [id number] Author: Svitlana Padron RN Service: ? Author Type: Registered Nurse Type: Progress Notes Filed: 09/09/2022 11:04 AM Note Text: QOL Call Tracking Documentation Follow-Up Type: Phone Call Call Attempt: 1st Attempt Call Status: Patient will complete in MyChart [facility] 09-09-2022 History of Presen t illness Narrative QOL Call Tracking Documentation Follow-Up Type: Phone Call Call Attempt: 1st Attempt Call Status: Patient will complete in Content [facility] documented in this encounter [facility] 09-01-2022 Note HNO ID: [id number] Author: Hakan Armijo MD Service: ? Author Type: Physician Type: Progress Notes Filed: 09/01/2022 12:09 PM Note Text: IMPRESSION 62-year-old male with chronic right-sided otorrhea. CT scan showed partial opacification of multiple mastoid air cells on the right side. RECOMMENDATION/PLAN Mastoid powder was placed in the right ear today. Given patient's failed multiple rounds of eardrops and has persistent drainage from the right ear, I recommend referring the patient to my otology colleagues to see if patient needs treatment for his mastoid disease. Chief Complaint Follow-up for right otorrhea. History of Present Illness Akshat Reshma Irving is a 62 year old male with history of lymphoma presents for follow-up of right-sided otorrhea. Patient underwent hyperbaric oxygen therapy in December and developed right-sided ear pain and middle ear effusion. Patient had recent ear tubes placed by outside ENT. Patient was last seen by me on August 05, 2022. At that time, he was started on saline irrigation, Flonase, and nasal ointment for nasal crusting. He stated that his otorrhea has significantly improved after he started his nasal regimen. He does not have any significant drainage at this time. He was not able to collect any of the fluid from his right ear for beta-2 transferrin testing. Since he was last seen, patient also obtain a CT scan of his temporal bone which was reviewed by me and it showed partial opacification of the right mastoid air cells without any obvious tegmen dehiscence. Patient had audiogram from August 17 which showed normal sloping to severe bilateral sensorineural hearing loss. His word recognition score was 52% on the right and 68% on the left. 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 Cardiogenic shock ([facility]) CLL (chronic lymphocytic leukemia) ([facility]) s/p chemo and stem cell transplant COPD (chronic obstructive pulmonary disease) (HCC) COPD (chronic obstructive pulmonary disease) ([facility]) Current chronic use of systemic steroids since 2005 DVT prophylaxis GVHD (graft versus host disease) ([facility]) HFrEF (heart failure with reduced ejection fraction) ([facility]) Hypertension 05/03/2019 Hypogonadism 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 Immunodeficiency ([facility]) NHL (nodular histiocytic lymphoma) ([facility]) Nonrheumatic aortic valve insufficiency Pulmonary aspergillosis ([facility]) Respiratory failure ([facility]) Severe sepsis ([facility]) Sleep apnea on bipap Transaminitis PAST SURGICAL HISTORY Procedure Laterality Date EAR TUBES HX Right 05/2022 EYE SURGERY PROCEDURE 10/2012 Bilateral Lacrimal Plugs LUNG SURGERY HX NOSE SURGERY HX deviated septum PAST SURGICAL HISTORY OF 2005 stem cell transplant PICC LINE INSERT/CONSULT 11/12/2012 PICC LINE INSERT/CONSULT 05/03/2019 REMV CATARACT EXTRACAP,INSERT LENS Right TONSILLECTOMY HX FAMILY HISTORY Problem Relation Age of Onset No Known Problems Mother Cancer Father Luekemia Heart Attack Father 82 Hypertension Father Cancer Paternal Grandfather lymphoma Cancer Paternal Uncle Luekemia No Ocular Disease No Family History CURRENT OUTPATIENT MEDICATIONS Current Outpatient Medications on File Prior to Visit Medication Sig HYDROmorphone 2 mg tablet Take 1 tablet by mouth every 4 hours as needed (severe pain) for up to 7 days. ALPRAZolam (XANAX) 0.5 mg tablet TAKE 1 TABLET BY MOUTH EVERY DAY NEEDED FOR SLEEP hydrocortisone (CORTEF) 10 mg tablet TAKE 1 TABLET by mouth in the morning and take 1 tablet with 5 mg in the evening (15 mg in PM) atorvastatin (LIPITOR) 10 mg tablet Take 10 mg by mouth once daily. ondansetron (ZOFRAN) 4 mg tablet Take 1 tablet by mouth once daily. hydrocortisone (CORTEF) 5 mg tablet Take 1 tablet by mouth once daily. Take with 10 mg in the PM ( total of 15 mg) pantoprazole DR (PROTONIX) 40 mg tablet Take 1 tablet by mouth once daily. methylphenidate (RITALIN) 5 mg tablet Take 1 tablet by mouth twice daily as needed for up to 30 days. (9 and 1 PM) testosterone cypionate (DEPO-TESTOSTERONE) 200 mg/mL injection Inject 0.5 mL intramuscularly one time a week for 7 days. Do not start before October 08, 2021. acetaminophen (TYLENOL) 325 mg tablet Take 2 tablets by mouth every 4 hours as needed for pain (for mild pain). polyvinyl alcohol-povidone (REFRESH) 1.4-0.6 % ophthalmic solution Use 1 Drop in both eyes as needed. metoprolol tartrate, short acting, (LOPRESSOR) 25 mg tablet Take 1 tablet by mouth twice daily. naloxone 4 mg/actuation nasal spray (NARCAN) Use 1 spray in one nostril as needed for overdose. May repeat every 2 to 3 min in alternating nostrils until medical assistance is available etodolac (LODINE) 400 mg tablet TAKE 1 TABLET BY MOUTH TWICE A DAY (Patient taking differently: prn) wkgdnxzkrvf-hhadpgfmz-trzyuwsh (TRELEGY ELLIPTA) 100-62.5-25 mc (more content not included)... [facility] 09-01-2022 History of Presen t illness Narrative IMPRESSION 62-year-old male with chronic right-sided otorrhea. CT scan showed partial opacification of multiple mastoid air cells on the right side. RECOMMENDATION/PLAN Mastoid powder was placed in the right ear today. Given patient's failed multiple rounds of eardrops and has persistent drainage from the right ear, I recommend referring the patient to my otology colleagues to see if patient needs treatment for his mastoid disease. Chief Complaint Follow-up for right otorrhea. History of Present Illness Akshat Justice Libbyjoanne is a 62 year old male with history of lymphoma presents for follow-up of right-sided otorrhea. Patient underwent hyperbaric oxygen therapy in December and developed right-sided ear pain and middle ear effusion. Patient had recent ear tubes placed by outside ENT. Patient was last seen by me on August 05, 2022. At that time, he was started on saline irrigation, Flonase, and nasal ointment for nasal crusting. He stated that his otorrhea has significantly improved after he started his nasal regimen. He does not have any significant drainage at this time. He was not able to collect any of the fluid from his right ear for beta-2 transferrin testing. Since he was last seen, patient also obtain a CT scan of his temporal bone which was reviewed by me and it showed partial opacification of the right mastoid air cells without any obvious tegmen dehiscence. Patient had audiogram from August 17 which showed normal sloping to severe bilateral sensorineural hearing loss. His word recognition score was 52% on the right and 68% on the left. 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 Cardiogenic shock ([facility]) CLL (chronic lymphocytic leukemia) ([facility]) s/p chemo and stem cell transplant COPD (chronic obstructive pulmonary disease) ([facility]) COPD (chronic obstructive pulmonary disease) ([facility]) Current chronic use of systemic steroids since 2005 DVT prophylaxis GVHD (graft versus host disease) ([facility]) HFrEF (heart failure with reduced ejection fraction) ([facility]) Hypertension 05/03/2019 Hypogonadism 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 Immunodeficiency ([facility]) NHL (nodular histiocytic lymphoma) ([facility]) Nonrheumatic aortic valve insufficiency Pulmonary aspergillosis ([facility]) Respiratory failure ([facility]) Severe sepsis ([facility]) Sleep apnea on bipap Transaminitis PAST SURGICAL HISTORY Procedure Laterality Date EAR TUBES HX Right 05/2022 EYE SURGERY PROCEDURE 10/2012 Bilateral Lacrimal Plugs LUNG SURGERY HX NOSE SURGERY HX deviated septum PAST SURGICAL HISTORY OF 2005 stem cell transplant PICC LINE INSERT/CONSULT 11/12/2012 PICC LINE INSERT/CONSULT 05/03/2019 REMV CATARACT EXTRACAP,INSERT LENS Right TONSILLECTOMY HX FAMILY HISTORY Problem Relation Age of Onset No Known Problems Mother Cancer Father Luekemia Heart Attack Father 82 Hypertension Father Cancer Paternal Grandfather lymphoma Cancer Paternal Uncle Luekemia No Ocular Disease No Family History CURRENT OUTPATIENT MEDICATIONS Current Outpatient Medications on File Prior to Visit Medication Sig HYDROmorphone 2 mg tablet Take 1 tablet by mouth every 4 hours as needed (severe pain) for up to 7 days. ALPRAZolam (XANAX) 0.5 mg tablet TAKE 1 TABLET BY MOUTH EVERY DAY NEEDED FOR SLEEP hydrocortisone (CORTEF) 10 mg tablet TAKE 1 TABLET by mouth in the morning and take 1 tablet with 5 mg in the evening (15 mg in PM) atorvastatin (LIPITOR) 10 mg tablet Take 10 mg by mouth once daily. ondansetron (ZOFRAN) 4 mg tablet Take 1 tablet by mouth once daily. hydrocortisone (CORTEF) 5 mg tablet Take 1 tablet by mouth once daily. Take with 10 mg in the PM ( total of 15 mg) pantoprazole DR (PROTONIX) 40 mg tablet Take 1 tablet by mouth once daily. methylphenidate (RITALIN) 5 mg tablet Take 1 tablet by mouth twice daily as needed for up to 30 days. (9 and 1 PM) testosterone cypionate (DEPO-TESTOSTERONE) 200 mg/mL injection Inject 0.5 mL intramuscularly one time a week for 7 days. Do not start before October 08, 2021. acetaminophen (TYLENOL) 325 mg tablet Take 2 tablets by mouth every 4 hours as needed for pain (for mild pain). polyvinyl alcohol-povidone (REFRESH) 1.4-0.6 % ophthalmic solution Use 1 Drop in both eyes as needed. metoprolol tartrate, short acting, (LOPRESSOR) 25 mg tablet Take 1 tablet by mouth twice daily. naloxone 4 mg/actuation nasal spray (NARCAN) Use 1 spray in one nostril as needed for overdose. May repeat every 2 to 3 min in alternating nostrils until medical assistance is available etodolac (LODINE) 400 mg tablet TAKE 1 TABLET BY MOUTH TWICE A DAY (Patient taking differently: prn) dxxaencwuot-swyddphvt-pxhgoyag (TRELEGY ELLIPTA) 100-62.5-25 mcg Inhale 1 Puff as instructed once daily. aspirin, enteric coated (ADULT LOW DOSE ASPIRIN) 81 mg EC tablet Take 1 tablet by mouth once daily. albuterol (PROVENTIL) 2.5 mg /3 mL (0.083 %) nebulizer solution Use 3 mL via nebulizer every 4 hours while awake. melatonin 10 mg TbMP Take 1 tablet by mouth daily at bedtime. OXYGEN, HOME THERAPY, Inhale 2 L/min as instructed as needed (SOB). ofloxacin (FLOXIN) 0.3 % otic solution PLACE 5 DROPS INTO BOTH EARS TWICE A DAY DIRECTED (Patient not taking: Reported on 09/01/2022) No current facility-administered medications on file prior to visit. ALLERGIES ALLERGIES Allergen Reactions Duloxetine Other: See Comments had negative,depressing thoughts Lyrica [Pregabalin] Other: See Comments fogginess Vancomycin Rash rash possibly from Vanco The remainder of the patient's history and review of systems is on the outpatient questionaire which was reviewed by me and placed in the outpatient chart. PHYSICAL EXAMINATION Appearance: General examination of the patient's external face, head and neck reveals no abnormalities. The patient is not retrognathic The patient's voice is strong and clear and they communicate easily. Ears: Right EAC with small amount of mucoid fluid near the ear tube. Middle ear space appears healthy otherwise. Mastoid powder was placed into the right ear. Left EAC patent, TM intact, middle ear space appears healthy. Hakan Armijo MD documented in this encounter [facility] 08-25-2022 Note HNO ID: [id number] Author: RT Acacia(R) Service: ? Author Type: Crozer Operator Type: Progress Notes Filed: 08/25/2022 3:54 PM Note Text: Radiology Service Progress Note PATIENT NAME: Akshat Irving DATE OF SERVICE: August 25, 2022 TIME: 3:54 PM PATIENT IDENTITY VERIFICATION COMPLETED USING TWO (2) IDENTIFIERS: Name and Date of confirmed by patient verbally. FALL SCREENING: Has the patient had 2 falls in the last year or 1 fall with injury or currently using an Ambulatory Assistive Device (Walker, Cane, Wheelchair, Crutches, etc.)? No PATIENT GENDER DATA: Male PATIENT RELEVANT IMPLANT DATA REVIEWED: Yes RADIOLOGY DEPARTMENT: CT; Exam(s) Completed: Temporal Bones PERIPHERAL IV DATA: Not applicable SIGNED BY: RT Rishi(R) August 25, 2022 3:54 PM [facility] 08-25-2022 History of Presen t illness Narrative Radiology Service Progress Note PATIENT NAME: Akshat Irving DATE OF SERVICE: August 25, 2022 TIME: 3:54 PM PATIENT IDENTITY VERIFICATION COMPLETED USING TWO (2) IDENTIFIERS: Name and Date of confirmed by patient verbally. FALL SCREENING: Has the patient had 2 falls in the last year or 1 fall with injury or currently using an Ambulatory Assistive Device (Walker, Cane, Wheelchair, Crutches, etc.)? No PATIENT GENDER DATA: Male PATIENT RELEVANT IMPLANT DATA REVIEWED: Yes RADIOLOGY DEPARTMENT: CT; Exam(s) Completed: Temporal Bones PERIPHERAL IV DATA: Not applicable SIGNED BY: RT Rishi(R) August 25, 2022 3:54 PM documented in this encounter [facility] 08-20-2022 Note HNO ID: [id number] Author: Teo Cole MD Service: ? Author Type: Physician Type: Progress Notes Filed: 08/20/2022 11:38 AM Note Text: PALLIATIVE MEDICINE VIRTUAL VISIT PROGRESS NOTE This visit is a Virtual MyChart video visit encounter which required patient-provider interaction for the medical decision making as documented below. Persons Present: patient Patient has consented to this distance health encounter. Total Time Spent: more than 10 minutes [id number]-[id number] with the patient and over half the time was devoted to counseling and/or coordination of care. 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 He was treated with IVIG which seemed to help the pain. He also has had botulinum toxin injection for muscle spasms with good relief. He also had complications of septic shock with respiratory failure complicated by a systolic arrest in 10/2012 and hypoxemic pneumonitis 03/2016. He has been diagnosed with Sleep Apnea and uses nocturnal BiPAP. S/p aortic valve replacement 09/01/2021. SH/FH: . 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 Followed by palliative medicine since outpatient consultation 07/06/13 for diffuse severe pain related to GVHD muscle cramping. Subjective Last in-person visit with palliative medicine was 10/2021. At that time, he was recovering from aortic valve replacement surgery 09/01/2021, and using hydromorphone more frequently for postsurgical pain. He was not on Ritalin at the time, as it was held due to AVR surgery. Per PDMP, he has been using medical marijuana. He last filled Ritalin 5 mg tablets #15 on 06/21/2022, as prescribed by his PCP; and last filled hydromorphone 2 mg tablets #84 on 10/09/2021, as prescribed by me. He was scheduled for an in-person follow-up visit today, but had to switch to a virtual visit due to the severe weather advisory--heavy snow, extreme cold. Feels his pain is under adequate control with sporadic use of as needed hydromorphone during severe flareups. No concern for aberrancy. No side effects. Will need a refill prescription sent to his pharmacy today. Tried arranging refills via local providers, but his PCP and local Pain Management doctor do not refill opiate therapy. Modified ESAS ([place] Symptom Assessment Scale) Information Provided By: Patient Pain: Mild Nausea: Not asked Loss of Appetite: Not asked Constipation: Not asked Shortness of Breath: Not asked Drowsiness: Not asked Tiredness: Not asked Depression: Not asked Anxiety: Not asked How you feel overall: Good Objective ECOG PERFORMANCE STATUS: 1- Restricted in physically strenuous activity. Carries out light duty. PHYSICAL EXAMINATION: VIDEO EXAM: (if completed, performed via video enabled technology) GENERAL: alert and appropriate, in no distress, well-hydrated, well nourished, and happy, smiling, interactive HEAD: normocephalic, no abnormality or lesion noted RESPIRATORY: breathing non-labored NEUROLOGIC: no obvious deficit DATA: Diagnostic tests reviewed for today's visit: Most recent labs and imaging results. CrCl cannot be calculated (Patient's most recent lab result is older than the maximum 180 days allowed.). Opioid Management: Yes Indication for Opioid Prescribing: Chronic pain following cancer treatment ORT-OUD Score: Informed consent for chronic opiate therapy obtained and written pain agreement: On file (03/03/2021) Naloxone offered?: Previously prescribed 05/04/2019 Course of treatment, patient's response and adherence to the prescribed treatment plan reviewed, including non-pharmacological and non-opioid treatment modalities? Yes Have any complications or exacerbations of the underlying condition causing the pain been reviewed? Yes How much does pain impede patient?s ability to engage in work or other purposeful activities, interfere with your activities of daily living, physical activity, or quality of your family life and social activities? Significantly OARRS checked?: Yes, no abberancy Aberrancies in pain panel? No Any aberrant drug related behaviors since last visit? No (more content not included)... [facility] 08-20-2022 Note HNO ID: [id number] Author: Jeovanny Montes MD Service: ? Author Type: Physician Type: Progress Notes Filed: 08/20/2022 11:10 AM Note Text: [facility] VIS[facility] Department of Hematology and Medical Oncology PATIENT NAME: Marciano Irving [facility] NO.: [id number] ATTENDING PHYSICIAN: Jeovanny Montes MD DATE OF SERVICE: 08/20/2022 [facility] FOLLOWUP DIAGNOSES: 1. Steroid-dependent sclerodermatous chronic eajaz-xzahyr-rvlc disease arising progressively from acute bamwp-zqqkad-enog disease, previously treated with mycophenolate mofetil, calcineurin inhibitors, ECP, rituximab, and imatinib; on chronic treatment with low-dose prednisone/hydrocortisone; intolerant of ruxolitinib (03/2016), ixazomib (12/2016), and ibrutinib (11/2017). 2. Stage IV indolent B-cell non-Hodgkin lymphoma consistent with marginal zone lymphoma, status post non-myeloablative matched unrelated donor allogeneic hematopoietic stem cell transplantation at [facility] in March 2006 3. Septic shock and respiratory failure in 10/2012, complicated by asystolic arrest with successful resuscitation. Infectious etiology not definitively identified (mycoplasma infection, viral gastroenteritis?). 4. Hypoxemic pneumonitis in 03/2016-04/2016, presumably secondary to ruxolitinib, responsive to steroids. 5. Septic arthritis with MRSA involving the left shoulder in 03/2019 This visit is a Telephone encounter which required patient-provider interaction for the medical decision making as documented below. This was originally scheduled as a video virtual visit but converted to a telephone encounter because of technical problems with the Zoom platform. Persons Present: patient and patient's spouse/significant other Akshat Irving has consented to this distance health encounter. Total Time Spent: 7 minutes on this telephone encounter HISTORY REVIEWED (electronic chart updated): Mr. Irving reports that he is doing well overall. He feels that he recovered well from AVR earlier this year, and he felt pretty well over the summer. He states he was exercising up to 2 or 3 hours daily. Now he has felt a little more fatigued the past couple of months, which he attributes in part to some family-related stressors. He notes that he has hearing aids now, which has been helpful. Overall he thinks his symptoms of chronic GVHD are under pretty good control, chronic musculoskeletal pain tolerable . His biggest issues are shortness of breath and fatigue, as before. Current hydrocortisone dosing is 10 mg twice daily, for several months. No skin sores. No significant gastrointestinal issues. Data Reviewed: No new labs REVIEW OF SYSTEMS: As noted in HPI VIDEO PHYSICAL EXAMINATION: (if done, performed via video enabled technology) No exam performed ASSESSMENT: 1. Chronic GVHD: Clinically stable per report. Continue hydrocortisone twice daily. 2. Pulmonary: Stable symptoms from restrictive lung disease secondary to sclerodermatous chronic GVHD. 3. ID: No acute issues. Continue current prophylaxis. 4. NHL: No evidence of recurrence. PLAN: RTC in 6 months. Jeovanny Montes MD cc: Lolly Meyer MD; ; [facility] 08-20-2022 History of Presen t illness Narrative PALLIATIVE MEDICINE VIRTUAL VISIT PROGRESS NOTE This visit is a Virtual MyChart video visit encounter which required patient-provider interaction for the medical decision making as documented below. Persons Present: patient Patient has consented to this distance health encounter. Total Time Spent: more than 10 minutes wikp-pj-kivt with the patient and over half the time was devoted to counseling and/or coordination of care. 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 He was treated with IVIG which seemed to help the pain. He also has had botulinum toxin injection for muscle spasms with good relief. He also had complications of septic shock with respiratory failure complicated by a systolic arrest in 10/2012 and hypoxemic pneumonitis 03/2016. He has been diagnosed with Sleep Apnea and uses nocturnal BiPAP. S/p aortic valve replacement 09/01/2021. SH/FH: . 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 Followed by palliative medicine since outpatient consultation 07/06/13 for diffuse severe pain related to GVHD muscle cramping. Subjective Last in-person visit with palliative medicine was 10/2021. At that time, he was recovering from aortic valve replacement surgery 09/01/2021, and using hydromorphone more frequently for postsurgical pain. He was not on Ritalin at the time, as it was held due to AVR surgery. Per PDMP, he has been using medical marijuana. He last filled Ritalin 5 mg tablets #15 on 06/21/2022, as prescribed by his PCP; and last filled hydromorphone 2 mg tablets #84 on 10/09/2021, as prescribed by me. He was scheduled for an in-person follow-up visit today, but had to switch to a virtual visit due to the severe weather advisory--heavy snow, extreme cold. Feels his pain is under adequate control with sporadic use of as needed hydromorphone during severe flareups. No concern for aberrancy. No side effects. Will need a refill prescription sent to his pharmacy today. Tried arranging refills via local providers, but his PCP and local Pain Management doctor do not refill opiate therapy. Modified ESAS ([place] Symptom Assessment Scale) Information Provided By: Patient Pain: Mild Nausea: Not asked Loss of Appetite: Not asked Constipation: Not asked Shortness of Breath: Not asked Drowsiness: Not asked Tiredness: Not asked Depression: Not asked Anxiety: Not asked How you feel overall: Good Objective ECOG PERFORMANCE STATUS: 1- Restricted in physically strenuous activity. Carries out light duty. PHYSICAL EXAMINATION: VIDEO EXAM: (if completed, performed via video enabled technology) GENERAL: alert and appropriate, in no distress, well-hydrated, well nourished, and happy, smiling, interactive HEAD: normocephalic, no abnormality or lesion noted RESPIRATORY: breathing non-labored NEUROLOGIC: no obvious deficit DATA: Diagnostic tests reviewed for today's visit: Most recent labs and imaging results. CrCl cannot be calculated (Patient's most recent lab result is older than the maximum 180 days allowed.). Opioid Management: Yes Indication for Opioid Prescribing: Chronic pain following cancer treatment ORT-OUD Score: Informed consent for chronic opiate therapy obtained and written pain agreement: On file (03/03/2021) Naloxone offered?: Previously prescribed 05/04/2019 Course of treatment, patient's response and adherence to the prescribed treatment plan reviewed, including non-pharmacological and non-opioid treatment modalities? Yes Have any complications or exacerbations of the underlying condition causing the pain been reviewed? Yes How much does pain impede patient s ability to engage in work or other purposeful activities, interfere with your activities of daily living, physical activity, or quality of your family life and social activities? Significantly OARRS checked?: Yes, no abberancy Aberrancies in pain panel? No Any aberrant drug related behaviors since last visit? No Rationale for continuing opioid treatment: Improved pain and function based on an ongoing functional assessment Benefits of Opioid Therapy outweigh risks: Yes Prescribed Morphine Equivalent Daily Dose (MEDD): Yes < 50 MEDD Urine Panel: Lab Results Component Value Date Cannabinoid Quant, Urine 269 (H) 03/03/2021 Benzoylecognine Quant, Urine <24 03/03/2021 6-Acetylmorphine Quant, Urine <5 03/03/2021 Amphetamine Quant, Urine <5 03/03/2021 Methamphetamine Quant, Urine <8 03/03/2021 Buprenorphine Quant, Urine <20 03/03/2021 Norbuprenorphine Quant, Urine <20 03/03/2021 Methadone Quant, Urine <16 03/03/2021 EDDP Quant, Urine <6 03/03/2021 Tramadol Quant, Urine <25 03/03/2021 Desmethyltramadol Quant, Urine <20 03/03/2021 Fentanyl Quant, Urine <6 03/03/2021 Norfentanyl Quant, Urine <6 03/03/2021 Codeine Quant, Urine <11 03/03/2021 Morphine Quant, Urine <10 03/03/2021 Dihydrocodeine Quant, Urine <5 03/03/2021 Hydrocodone Quant, Urine <8 03/03/2021 Oxycodone Quant, Urine <10 03/03/2021 Hydromorphone Quant, Urine <5 03/03/2021 Oxymorphone Quant, Urine <5 03/03/2021 Creatinine,Ur Pain Rodriguez 57.9 03/03/2021 Urine pH, Pain Rodriguez 5.7 03/03/2021 Specific [place],Ur Pain Rodriguez 1.020 03/03/2021 Oxidants,Ur <38 03/03/2021 Assessment & Plan 61 year old man with history of lymphoma s/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 He has cancer related fatigue, insomnia due to pain, and anxiety. Continue hydromorphone 2-4 mg up to every 4 hours as needed for severe pain Opioid Management Agreement signed 03/03/2021. As needed naloxone was prescribed 05/04/2019. Urine Drug Screen 03/03/2021 was consistent with prescribed meds. Plan was for inpatient follow-up today, but switched to virtual visit due to severe weather. Sent prescription refill today for Dilaudid. Advance care planning Existence of Advance Directives: Unknown Follow-up Next Visit: 3 Months in person Teo Cole MD August 20, 2022 11:19 AM Some elements copied from my note on 11/02/2021, the elements have been updated and all reflect current decision making from today, 08/20/2022. This note may have been partially generated using the [employer] voice recognition system. While every effort was made to correct voice recognition errors, kindly be aware that some errors may occasionally occur. documented in this encounter [facility] 08-20-2022 History of Presen t illness Narrative [facility] DIST[facility] HEALTH VISIT Department of Hematology and Medical Oncology PATIENT NAME: Marciano Irving CLINIC NO.: [id number] ATTENDING PHYSICIAN: Jeovanny Montes MD DATE OF SERVICE: 08/20/2022 [facility] FOLLOWUP DIAGNOSES: 1. Steroid-dependent sclerodermatous chronic iqczr-yyymll-qpbj disease arising progressively from acute hzggh-cjtlbs-yasv disease, previously treated with mycophenolate mofetil, calcineurin inhibitors, ECP, rituximab, and imatinib; on chronic treatment with low-dose prednisone/hydrocortisone; intolerant of ruxolitinib (03/2016), ixazomib (12/2016), and ibrutinib (11/2017). 2. Stage IV indolent B-cell non-Hodgkin lymphoma consistent with marginal zone lymphoma, status post non-myeloablative matched unrelated donor allogeneic hematopoietic stem cell transplantation at [facility] in March 2006 3. Septic shock and respiratory failure in 10/2012, complicated by asystolic arrest with successful resuscitation. Infectious etiology not definitively identified (mycoplasma infection, viral gastroenteritis?). 4. Hypoxemic pneumonitis in 03/2016-04/2016, presumably secondary to ruxolitinib, responsive to steroids. 5. Septic arthritis with MRSA involving the left shoulder in 03/2019 This visit is a Telephone encounter which required patient-provider interaction for the medical decision making as documented below. This was originally scheduled as a video virtual visit but converted to a telephone encounter because of technical problems with the Zoom platform. Persons Present: patient and patient's spouse/significant other Akshat Irving has consented to this distance health encounter. Total Time Spent: 7 minutes on this telephone encounter HISTORY REVIEWED (electronic chart updated): Mr. Irving reports that he is doing well overall. He feels that he recovered well from AVR earlier this year, and he felt pretty well over the summer. He states he was exercising up to 2 or 3 hours daily. Now he has felt a little more fatigued the past couple of months, which he attributes in part to some family-related stressors. He notes that he has hearing aids now, which has been helpful. Overall he thinks his symptoms of chronic GVHD are under pretty good control, chronic musculoskeletal pain tolerable . His biggest issues are shortness of breath and fatigue, as before. Current hydrocortisone dosing is 10 mg twice daily, for several months. No skin sores. No significant gastrointestinal issues. Data Reviewed: No new labs REVIEW OF SYSTEMS: As noted in HPI VIDEO PHYSICAL EXAMINATION: (if done, performed via video enabled technology) No exam performed ASSESSMENT: 1. Chronic GVHD: Clinically stable per report. Continue hydrocortisone twice daily. 2. Pulmonary: Stable symptoms from restrictive lung disease secondary to sclerodermatous chronic GVHD. 3. ID: No acute issues. Continue current prophylaxis. 4. NHL: No evidence of recurrence. PLAN: RTC in 6 months. Jeovanny Montes MD cc: Lolly Meyer MD; ; documented in this encounter [facility] 08-18-2022 Instructions MARISOL Cohn - 08/18/2022 11:54 AM EST Images from the original note were not included. [facility] [place] Section of Audiology Thank you for trusting the [facility] Audiology department with your hearing healthcare today. We appreciated the opportunity to meet with you today to assess your hearing status and needs. For you to be able to hear, the brain requires sound to travel through the entire auditory system which involves the outer ear, middle ear, inner ear, and auditory nerve. Symptoms of hearing loss, tinnitus, dizziness, or sensations in the ear may have many different causes. These symptoms may be due to problems associated with your ear, vision, brain, heart, medications, other health conditions, or history of exposure to loud noises. Today you completed a comprehensive evaluation of your auditory system. TEST SUMMARY: Based on today's evaluation, your results revealed sensorineural hearing loss right ear greater than left ear. Sensorineural Hearing Loss: Hearing loss means we had to turn the sound up, outside the range of normal, in order for you to be able to hear it. This type of hearing loss affects the inner ear (cochlea) or auditory nerve. Loud noises, diseases or the aging process often cause it. Children are prone to this type due to congenital conditions (present at ), trauma during childbirth, head injuries or infections. Sensorineural hearing loss is often permanent. Hearing aids and hearing assistive devices can help. Listed below are some communication strategies that help you hear others: 1) Facing communication partner. 2) Removing physical or visual barriers. 3) Maintaining a maximum distance for 6-10 feet from communication partner. 4) Encouraging communication partners to use clear speech and get their attention before speaking. 5) Reducing or removing background noise sources. 6) Taking turns speaking in conversation. 7) Ensuring the listener and speaker's voice are level with each other (both seated or both standing). Recommendations: Continue medical follow-up with Hakan Armijo MD. The patient was counseled regarding the need to continue to monitor hearing and have regular hearing assessments Discussed due to poor word recognition abilities bilaterally, updated hearing aid technology may not provide sufficient benefit. Recommend calling [phone] to schedule an appointment for an implantable hearing device evaluation. Thank you for trusting and choosing [facility] Audiology with your hearing care needs. Please do not hesitate to reach out with any questions or concerns. Sincerely, Marisol Cohn, [facility]-A Clinical and Hearing Implant Regional Sales Engineer documented in this encounter [facility] 08-17-2022 Note HNO ID: [id number] Author: MARISOL Cohn Service: ? Author Type: Regional Sales Engineer Type: Progress Notes Filed: 08/18/2022 11:55 AM Note Text: [facility] [place] [place] AUDIOLOGIC EVALUATION REPORT Name: Akshat Souzanestortaylor [facility]#: [id number] Date of Service: 08/17/2022 Date of : 1960 Age: [age] year old Referred by: Hakan Armijo [address] [facility] [id number] Referred for: Evaluation of suspected change in hearing, tinnitus, or balance. Referral documented: In an order in [facility] Patient's major complaints: Reduced hearing right ear greater than left ear, Tinnitus in both ears, Otalgia in the right ear, right otorrhea Akshat A McIlvaine was seen for an initial audiologic evaluation. See SmartForm Audiogram for additional reported history and symptoms. 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 Per patient report he received 100 rounds of chemotherapy, completed in 2005. He has a history of bilateral sensorineural hearing loss that was first diagnosed following chemotherapy treatment. He was fit with bilateral hearing aids 5 years ago, and currently only wears the left hearing aid as the right one was lost. He received hyperbaric O2 treatment in December 2021 after which he reported right ear pain and otorrhea. Seen by his local ENT and diagnosed with an ear infection, PE tube placed, but continued to have otorrhea. He was seen by Hakan Armijo MD at [facility] on 08/05/2022 and it was recommended he received a CT scan and collect a sample of the otorrhea to be sent for beta-2 transferrin testing due to concerns for possible CSF leak. Akshat noted since that time his otorrhea has decreased significantly and he has not had sufficient otorrhea to collect a sample. He continues to feel his right ear hearing is down. He is scheduled to obtain new Phonak hearing aids tomorrow through his local ENT. He reported bilateral tinnitus. IMPRESSIONS RIGHT EAR: Sensorineural hearing loss LEFT EAR: Sensorineural hearing loss AUDIOLOGIC EVALUATION Following is a brief interpretation of the obtained findings from the audiologic evaluation. Refer to the Auditory Test Record for complete audiometric results. The patient was counseled about the test findings and appropriate audiologic recommendations were made. SUMMARY: Audiogram can be viewed under Forms/Audiology/SmartForm. OTOSCOPY RIGHT EAR: Otoscopic inspection revealed ear canal clear with PE tube visible in TM. Moisture noted around PE tube/TM. LEFT EAR: Otoscopic inspection revealed ear canal was clear with an identifiable cone of light. TYMPANOMETRY Description of procedure: This test is an objective evaluation of middle ear function. CPT code: 28479 RIGHT EAR: Could not test due to inability to maintain a seal LEFT EAR: Normal ME function. ACOUSTIC REFLEXES Description of procedure: This test is an objective measure of auditory and facial nerve pathways. CPT code: 46341, 16635 RIGHT EAR PROBE EAR: (ipsi right stimulus ear; contralateral left stimulus ear): Acoustic Reflex Pattern Did not test Acoustic Reflex Decay (left stimulus ear): Did not test. LEFT EAR PROBE EAR: (ipsi left stimulus ear; contralateral right stimulus ear): Acoustic Reflex Pattern Did not test Acoustic Reflex Decay (right stimulus ear):Did not test. PURE TONE AUDIOMETRY AND SPEECH TESTING Description of procedure: This test is an objective evaluation hearing sensitivity via air and bone conduction and speech recognition testing. CPT code:56670 RIGHT EAR: Hearing Sensitivity: Mild through 1000 Hz sloping to moderately severe to severe sensorineural hearing loss Word Recognition Score: Very Poor (52%). WRS is poorer than expected given hearing sensitivity. Words were presented at 85 dB HL which is above (greater than or equal to 60 dB HL) intensity level for average conversational speech. The NU-6 Word List (25 words) was used. LEFT EAR: Hearing Sensitivity: Mild through 1500 Hz sloping to moderately severe to severe sensorineural hearing loss Word Recognition Score: Poor (68%). WRS is poorer than expected given hearing sensitivity. Words were presented at 80 dB HL which is above (greater than or equal to 60 dB HL) intensity level for average conversational speech. The NU-6 Word List (25 words) was used. RECOMMENDATIONS Continue medical follow-up with Hakan Armijo MD. The patient was counseled regarding the need to continue to monitor hearing and have regular hearing assessments Discussed due to poor word recognition abilities bilaterally, updated hearing aid technology may not provide sufficient benefit. Recommend calling [phone] to schedule an appointment for an implantable hearing device evaluation. Marisol Cohn, CCC-A Clinical and Hearing (more content not included)... [facility] 08-17-2022 History of Presen t illness Narrative [facility] [place] AUDIOLOGIC EVALUATION REPORT Name: Akshat Souzanestortaylor [facility]#: [id number] Date of Service: 08/17/2022 Date of : 1960 Age: [age] year old Referred by: Hakan Armijo [address] [facility] [id number] Referred for: Evaluation of suspected change in hearing, tinnitus, or balance. Referral documented: In an order in [facility] Patient's major complaints: Reduced hearing right ear greater than left ear, Tinnitus in both ears, Otalgia in the right ear, right otorrhea Akshat Souzalvtaylor was seen for an initial audiologic evaluation. See SmartForm Audiogram for additional reported history and symptoms. 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 Per patient report he received 100 rounds of chemotherapy, completed in 2005. He has a history of bilateral sensorineural hearing loss that was first diagnosed following chemotherapy treatment. He was fit with bilateral hearing aids 5 years ago, and currently only wears the left hearing aid as the right one was lost. He received hyperbaric O2 treatment in December 2021 after which he reported right ear pain and otorrhea. Seen by his local ENT and diagnosed with an ear infection, PE tube placed, but continued to have otorrhea. He was seen by Hakan Armijo MD at [facility] on 08/05/2022 and it was recommended he received a CT scan and collect a sample of the otorrhea to be sent for beta-2 transferrin testing due to concerns for possible CSF leak. Akshat noted since that time his otorrhea has decreased significantly and he has not had sufficient otorrhea to collect a sample. He continues to feel his right ear hearing is down. He is scheduled to obtain new Phonak hearing aids tomorrow through his local ENT. He reported bilateral tinnitus. IMPRESSIONS RIGHT EAR: Sensorineural hearing loss LEFT EAR: Sensorineural hearing loss AUDIOLOGIC EVALUATION Following is a brief interpretation of the obtained findings from the audiologic evaluation. Refer to the Auditory Test Record for complete audiometric results. The patient was counseled about the test findings and appropriate audiologic recommendations were made. SUMMARY: Audiogram can be viewed under Forms/Audiology/SmartForm. OTOSCOPY RIGHT EAR: Otoscopic inspection revealed ear canal clear with PE tube visible in TM. Moisture noted around PE tube/TM. LEFT EAR: Otoscopic inspection revealed ear canal was clear with an identifiable cone of light. TYMPANOMETRY Description of procedure: This test is an objective evaluation of middle ear function. CPT code: 05994 RIGHT EAR: Could not test due to inability to maintain a seal LEFT EAR: Normal ME function. ACOUSTIC REFLEXES Description of procedure: This test is an objective measure of auditory and facial nerve pathways. CPT code: 76241, 27652 RIGHT EAR PROBE EAR: (ipsi right stimulus ear; contralateral left stimulus ear): Acoustic Reflex Pattern Did not test Acoustic Reflex Decay (left stimulus ear): Did not test. LEFT EAR PROBE EAR: (ipsi left stimulus ear; contralateral right stimulus ear): Acoustic Reflex Pattern Did not test Acoustic Reflex Decay (right stimulus ear):Did not test. PURE TONE AUDIOMETRY AND SPEECH TESTING Description of procedure: This test is an objective evaluation hearing sensitivity via air and bone conduction and speech recognition testing. CPT code:14732 RIGHT EAR: Hearing Sensitivity: Mild through 1000 Hz sloping to moderately severe to severe sensorineural hearing loss Word Recognition Score: Very Poor (52%). WRS is poorer than expected given hearing sensitivity. Words were presented at 85 dB HL which is above (greater than or equal to 60 dB HL) intensity level for average conversational speech. The NU-6 Word List (25 words) was used. LEFT EAR: Hearing Sensitivity: Mild through 1500 Hz sloping to moderately severe to severe sensorineural hearing loss Word Recognition Score: Poor (68%). WRS is poorer than expected given hearing sensitivity. Words were presented at 80 dB HL which is above (greater than or equal to 60 dB HL) intensity level for average conversational speech. The NU-6 Word List (25 words) was used. RECOMMENDATIONS Continue medical follow-up with Hakan Armijo MD. The patient was counseled regarding the need to continue to monitor hearing and have regular hearing assessments Discussed due to poor word recognition abilities bilaterally, updated hearing aid technology may not provide sufficient benefit. Recommend calling [phone] to schedule an appointment for an implantable hearing device evaluation. Marisol Cohn, [facility]-A Clinical and Hearing Implant Regional Sales Engineer copied to: Hakan Armijo MD WILLARD Abbrev- iation Definition Degree of hearing sensitivity dB range WNL within normal limits WNL 0 - 20 SNHL sensorineural hearing loss Mild 20-40 CHL conductive hearing loss Moderate 40-55 MHL mixed hearing loss Moderately-Severe 55-70 WRS word recognition score Severe 70-90 ME middle ear Profound 90 + TM tympanic membrane documented in this encounter [facility] 08-06-2022 Miscellaneous Notes Called to schedule audiogram. No answer. Left Vm documented in this encounter [facility] 08-05-2022 Miscellaneous Notes Addended by: HAKAN ARMIJO on: 08/05/2022 03:15 PM Modules accepted: Orders documented in this encounter [facility] 08-05-2022 History of Presen t illness Narrative IMPRESSION 62-year-old male with chronic right-sided otorrhea. Surgical diagnosis including otitis media, otitis externa, CSF leak or other. RECOMMENDATION/PLAN I recommend collecting the fluid for beta-2 transferrin testing. I will also order a CT scan of the temporal bone to evaluate for tegmen dehiscence. I have ordered mastoid powder for the patient as well and he will see her back in 2 weeks for mastoid powder placement. We discussed signs and symptoms of meningitis and patient needs to go to emergency room if he experiences any signs and symptoms. Patient will also bring his past hearing test for me to review at his next visit. I will also order a new hearing test on the same day as his follow-up. Chief Complaint Right otorrhea History of Present Illness Akshat Irving is a 61 year old male with history of lymphoma presents for evaluation of right-sided otorrhea. Patient stated that in December, he underwent hyperbaric oxygen therapy which resulted in right-sided ear pain and subsequent fluid and muffled hearing. Patient was seen in outside ENT and had 2 sets of temporary tubes placed in the right ear which extruded and most recently had a more permanent tube placed. Patient continued to complain of right-sided otorrhea. This has been ongoing whenever the tube is in the ear. He has tried eardrops without significant improvement. He also feel like his hearing has gotten worse on the right side. He had a hearing test at outside recently the results were not available for review. He denies any headaches or signs of meningitis. 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 Cardiogenic shock ([facility]) CLL (chronic lymphocytic leukemia) ([facility]) s/p chemo and stem cell transplant COPD (chronic obstructive pulmonary disease) (HCC) COPD (chronic obstructive pulmonary disease) (HCC) Current chronic use of systemic steroids since 2005 DVT prophylaxis GVHD (graft versus host disease) (HCC) HFrEF (heart failure with reduced ejection fraction) (HCC) Hypertension 05/03/2019 Hypogonadism 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 Immunodeficiency (HCC) NHL (nodular histiocytic lymphoma) (HCC) Nonrheumatic aortic valve insufficiency Pulmonary aspergillosis (HCC) Respiratory failure (HCC) Severe sepsis (HCC) Sleep apnea on bipap Transaminitis PAST SURGICAL HISTORY Procedure Laterality Date EAR TUBES HX Right 05/2022 EYE SURGERY PROCEDURE 10/2012 Bilateral Lacrimal Plugs LUNG SURGERY HX NOSE SURGERY HX deviated septum PAST SURGICAL HISTORY OF 2005 stem cell transplant PICC LINE INSERT/CONSULT 11/12/2012 PICC LINE INSERT/CONSULT 05/03/2019 REMV CATARACT EXTRACAP,INSERT LENS Right TONSILLECTOMY HX FAMILY HISTORY Problem Relation Age of Onset No Known Problems Mother Cancer Father Luekemia Heart Attack Father 82 Hypertension Father Cancer Paternal Grandfather lymphoma Cancer Paternal Uncle Luekemia No Ocular Disease No Family History CURRENT OUTPATIENT MEDICATIONS Current Outpatient Medications on File Prior to Visit Medication Sig ofloxacin (FLOXIN) 0.3 % otic solution PLACE 5 DROPS INTO BOTH EARS TWICE A DAY DIRECTED ALPRAZolam (XANAX) 0.5 mg tablet TAKE 1 TABLET BY MOUTH EVERY DAY NEEDED FOR SLEEP hydrocortisone (CORTEF) 10 mg tablet TAKE 1 TABLET by mouth in the morning and take 1 tablet with 5 mg in the evening (15 mg in PM) atorvastatin (LIPITOR) 10 mg tablet Take 10 mg by mouth once daily. ondansetron (ZOFRAN) 4 mg tablet Take 1 tablet by mouth once daily. hydrocortisone (CORTEF) 5 mg tablet Take 1 tablet by mouth once daily. Take with 10 mg in the PM ( total of 15 mg) pantoprazole DR (PROTONIX) 40 mg tablet Take 1 tablet by mouth once daily. HYDROmorphone (HYDROMORPHONE) 2 mg tablet Take 1 tablet by mouth every 4 hours as needed (severe pain) for up to 28 days. methylphenidate (RITALIN) 5 mg tablet Take 1 tablet by mouth twice daily as needed for up to 30 days. (9 and 1 PM) testosterone cypionate (DEPO-TESTOSTERONE) 200 mg/mL injection Inject 0.5 mL intramuscularly one time a week for 7 days. Do not start before October 08, 2021. acetaminophen (TYLENOL) 325 mg tablet Take 2 tablets by mouth every 4 hours as needed for pain (for mild pain). polyvinyl alcohol-povidone (REFRESH) 1.4-0.6 % ophthalmic solution Use 1 Drop in both eyes as needed. metoprolol tartrate, short acting, (LOPRESSOR) 25 mg tablet Take 1 tablet by mouth twice daily. naloxone 4 mg/actuation nasal spray (NARCAN) Use 1 spray in one nostril as needed for overdose. May repeat every 2 to 3 min in alternating nostrils until medical assistance is available etodolac (LODINE) 400 mg tablet TAKE 1 TABLET BY MOUTH TWICE A DAY (Patient taking differently: prn) inpdufwygoj-pydyrbcqf-hegvvmav (TRELEGY ELLIPTA) 100-62.5-25 mcg Inhale 1 Puff as instructed once daily. aspirin, enteric coated (ADULT LOW DOSE ASPIRIN) 81 mg EC tablet Take 1 tablet by mouth once daily. albuterol (PROVENTIL) 2.5 mg /3 mL (0.083 %) nebulizer solution Use 3 mL via nebulizer every 4 hours while awake. melatonin 10 mg TbMP Take 1 tablet by mouth daily at bedtime. OXYGEN, HOME THERAPY, Inhale 2 L/min as instructed as needed (SOB). No current facility-administered medications on file prior to visit. ALLERGIES ALLERGIES Allergen Reactions Duloxetine Other: See Comments had negative,depressing thoughts Lyrica [Pregabalin] Other: See Comments fogginess Vancomycin Rash rash possibly from Vanco The remainder of the patient's history and review of systems is on the outpatient questionaire which was reviewed by me and placed in the outpatient chart. PHYSICAL EXAMINATION Appearance: General examination of the patient's external face, head and neck reveals no abnormalities. The patient is not retrognathic The patient's voice is strong and clear and they communicate easily. Ears: Right EAC with drainage in the ear canal which was suctioned. Ear tube in place. Middle ear space slightly inflamed. Left EAC patent, TM intact, middle ear space appears healthy. Nose: External nasal exam was normal. Throat: There were no lesions to visualization or palpation of the lips, cheeks, gums, floor of mouth, tongue, hard and soft palate, tonsillar pillars or posterior pharyngeal wall. Neck: Palpation of the neck revealed no adenopathy, salivary gland masses or asymmetry, or thyroid masses or enlargement. Procedure In order to assess the patient's complaint of right-sided otorrhea rule out nasopharyngeal obstruction, nasal endoscopy was performed. Consent: verbal Anesthesia: topical lidocaine and Afrin After spraying the nose with topical 4% lidocaine and Afrin the nasal endoscope was passed. Findings: Septum was midline. There was significant right sided crusting. Right middle meatus was clear without any pus or polyps. Nasopharynx was patent. Hakan Armijo MD documented in this encounter [facility] 12-18-2021 History of Presen t illness Narrative [facility] CLINICAL NOTE Department of Hematology and Medical Oncology PATIENT NAME: Marciano Irving CLINIC NO.: [id number] ATTENDING PHYSICIAN: Jeovanny Montes MD DATE OF SERVICE: 12/18/2021 [facility] FOLLOWUP DIAGNOSES: 1. 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 2. Stage IV indolent B-cell non-Hodgkin lymphoma consistent with marginal zone lymphoma, status post non-myeloablative matched unrelated donor allogeneic hematopoietic stem cell transplantation at [facility] in March 2006 3. Septic shock and respiratory failure in 10/2012, complicated by asystolic arrest with successful resuscitation. Infectious etiology not definitively identified (mycoplasma infection, viral gastroenteritis?). 4. Hypoxemic pneumonitis in 03/2016-04/2016, presumably secondary to ruxolitinib, responsive to steroids. 5. Septic arthritis with MRSA involving the left shoulder in 03/2019 INTERIM HISTORY: Nursing notes reviewed; agree with findings as documented. Mr. Ivring returns for follow up. He underwent AVR surgery in August, with a fairly uneventful postop course. He states that his surgical incisions healed well. He still fatigues easily and had hoped before the surgery that his dyspnea on exertion would improve more noticeably, but he recognizes that he is still somewhat deconditioned relative to his preoperative baseline. He underwent cardiac rehabilitation and is continuing therapy from home. Chronic musculoskeletal cramping and skin sensitivity seem better to him overall. He continues on hydrocortisone 10 mg twice daily. He still has intermittent jaw pain, unchanged from before. MEDICATIONS: Per [facility]. Current steroid regimen is hydrocortisone 10 mg QAM and 10 mg QPM; no prednisone. REVIEW OF SYSTEMS: As described above. ECOG PS = 1, Karnofsky 80%. PHYSICAL EXAMINATION: VITAL SIGNS: BP 153/83 Pulse 74 Temp 36.6 C (97.8 F) (Oral) Resp 16 Ht 177.6 cm (5' 9.92 ) Wt 69.8 kg (153 lb 14.4 oz) SpO2 93% BMI 22.13 kg/m GENERAL: well-appearing middle-aged man in no acute distress. HEAD, EYES, EARS, NOSE, AND THROAT: Normocephalic, atraumatic. Extraocular movements intact, sclerae anicteric. The oropharynx is clear. NECK: Supple, no lymphadenopathy or masses. CHEST: Clear to auscultation. No rales, wheezes, or rhonchi. CARDIAC: Regular rate and rhythm, normal S1 and S2. No murmurs. ABDOMEN: Abdomen soft, non-tender. Bowel sounds normal. No masses, organomegaly. EXTREMITIES: Warm, no edema. LYMPH NODES: No axillary or inguinal lymphadenopathy. MUSCULOSKELETAL: No spinal tenderness to palpation. No obvious deformity. SKIN: Generalized cutaneous sclerosis and mild poikiloderma; sclerosis is less prominent and there are no significant ulcerations. Mild patchy scaling is present on the dorsal feet. DIAGNOSTIC STUDIES: Component Latest Ref Rng & Units 12/17/2021 WBC 3.70 - 11.00 k/uL 9.64 RBC 4.20 - 6.00 m/uL 5.16 Hemoglobin 13.0 - 17.0 g/dL 16.0 Hematocrit 39.0 - 51.0 % 48.9 MCV 80.0 - 100.0 fL 94.8 MCH 26.0 - 34.0 pg 31.0 MCHC 30.5 - 36.0 g/dL 32.7 RDW-CV 11.5 - 15.0 % 17.0 (H) Platelet Count 150 - 400 k/uL 247 MPV 9.0 - 12.7 fL 9.4 Neut% % 67.2 Abs Neut (ANC) 1.45 - 7.50 k/uL 6.47 Lymph% % 21.4 Abs Lymph 1.00 - 4.00 k/uL 2.06 [place]% % 9.5 Abs [place] <0.87 k/uL 0.92 (H) Eosin% % 1.3 Abs Eosin <0.46 k/uL 0.13 Baso% % 0.4 Abs Baso <0.11 k/uL 0.04 Immature Gran % % 0.2 IMMATURE GRANS (ABS) <0.10 k/uL <0.03 NRBC /100 WBC 0.0 Absolute nRBC <0.01 k/uL <0.01 DTYPE Auto Protein, Total 6.3 - 8.0 g/dL 7.4 Albumin 3.9 - 4.9 g/dL 4.0 Calcium 8.5 - 10.2 mg/dL 9.3 Bilirubin, Total 0.2 - 1.3 mg/dL 0.3 Alkaline Phosphatase 38 - 113 U/L 96 AST 14 - 40 U/L 31 ALT 10 - 54 U/L 29 Glucose 74 - 99 mg/dL 108 (H) BUN 9 - 24 mg/dL 11 Creatinine 0.73 - 1.22 mg/dL 0.53 (L) Sodium 136 - 144 mmol/L 138 Potassium 3.7 - 5.1 mmol/L 4.4 Chloride 97 - 105 mmol/L 100 CO2 22 - 30 mmol/L 31 (H) Anion Gap 9 - 18 mmol/L 7 (L) eGFR >=60 mL/min/1.73m 113 IMPRESSION AND PLAN: 1. Chronic GVHD: Overall somewhat better, symptoms well controlled on hydrocortisone. He will continue this without change. 2. Pulmonary: restrictive lung disease secondary to sclerodermatous chronic qcrjf-mtoily-wdib disease. 3. Cardiac: Status post AVR. 4. Hypogonadism: Continues testosterone replacement therapy. 5. ID: No acute issues. Continue current prophylaxis. 6. NHL: No evidence of recurrence. I spent a total of 30 minutes on the date of the service which included preparing to see the patient, orfi-wy-ndez patient care, completing clinical documentation, obtaining and/or reviewing separately obtained history, performing a medically appropriate examination and counseling and educating the patient/family/caregiver. Jeovanny Montes MD cc: Lolly Meyer MD; ; documented in this encounter [facility] 12-18-2021 Nurse Note Additional intake questions: Has the patient had fever, nausea, vomiting, diarrhea, constipation, fatigue for > 1 week? Yes, fatigue and Provider Notified Does the patient have a decreased appetite? No Does patient want to see a Jewellery Designer? No (yes to any of above refer patient to schedulers for dietitian appointment) ) Does patient have any new or increased numbness or tingling of extremities? No Is patient interested in fertility information? No Does patient need any prescription refills? No Does patient have an advanced directive in place? No, Patient referred to Resource Center Electronically Signed By: Kulwant Bowens LPN documented in this encounter [facility] documented as of this encounter (statuses as of 12/18/2021) [facility] History of Past illness Narrative* Problem Noted Date Resolved Date On mechanically assisted ventilation 09/01/2021 09/02/2021 Overview: History: Post op Assessment: Grade 1 airway Plan: WTE Stress hyperglycemia 09/01/2021 09/04/2021 Overview: History: No hx of DM. Chronic steroid therapy. Hemoglobin A1C (%) Date Value 05/12/2021 5.7 Assessment: Perioperative insulin resistance and exacerbation of hyperglycemia. Plan: Control blood glucose with SSI per CVICU protocol. Cardiac insufficiency following cardiac surgery 09/01/2021 09/05/2021 Overview: History: Nml function pre op. Myocardial stunning causing difficulty from CPB. Arrived from OR on Epinephrine infusion at 2 mcg/min. Assessment: Epinephrine weaned off night of surgery. Plan: Continue diuresis and betablocker. Monitor hemodynamics. Hypovolemia 09/01/2021 09/02/2021 Overview: History: Post op Assessment: Fluid shifts in post operative period Plan: Resuscitate with IVF PRN Fever 12/07/2013 02/11/2015 Overview: --in an immunocompromised host. Vanc and Zosyn/ID rec; now DC'd d/t change in care plan to DNR/CC. BC & stool cx neg pending. CMV and RVP neg. O&P pending. --Abx discontinued 12/08. Now DNR/CC. Hypotension 12/07/2013 09/02/2021 Overview: History: Post op Assessment: Arrived from OR on Levophed infusion Plan: Titrate Levophed for goal MAP 65-75. Hypoxia 12/07/2013 06/11/2016 Overview: --O2 support via NC -- Now DNR/CC Electrolyte and fluid disorders not elsewhere cl assified 08/14/2013 02/11/2015 Diarrhea 11/12/2012 02/11/2015 Overview: --gastroenteritis vs GVHD --FMS --c.diff negative. Add Imodium --no further w/up as patient opted for comfort care Cardiogenic shock 11/09/2012 05/27/2016 Overview: --Initially presented with septic shock on 3 pressor support from OSH. --Off pressor support 11/06. --Continue anti HTN meds to help reduce afterload captopril, hydralazine and metoprolol. --monitor, no current issues DVT prophylaxis 11/09/2012 05/27/2016 Overview: SQ heparin plus IPCs. Respiratory failure 11/09/2012 06/11/2016 Overview: Respiratory failure in the setting of sepsis. Plan: Continue weaning trials daily and monitor for agitation and pain. Acute hypernatremia 11/09/2012 11/11/2012 Overview: Sodium up to 154 on 11/07/12. Plan: - free water flushes with tube feeds. - D5W at 100 cc/hr. - monitor BMP q4h. ARDS (adult respiratory distress syndrome) 11/0606/11/2016 Overview: --On ventilator 11/02-11/10 --Tapering steroids to home dose of 15mg daily --improving --Occasional complaints of SOB, oxygen by nasal cannula for comfort, was weaned off, however some mild hypoxia yesterday. No complaints, CXR unremarkable except for some mild atlectasis, actually improved. Thrombocytopenia 11/06/2012 11/09/2012 Overview: Possibilities: reactive- related to sepsis. HIT ruled out anti PF4 normal. DIC panel - hapto and LDH elevated. Fibrinogen- in process. Will monitor platelet counts. Transaminitis 11/06/2012 02/11/2015 Overview: --secondary to sepsis/ passive congestion of liver from cardiogenic shock. --Acute hepatitis panel negative. --Trend of LFTs stable to improving, monitor. 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 Viral gastroenteritis vs GVHD. Hypotension requiring 3 vasopressors; Hypoxia reuiring intubation; Asystole following intubation (5 minutes CPR with epi, bicarb, and calcium). Transferred back to [facility] [place]/12. NSR on telemetry. ID following. A&Ox3. Pt stable on 2L oxygen by NC. Extreme weakness, turning with two person assist. Eating and drinking with assistance. Tejada catheter and FMS removed 11/13. Telemetry discontinued. Transitioned medications to PO. Patient anxious to go to SNF for aggressive rehabilitation at d/c, however unfortunately with diarrhea and colonoscopy today 11/17 to further investigate. Severe sepsis(995.92) 11/03/2012 02/11/2015 Overview: --Likely 2/2 viral gastroenteritis. stool culture positive for E coli (non O157:H7) at [facility], repeat here neg. --c diff negative, [facility] stool culture negative. --Given meropenem. ciproflox 11/03-11/07 and gancyclovir 11/03-11/07. Now completed --required Levophed/Vasopressin/Shad/dobutamine --No Identifying source: blood, urine, sputum, c diff, legionella, RSV, norwalk negative --EBV viremia- 580 copies and mycoplasma IgM equivalent (will repeat mycoplasma IgM in 1 week 11/14) -- contact precautions for suspected norovirus infection although stool studies negative. -- Continue TMP-SMX ppx and valacyclovir 500mg qday. --Continue to follow ID recommendations: continue current prophylactic abx. --diarrhea recurred but resolved after colonoscopy 11/17. No obvious changes, follow up on biopsy results. 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 --on low dose pred recent MTX --MP discontinued 12/08. Now DNR/CC documented as of this encounter (statuses as of 06/23/2022) [facility]01-04-[facility]22 History of Past illness Narrative* Problem Noted Date Resolved Date On mechanically assisted ventilation 09/01/2021 09/02/2021 Overview: History: Post op Assessment: Grade 1 airway Plan: WTE Stress hyperglycemia 09/01/2021 09/04/2021 Overview: History: No hx of DM. Chronic steroid therapy. Hemoglobin A1C (%) Date Value 05/12/2021 5.7 Assessment: Perioperative insulin resistance and exacerbation of hyperglycemia. Plan: Control blood glucose with SSI per CVICU protocol. Cardiac insufficiency following cardiac surgery 09/01/2021 09/05/2021 Overview: History: Nml function pre op. Myocardial stunning causing difficulty from CPB. Arrived from OR on Epinephrine infusion at 2 mcg/min. Assessment: Epinephrine weaned off night of surgery. Plan: Continue diuresis and betablocker. Monitor hemodynamics. Hypovolemia 09/01/2021 09/02/2021 Overview: History: Post op Assessment: Fluid shifts in post operative period Plan: Resuscitate with IVF PRN Fever 12/07/2013 02/11/2015 Overview: --in an immunocompromised host. Vanc and Zosyn/ID rec; now DC'd d/t change in care plan to DNR/CC. BC & stool cx neg pending. CMV and RVP neg. O&P pending. --Abx discontinued 12/08. Now DNR/CC. Hypotension 12/07/2013 09/02/2021 Overview: History: Post op Assessment: Arrived from OR on Levophed infusion Plan: Titrate Levophed for goal MAP 65-75. Hypoxia 12/07/2013 06/11/2016 Overview: --O2 support via NC -- Now DNR/CC Electrolyte and fluid disorders not elsewhere cl assified 08/14/2013 02/11/2015 Diarrhea 11/12/2012 02/11/2015 Overview: --gastroenteritis vs GVHD --FMS --c.diff negative. Add Imodium --no further w/up as patient opted for comfort care Cardiogenic shock 11/09/2012 05/27/2016 Overview: --Initially presented with septic shock on 3 pressor support from OSH. --Off pressor support 11/06. --Continue anti HTN meds to help reduce afterload captopril, hydralazine and metoprolol. --monitor, no current issues DVT prophylaxis 11/09/2012 05/27/2016 Overview: SQ heparin plus IPCs. Respiratory failure 11/09/2012 06/11/2016 Overview: Respiratory failure in the setting of sepsis. Plan: Continue weaning trials daily and monitor for agitation and pain. Acute hypernatremia 11/09/2012 11/11/2012 Overview: Sodium up to 154 on 11/07/12. Plan: - free water flushes with tube feeds. - D5W at 100 cc/hr. - monitor BMP q4h. ARDS (adult respiratory distress syndrome) 11/0606/11/2016 Overview: --On ventilator 11/02-11/10 --Tapering steroids to home dose of 15mg daily --improving --Occasional complaints of SOB, oxygen by nasal cannula for comfort, was weaned off, however some mild hypoxia yesterday. No complaints, CXR unremarkable except for some mild atlectasis, actually improved. Thrombocytopenia 11/06/2012 11/09/2012 Overview: Possibilities: reactive- related to sepsis. HIT ruled out anti PF4 normal. DIC panel - hapto and LDH elevated. Fibrinogen- in process. Will monitor platelet counts. Transaminitis 11/06/2012 02/11/2015 Overview: --secondary to sepsis/ passive congestion of liver from cardiogenic shock. --Acute hepatitis panel negative. --Trend of LFTs stable to improving, monitor. 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 Viral gastroenteritis vs GVHD. Hypotension requiring 3 vasopressors; Hypoxia reuiring intubation; Asystole following intubation (5 minutes CPR with epi, bicarb, and calcium). Transferred back to [facility] [place] 11/12. NSR on telemetry. ID following. A&Ox3. Pt stable on 2L oxygen by NC. Extreme weakness, turning with two person assist. Eating and drinking with assistance. Tejada catheter and FMS removed 11/13. Telemetry discontinued. Transitioned medications to PO. Patient anxious to go to SNF for aggressive rehabilitation at d/c, however unfortunately with diarrhea and colonoscopy today 11/17 to further investigate. Severe sepsis(995.92) 11/03/2012 02/11/2015 Overview: --Likely 2/2 viral gastroenteritis. stool culture positive for E coli (non O157:H7) at [facility], repeat here neg. --c diff negative, [facility] stool culture negative. --Given meropenem. ciproflox 11/03-11/07 and gancyclovir 11/03-11/07. Now completed --required Levophed/Vasopressin/Shad/dobutamine --No Identifying source: blood, urine, sputum, c diff, legionella, RSV, norwalk negative --EBV viremia- 580 copies and mycoplasma IgM equivalent (will repeat mycoplasma IgM in 1 week 11/14) -- contact precautions for suspected norovirus infection although stool studies negative. -- Continue TMP-SMX ppx and valacyclovir 500mg qday. --Continue to follow ID recommendations: continue current prophylactic abx. --diarrhea recurred but resolved after colonoscopy 11/17. No obvious changes, follow up on biopsy results. 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 --on low dose pred recent MTX --MP discontinued 12/08. Now DNR/CC documented as of this encounter (statuses as of 08/05/2022) [facility]01[facility] History of Past illness Narrative* Problem Noted Date Resolved Date On mechanically assisted ventilation 09/01/2021 09/02/2021 Overview: History: Post op Assessment: Grade 1 airway Plan: WTE Stress hyperglycemia 09/01/2021 09/04/2021 Overview: History: No hx of DM. Chronic steroid therapy. Hemoglobin A1C (%) Date Value 05/12/2021 5.7 Assessment: Perioperative insulin resistance and exacerbation of hyperglycemia. Plan: Control blood glucose with SSI per CVICU protocol. Cardiac insufficiency following cardiac surgery 09/01/2021 09/05/2021 Overview: History: Nml function pre op. Myocardial stunning causing difficulty from CPB. Arrived from OR on Epinephrine infusion at 2 mcg/min. Assessment: Epinephrine weaned off night of surgery. Plan: Continue diuresis and betablocker. Monitor hemodynamics. Hypovolemia 09/01/2021 09/02/2021 Overview: History: Post op Assessment: Fluid shifts in post operative period Plan: Resuscitate with IVF PRN Fever 12/07/2013 02/11/2015 Overview: --in an immunocompromised host. Vanc and Zosyn/ID rec; now DC'd d/t change in care plan to DNR/CC. BC & stool cx neg pending. CMV and RVP neg. O&P pending. --Abx discontinued 12/08. Now DNR/CC. Hypotension 12/07/2013 09/02/2021 Overview: History: Post op Assessment: Arrived from OR on Levophed infusion Plan: Titrate Levophed for goal MAP 65-75. Hypoxia 12/07/2013 06/11/2016 Overview: --O2 support via NC -- Now DNR/CC Electrolyte and fluid disorders not elsewhere cl assified 08/14/2013 02/11/2015 Diarrhea 11/12/2012 02/11/2015 Overview: --gastroenteritis vs GVHD --FMS --c.diff negative. Add Imodium --no further w/up as patient opted for comfort care Cardiogenic shock 11/09/2012 05/27/2016 Overview: --Initially presented with septic shock on 3 pressor support from OSH. --Off pressor support 11/06. --Continue anti HTN meds to help reduce afterload captopril, hydralazine and metoprolol. --monitor, no current issues DVT prophylaxis 11/09/2012 05/27/2016 Overview: SQ heparin plus IPCs. Respiratory failure 11/09/2012 06/11/2016 Overview: Respiratory failure in the setting of sepsis. Plan: Continue weaning trials daily and monitor for agitation and pain. Acute hypernatremia 11/09/2012 11/11/2012 Overview: Sodium up to 154 on 11/07/12. Plan: - free water flushes with tube feeds. - D5W at 100 cc/hr. - monitor BMP q4h. ARDS (adult respiratory distress syndrome) 11/0606/11/2016 Overview: --On ventilator 11/02-11/10 --Tapering steroids to home dose of 15mg daily --improving --Occasional complaints of SOB, oxygen by nasal cannula for comfort, was weaned off, however some mild hypoxia yesterday. No complaints, CXR unremarkable except for some mild atlectasis, actually improved. Thrombocytopenia 11/06/2012 11/09/2012 Overview: Possibilities: reactive- related to sepsis. HIT ruled out anti PF4 normal. DIC panel - hapto and LDH elevated. Fibrinogen- in process. Will monitor platelet counts. Transaminitis 11/06/2012 02/11/2015 Overview: --secondary to sepsis/ passive congestion of liver from cardiogenic shock. --Acute hepatitis panel negative. --Trend of LFTs stable to improving, monitor. 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 Viral gastroenteritis vs GVHD. Hypotension requiring 3 vasopressors; Hypoxia reuiring intubation; Asystole following intubation (5 minutes CPR with epi, bicarb, and calcium). Transferred back to [facility] [place] 11/12. NSR on telemetry. ID following. A&Ox3. Pt stable on 2L oxygen by [place]. Extreme weakness, turning with two person assist. Eating and drinking with assistance. Tejada catheter and FMS removed 11/13. Telemetry discontinued. Transitioned medications to PO. Patient anxious to go to SNF for aggressive rehabilitation at d/c, however unfortunately with diarrhea and colonoscopy today 11/17 to further investigate. Severe sepsis(995.92) 11/03/2012 02/11/2015 Overview: --Likely 2/2 viral gastroenteritis. stool culture positive for E coli (non O157:H7) at [facility], repeat here neg. --c diff negative, [facility] stool culture negative. --Given meropenem. ciproflox 11/03-11/07 and gancyclovir 11/03-11/07. Now completed --required Levophed/Vasopressin/Shad/dobutamine --No Identifying source: blood, urine, sputum, c diff, legionella, RSV, norwalk negative --EBV viremia- 580 copies and mycoplasma IgM equivalent (will repeat mycoplasma IgM in 1 week 11/14) -- contact precautions for suspected norovirus infection although stool studies negative. -- Continue TMP-SMX ppx and valacyclovir 500mg qday. --Continue to follow ID recommendations: continue current prophylactic abx. --diarrhea recurred but resolved after colonoscopy 11/17. No obvious changes, follow up on biopsy results. 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 --on low dose pred recent MTX --MP discontinued 12/08. Now DNR/CC documented as of this encounter (statuses as of 08/06/2022) [facility]01-[facility] History of Past illness Narrative* Problem Noted Date Resolved Date On mechanically assisted ventilation 09/01/2021 09/02/2021 Overview: History: Post op Assessment: Grade 1 airway Plan: WTE Stress hyperglycemia 09/01/2021 09/04/2021 Overview: History: No hx of DM. Chronic steroid therapy. Hemoglobin A1C (%) Date Value 05/12/2021 5.7 Assessment: Perioperative insulin resistance and exacerbation of hyperglycemia. Plan: Control blood glucose with SSI per CVICU protocol. Cardiac insufficiency following cardiac surgery 09/01/2021 09/05/2021 Overview: History: Nml function pre op. Myocardial stunning causing difficulty from CPB. Arrived from OR on Epinephrine infusion at 2 mcg/min. Assessment: Epinephrine weaned off night of surgery. Plan: Continue diuresis and betablocker. Monitor hemodynamics. Hypovolemia 09/01/2021 09/02/2021 Overview: History: Post op Assessment: Fluid shifts in post operative period Plan: Resuscitate with IVF PRN Fever 12/07/2013 02/11/2015 Overview: --in an immunocompromised host. Vanc and Zosyn/ID rec; now DC'd d/t change in care plan to DNR/CC. BC & stool cx neg pending. CMV and RVP neg. O&P pending. --Abx discontinued 12/08. Now DNR/CC. Hypotension 12/07/2013 09/02/2021 Overview: History: Post op Assessment: Arrived from OR on Levophed infusion Plan: Titrate Levophed for goal MAP 65-75. Hypoxia 12/07/2013 06/11/2016 Overview: --O2 support via NC -- Now DNR/CC Electrolyte and fluid disorders not elsewhere cl assified 08/14/2013 02/11/2015 Diarrhea 11/12/2012 02/11/2015 Overview: --gastroenteritis vs GVHD --FMS --c.diff negative. Add Imodium --no further w/up as patient opted for comfort care Cardiogenic shock 11/09/2012 05/27/2016 Overview: --Initially presented with septic shock on 3 pressor support from OSH. --Off pressor support 11/06. --Continue anti HTN meds to help reduce afterload captopril, hydralazine and metoprolol. --monitor, no current issues DVT prophylaxis 11/09/2012 05/27/2016 Overview: SQ heparin plus IPCs. Respiratory failure 11/09/2012 06/11/2016 Overview: Respiratory failure in the setting of sepsis. Plan: Continue weaning trials daily and monitor for agitation and pain. Acute hypernatremia 11/09/2012 11/11/2012 Overview: Sodium up to 154 on 11/07/12. Plan: - free water flushes with tube feeds. - D5W at 100 cc/hr. - monitor BMP q4h. ARDS (adult respiratory distress syndrome) 11/0606/11/2016 Overview: --On ventilator 11/02-11/10 --Tapering steroids to home dose of 15mg daily --improving --Occasional complaints of SOB, oxygen by nasal cannula for comfort, was weaned off, however some mild hypoxia yesterday. No complaints, CXR unremarkable except for some mild atlectasis, actually improved. Thrombocytopenia 11/06/2012 11/09/2012 Overview: Possibilities: reactive- related to sepsis. HIT ruled out anti PF4 normal. DIC panel - hapto and LDH elevated. Fibrinogen- in process. Will monitor platelet counts. Transaminitis 11/06/2012 02/11/2015 Overview: --secondary to sepsis/ passive congestion of liver from cardiogenic shock. --Acute hepatitis panel negative. --Trend of LFTs stable to improving, monitor. 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 Viral gastroenteritis vs GVHD. Hypotension requiring 3 vasopressors; Hypoxia reuiring intubation; Asystole following intubation (5 minutes CPR with epi, bicarb, and calcium). Transferred back to [facility] 11/12. NSR on telemetry. ID following. A&Ox3. Pt stable on 2L oxygen by NC. Extreme weakness, turning with two person assist. Eating and drinking with assistance. Tejada catheter and FMS removed 11/13. Telemetry discontinued. Transitioned medications to PO. Patient anxious to go to SNF for aggressive rehabilitation at d/c, however unfortunately with diarrhea and colonoscopy today 11/17 to further investigate. Severe sepsis(995.92) 11/03/2012 02/11/2015 Overview: --Likely 2/2 viral gastroenteritis. stool culture positive for E coli (non O157:H7) at [facility], repeat here neg. --c diff negative, [facility] stool culture negative. --Given meropenem. ciproflox 11/03-11/07 and gancyclovir 11/03-11/07. Now completed --required Levophed/Vasopressin/Shad/dobutamine --No Identifying source: blood, urine, sputum, c diff, legionella, RSV, norwalk negative --EBV viremia- 580 copies and mycoplasma IgM equivalent (will repeat mycoplasma IgM in 1 week 11/14) -- contact precautions for suspected norovirus infection although stool studies negative. -- Continue TMP-SMX ppx and valacyclovir 500mg qday. --Continue to follow ID recommendations: continue current prophylactic abx. --diarrhea recurred but resolved after colonoscopy 11/17. No obvious changes, follow up on biopsy results. 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 --on low dose pred recent MTX --MP discontinued 12/08. Now DNR/CC documented as of this encounter (statuses as of 08/18/2022) [facility] History of Past illness Narrative* Problem Noted Date Resolved Date On mechanically assisted ventilation 09/01/2021 09/02/2021 Overview: History: Post op Assessment: Grade 1 airway Plan: WTE Stress hyperglycemia 09/01/2021 09/04/2021 Overview: History: No hx of DM. Chronic steroid therapy. Hemoglobin A1C (%) Date Value 05/12/2021 5.7 Assessment: Perioperative insulin resistance and exacerbation of hyperglycemia. Plan: Control blood glucose with SSI per CVICU protocol. Cardiac insufficiency following cardiac surgery 09/01/2021 09/05/2021 Overview: History: Nml function pre op. Myocardial stunning causing difficulty from CPB. Arrived from OR on Epinephrine infusion at 2 mcg/min. Assessment: Epinephrine weaned off night of surgery. Plan: Continue diuresis and betablocker. Monitor hemodynamics. Hypovolemia 09/01/2021 09/02/2021 Overview: History: Post op Assessment: Fluid shifts in post operative period Plan: Resuscitate with IVF PRN Fever 12/07/2013 02/11/2015 Overview: --in an immunocompromised host. Vanc and Zosyn/ID rec; now DC'd d/t change in care plan to DNR/CC. BC & stool cx neg pending. CMV and RVP neg. O&P pending. --Abx discontinued 12/08. Now DNR/CC. Hypotension 12/07/2013 09/02/2021 Overview: History: Post op Assessment: Arrived from OR on Levophed infusion Plan: Titrate Levophed for goal MAP 65-75. Hypoxia 12/07/2013 06/11/2016 Overview: --O2 support via NC -- Now DNR/CC Electrolyte and fluid disorders not elsewhere cl assified 08/14/2013 02/11/2015 Diarrhea 11/12/2012 02/11/2015 Overview: --gastroenteritis vs GVHD --FMS --c.diff negative. Add Imodium --no further w/up as patient opted for comfort care Cardiogenic shock 11/09/2012 05/27/2016 Overview: --Initially presented with septic shock on 3 pressor support from OSH. --Off pressor support 11/06. --Continue anti HTN meds to help reduce afterload captopril, hydralazine and metoprolol. --monitor, no current issues DVT prophylaxis 11/09/2012 05/27/2016 Overview: SQ heparin plus IPCs. Respiratory failure 11/09/2012 06/11/2016 Overview: Respiratory failure in the setting of sepsis. Plan: Continue weaning trials daily and monitor for agitation and pain. Acute hypernatremia 11/09/2012 11/11/2012 Overview: Sodium up to 154 on 11/07/12. Plan: - free water flushes with tube feeds. - D5W at 100 cc/hr. - monitor BMP q4h. ARDS (adult respiratory distress syndrome) 11/0606/11/2016 Overview: --On ventilator 11/02-11/10 --Tapering steroids to home dose of 15mg daily --improving --Occasional complaints of SOB, oxygen by nasal cannula for comfort, was weaned off, however some mild hypoxia yesterday. No complaints, CXR unremarkable except for some mild atlectasis, actually improved. Thrombocytopenia 11/06/2012 11/09/2012 Overview: Possibilities: reactive- related to sepsis. HIT ruled out anti PF4 normal. DIC panel - hapto and LDH elevated. Fibrinogen- in process. Will monitor platelet counts. Transaminitis 11/06/2012 02/11/2015 Overview: --secondary to sepsis/ passive congestion of liver from cardiogenic shock. --Acute hepatitis panel negative. --Trend of LFTs stable to improving, monitor. 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 Viral gastroenteritis vs GVHD. Hypotension requiring 3 vasopressors; Hypoxia reuiring intubation; Asystole following intubation (5 minutes CPR with epi, bicarb, and calcium). Transferred back to [facility] [place] 11/12. NSR on telemetry. ID following. A&Ox3. Pt stable on 2L oxygen by [place]. Extreme weakness, turning with two person assist. Eating and drinking with assistance. Tejada catheter and FMS removed 11/13. Telemetry discontinued. Transitioned medications to PO. Patient anxious to go to SNF for aggressive rehabilitation at d/c, however unfortunately with diarrhea and colonoscopy today 11/17 to further investigate. Severe sepsis(995.92) 11/03/2012 02/11/2015 Overview: --Likely 2/2 viral gastroenteritis. stool culture positive for E coli (non O157:H7) at [facility], repeat here neg. --c diff negative, [facility] stool culture negative. --Given meropenem. ciproflox 11/03-11/07 and gancyclovir 11/03-11/07. Now completed --required Levophed/Vasopressin/Shad/dobutamine --No Identifying source: blood, urine, sputum, c diff, legionella, RSV, norwalk negative --EBV viremia- 580 copies and mycoplasma IgM equivalent (will repeat mycoplasma IgM in 1 week 11/14) -- contact precautions for suspected norovirus infection although stool studies negative. -- Continue TMP-SMX ppx and valacyclovir 500mg qday. --Continue to follow ID recommendations: continue current prophylactic abx. --diarrhea recurred but resolved after colonoscopy 11/17. No obvious changes, follow up on biopsy results. 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 --on low dose pred recent MTX --MP discontinued 12/08. Now DNR/CC documented as of this encounter (statuses as of 08/22/2022) [facility]01-04-2022 History of Past illness Narrative* Problem Noted Date Resolved Date On mechanically assisted ventilation 09/01/2021 09/02/2021 Overview: History: Post op Assessment: Grade 1 airway Plan: WTE Stress hyperglycemia 09/01/2021 09/04/2021 Overview: History: No hx of DM. Chronic steroid therapy. Hemoglobin A1C (%) Date Value 05/12/2021 5.7 Assessment: Perioperative insulin resistance and exacerbation of hyperglycemia. Plan: Control blood glucose with SSI per CVICU protocol. Cardiac insufficiency following cardiac surgery 09/01/2021 09/05/2021 Overview: History: Nml function pre op. Myocardial stunning causing difficulty from CPB. Arrived from OR on Epinephrine infusion at 2 mcg/min. Assessment: Epinephrine weaned off night of surgery. Plan: Continue diuresis and betablocker. Monitor hemodynamics. Hypovolemia 09/01/2021 09/02/2021 Overview: History: Post op Assessment: Fluid shifts in post operative period Plan: Resuscitate with IVF PRN Fever 12/07/2013 02/11/2015 Overview: --in an immunocompromised host. Vanc and Zosyn/ID rec; now DC'd d/t change in care plan to DNR/CC. BC & stool cx neg pending. CMV and RVP neg. O&P pending. --Abx discontinued 12/08. Now DNR/CC. Hypotension 12/07/2013 09/02/2021 Overview: History: Post op Assessment: Arrived from OR on Levophed infusion Plan: Titrate Levophed for goal MAP 65-75. Hypoxia 12/07/2013 06/11/2016 Overview: --O2 support via NC -- Now DNR/CC Electrolyte and fluid disorders not elsewhere cl assified 08/14/2013 02/11/2015 Diarrhea 11/12/2012 02/11/2015 Overview: --gastroenteritis vs GVHD --FMS --c.diff negative. Add Imodium --no further w/up as patient opted for comfort care Cardiogenic shock 11/09/2012 05/27/2016 Overview: --Initially presented with septic shock on 3 pressor support from OSH. --Off pressor support 11/06. --Continue anti HTN meds to help reduce afterload captopril, hydralazine and metoprolol. --monitor, no current issues DVT prophylaxis 11/09/2012 05/27/2016 Overview: SQ heparin plus IPCs. Respiratory failure 11/09/2012 06/11/2016 Overview: Respiratory failure in the setting of sepsis. Plan: Continue weaning trials daily and monitor for agitation and pain. Acute hypernatremia 11/09/2012 11/11/2012 Overview: Sodium up to 154 on 11/07/12. Plan: - free water flushes with tube feeds. - D5W at 100 cc/hr. - monitor BMP q4h. ARDS (adult respiratory distress syndrome) 11/0606/11/2016 Overview: --On ventilator 11/02-11/10 --Tapering steroids to home dose of 15mg daily --improving --Occasional complaints of SOB, oxygen by nasal cannula for comfort, was weaned off, however some mild hypoxia yesterday. No complaints, CXR unremarkable except for some mild atlectasis, actually improved. Thrombocytopenia 11/06/2012 11/09/2012 Overview: Possibilities: reactive- related to sepsis. HIT ruled out anti PF4 normal. DIC panel - hapto and LDH elevated. Fibrinogen- in process. Will monitor platelet counts. Transaminitis 11/06/2012 02/11/2015 Overview: --secondary to sepsis/ passive congestion of liver from cardiogenic shock. --Acute hepatitis panel negative. --Trend of LFTs stable to improving, monitor. 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 Viral gastroenteritis vs GVHD. Hypotension requiring 3 vasopressors; Hypoxia reuiring intubation; Asystole following intubation (5 minutes CPR with epi, bicarb, and calcium). Transferred back to [facility] [place]/12. NSR on telemetry. ID following. A&Ox3. Pt stable on 2L oxygen by NC. Extreme weakness, turning with two person assist. Eating and drinking with assistance. Tejada catheter and FMS removed 11/13. Telemetry discontinued. Transitioned medications to PO. Patient anxious to go to SNF for aggressive rehabilitation at d/c, however unfortunately with diarrhea and colonoscopy today 11/17 to further investigate. Severe sepsis(995.92) 11/03/2012 02/11/2015 Overview: --Likely 2/2 viral gastroenteritis. stool culture positive for E coli (non O157:H7) at [facility], repeat here neg. --c diff negative, [facility] stool culture negative. --Given meropenem. ciproflox 11/03-11/07 and gancyclovir 11/03-11/07. Now completed --required Levophed/Vasopressin/Shad/dobutamine --No Identifying source: blood, urine, sputum, c diff, legionella, RSV, norwalk negative --EBV viremia- 580 copies and mycoplasma IgM equivalent (will repeat mycoplasma IgM in 1 week 11/14) -- contact precautions for suspected norovirus infection although stool studies negative. -- Continue TMP-SMX ppx and valacyclovir 500mg qday. --Continue to follow ID recommendations: continue current prophylactic abx. --diarrhea recurred but resolved after colonoscopy 11/17. No obvious changes, follow up on biopsy results. 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 --on low dose pred recent MTX --MP discontinued 12/08. Now DNR/CC documented as of this encounter (statuses as of 08/22/2022) [facility]01[facility] History of Past illness Narrative* Problem Noted Date Resolved Date On mechanically assisted ventilation 09/01/2021 09/02/2021 Overview: History: Post op Assessment: Grade 1 airway Plan: WTE Stress hyperglycemia 09/01/2021 09/04/2021 Overview: History: No hx of DM. Chronic steroid therapy. Hemoglobin A1C (%) Date Value 05/12/2021 5.7 Assessment: Perioperative insulin resistance and exacerbation of hyperglycemia. Plan: Control blood glucose with SSI per CVICU protocol. Cardiac insufficiency following cardiac surgery 09/01/2021 09/05/2021 Overview: History: Nml function pre op. Myocardial stunning causing difficulty from CPB. Arrived from OR on Epinephrine infusion at 2 mcg/min. Assessment: Epinephrine weaned off night of surgery. Plan: Continue diuresis and betablocker. Monitor hemodynamics. Hypovolemia 09/01/2021 09/02/2021 Overview: History: Post op Assessment: Fluid shifts in post operative period Plan: Resuscitate with IVF PRN Fever 12/07/2013 02/11/2015 Overview: --in an immunocompromised host. Vanc and Zosyn/ID rec; now DC'd d/t change in care plan to DNR/CC. BC & stool cx neg pending. CMV and RVP neg. O&P pending. --Abx discontinued 12/08. Now DNR/CC. Hypotension 12/07/2013 09/02/2021 Overview: History: Post op Assessment: Arrived from OR on Levophed infusion Plan: Titrate Levophed for goal MAP 65-75. Hypoxia 12/07/2013 06/11/2016 Overview: --O2 support via NC -- Now DNR/CC Electrolyte and fluid disorders not elsewhere cl assified 08/14/2013 02/11/2015 Diarrhea 11/12/2012 02/11/2015 Overview: --gastroenteritis vs GVHD --FMS --c.diff negative. Add Imodium --no further w/up as patient opted for comfort care Cardiogenic shock 11/09/2012 05/27/2016 Overview: --Initially presented with septic shock on 3 pressor support from OSH. --Off pressor support 11/06. --Continue anti HTN meds to help reduce afterload captopril, hydralazine and metoprolol. --monitor, no current issues DVT prophylaxis 11/09/2012 05/27/2016 Overview: SQ heparin plus IPCs. Respiratory failure 11/09/2012 06/11/2016 Overview: Respiratory failure in the setting of sepsis. Plan: Continue weaning trials daily and monitor for agitation and pain. Acute hypernatremia 11/09/2012 11/11/2012 Overview: Sodium up to 154 on 11/07/12. Plan: - free water flushes with tube feeds. - D5W at 100 cc/hr. - monitor BMP q4h. ARDS (adult respiratory distress syndrome) 11/0606/11/2016 Overview: --On ventilator 11/02-11/10 --Tapering steroids to home dose of 15mg daily --improving --Occasional complaints of SOB, oxygen by nasal cannula for comfort, was weaned off, however some mild hypoxia yesterday. No complaints, CXR unremarkable except for some mild atlectasis, actually improved. Thrombocytopenia 11/06/2012 11/09/2012 Overview: Possibilities: reactive- related to sepsis. HIT ruled out anti PF4 normal. DIC panel - hapto and LDH elevated. Fibrinogen- in process. Will monitor platelet counts. Transaminitis 11/06/2012 02/11/2015 Overview: --secondary to sepsis/ passive congestion of liver from cardiogenic shock. --Acute hepatitis panel negative. --Trend of LFTs stable to improving, monitor. 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 Viral gastroenteritis vs GVHD. Hypotension requiring 3 vasopressors; Hypoxia reuiring intubation; Asystole following intubation (5 minutes CPR with epi, bicarb, and calcium). Transferred back to [facility] [place] 11/12. NSR on telemetry. ID following. A&Ox3. Pt stable on 2L oxygen by [place]. Extreme weakness, turning with two person assist. Eating and drinking with assistance. Tejada catheter and FMS removed 11/13. Telemetry discontinued. Transitioned medications to PO. Patient anxious to go to SNF for aggressive rehabilitation at d/c, however unfortunately with diarrhea and colonoscopy today 11/17 to further investigate. Severe sepsis(995.92) 11/03/2012 02/11/2015 Overview: --Likely 2/2 viral gastroenteritis. stool culture positive for E coli (non O157:H7) at [facility], repeat here neg. --c diff negative, [facility] stool culture negative. --Given meropenem. ciproflox 11/03-11/07 and gancyclovir 11/03-11/07. Now completed --required Levophed/Vasopressin/Shad/dobutamine --No Identifying source: blood, urine, sputum, c diff, legionella, RSV, norwalk negative --EBV viremia- 580 copies and mycoplasma IgM equivalent (will repeat mycoplasma IgM in 1 week 11/14) -- contact precautions for suspected norovirus infection although stool studies negative. -- Continue TMP-SMX ppx and valacyclovir 500mg qday. --Continue to follow ID recommendations: continue current prophylactic abx. --diarrhea recurred but resolved after colonoscopy 11/17. No obvious changes, follow up on biopsy results. 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 --on low dose pred recent MTX --MP discontinued 12/08. Now DNR/CC documented as of this encounter (statuses as of 09/03/2022) [facility]01-04-[facility] History of Past illness Narrative* Problem Noted Date Resolved Date On mechanically assisted ventilation 09/01/2021 09/02/2021 Overview: History: Post op Assessment: Grade 1 airway Plan: WTE Stress hyperglycemia 09/01/2021 09/04/2021 Overview: History: No hx of DM. Chronic steroid therapy. Hemoglobin A1C (%) Date Value 05/12/2021 5.7 Assessment: Perioperative insulin resistance and exacerbation of hyperglycemia. Plan: Control blood glucose with SSI per CVICU protocol. Cardiac insufficiency following cardiac surgery 09/01/2021 09/05/2021 Overview: History: Nml function pre op. Myocardial stunning causing difficulty from CPB. Arrived from OR on Epinephrine infusion at 2 mcg/min. Assessment: Epinephrine weaned off night of surgery. Plan: Continue diuresis and betablocker. Monitor hemodynamics. Hypovolemia 09/01/2021 09/02/2021 Overview: History: Post op Assessment: Fluid shifts in post operative period Plan: Resuscitate with IVF PRN Fever 12/07/2013 02/11/2015 Overview: --in an immunocompromised host. Vanc and Zosyn/ID rec; now DC'd d/t change in care plan to DNR/CC. BC & stool cx neg pending. CMV and RVP neg. O&P pending. --Abx discontinued 12/08. Now DNR/CC. Hypotension 12/07/2013 09/02/2021 Overview: History: Post op Assessment: Arrived from OR on Levophed infusion Plan: Titrate Levophed for goal MAP 65-75. Hypoxia 12/07/2013 06/11/2016 Overview: --O2 support via NC -- Now DNR/CC Electrolyte and fluid disorders not elsewhere cl assified 08/14/2013 02/11/2015 Diarrhea 11/12/2012 02/11/2015 Overview: --gastroenteritis vs GVHD --FMS --c.diff negative. Add Imodium --no further w/up as patient opted for comfort care Cardiogenic shock 11/09/2012 05/27/2016 Overview: --Initially presented with septic shock on 3 pressor support from OSH. --Off pressor support 11/06. --Continue anti HTN meds to help reduce afterload captopril, hydralazine and metoprolol. --monitor, no current issues DVT prophylaxis 11/09/2012 05/27/2016 Overview: SQ heparin plus IPCs. Respiratory failure 11/09/2012 06/11/2016 Overview: Respiratory failure in the setting of sepsis. Plan: Continue weaning trials daily and monitor for agitation and pain. Acute hypernatremia 11/09/2012 11/11/2012 Overview: Sodium up to 154 on 11/07/12. Plan: - free water flushes with tube feeds. - D5W at 100 cc/hr. - monitor BMP q4h. ARDS (adult respiratory distress syndrome) 11/0606/11/2016 Overview: --On ventilator 11/02-11/10 --Tapering steroids to home dose of 15mg daily --improving --Occasional complaints of SOB, oxygen by nasal cannula for comfort, was weaned off, however some mild hypoxia yesterday. No complaints, CXR unremarkable except for some mild atlectasis, actually improved. Thrombocytopenia 11/06/2012 11/09/2012 Overview: Possibilities: reactive- related to sepsis. HIT ruled out anti PF4 normal. DIC panel - hapto and LDH elevated. Fibrinogen- in process. Will monitor platelet counts. Transaminitis 11/06/2012 02/11/2015 Overview: --secondary to sepsis/ passive congestion of liver from cardiogenic shock. --Acute hepatitis panel negative. --Trend of LFTs stable to improving, monitor. 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 Viral gastroenteritis vs GVHD. Hypotension requiring 3 vasopressors; Hypoxia reuiring intubation; Asystole following intubation (5 minutes CPR with epi, bicarb, and calcium). Transferred back to [facility] [place] 11/12. NSR on telemetry. ID following. A&Ox3. Pt stable on 2L oxygen by [place]. Extreme weakness, turning with two person assist. Eating and drinking with assistance. Tejada catheter and FMS removed 11/13. Telemetry discontinued. Transitioned medications to PO. Patient anxious to go to SNF for aggressive rehabilitation at d/c, however unfortunately with diarrhea and colonoscopy today 11/17 to further investigate. Severe sepsis(995.92) 11/03/2012 02/11/2015 Overview: --Likely 2/2 viral gastroenteritis. stool culture positive for E coli (non O157:H7) at [facility], repeat here neg. --c diff negative, [facility] stool culture negative. --Given meropenem. ciproflox 11/03-11/07 and gancyclovir 11/03-11/07. Now completed --required Levophed/Vasopressin/Shad/dobutamine --No Identifying source: blood, urine, sputum, c diff, legionella, RSV, norwalk negative --EBV viremia- 580 copies and mycoplasma IgM equivalent (will repeat mycoplasma IgM in 1 week 11/14) -- contact precautions for suspected norovirus infection although stool studies negative. -- Continue TMP-SMX ppx and valacyclovir 500mg qday. --Continue to follow ID recommendations: continue current prophylactic abx. --diarrhea recurred but resolved after colonoscopy 11/17. No obvious changes, follow up on biopsy results. 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 --on low dose pred recent MTX --MP discontinued 12/08. Now DNR/CC documented as of this encounter (statuses as of 09/09/2022) [facility] History of Past illness Narrative* Problem Noted Date Resolved Date On mechanically assisted ventilation 09/01/2021 09/02/2021 Overview: History: Post op Assessment: Grade 1 airway Plan: WTE Stress hyperglycemia 09/01/2021 09/04/2021 Overview: History: No hx of DM. Chronic steroid therapy. Hemoglobin A1C (%) Date Value 05/12/2021 5.7 Assessment: Perioperative insulin resistance and exacerbation of hyperglycemia. Plan: Control blood glucose with SSI per CVICU protocol. Cardiac insufficiency following cardiac surgery 09/01/2021 09/05/2021 Overview: History: Nml function pre op. Myocardial stunning causing difficulty from CPB. Arrived from OR on Epinephrine infusion at 2 mcg/min. Assessment: Epinephrine weaned off night of surgery. Plan: Continue diuresis and betablocker. Monitor hemodynamics. Hypovolemia 09/01/2021 09/02/2021 Overview: History: Post op Assessment: Fluid shifts in post operative period Plan: Resuscitate with IVF PRN Fever 12/07/2013 02/11/2015 Overview: --in an immunocompromised host. Vanc and Zosyn/ID rec; now DC'd d/t change in care plan to DNR/CC. BC & stool cx neg pending. CMV and RVP neg. O&P pending. --Abx discontinued 12/08. Now DNR/CC. Hypotension 12/07/2013 09/02/2021 Overview: History: Post op Assessment: Arrived from OR on Levophed infusion Plan: Titrate Levophed for goal MAP 65-75. Hypoxia 12/07/2013 06/11/2016 Overview: --O2 support via NC -- Now DNR/CC Electrolyte and fluid disorders not elsewhere cl assified 08/14/2013 02/11/2015 Diarrhea 11/12/2012 02/11/2015 Overview: --gastroenteritis vs GVHD --FMS --c.diff negative. Add Imodium --no further w/up as patient opted for comfort care Cardiogenic shock 11/09/2012 05/27/2016 Overview: --Initially presented with septic shock on 3 pressor support from OSH. --Off pressor support 11/06. --Continue anti HTN meds to help reduce afterload captopril, hydralazine and metoprolol. --monitor, no current issues DVT prophylaxis 11/09/2012 05/27/2016 Overview: SQ heparin plus IPCs. Respiratory failure 11/09/2012 06/11/2016 Overview: Respiratory failure in the setting of sepsis. Plan: Continue weaning trials daily and monitor for agitation and pain. Acute hypernatremia 11/09/2012 11/11/2012 Overview: Sodium up to 154 on 11/07/12. Plan: - free water flushes with tube feeds. - D5W at 100 cc/hr. - monitor BMP q4h. ARDS (adult respiratory distress syndrome) 11/0606/11/2016 Overview: --On ventilator 11/02-11/10 --Tapering steroids to home dose of 15mg daily --improving --Occasional complaints of SOB, oxygen by nasal cannula for comfort, was weaned off, however some mild hypoxia yesterday. No complaints, CXR unremarkable except for some mild atlectasis, actually improved. Thrombocytopenia 11/06/2012 11/09/2012 Overview: Possibilities: reactive- related to sepsis. HIT ruled out anti PF4 normal. DIC panel - hapto and LDH elevated. Fibrinogen- in process. Will monitor platelet counts. Transaminitis 11/06/2012 02/11/2015 Overview: --secondary to sepsis/ passive congestion of liver from cardiogenic shock. --Acute hepatitis panel negative. --Trend of LFTs stable to improving, monitor. 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 Viral gastroenteritis vs GVHD. Hypotension requiring 3 vasopressors; Hypoxia reuiring intubation; Asystole following intubation (5 minutes CPR with epi, bicarb, and calcium). Transferred back to [facility] 11/12. NSR on telemetry. ID following. A&Ox3. Pt stable on 2L oxygen by [place]. Extreme weakness, turning with two person assist. Eating and drinking with assistance. Tejada catheter and FMS removed 11/13. Telemetry discontinued. Transitioned medications to PO. Patient anxious to go to SNF for aggressive rehabilitation at d/c, however unfortunately with diarrhea and colonoscopy today 11/17 to further investigate. Severe sepsis(995.92) 11/03/2012 02/11/2015 Overview: --Likely 2/2 viral gastroenteritis. stool culture positive for E coli (non O157:H7) at [facility], repeat here neg. --c diff negative, [facility] stool culture negative. --Given meropenem. ciproflox 11/03-11/07 and gancyclovir 11/03-11/07. Now completed --required Levophed/Vasopressin/Shad/dobutamine --No Identifying source: blood, urine, sputum, c diff, legionella, RSV, norwalk negative --EBV viremia- 580 copies and mycoplasma IgM equivalent (will repeat mycoplasma IgM in 1 week 11/14) -- contact precautions for suspected norovirus infection although stool studies negative. -- Continue TMP-SMX ppx and valacyclovir 500mg qday. --Continue to follow ID recommendations: continue current prophylactic abx. --diarrhea recurred but resolved after colonoscopy 11/17. No obvious changes, follow up on biopsy results. 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 --on low dose pred recent MTX --MP discontinued 12/08. Now DNR/CC documented as of this encounter (statuses as of 11/04/2022) [facility] History of Past illness Narrative* Problem Noted Date Resolved Date On mechanically assisted ventilation 09/01/2021 09/02/2021 Overview: History: Post op Assessment: Grade 1 airway Plan: WTE Stress hyperglycemia 09/01/2021 09/04/2021 Overview: History: No hx of DM. Chronic steroid therapy. Hemoglobin A1C (%) Date Value 05/12/2021 5.7 Assessment: Perioperative insulin resistance and exacerbation of hyperglycemia. Plan: Control blood glucose with SSI per CVICU protocol. Cardiac insufficiency following cardiac surgery 09/01/2021 09/05/2021 Overview: History: Nml function pre op. Myocardial stunning causing difficulty from CPB. Arrived from OR on Epinephrine infusion at 2 mcg/min. Assessment: Epinephrine weaned off night of surgery. Plan: Continue diuresis and betablocker. Monitor hemodynamics. Hypovolemia 09/01/2021 09/02/2021 Overview: History: Post op Assessment: Fluid shifts in post operative period Plan: Resuscitate with IVF PRN Fever 12/07/2013 02/11/2015 Overview: --in an immunocompromised host. Vanc and Zosyn/ID rec; now DC'd d/t change in care plan to DNR/CC. BC & stool cx neg pending. CMV and RVP neg. O&P pending. --Abx discontinued 12/08. Now DNR/CC. Hypotension 12/07/2013 09/02/2021 Overview: History: Post op Assessment: Arrived from OR on Levophed infusion Plan: Titrate Levophed for goal MAP 65-75. Hypoxia 12/07/2013 06/11/2016 Overview: --O2 support via NC -- Now DNR/CC Electrolyte and fluid disorders not elsewhere cl assified 08/14/2013 02/11/2015 Diarrhea 11/12/2012 02/11/2015 Overview: --gastroenteritis vs GVHD --FMS --c.diff negative. Add Imodium --no further w/up as patient opted for comfort care Cardiogenic shock 11/09/2012 05/27/2016 Overview: --Initially presented with septic shock on 3 pressor support from OSH. --Off pressor support 11/06. --Continue anti HTN meds to help reduce afterload captopril, hydralazine and metoprolol. --monitor, no current issues DVT prophylaxis 11/09/2012 05/27/2016 Overview: SQ heparin plus IPCs. Respiratory failure 11/09/2012 06/11/2016 Overview: Respiratory failure in the setting of sepsis. Plan: Continue weaning trials daily and monitor for agitation and pain. Acute hypernatremia 11/09/2012 11/11/2012 Overview: Sodium up to 154 on 11/07/12. Plan: - free water flushes with tube feeds. - D5W at 100 cc/hr. - monitor BMP q4h. ARDS (adult respiratory distress syndrome) 11/0606/11/2016 Overview: --On ventilator 11/02-11/10 --Tapering steroids to home dose of 15mg daily --improving --Occasional complaints of SOB, oxygen by nasal cannula for comfort, was weaned off, however some mild hypoxia yesterday. No complaints, CXR unremarkable except for some mild atlectasis, actually improved. Thrombocytopenia 11/06/2012 11/09/2012 Overview: Possibilities: reactive- related to sepsis. HIT ruled out anti PF4 normal. DIC panel - hapto and LDH elevated. Fibrinogen- in process. Will monitor platelet counts. Transaminitis 11/06/2012 02/11/2015 Overview: --secondary to sepsis/ passive congestion of liver from cardiogenic shock. --Acute hepatitis panel negative. --Trend of LFTs stable to improving, monitor. 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 Viral gastroenteritis vs GVHD. Hypotension requiring 3 vasopressors; Hypoxia reuiring intubation; Asystole following intubation (5 minutes CPR with epi, bicarb, and calcium). Transferred back to [facility] [place]/12. NSR on telemetry. ID following. A&Ox3. Pt stable on 2L oxygen by [place]. Extreme weakness, turning with two person assist. Eating and drinking with assistance. Tejada catheter and FMS removed 11/13. Telemetry discontinued. Transitioned medications to PO. Patient anxious to go to SNF for aggressive rehabilitation at d/c, however unfortunately with diarrhea and colonoscopy today 11/17 to further investigate. Severe sepsis(995.92) 11/03/2012 02/11/2015 Overview: --Likely 2/2 viral gastroenteritis. stool culture positive for E coli (non O157:H7) at [facility], repeat here neg. --c diff negative, [facility] stool culture negative. --Given meropenem. ciproflox 11/03-11/07 and gancyclovir 11/03-11/07. Now completed --required Levophed/Vasopressin/Shad/dobutamine --No Identifying source: blood, urine, sputum, c diff, legionella, RSV, norwalk negative --EBV viremia- 580 copies and mycoplasma IgM equivalent (will repeat mycoplasma IgM in 1 week 11/14) -- contact precautions for suspected norovirus infection although stool studies negative. -- Continue TMP-SMX ppx and valacyclovir 500mg qday. --Continue to follow ID recommendations: continue current prophylactic abx. --diarrhea recurred but resolved after colonoscopy 11/17. No obvious changes, follow up on biopsy results. 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 --on low dose pred recent MTX --MP discontinued 12/08. Now DNR/CC documented as of this encounter (statuses as of 12/17/2022) [facility]01-04-[facility]22 History of Past illness Narrative* Problem Noted Date Resolved Date On mechanically assisted ventilation 09/01/2021 09/02/2021 Overview: History: Post op Assessment: Grade 1 airway Plan: WTE Stress hyperglycemia 09/01/2021 09/04/2021 Overview: History: No hx of DM. Chronic steroid therapy. Hemoglobin A1C (%) Date Value 05/12/2021 5.7 Assessment: Perioperative insulin resistance and exacerbation of hyperglycemia. Plan: Control blood glucose with SSI per CVICU protocol. Cardiac insufficiency following cardiac surgery 09/01/2021 09/05/2021 Overview: History: Nml function pre op. Myocardial stunning causing difficulty from CPB. Arrived from OR on Epinephrine infusion at 2 mcg/min. Assessment: Epinephrine weaned off night of surgery. Plan: Continue diuresis and betablocker. Monitor hemodynamics. Hypovolemia 09/01/2021 09/02/2021 Overview: History: Post op Assessment: Fluid shifts in post operative period Plan: Resuscitate with IVF PRN Fever 12/07/2013 02/11/2015 Overview: --in an immunocompromised host. Vanc and Zosyn/ID rec; now DC'd d/t change in care plan to DNR/CC. BC & stool cx neg pending. CMV and RVP neg. O&P pending. --Abx discontinued 12/08. Now DNR/CC. Hypotension 12/07/2013 09/02/2021 Overview: History: Post op Assessment: Arrived from OR on Levophed infusion Plan: Titrate Levophed for goal MAP 65-75. Hypoxia 12/07/2013 06/11/2016 Overview: --O2 support via NC -- Now DNR/CC Electrolyte and fluid disorders not elsewhere cl assified 08/14/2013 02/11/2015 Diarrhea 11/12/2012 02/11/2015 Overview: --gastroenteritis vs GVHD --FMS --c.diff negative. Add Imodium --no further w/up as patient opted for comfort care Cardiogenic shock 11/09/2012 05/27/2016 Overview: --Initially presented with septic shock on 3 pressor support from OSH. --Off pressor support 11/06. --Continue anti HTN meds to help reduce afterload captopril, hydralazine and metoprolol. --monitor, no current issues DVT prophylaxis 11/09/2012 05/27/2016 Overview: SQ heparin plus IPCs. Respiratory failure 11/09/2012 06/11/2016 Overview: Respiratory failure in the setting of sepsis. Plan: Continue weaning trials daily and monitor for agitation and pain. Acute hypernatremia 11/09/2012 11/11/2012 Overview: Sodium up to 154 on 11/07/12. Plan: - free water flushes with tube feeds. - D5W at 100 cc/hr. - monitor BMP q4h. ARDS (adult respiratory distress syndrome) 11/0606/11/2016 Overview: --On ventilator 11/02-11/10 --Tapering steroids to home dose of 15mg daily --improving --Occasional complaints of SOB, oxygen by nasal cannula for comfort, was weaned off, however some mild hypoxia yesterday. No complaints, CXR unremarkable except for some mild atlectasis, actually improved. Thrombocytopenia 11/06/2012 11/09/2012 Overview: Possibilities: reactive- related to sepsis. HIT ruled out anti PF4 normal. DIC panel - hapto and LDH elevated. Fibrinogen- in process. Will monitor platelet counts. Transaminitis 11/06/2012 02/11/2015 Overview: --secondary to sepsis/ passive congestion of liver from cardiogenic shock. --Acute hepatitis panel negative. --Trend of LFTs stable to improving, monitor. 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 Viral gastroenteritis vs GVHD. Hypotension requiring 3 vasopressors; Hypoxia reuiring intubation; Asystole following intubation (5 minutes CPR with epi, bicarb, and calcium). Transferred back to [facility] 11/12. NSR on telemetry. ID following. A&Ox3. Pt stable on 2L oxygen by [place]. Extreme weakness, turning with two person assist. Eating and drinking with assistance. Tejada catheter and FMS removed 11/13. Telemetry discontinued. Transitioned medications to PO. Patient anxious to go to SNF for aggressive rehabilitation at d/c, however unfortunately with diarrhea and colonoscopy today 11/17 to further investigate. Severe sepsis(995.92) 11/03/2012 02/11/2015 Overview: --Likely 2/2 viral gastroenteritis. stool culture positive for E coli (non O157:H7) at [facility], repeat here neg. --c diff negative, [facility] stool culture negative. --Given meropenem. ciproflox 11/03-11/07 and gancyclovir 11/03-11/07. Now completed --required Levophed/Vasopressin/Shad/dobutamine --No Identifying source: blood, urine, sputum, c diff, legionella, RSV, norwalk negative --EBV viremia- 580 copies and mycoplasma IgM equivalent (will repeat mycoplasma IgM in 1 week 11/14) -- contact precautions for suspected norovirus infection although stool studies negative. -- Continue TMP-SMX ppx and valacyclovir 500mg qday. --Continue to follow ID recommendations: continue current prophylactic abx. --diarrhea recurred but resolved after colonoscopy 11/17. No obvious changes, follow up on biopsy results. 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 --on low dose pred recent MTX --MP discontinued 12/08. Now DNR/CC documented as of this encounter (statuses as of 02/23/2023) [facility]01[facility] History of Past illness Narrative* Problem Noted Date Resolved Date On mechanically assisted ventilation 09/01/2021 09/02/2021 Overview: History: Post op Assessment: Grade 1 airway Plan: WTE Stress hyperglycemia 09/01/2021 09/04/2021 Overview: History: No hx of DM. Chronic steroid therapy. Hemoglobin A1C (%) Date Value 05/12/2021 5.7 Assessment: Perioperative insulin resistance and exacerbation of hyperglycemia. Plan: Control blood glucose with SSI per CVICU protocol. Cardiac insufficiency following cardiac surgery 09/01/2021 09/05/2021 Overview: History: Nml function pre op. Myocardial stunning causing difficulty from CPB. Arrived from OR on Epinephrine infusion at 2 mcg/min. Assessment: Epinephrine weaned off night of surgery. Plan: Continue diuresis and betablocker. Monitor hemodynamics. Hypovolemia 09/01/2021 09/02/2021 Overview: History: Post op Assessment: Fluid shifts in post operative period Plan: Resuscitate with IVF PRN Fever 12/07/2013 02/11/2015 Overview: --in an immunocompromised host. Vanc and Zosyn/ID rec; now DC'd d/t change in care plan to DNR/CC. BC & stool cx neg pending. CMV and RVP neg. O&P pending. --Abx discontinued 12/08. Now DNR/CC. Hypotension 12/07/2013 09/02/2021 Overview: History: Post op Assessment: Arrived from OR on Levophed infusion Plan: Titrate Levophed for goal MAP 65-75. Hypoxia 12/07/2013 06/11/2016 Overview: --O2 support via NC -- Now DNR/CC Electrolyte and fluid disorders not elsewhere cl assified 08/14/2013 02/11/2015 Diarrhea 11/12/2012 02/11/2015 Overview: --gastroenteritis vs GVHD --FMS --c.diff negative. Add Imodium --no further w/up as patient opted for comfort care Cardiogenic shock 11/09/2012 05/27/2016 Overview: --Initially presented with septic shock on 3 pressor support from OSH. --Off pressor support 11/06. --Continue anti HTN meds to help reduce afterload captopril, hydralazine and metoprolol. --monitor, no current issues DVT prophylaxis 11/09/2012 05/27/2016 Overview: SQ heparin plus IPCs. Respiratory failure 11/09/2012 06/11/2016 Overview: Respiratory failure in the setting of sepsis. Plan: Continue weaning trials daily and monitor for agitation and pain. Acute hypernatremia 11/09/2012 11/11/2012 Overview: Sodium up to 154 on 11/07/12. Plan: - free water flushes with tube feeds. - D5W at 100 cc/hr. - monitor BMP q4h. ARDS (adult respiratory distress syndrome) 11/0606/11/2016 Overview: --On ventilator 11/02-11/10 --Tapering steroids to home dose of 15mg daily --improving --Occasional complaints of SOB, oxygen by nasal cannula for comfort, was weaned off, however some mild hypoxia yesterday. No complaints, CXR unremarkable except for some mild atlectasis, actually improved. Thrombocytopenia 11/06/2012 11/09/2012 Overview: Possibilities: reactive- related to sepsis. HIT ruled out anti PF4 normal. DIC panel - hapto and LDH elevated. Fibrinogen- in process. Will monitor platelet counts. Transaminitis 11/06/2012 02/11/2015 Overview: --secondary to sepsis/ passive congestion of liver from cardiogenic shock. --Acute hepatitis panel negative. --Trend of LFTs stable to improving, monitor. 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 Viral gastroenteritis vs GVHD. Hypotension requiring 3 vasopressors; Hypoxia reuiring intubation; Asystole following intubation (5 minutes CPR with epi, bicarb, and calcium). Transferred back to [facility] 11/12. NSR on telemetry. ID following. A&Ox3. Pt stable on 2L oxygen by [place]. Extreme weakness, turning with two person assist. Eating and drinking with assistance. Tejada catheter and FMS removed 11/13. Telemetry discontinued. Transitioned medications to PO. Patient anxious to go to SNF for aggressive rehabilitation at d/c, however unfortunately with diarrhea and colonoscopy today 11/17 to further investigate. Severe sepsis(995.92) 11/03/2012 02/11/2015 Overview: --Likely 2/2 viral gastroenteritis. stool culture positive for E coli (non O157:H7) at [facility], repeat here neg. --c diff negative, [facility] stool culture negative. --Given meropenem. ciproflox 11/03-11/07 and gancyclovir 11/03-11/07. Now completed --required Levophed/Vasopressin/Shad/dobutamine --No Identifying source: blood, urine, sputum, c diff, legionella, RSV, norwalk negative --EBV viremia- 580 copies and mycoplasma IgM equivalent (will repeat mycoplasma IgM in 1 week 11/14) -- contact precautions for suspected norovirus infection although stool studies negative. -- Continue TMP-SMX ppx and valacyclovir 500mg qday. --Continue to follow ID recommendations: continue current prophylactic abx. --diarrhea recurred but resolved after colonoscopy 11/17. No obvious changes, follow up on biopsy results. 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 --on low dose pred recent MTX --MP discontinued 12/08. Now DNR/CC documented as of this encounter (statuses as of 02/28/2023) [facility] History of Past illness Narrative* Problem Noted Date Diagnosed Date Resolved Date On mechanically assisted ventilation 09/01/2021 09/02/2021 Overview: History: Post op Assessment: Grade 1 airway Plan: WTE Stress hyperglycemia 09/01/2021 022 Overview: History: No hx of DM. Chronic steroid therapy. Hemoglobin A1C (%) Date Value 05/12/2021 5.7 Assessment: Perioperative insulin resistance and exacerbation of hyperglycemia. Plan: Control blood glucose with SSI per CVICU protocol. Cardiac insufficiency follow ing cardiac surgery 09/01/2021 09/05/2021 Overview: History: Nml function pre op. Myocardial stunning causing difficulty from CPB. Arrived from OR on Epinephrine infusion at 2 mcg/min. Assessment: Epinephrine weaned off night of surgery. Plan: Continue diuresis and betablocker. Monitor hemodynamics. Hypovolemia 09/01/2021 09/02/2021 Overview: History: Post op Assessment: Fluid shifts in post operative period Plan: Resuscitate with IVF PRN Fever 12/07/2013 02/11/2015 Overview: --in an immunocompromised host. Vanc and [place]/ID rec; now DC'd d/t change in care plan to DNR/CC. BC & stool cx neg pending. CMV and RVP neg. O&P pending. --Abx discontinued 12/08. Now DNR/CC. Hypotension 12/07/2013 09/02/2021 Overview: History: Post op Assessment: Arrived from OR on Levophed infusion Plan: Titrate Levophed for goal MAP 65-75. Hypoxia 12/07/2013 06/11/2016 Overview: --O2 support via NC -- Now DNR/CC Electrolyte and fluid disord ers not elsewhere classified 08/14/2013 02/11/2015 Diarrhea 11/12/2012 02/11/2015 Overview: --gastroenteritis vs GVHD --FMS --c.diff negative. Add Imodium --no further w/up as patient opted for comfort care Cardiogenic shock 11/09/2012 05/27/2016 Overview: --Initially presented with septic shock on 3 pressor support from OSH. --Off pressor support 11/06. --Continue anti HTN meds to help reduce afterload captopril, hydralazine and metoprolol. --monitor, no current issues DVT prophylaxis 11/09/2012 05/27/2016 Overview: SQ heparin plus IPCs. Respiratory failure 11/09/2012 06/11/20 Overview: Respiratory failure in the setting of sepsis. Plan: Continue weaning trials daily and monitor for agitation and pain. Acute hypernatremia 11/09/2012 11/12/19 Overview: Sodium up to 154 on 11/07/12. Plan: - free water flushes with tube feeds. - D5W at 100 cc/hr. - monitor BMP q4h. ARDS (adult respiratory distress syndrome) 11/06/2012 06/11/2016 Overview: --On ventilator 11/02-11/10 --Tapering steroids to home dose of 15mg daily --improving --Occasional complaints of SOB, oxygen by nasal cannula for comfort, was weaned off, however some mild hypoxia yesterday. No complaints, CXR unremarkable except for some mild atlectasis, actually improved. Thrombocytopenia 11/06/2012 11/09/2012 Overview: Possibilities: reactive- related to sepsis. HIT ruled out anti PF4 normal. DIC panel - hapto and LDH elevated. Fibrinogen- in process. Will monitor platelet counts. Transaminitis 11/06/2012 02/11/2015 Overview: --secondary to sepsis/ passive congestion of liver from cardiogenic shock. --Acute hepatitis panel negative. --Trend of LFTs stable to improving, monitor. 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 Viral gastroenteritis vs GVHD. Hypotension requiring 3 vasopressors; Hypoxia reuiring intubation; Asystole following intubation (5 minutes CPR with epi, bicarb, and calcium). Transferred back to [facility] [place] 11/12. NSR on telemetry. ID following. A&Ox3. Pt stable on 2L oxygen by [place]. Extreme weakness, turning with two person assist. Eating and drinking with assistance. Tejada catheter and FMS removed 11/13. Telemetry discontinued. Transitioned medications to PO. Patient anxious to go to SNF for aggressive rehabilitation at d/c, however unfortunately with diarrhea and colonoscopy today 11/17 to further investigate. Severe sepsis(995.92) 11/03/20122014 Overview: --Likely 2/2 viral gastroenteritis. stool culture positive for E coli (non O157:H7) at [facility], repeat here neg. --c diff negative, [facility] stool culture negative. --Given meropenem. ciproflox 11/03-11/07 and gancyclovir 11/03-11/07. Now completed --required Levophed/Vasopressin/Shad/dobutamine --No Identifying source: blood, urine, sputum, c diff, legionella, RSV, norwalk negative --EBV viremia- 580 copies and mycoplasma IgM equivalent (will repeat mycoplasma IgM in 1 week 11/14) -- contact precautions for suspected norovirus infection although stool studies negative. -- Continue TMP-SMX ppx and valacyclovir 500mg qday. --Continue to follow ID recommendations: continue current prophylactic abx. --diarrhea recurred but resolved after colonoscopy 11/17. No obvious changes, follow up on biopsy results. 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 --on low dose pred recent MTX --MP discontinued 12/08. Now DNR/CC documented as of this encounter (statuses as of 03/17/2023) [facility] History of Past illness Narrative* Problem Noted Date Diagnosed Date Resolved Date On mechanically assisted ventilation 09/01/2021 09/02/2021 Overview: History: Post op Assessment: Grade 1 airway Plan: WTE Stress hyperglycemia 09/01/2021 022 Overview: History: No hx of DM. Chronic steroid therapy. Hemoglobin A1C (%) Date Value 05/12/2021 5.7 Assessment: Perioperative insulin resistance and exacerbation of hyperglycemia. Plan: Control blood glucose with SSI per CVICU protocol. Cardiac insufficiency follow ing cardiac surgery 09/01/2021 09/05/2021 Overview: History: Nml function pre op. Myocardial stunning causing difficulty from CPB. Arrived from OR on Epinephrine infusion at 2 mcg/min. Assessment: Epinephrine weaned off night of surgery. Plan: Continue diuresis and betablocker. Monitor hemodynamics. Hypovolemia 09/01/2021 09/02/2021 Overview: History: Post op Assessment: Fluid shifts in post operative period Plan: Resuscitate with IVF PRN Fever 12/07/2013 02/11/2015 Overview: --in an immunocompromised host. Vanc and Zosyn/ID rec; now DC'd d/t change in care plan to DNR/CC. BC & stool cx neg pending. CMV and RVP neg. O&P pending. --Abx discontinued 12/08. Now DNR/CC. Hypotension 12/07/2013 09/02/2021 Overview: History: Post op Assessment: Arrived from OR on Levophed infusion Plan: Titrate Levophed for goal MAP 65-75. Hypoxia 12/07/2013 06/11/2016 Overview: --O2 support via NC -- Now DNR/CC Electrolyte and fluid disord ers not elsewhere classified 08/14/2013 02/11/2015 Diarrhea 11/12/2012 02/11/2015 Overview: --gastroenteritis vs GVHD --FMS --c.diff negative. Add Imodium --no further w/up as patient opted for comfort care Cardiogenic shock 11/09/2012 05/27/2016 Overview: --Initially presented with septic shock on 3 pressor support from OSH. --Off pressor support 11/06. --Continue anti HTN meds to help reduce afterload captopril, hydralazine and metoprolol. --monitor, no current issues DVT prophylaxis 11/09/2012 05/27/2016 Overview: SQ heparin plus IPCs. Respiratory failure 11/09/2012 06/11/20 16 Overview: Respiratory failure in the setting of sepsis. Plan: Continue weaning trials daily and monitor for agitation and pain. Acute hypernatremia 11/09/2012 11/12/19 13 Overview: Sodium up to 154 on 11/07/12. Plan: - free water flushes with tube feeds. - D5W at 100 cc/hr. - monitor BMP q4h. ARDS (adult respiratory distress syndrome) 11/06/2012 06/11/2016 Overview: --On ventilator 11/02-11/10 --Tapering steroids to home dose of 15mg daily --improving --Occasional complaints of SOB, oxygen by nasal cannula for comfort, was weaned off, however some mild hypoxia yesterday. No complaints, CXR unremarkable except for some mild atlectasis, actually improved. Thrombocytopenia 11/06/2012 11/09/2012 Overview: Possibilities: reactive- related to sepsis. HIT ruled out anti PF4 normal. DIC panel - hapto and LDH elevated. Fibrinogen- in process. Will monitor platelet counts. Transaminitis 11/06/2012 02/11/2015 Overview: --secondary to sepsis/ passive congestion of liver from cardiogenic shock. --Acute hepatitis panel negative. --Trend of LFTs stable to improving, monitor. 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 Viral gastroenteritis vs GVHD. Hypotension requiring 3 vasopressors; Hypoxia reuiring intubation; Asystole following intubation (5 minutes CPR with epi, bicarb, and calcium). Transferred back to [facility] [place] 11/12. NSR on telemetry. ID following. A&Ox3. Pt stable on 2L oxygen by [place]. Extreme weakness, turning with two person assist. Eating and drinking with assistance. Tejada catheter and FMS removed 11/13. Telemetry discontinued. Transitioned medications to PO. Patient anxious to go to SNF for aggressive rehabilitation at d/c, however unfortunately with diarrhea and colonoscopy today 11/17 to further investigate. Severe sepsis(995.92) 11/03/20122014 Overview: --Likely 2/2 viral gastroenteritis. stool culture positive for E coli (non O157:H7) at [facility], repeat here neg. --c diff negative, [facility] stool culture negative. --Given meropenem. ciproflox 11/03-11/07 and gancyclovir 11/03-11/07. Now completed --required Levophed/Vasopressin/Shad/dobutamine --No Identifying source: blood, urine, sputum, c diff, legionella, RSV, norwalk negative --EBV viremia- 580 copies and mycoplasma IgM equivalent (will repeat mycoplasma IgM in 1 week 11/14) -- contact precautions for suspected norovirus infection although stool studies negative. -- Continue TMP-SMX ppx and valacyclovir 500mg qday. --Continue to follow ID recommendations: continue current prophylactic abx. --diarrhea recurred but resolved after colonoscopy 11/17. No obvious changes, follow up on biopsy results. 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 --on low dose pred recent MTX --MP discontinued 12/08. Now DNR/CC documented as of this encounter (statuses as of 04/29/2023) [facility] History of Past illness Narrative* Problem Noted Date Diagnosed Date Resolved Date On mechanically assisted ventilation 09/01/2021 09/02/2021 Overview: History: Post op Assessment: Grade 1 airway Plan: WTE Stress hyperglycemia 09/01/2021 022 Overview: History: No hx of DM. Chronic steroid therapy. Hemoglobin A1C (%) Date Value 05/12/2021 5.7 Assessment: Perioperative insulin resistance and exacerbation of hyperglycemia. Plan: Control blood glucose with SSI per CVICU protocol. Cardiac insufficiency follow ing cardiac surgery 09/01/2021 09/05/2021 Overview: History: Nml function pre op. Myocardial stunning causing difficulty from CPB. Arrived from OR on Epinephrine infusion at 2 mcg/min. Assessment: Epinephrine weaned off night of surgery. Plan: Continue diuresis and betablocker. Monitor hemodynamics. Hypovolemia 09/01/2021 09/02/2021 Overview: History: Post op Assessment: Fluid shifts in post operative period Plan: Resuscitate with IVF PRN Fever 12/07/2013 02/11/2015 Overview: --in an immunocompromised host. Vanc and Zosyn/ID rec; now DC'd d/t change in care plan to DNR/CC. BC & stool cx neg pending. CMV and RVP neg. O&P pending. --Abx discontinued 12/08. Now DNR/CC. Hypotension 12/07/2013 09/02/2021 Overview: History: Post op Assessment: Arrived from OR on Levophed infusion Plan: Titrate Levophed for goal MAP 65-75. Hypoxia 12/07/2013 06/11/2016 Overview: --O2 support via NC -- Now DNR/CC Electrolyte and fluid disord ers not elsewhere classified 08/14/2013 02/11/2015 Diarrhea 11/12/2012 02/11/2015 Overview: --gastroenteritis vs GVHD --FMS --c.diff negative. Add Imodium --no further w/up as patient opted for comfort care Cardiogenic shock 11/09/2012 05/27/2016 Overview: --Initially presented with septic shock on 3 pressor support from OSH. --Off pressor support 11/06. --Continue anti HTN meds to help reduce afterload captopril, hydralazine and metoprolol. --monitor, no current issues DVT prophylaxis 11/09/2012 05/27/2016 Overview: SQ heparin plus IPCs. Respiratory failure 11/09/2012 06/11/20 16 Overview: Respiratory failure in the setting of sepsis. Plan: Continue weaning trials daily and monitor for agitation and pain. Acute hypernatremia 11/09/2012 11/12/19 13 Overview: Sodium up to 154 on 11/07/12. Plan: - free water flushes with tube feeds. - D5W at 100 cc/hr. - monitor BMP q4h. ARDS (adult respiratory distress syndrome) 11/06/2012 06/11/2016 Overview: --On ventilator 11/02-11/10 --Tapering steroids to home dose of 15mg daily --improving --Occasional complaints of SOB, oxygen by nasal cannula for comfort, was weaned off, however some mild hypoxia yesterday. No complaints, CXR unremarkable except for some mild atlectasis, actually improved. Thrombocytopenia 11/06/2012 11/09/2012 Overview: Possibilities: reactive- related to sepsis. HIT ruled out anti PF4 normal. DIC panel - hapto and LDH elevated. Fibrinogen- in process. Will monitor platelet counts. Transaminitis 11/06/2012 02/11/2015 Overview: --secondary to sepsis/ passive congestion of liver from cardiogenic shock. --Acute hepatitis panel negative. --Trend of LFTs stable to improving, monitor. 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 Viral gastroenteritis vs GVHD. Hypotension requiring 3 vasopressors; Hypoxia reuiring intubation; Asystole following intubation (5 minutes CPR with epi, bicarb, and calcium). [place]red back to [facility] [place]12. NSR on telemetry. ID following. A&Ox3. Pt stable on 2L oxygen by NC. Extreme weakness, turning with two person assist. Eating and drinking with assistance. Tejada catheter and FMS removed 11/13. Telemetry discontinued. Transitioned medications to PO. Patient anxious to go to SNF for aggressive rehabilitation at d/c, however unfortunately with diarrhea and colonoscopy today 11/17 to further investigate. Severe sepsis(995.92) 11/03/20122014 Overview: --Likely 2/2 viral gastroenteritis. stool culture positive for E coli (non O157:H7) at [facility], repeat here neg. --c diff negative, [facility] stool culture negative. --Given meropenem. ciproflox 11/03-11/07 and gancyclovir 11/03-11/07. Now completed --required Levophed/Vasopressin/Shad/dobutamine --No Identifying source: blood, urine, sputum, c diff, legionella, RSV, norwalk negative --EBV viremia- 580 copies and mycoplasma IgM equivalent (will repeat mycoplasma IgM in 1 week 11/14) -- contact precautions for suspected norovirus infection although stool studies negative. -- Continue TMP-SMX ppx and valacyclovir 500mg qday. --Continue to follow ID recommendations: continue current prophylactic abx. --diarrhea recurred but resolved after colonoscopy 11/17. No obvious changes, follow up on biopsy results. 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 --on low dose pred recent MTX --MP discontinued 12/08. Now DNR/CC documented as of this encounter (statuses as of 07/03/2023) [facility] History of Past illness Narrative* Problem Noted Date Diagnosed Date Resolved Date On mechanically assisted ventilation 09/01/2021 09/02/2021 Overview: History: Post op Assessment: Grade 1 airway Plan: WTE Stress hyperglycemia 09/01/2021 022 Overview: History: No hx of DM. Chronic steroid therapy. Hemoglobin A1C (%) Date Value 05/12/2021 5.7 Assessment: Perioperative insulin resistance and exacerbation of hyperglycemia. Plan: Control blood glucose with SSI per CVICU protocol. Cardiac insufficiency follow ing cardiac surgery 09/01/2021 09/05/2021 Overview: History: Nml function pre op. Myocardial stunning causing difficulty from CPB. Arrived from OR on Epinephrine infusion at 2 mcg/min. Assessment: Epinephrine weaned off night of surgery. Plan: Continue diuresis and betablocker. Monitor hemodynamics. Hypovolemia 09/01/2021 09/02/2021 Overview: History: Post op Assessment: Fluid shifts in post operative period Plan: Resuscitate with IVF PRN Fever 12/07/2013 02/11/2015 Overview: --in an immunocompromised host. Vanc and Zoabben/ID rec; now DC'd d/t change in care plan to DNR/CC. BC & stool cx neg pending. CMV and RVP neg. O&P pending. --Abx discontinued 12/08. Now DNR/CC. Hypotension 12/07/2013 09/02/2021 Overview: History: Post op Assessment: Arrived from OR on Levophed infusion Plan: Titrate Levophed for goal MAP 65-75. Hypoxia 12/07/2013 06/11/2016 Overview: --O2 support via NC -- Now DNR/CC Electrolyte and fluid disord ers not elsewhere classified 08/14/2013 02/11/2015 Diarrhea 11/12/2012 02/11/2015 Overview: --gastroenteritis vs GVHD --FMS --c.diff negative. Add Imodium --no further w/up as patient opted for comfort care Cardiogenic shock 11/09/2012 05/27/2016 Overview: --Initially presented with septic shock on 3 pressor support from OSH. --Off pressor support 11/06. --Continue anti HTN meds to help reduce afterload captopril, hydralazine and metoprolol. --monitor, no current issues DVT prophylaxis 11/09/2012 05/27/2016 Overview: SQ heparin plus IPCs. Respiratory failure 11/09/2012 06/11/20 16 Overview: Respiratory failure in the setting of sepsis. Plan: Continue weaning trials daily and monitor for agitation and pain. Acute hypernatremia 11/09/2012 11/12/19 13 Overview: Sodium up to 154 on 11/07/12. Plan: - free water flushes with tube feeds. - D5W at 100 cc/hr. - monitor BMP q4h. ARDS (adult respiratory distress syndrome) 11/06/2012 06/11/2016 Overview: --On ventilator 11/02-11/10 --Tapering steroids to home dose of 15mg daily --improving --Occasional complaints of SOB, oxygen by nasal cannula for comfort, was weaned off, however some mild hypoxia yesterday. No complaints, CXR unremarkable except for some mild atlectasis, actually improved. Thrombocytopenia 11/06/2012 11/09/2012 Overview: Possibilities: reactive- related to sepsis. HIT ruled out anti PF4 normal. DIC panel - hapto and LDH elevated. Fibrinogen- in process. Will monitor platelet counts. Transaminitis 11/06/2012 02/11/2015 Overview: --secondary to sepsis/ passive congestion of liver from cardiogenic shock. --Acute hepatitis panel negative. --Trend of LFTs stable to improving, monitor. 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 Viral gastroenteritis vs GVHD. Hypotension requiring 3 vasopressors; Hypoxia reuiring intubation; Asystole following intubation (5 minutes CPR with epi, bicarb, and calcium). Transferred back to [facility] [place] 11/12. NSR on telemetry. ID following. A&Ox3. Pt stable on 2L oxygen by NC. Extreme weakness, turning with two person assist. Eating and drinking with assistance. Tejada catheter and FMS removed 11/13. Telemetry discontinued. Transitioned medications to PO. Patient anxious to go to SNF for aggressive rehabilitation at d/c, however unfortunately with diarrhea and colonoscopy today 11/17 to further investigate. Severe sepsis(995.92) 11/03/20122014 Overview: --Likely 2/2 viral gastroenteritis. stool culture positive for E coli (non O157:H7) at [facility], repeat here neg. --c diff negative, [facility] stool culture negative. --Given meropenem. ciproflox 11/03-11/07 and gancyclovir 11/03-11/07. Now completed --required Levophed/Vasopressin/Shad/dobutamine --No Identifying source: blood, urine, sputum, c diff, legionella, RSV, norwalk negative --EBV viremia- 580 copies and mycoplasma IgM equivalent (will repeat mycoplasma IgM in 1 week 11/14) -- contact precautions for suspected norovirus infection although stool studies negative. -- Continue TMP-SMX ppx and valacyclovir 500mg qday. --Continue to follow ID recommendations: continue current prophylactic abx. --diarrhea recurred but resolved after colonoscopy 11/17. No obvious changes, follow up on biopsy results. 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 --on low dose pred recent MTX --MP discontinued 12/08. 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) [facility] Diagnosis Otorrhea of right ear- Primary Otorrhea, unspecified Impaired auditory discrimination, right [facility] Diagnosis Sensorineural hearing loss, asymmetrical- Primary [facility] Diagnosis Chronic GVHD (HCC)- Primary Chronic edmsg-tqmehq-fcvi disease [facility] Diagnosis Chronic pain after cancer treatment- Primary Vqngu-glrxdz-zjmr disease, unspecified (HCC) Qwhwt-dwfxwh-wyqy disease, unspecified Muscle spasm Spasm of muscle Palliative care by specialist [facility] Diagnosis Chronic otorrhea, right- Primary [facility] Diagnosis Chronic pain after cancer treatment- Primary Neoplastic (malignant) related fatigue Saqvv-ocfxrp-vkui disease, unspecified (HCC) Hjixd-higrcf-uxdz disease, unspecified Muscle spasm Spasm of muscle Chronic use of opiate for therapeutic purpose Palliative care by specialist [facility] Diagnosis Chronic use of opiate for therapeutic purpose- Primary [facility] Diagnosis Chronic pain after cancer treatment- Primary Fhfqb-juhgmf-grjx disease, unspecified (HCC) Vizys-hmkxbh-yfud disease, unspecified Neoplastic (malignant) related fatigue Muscle spasm Spasm of muscle Palliative care by specialist [facility] Diagnosis Otorrhea of right ear Otorrhea, unspecified [facility] Diagnosis Insomnia, unspecified type- Primary Neoplastic (malignant) related fatigue Muscle spasm Spasm of muscle Chronic pain after cancer treatment Plbdj-iuldxj-uinl disease, unspecified (HCC) Uennh-glrsfx-inln disease, unspecified Palliative care by specialist documented in this encounter [facility] Summary Purpose Family History No Family History Records FoundNo Family History Records FoundNo Family History Records FoundNo Family History Records Found Advance Directives No Advanced Directives Records FoundDocuments on File Type Date Recorded Patient Deposition Reporter Expl anation Advance Directive(s) 08/13/2021 8:37 AM Advance Directive(s) 06/23/2021 2:10 PM Advance Directive(s) 06/04/2021 8:49 AM Advance Directive(s) 07/09/2020 12:22 PM Advance Directive(s) 04/29/2019 1:40 PM Advance Directive(s) 04/28/2019 2:40 PM Advance Directive(s) 06/03/2016 5:25 PM Latest Code Status on File Code Status Date Activated Date Inactivated Comments Full Code 04/28/2019 9:29 PM 05/04/2019 11:52 AM Full Code Order Discussed With: Patient DNR-CCA 04/28/2019 3:20 PM 04/28/2019 8:50 PM DNR Order Discussed With: Patient DNR-CCA 04/28/2019 2:47 PM 04/28/2019 3:20 PM DNR/Comfort Care 12/08/2013 9:45 AM 12/10/2013 3:11 PM DNR Specified 12/07/2013 4:31 PM 12/08/2013 9:45 AM DNR Specifications: 1. NO chest compressions 2. NO insertion of artificial ai rway/intubation 5. NO respiratory as sistance/mechanical ventilation (Except suctioning, positioning, or O2 as appropriate) DNR Order Discussed With: Patient and Surrogate Decision Maker Latest Code Status on File Code Status Date Activated Date Inactivated Comments Full Code 04/28/2019 9:29 PM 05/04/2019 11:52 AM DNR-CCA 04/28/2019 3:20 PM 04/28/2019 8:50 PM DNR-CCA 04/28/2019 2:47 PM 04/28/2019 3:20 PM DNR/Comfort Care 12/08/2013 9:45 AM 12/10/2013 3:11 PM DNR Specified 12/07/2013 4:31 PM 12/08/2013 9:45 AM Latest Code Status on File Code Status Date Activated Date Inactivated Comments Full Code 04/28/2019 9:29 PM 05/04/2019 11:52 AM Question Answer Comments Full Code Order Discussed With: Patient Code Status History Code Status Date Activated Date Inactivated Comments DNR-CCA 04/28/2019 3:20 PM 04/28/2019 8:50 PM Question Answer Comments DNR Order Discussed With: Patient DNR-CCA 04/28/2019 2:47 PM 04/28/2019 3:20 PM Question Answer Comments DNR Order Discussed With: Patient DNR/Comfort Care 12/08/2013 9:45 AM 12/10/2013 3:11 PM Question Answer Comments DNR Order Discussed With: Patient DNR Specified 12/07/2013 4:31 PM 12/08/2013 9:45 AM Question Answer Comments DNR Specifications: 1. NO chest compressions 2. NO insertion of a rtificial airway/intubation 5. NO respiratory assistance/mechanical ventilation (Except suctioning, positioning, or O2 as appropriate) DNR Order Discussed With: Patient and Eldridge rrogate Decision Maker Latest Code Status on File Code Status Date Activated Date Inactivated Comments Full Code 04/28/2019 9:29 PM 05/04/2019 11:52 AM Question Answer Comments Full Code Order Discussed With: Patient Code Status History Code Status Date Activated Date Inactivated Comments DNR-CCA 04/28/2019 3:20 PM 04/28/2019 8:50 PM Question Answer Comments DNR Order Discussed With: Patient DNR-CCA 04/28/2019 2:47 PM 04/28/2019 3:20 PM Question Answer Comments DNR Order Discussed With: Patient DNR/Comfort Care 12/08/2013 9:45 AM 12/10/2013 3:11 PM Question Answer Comments DNR Order Discussed With: Patient DNR Specified 12/07/2013 4:31 PM 12/08/2013 9:45 AM Question Answer Comments DNR Specifications: 1. NO chest compressions 2. NO insertion of a rtificial airway/intubation 5. NO respiratory assistance/mechanical ventilation (Except suctioning, positioning, or O2 as appropriate) DNR Order Discussed With: Patient and Eldridge rrogate Decision Maker Reason for Referral Specialty Diagnoses / Procedures Referred By Contac t Referred To Contact Diagnoses Otorrhea of right ear Impaired auditory discrimination, right Procedures HEARING TEST/AUDIOGRAM COMPRE AUDIOMETRY THRESHOLD EVAL SP RECOGNIJ Hakan Armijo MD [address] [place] [address] [facility] [address] [place] [address] Referral ID Status Reason Start Date Expiration Date Visits Requested Visits Authorized [id number] Pending Review Auto-Generat ed Referral 08/05/2022 11/03/2022 1 1 Specialty Diagnoses / Procedures Referred By Contac t Referred To Contact CT IMAGING Diagnoses Otorrhea of right ear Procedures CT TEMP BONES WO IVCON CT ORBIT SELLA/POST FOSSA/EAR W/O CONTRAST Hakan Gilliam MD [address] [place] [address] Ct Imaging Referral ID Status Reason Start Date Expiration Date Visits Requested Visits Authorized [id number] Authorized Auto-Generat ed Referral 08/05/2022 09/04/2023 1 1 Specialty Diagnoses / Procedures Referred By Contac t Referred To Contact CT IMAGING Diagnoses Otorrhea of right ear Procedures CT TEMP BONES WO IVCON CT ORBIT SELLA/POST FOSSA/EAR W/O CONTRAST Hakan Gilliam MD [address] [place], [place] [id number] [facility] [place] [address] Referral ID Status Reason Start Date Expiration Date V isits Requested Visits Authorized [id number] Closed Auto-Generate d Referral 08/05/2022 09/04/2023 1 1 Additional Source Comments (unrecognized sect ion and content) No Status Records FoundNo Status Records FoundNo Status Records FoundNo Status Records Found INFORMATION SOURCE (unrecogn ized section and content) DATE CREATED AUTHOR AUTHOR'S ORGANIZ ATION 09/02/2019 [facility] DATE CREATED AUTHOR AUTHOR'S ORGANIZ ATION 11/16/2020 [facility] DATE CREATED AUTHOR AUTHOR'S ORGANIZ ATION 08/07/2023 [facility] Source Comments (unrecognize d section and content) In the event this informatio n is protected by the Federal Confidentiality of Alcohol and Drug Abuse Patient Records regulations: The Federal rules restrict any use of the information to criminally investigate or prosecute any alcohol or drug abuse patient.[facility] the event this information is protected by the Federal Confidentiality of Alcohol and Drug Abuse Patient Records regulations: The Federal rules restrict any use of the information to criminally investigate or prosecute any alcohol or drug abuse patient.[facility] the event this information is protected by the Federal Confidentiality of Alcohol and Drug Abuse Patient Records regulations: The Federal rules restrict any use of the information to criminally investigate or prosecute any alcohol or drug abuse patient.[facility] the event this information is protected by the Federal Confidentiality of Alcohol and Drug Abuse Patient Records regulations: The Federal rules restrict any use of the information to criminally investigate or prosecute any alcohol or drug abuse patient.[facility] the event this information is protected by the Federal Confidentiality of Alcohol and Drug Abuse Patient Records regulations: The Federal rules restrict any use of the information to criminally investigate or prosecute any alcohol or drug abuse patient.[facility] the event this information is protected by the Federal Confidentiality of Alcohol and Drug Abuse Patient Records regulations: The Federal rules restrict any use of the information to criminally investigate or prosecute any alcohol or drug abuse patient.[facility] the event this information is protected by the Federal Confidentiality of Alcohol and Drug Abuse Patient Records regulations: The Federal rules restrict any use of the information to criminally investigate or prosecute any alcohol or drug abuse patient.[facility] Hospital[facility] the event this information is protected by the Federal Confidentiality of Alcohol and Drug Abuse Patient Records regulations: The Federal rules restrict any use of the information to criminally investigate or prosecute any alcohol or drug abuse patient.[facility] Hospital[facility] the event this information is protected by the Federal Confidentiality of Alcohol and Drug Abuse Patient Records regulations: The Federal rules restrict any use of the information to criminally investigate or prosecute any alcohol or drug abuse patient.[facility] the event this information is protected by the Federal Confidentiality of Alcohol and Drug Abuse Patient Records regulations: The Federal rules restrict any use of the information to criminally investigate or prosecute any alcohol or drug abuse patient.[facility] Hospital[facility] the event this information is protected by the Federal Confidentiality of Alcohol and Drug Abuse Patient Records regulations: The Federal rules restrict any use of the information to criminally investigate or prosecute any alcohol or drug abuse patient.[facility] Hospital[facility] the event this information is protected by the Federal Confidentiality of Alcohol and Drug Abuse Patient Records regulations: The Federal rules restrict any use of the information to criminally investigate or prosecute any alcohol or drug abuse patient.[facility] Hospital[facility] the event this information is protected by the Federal Confidentiality of Alcohol and Drug Abuse Patient Records regulations: The Federal rules restrict any use of the information to criminally investigate or prosecute any alcohol or drug abuse patient.[facility] Hospital[facility] the event this information is protected by the Federal Confidentiality of Alcohol and Drug Abuse Patient Records regulations: The Federal rules restrict any use of the information to criminally investigate or prosecute any alcohol or drug abuse patient.[facility] Hospital[facility] the event this information is protected by the Federal Confidentiality of Alcohol and Drug Abuse Patient Records regulations: The Federal rules restrict any use of the information to criminally investigate or prosecute any alcohol or drug abuse patient.[facility] Hospital[facility] the event this information is protected by the Federal Confidentiality of Alcohol and Drug Abuse Patient Records regulations: The Federal rules restrict any use of the information to criminally investigate or prosecute any alcohol or drug abuse patient.[facility] HospitalIn the event this information is protected by the Federal Confidentiality of Alcohol and Drug Abuse Patient Records regulations: The Federal rules restrict any use of the information to criminally investigate or prosecute any alcohol or drug abuse patient.[facility] Reason for Visit (unrecogniz ed section and content) Reason Onset Date Comments Refill Request 06/22/2022 Reason Comments Consult Right intermittent E ar Pain/ fluid/ hearing loss Since December 2021 Reason Comments Appointment Tried to schedule ap pointment Reason Comments Hearing Test Specialty Diagnoses / Procedures Referred By Contac t Referred To Contact Diagnoses Otorrhea of right ear Impaired auditory discrimination, right Procedures HEARING TEST/AUDIOGRAM COMPRE AUDIOMETRY THRESHOLD EVAL Hakan Rothman MD [address] [place] [address] [facility] [address] [place] [address] Referral ID Status Reason Start Date Expiration Date V isits Requested Visits Authorized [id number] Closed Auto-Generate d Referral 08/05/2022 11/03/2022 1 1 Reason Comments Pain Reason Comments Follow Up Review CT scan from 08/25/22/ review audiogram from 08/17/22, mastoid powder placement- no beta test was done- patient states no drainage since last visit Reason Onset Date Comments Refill Request 11/03/2022 Reason Comments Refill Request Reason Comments Fatigue Establish Care Reason Comments Radiology CT Specialty Diagnoses / Procedures Referred By Contac t Referred To Contact CT IMAGING Diagnoses Otorrhea of right ear Procedures CT TEMP BONES WO IVCON CT ORBIT SELLA/POST FOSSA/EAR W/O CONTRAST MATRL Hakan Armijo MD [address] [place] [address] [place] [id number] Referral ID Status Reason Start Date Expiration Date V isits Requested Visits Authorized [id number] Closed Auto-Generate d Referral 08/05/2022 09/04/2023 1 1 Care Teams (unrecognized sec tion and content) Counseling Services Manager Relationship Specialty Start Date End Date Lolly Meyer PCP - General 11/05/05 Lukasz Olsen, SHELLEY [address] [place], [place] [id number] Registered Nurse Blood and Marrow Transplant 02/04/14 Jeovanny Montes MD [address] [place] [address] Physician Blood and Marrow Transplant 02/04/14 Teo Cole MD [address] [place] [address] Consulting Hematology/Oncology 10/18/17 Milagro Segura LISW [address] [place] [address] Tack Cleaner Blood and Marrow Transplant 05/02/19 Michael Mensah MD [facility] [address] [place] [address] Primary Staff Physician Cardiology 04/23/21 Shivani Houser, SHELLEY Specialty New Grad Rn HOSPICE & PALLIATIVE MEDICINE 12/10/21 Counseling Services Manager Relationship Specialty Start Date End Date Lolly Meyer PCP - General 11/05/05 Lukasz Olsen, RN [address] [place] [address] Registered Nurse Blood and Marrow Transplant 02/04/14 Jeovanny Montes MD [address] [place] [address] Physician Blood and Marrow Transplant 02/04/14 Teo Cole MD [address] [place] [address] Consulting Hematology/Oncology 10/18/17 Milagro Segura LISW [address] [place] [address] Tack Cleaner Blood and Marrow Transplant 05/02/19 Michael Mensah MD [facility] [address] [place] [address] Primary Staff Physician Cardiology 04/23/21 Shivani Houser, SHELLEY Specialty New Grad Rn HOSPICE & PALLIATIVE MEDICINE 12/10/21 Counseling Services Manager Relationship Specialty Start Date End Date Lolly Meyer PCP - General 11/05/05 Lukasz Olsen, SHELLEY [address] [place] [address] Registered Nurse Blood and Marrow Transplant 02/04/14 Jeovanny Montes MD [address] [place] [address] Physician Blood and Marrow Transplant 02/04/14 Teo Cole MD [address] [place] [address] Consulting Hematology/Oncology 10/18/17 Milagro Segura LISW [address] [place] [address] Tack Cleaner Blood and Marrow Transplant 05/02/19 Michael Mensah MD [facility] [address] [place] [address] Primary Staff Physician Cardiology 04/23/21 Shivani Houser, RN Specialty New Grad Rn HOSPICE & PALLIATIVE MEDICINE 12/10/21 Counseling Services Manager Relationship Specialty Start Date End Date Lolly Meyer PCP - General 11/05/05 Lukasz Olsen RN [address] [place] [address] Registered Nurse Blood and Marrow Transplant 02/04/14 Jeovanny Montes MD [address] [place] [address] Physician Blood and Marrow Transplant 02/04/14 Teo Cole MD [address] [place] [address] Consulting Hematology/Oncology 10/18/17 Milagro Segura LISW [address] [place] [address] Tack Cleaner Blood and Marrow Transplant 05/02/19 Michael Mensah MD [facility] [address] [place] [address] Primary Staff Physician Cardiology 04/23/21 Shivani Houser, RN Specialty New Grad Rn HOSPICE & PALLIATIVE MEDICINE 12/10/21 Counseling Services Manager Relationship Specialty Start Date End Date Lolly Meyer PCP - General 11/05/05 Lukasz Olsen RN [address] [place] [address] Registered Nurse Blood and Marrow Transplant 02/04/14 Jeovanny Montes MD [address] [place], [place] [phone] Physician Blood and Marrow Transplant 02/04/14 Teo Cole MD [address] [place] [address] Consulting Hematology/Oncology 10/18/17 Milagro Segura LISW [address] [place] [address] Tack Cleaner Blood and Marrow Transplant 05/02/19 Michael Mensah MD [facility] [address] [place] [address] Primary Staff Physician Cardiology 04/23/21 Shivani Houser, RN Specialty New Grad Rn HOSPICE & PALLIATIVE MEDICINE 12/10/21 Counseling Services Manager Relationship Specialty Start Date End Date Mitch Lolly Slim PCP - General 11/05/05 Lukasz Olsen, RN [address] [place], [place] [phone] Registered Nurse Blood and Marrow Transplant 02/04/14 Jeovanny Montes MD [address] [place] [address] Physician Blood and Marrow Transplant 02/04/14 Teo Cole MD [address] [place] [address] Consulting Hematology/Oncology 10/18/17 Milagro Segura LISW [address] [place] [address] Tack Cleaner Blood and Marrow Transplant 05/02/19 Michael Mensah MD [facility] [address] [place], [place] [phone] Primary Staff Physician Cardiology 04/23/21 Shivani Houser, SHELLEY Specialty New Grad Rn HOSPICE & PALLIATIVE MEDICINE 12/10/21 Counseling Services Manager Relationship Specialty Start Date End Date Lolly Meyer PCP - General 11/05/05 Lukasz Olsen, RN [address] [place] [address] Registered Nurse Blood and Marrow Transplant 02/04/14 Jeovanny Montes MD [address] [place] [address] Physician Blood and Marrow Transplant 02/04/14 Teo Cole MD [address] [place] [address] Consulting Hematology/Oncology 10/18/17 Milagro Segura LISW [address] [place] [address] Tack Cleaner Blood and Marrow Transplant 05/02/19 Michael Mensah MD [facility] [address] [place] [address] Primary Staff Physician Cardiology 04/23/21 Shivani Houser, SHELLEY Specialty New Grad Rn HOSPICE & PALLIATIVE MEDICINE 12/10/21 Counseling Services Manager Relationship Specialty Start Date End Date Lolly Meyer PCP - General 11/05/05 Lukasz Olsen, RN [address] [place] [address] Registered Nurse Blood and Marrow Transplant 02/04/14 Jeovanny Montes MD [address] [place] [address] Physician Blood and Marrow Transplant 02/04/14 Teo Cole MD [address] [place] [address] Consulting Hematology/Oncology 10/18/17 Imelda Milagro, MAINTENANCE PAINTER APPRENTICE [address] [place] [address] Tack Cleaner Blood and Marrow Transplant 05/02/19 Michael Mensah MD [facility] [address] [place] [address] Primary Staff Physician Cardiology 04/23/21 Shivani Houser, RN Specialty New Grad Rn HOSPICE & PALLIATIVE MEDICINE 12/10/21 Counseling Services Manager Relationship Specialty Start Date End Date Lolly Meyer PCP - General 11/05/05 Lukasz Olsen, SHELLEY [address] [place] [address] Registered Nurse Blood and Marrow Transplant 02/04/14 [place] [address] [place] [address] Physician Blood and Marrow Transplant 02/04/14 Teo Cole MD [address] [place] [address] Consulting Hematology/Oncology 10/18/17 ImeldaMilagro ascencio MAINTENANCE PAINTER APPRENTICE [address] [place] [address] Tack Cleaner Blood and Marrow Transplant 05/02/19 Michael Mensah MD [facility] [address] [place] [address] Primary Staff Physician Cardiology 04/23/21 Shivani Houser RN Specialty New Grad Rn HOSPICE & PALLIATIVE MEDICINE 12/10/21 Counseling Services Manager Relationship Specialty Start Date End Date Lolly Meyer PCP - General 11/05/05 Lukasz Olsen, SHELLEY [address] [place], [place] [phone] Registered Nurse Blood and Marrow Transplant 02/04/14 Jeovanny Montes MD [address] [place] [phone] Physician Blood and Marrow Transplant 02/04/14 Teo Cole MD [address] [place] [address] Consulting Hematology/Oncology 10/18/17 Milagro Segura LISW [address] [place], [place] [phone] Tack Cleaner Blood and Marrow Transplant 05/02/19 Michael Mensah MD [facility] [address] [place], [place] [phone] Primary Staff Physician Cardiology 04/23/21 Shivani Houser, RN Specialty New Grad Rn HOSPICE & PALLIATIVE MEDICINE 12/10/21 Counseling Services Manager Relationship Specialty Start Date End Date Lolly Meyer PCP - General 11/05/05 Lukasz Olsen, SHELLEY [address] [place] [address] Registered Nurse Blood and Marrow Transplant 02/04/14 Jeovanny Montes MD [address] [place] [phone] Physician Blood and Marrow Transplant 02/04/14 Teo Cole MD [address] [place] [phone] Consulting Hematology/Oncology 10/18/17 Milagro Segura LISW [address] [place] [address] Tack Cleaner Blood and Marrow Transplant 05/02/19 Michael Mensah MD [address] [phone] Primary Staff Physician Cardiology 04/23/21 Shivani Houser, SHELLEY Specialty New Grad Rn HOSPICE & PALLIATIVE MEDICINE 12/10/21 Counseling Services Manager Relationship Specialty Start Date End Date Lolly Meyer PCP - General 11/05/05 Lukasz Olsen RN [address] [place], [place] [phone] Registered Nurse Blood and Marrow Transplant 02/04/14 Jeovanny Montes MD [address] [place] [phone] Physician Blood and Marrow Transplant 02/04/14 Teo Cole MD [address] [place] [address] Consulting Hematology/Oncology 10/18/17 Milagro Segura LISW [address] [place], [place] [phone] Tack Cleaner Blood and Marrow Transplant 05/02/19 Michael Mensah MD [address] [address] Primary Staff Physician Cardiology 04/23/21 Shivani Houser, SHELLEY Specialty New Grad Rn HOSPICE & PALLIATIVE MEDICINE 12/10/21 Counseling Services Manager Relationship Specialty Start Date End Date Lolly Meyer PCP - General 11/05/05 Lukasz Olsen RN [facility] [place] [phone] Registered Nurse Blood and Marrow Transplant 02/04/14 Jeovanny Montes MD [address] [place], [place] [phone] Physician Blood and Marrow Transplant 02/04/14 Teo Cole MD [address] [place], [place] [phone] Consulting Hematology/Oncology 10/18/17 Milagro Segura LISW [facility] [place] [id number] Tack Cleaner Blood and Marrow Transplant 05/02/19 Michael Mensah MD [address] [address] Primary Staff Physician Cardiology 04/23/21 Ester Bolton, SHELLEY Specialty New Grad Rn HOSPICE & PALLIATIVE MEDICINE 08/04/23 FOR RECORDS PERTAINING TO PATIENTS WHO ARE OR HAVE BEEN ENROLLED IN A CHEMICAL DEPENDENCY/SUBSTANCEABUSE PROGRAM, SOME INFORMATION MAY BE OMITTED. This clinical summary was aggregated from multiple sources. Caution should be exercised in using it in the provision of clinical care. This summary normalizes information from multiple sources, and as a consequence, information in this document may materially change the coding, format and clinical context of patient data. In addition, data may be omitted in some cases. CLINICAL DECISIONS SHOULD BE BASED ON THE PRIMARY CLINICAL RECORDS. [employer] [facility]. provides no warranty or guarantee of the accuracy or completeness of information in this document.
[2023-08-26 17:32] LABS: Platelet Count 221 K/mm3 (150-450); RET-HE 35.7 pg (30-35); Reticulocyte Count 1.86 % (0.5-1.5)
[2023-08-26 17:57] LABS: Ferritin 62 ng/mL (26-388); Iron 71 ug/dL (65-175)
[2023-08-30 15:07] LABS: Erythropoietin 15.4 mIU/mL (2.6-18.5)
== END | disposition home or self-care (01) ==
LOC: MTLAB 14:17
PROVIDERS: PCP Family Medicine; Referring Provider Nurse Practitioner Family; Visit Provider Nurse Practitioner Family
DX: D75.1 Secondary polycythemia (principal)
CPT/HCPCS: 36415; 82668; 82728; 83540; 84403; 85045

== ENCOUNTER → 2023-11-10 | Outpatient (CLI) | payer MEDICARE, SELFPAY ==
[2021-11-02 14:16] VITALS: BMI 21.6
--- NOTE | 2023-11-10 14:01 | ECHOD_ITS ---
Reason For Study: JUAN ALBERTO Procedure This was a 2D Doppler, Color Flow transthoracic echocardiogram. Exam performed in department. Left Ventricle Normal LV size. Moderate concentric left ventricular hypertrophy. Left ventricular systolic function is normal. The estimated ejection fraction is 65 %. Stage 1 diastolic dysfunction. No regional wall motion abnormalities noted. Right Ventricle Normal RV size. Normal systolic function. Aortic Valve Peak aortic valve gradient 40 mmHg. Mean aortic valve gradient 20 mmHg. Bioprosthetic aortic valve. Great Vessels Mild to moderately dilated aortic root. The pulmonary artery is normal size. Inferior vena cava collapse with respiration. Pericardium/Pleural No pericardial effusion. MMode/2D Measurements & Calculations LVIDd: 4.6 cm IVSd: 2.1 cm LVOT diam: 2.0 cm LVIDs: 3.3 cm LVPWd: 1.4 cm RVDd: 3.7 cm FS: 29.1 % LVOT area: 3.3 cm2 Ao root diam: 4.5 cm LAV(MOD-bp): 58.1 ml ACS: 1.6 cm LVAd ap4: 30.3 cm2 LA dimension: 4.4 cm LAV(MOD-bp) Indexed: 31.3 ml/m2 LVLd ap4: 8.4 cm LAV(MOD-sp2): 57.6 ml EDV(MOD-sp4): 93.6 ml LAV(MOD-sp4): 51.1 ml EDV(sp4-el): 93.1 ml LVAs ap4: 16.3 cm2 LVLs ap4: 7.5 cm ESV(MOD-sp4): 33.4 ml ESV(sp4-el): 29.9 ml EF(MOD-sp4): 64.3 % EF(sp4-el): 67.8 % SV(MOD-sp4): 60.2 ml SV(sp4-el): 63.2 ml LA A4 area: 19.3 cm2 RA A4 area: 20.1 cm2 TAPSE: 1.7 cm Time Measurements MV dec time: 0.17 sec Doppler Measurements & Calculations MV E max alfredo: 74.4 cm/sec Lat Peak E' Alfredo: 13.1 cm/sec Med Peak E' Alfredo: 6.6 cm/sec MV A max alfredo: 86.0 cm/sec E/E' lat: 5.7 E/E' med: 11.2 MV E/A: 0.87 MV V2 max: 93.7 cm/sec MV P1/2t max alfredo: 74.1 cm/sec Ao V2 max: 314.7 cm/sec MV max P.5 mmHg MV P1/2t: 51.2 msec Ao max P.2 mmHg MV V2 mean: 53.0 cm/sec MV dec slope: 423.7 cm/sec2 Ao V2 mean: 204.1 cm/sec MV mean P.3 mmHg Ao mean P.7 mmHg MV V2 VTI: 22.3 cm MVA(P1/2t): 4.3 cm2 Ao V2 VTI: 51.8 cm MVA(VTI): 3.4 cm2 AV (velocity ratio): 0.44 ELVIN(I,D): 1.5 cm2 ELVIN(V,D): 1.3 cm2 LV V1 max: 125.9 cm/sec SV(LVOT): 75.1 ml PA V2 max: 158.8 cm/sec LV V1 max P.3 mmHg LV V1 mean P.4 mmHg LV V1 mean: 84.9 cm/sec LV V1 VTI: 22.9 cm ECHO/Echo Complete Interpretation Summary Normal LV size. Moderate concentric left ventricular hypertrophy. Left ventricular systolic function is normal. The estimated ejection fraction is 65 %. Stage 1 diastolic dysfunction. Mean aortic valve gradient 20 mmHg. Bioprosthetic aortic valve. Compared to the previous the gradient across the aortic valve is similar. Ordering Physician: Isabel Guerrero Referring Physician: Lolly Meeyr M.D. Performed By: Salo Han RCS
== END | disposition home or self-care (01) ==
LOC: CVS 14:00
PROVIDERS: PCP Family Medicine; Referring Provider Physician Assistant Medical; Visit Provider Physician Assistant Medical
DX: I77.810 Thoracic aortic ectasia (principal); G47.33 Obstructive sleep apnea (adult) (pediatric); Z95.2 Presence of prosthetic heart valve
CPT/HCPCS: 93306

== ENCOUNTER → 2023-12-06 | Outpatient (CLI) | payer MEDICARE, SELFPAY ==
[2021-11-02 14:16] VITALS: BMI 21.6
[2023-12-06 16:37] LABS: PSA,Total - Annual Screen 5.56 ng/mL (0.00-4.00)
== END | disposition home or self-care (01) ==
LOC: LAB 14:03
PROVIDERS: PCP Family Medicine; Referring Provider Nurse Practitioner; Visit Provider Nurse Practitioner
DX: Z12.5 Encounter for screening for malignant neoplasm of prostate (principal)
CPT/HCPCS: 36415; 84153; G0103

== ENCOUNTER → 2023-12-09 | Outpatient (CLI) | payer MEDICARE, SELFPAY ==
[2021-11-02 14:16] VITALS: BMI 21.6
[2023-12-12 12:08] LABS: PSA, Free 0.89 ng/mL; PSA, Free % 15.2 % (.)
== END | disposition home or self-care (01) ==
LOC: LAB 14:03
PROVIDERS: PCP Family Medicine; Referring Provider Urology; Visit Provider Urology
DX: R97.20 Elevated prostate specific antigen [PSA] (principal)
CPT/HCPCS: 36415; 84153; 84154

== ENCOUNTER → 2023-12-22 | Outpatient (CLI) | payer MEDICARE, SELFPAY ==
[2021-11-02 14:16] VITALS: BMI 21.6
== END | disposition home or self-care (01) ==
LOC: PSN 12:22
PROVIDERS: PCP Family Medicine; Referring Provider Internal Medicine Critical Care Medicine; Visit Provider Internal Medicine Critical Care Medicine
DX: R94.2 Abnormal results of pulmonary function studies (principal)
CPT/HCPCS: 94060; 94726; 94729

== ENCOUNTER → 2023-12-26 | Outpatient (CLI) | payer MEDICARE, SELFPAY ==
[2021-11-02 14:16] VITALS: BMI 21.6
[2023-12-26 13:19] VITALS: PULSE 102; PULSE 104; PULSE 105; PULSE 107; PULSE 90; PULSE 93; PULSE 97; O2SAT 86; O2SAT 89; O2SAT 90; O2SAT 91; O2SAT 96
--- NOTE | 2023-12-26 13:24 | CPS ---
Patient has oxygen at home, wears 2 lpm HS and 2-6lpm on ambulation. Mostly wears 2 lpm with walking and light exercise, up to 6 lpm with intense exercise on Elliptical, etc.
--- NOTE | 2023-12-30 13:33 | PCM.PSN.6M ---
PSN 6 Minute Walk Test 6 Minute Walk Test 6 Minute Walk Test: 6 Minute Walk Test PSN:6-Minute Walk Test Start: 12/26/23 13:18 Freq: Status: Discharge Protocol: [id number] Document 12/26/23 13:19 GISSELLE (Rec: 12/26/23 13:25 GISSELLE [id number]) 6 Minute Walk Test Date Performed 12/26/23 Time Performed 12:30 Height 5 ft 10 in Weight: 160 lb Weight in Pounds 160.[address]: Ruy Regan Assistive device used: None Pre-test Oxygen Delivery Method Room Air Pulse Ox 91 Pulse Rate (60-100) 93 Dyspnea Addison Scale (0-10) 1 Exertion Addison Scale (6-20) 6 1st minute Oxygen Delivery Method Room Air Pulse Ox 89 Pulse Rate (60-100) 104 H 2nd minute Oxygen Delivery Method Room Air Pulse Ox 86 Pulse Rate (60-100) 105 H 3rd minute Oxygen Flow Rate (L/min) 2 Oxygen Delivery Method Nasal Cannula Pulse Ox 91 Pulse Rate (60-100) 97 4th minute Oxygen Flow Rate (L/min) 2 Oxygen Delivery Method Nasal Cannula Pulse Ox 91 Pulse Rate (60-100) 102 H 5th minute Oxygen Flow Rate (L/min) 2 Oxygen Delivery Method Nasal Cannula Pulse Ox 90 Pulse Rate (60-100) 104 H 6th minute Oxygen Flow Rate (L/min) 2 Oxygen Delivery Method Nasal Cannula Pulse Ox 89 Pulse Rate (60-100) 107 H Dyspnea Addison Scale (0-10) 3 Exertion Addison Scale (6-20) 11 Post-test Oxygen Flow Rate (L/min) 2 Oxygen Delivery Method Nasal Cannula Pulse Ox 96 Pulse Rate (60-100) 90 Full Laps Walked 16 Partial Lap, Number of Tiles Walked 52 Total Distance Walked (ft) 996 12/26/23 13:24 Cardiopulmonary Services by Felicity Coleman Patient has oxygen at home, wears 2 lpm HS and 2-6lpm on ambulation. Mostly wears 2 lpm with walking and light exercise, up to 6 lpm with intense exercise on Elliptical, etc. Initialized on 12/26/23 13:24 - END OF NOTE Interpretation Interpretation: The patient ambulated 996 feet over the course of 6 minutes beginning on room air without assistive devices. Pretesting oxygen saturation was noted to be 91% on room air. With ambulation, the ifeoma oxygen saturation was 86%, requiring 2 L/min of supplemental oxygen. Recommendations Recommendations: 2 L/min of supplemental oxygen should be utilized with exertion.
== END | disposition home or self-care (01) ==
LOC: PSN 12:27
PROVIDERS: PCP Family Medicine; Referring Provider Internal Medicine Critical Care Medicine; Visit Provider Internal Medicine Critical Care Medicine
DX: J96.11 Chronic respiratory failure with hypoxia (principal)
CPT/HCPCS: 94618

== ENCOUNTER 2024-03-08 15:54 | Outpatient (CLI) | payer MEDICARE, SELFPAY ==
[2021-11-02 14:16] VITALS: BMI 21.6
[2024-03-08 18:03] LABS: SERUM TEARS COLLECTION SPECIMEN PROCESSED
[2024-03-08 18:45] LABS: HIV - WCH Non-Reactive (Nonreactive); Hepatitis C Antibody Non-Reactive (Nonreactive)
[2024-03-10 06:13] LABS: Hepatitis B Core AB IgM Negative (Negative)
== END 2024-03-08 23:59 | disposition home or self-care (01) ==
LOC: LAB 15:59
PROVIDERS: PCP Family Medicine
DX: H16.223 Keratoconjunctivitis sicca, not specified as Sjogren's, bilateral (principal)
CPT/HCPCS: 36415; 86703; 86705; 86803

== ENCOUNTER → 2024-04-12 | Outpatient (CLI) | payer MEDICARE, SELFPAY ==
[2021-11-02 14:16] VITALS: BMI 21.6
[2024-04-12 13:00] LABS: PSA,Total - Annual Screen 4.61 ng/mL (0.00-4.00)
== END | disposition home or self-care (01) ==
LOC: LAB 11:59
PROVIDERS: PCP Family Medicine; Referring Provider Urology; Visit Provider Urology
DX: Z12.5 Encounter for screening for malignant neoplasm of prostate (principal); R97.20 Elevated prostate specific antigen [PSA]
CPT/HCPCS: 36415; 84153; G0103

== ENCOUNTER → 2024-08-27 | Outpatient (CLI) | payer SELFPAY ==
[2021-11-02 14:16] VITALS: BMI 21.6
[2024-08-27 12:51] LABS: SERUM TEARS COLLECTION SPECIMEN PROCESSED
== END | disposition home or self-care (01) ==
PROVIDERS: PCP Family Medicine
DX: Z79.899 Other long term (current) drug therapy (principal)

== ENCOUNTER → 2025-01-08 | Outpatient (CLI) | payer MEDICARE, BC, SELFPAY ==
[2021-11-02 14:16] VITALS: BMI 21.6
--- NOTE | 2025-01-08 12:55 | ECHOD_ITS ---
Reason For Study Reason For Study: AVR Procedure This was a 2D Doppler, Color Flow transthoracic echocardiogram. Myocardial strain analysis was performed in this exam to aid in the assessment of cardiac function. Exam performed in department. Left Ventricle Normal LV size. Moderate concentric left ventricular hypertrophy. Left ventricular systolic function is normal. The left ventricular ejection fraction is 60 %. Stage 1 diastolic dysfunction. No regional wall motion abnormalities noted. Right Ventricle Normal RV size. Normal systolic function. Atria Normal left atrium. Normal right atrium. Mitral Valve Normal mitral valve. Tricuspid Valve Normal tricuspid valve. Mild to moderate (1-2+) tricuspid valve insufficiency. Pulmonary artery systolic pressure is 34 mmHg. Aortic Valve Peak aortic valve gradient 36 mmHg. Mean aortic valve gradient 23 mmHg. Bioprosthetic aortic valve. Pulmonic Valve Normal pulmonic valve. Mild (1+) pulmonic valve insufficiency. Great Vessels Normal aortic root. Pericardium/Pleural No pericardial effusion. MMode/2D Measurements & Calculations LVIDd: 4.4 cm IVSd: 1.7 cm LVOT diam: 2.1 cm LVIDs: 3.0 cm LVPWd: 1.5 cm LVOT area: 3.6 cm2 RVDd: 3.2 cm FS: 32.8 % Ao root diam: 4.4 cm LAV(MOD-bp): 43.8 ml LVAd ap4: 27.4 cm2 LAV(MOD-bp) Indexed: 23.3 ml/m2 LVLd ap4: 8.1 cm LAV(MOD-sp2): 40.4 ml EDV(MOD-sp4): 75.6 ml LAV(MOD-sp4): 43.4 ml EDV(sp4-el): 78.4 ml LVAs ap4: 16.3 cm2 LVLs ap4: 7.0 cm ESV(MOD-sp4): 32.2 ml ESV(sp4-el): 32.3 ml EF(MOD-sp4): 57.5 % EF(sp4-el): 58.7 % LVAd ap2: 26.6 cm2 SV(MOD-sp4): 43.5 ml SV(MOD-sp2): 36.8 ml LVLd ap2: 8.0 cm SI(MOD-sp4): 23.1 ml/m2 SI(MOD-sp2): 19.6 ml/m2 EDV(MOD-sp2): 71.1 ml EDV(sp2-el): 75.1 ml LVAs ap2: 16.5 cm2 LVLs ap2: 7.1 cm ESV(MOD-sp2): 34.3 ml ESV(sp2-el): 32.6 ml EF(MOD-sp2): 51.8 % SV(sp4-el): 46.0 ml LA dimension(2D): 4.8 cm LA A4 area: 16.2 cm2 RA A4 area: 9.1 cm2 TAPSE: 0.92 cm Time Measurements MV dec time: 0.17 sec Doppler Measurements & Calculations MV E max alfredo: 69.5 cm/sec Lat Peak E' Alfredo: 10.8 cm/sec Med Peak E' Alfredo: 6.5 cm/sec MV A max alfredo: 86.5 cm/sec E/E' lat: 6.4 E/E' med: 10.7 MV E/A: 0.80 MV V2 max: 93.8 cm/sec Ao V2 max: 300.9 cm/sec MV max P.5 mmHg MV dec slope: 398.3 cm/sec2 Ao max P.3 mmHg MV V2 mean: 62.1 cm/sec Ao V2 mean: 233.0 cm/sec MV mean P.7 mmHg Ao mean P.1 mmHg MV V2 VTI: 20.6 cm Ao V2 VTI: 47.6 cm AV (velocity ratio): 0.65 MVA(VTI): 5.4 cm2 ELVIN(I,D): 2.3 cm2 ELVIN(V,D): 2.0 cm2 LV V1 max: 168.4 cm/sec SV(LVOT): 110.4 ml PA V2 max: 125.4 cm/sec LV V1 max P.3 mmHg LV V1 mean P.0 mmHg LV V1 mean: 137.8 cm/sec LV V1 VTI: 30.7 cm PI end-d alfredo: 132.8 cm/sec TR max alfredo: 273.5 cm/sec TR max P.9 mmHg ECHO/Echo Complete Interpretation Summary Normal LV size. Moderate concentric left ventricular hypertrophy. Left ventricular systolic function is normal. The left ventricular ejection fraction is 60 %. Stage 1 diastolic dysfunction. Bioprosthetic aortic valve. Mean aortic valve gradient 23 mmHg. Ordering Physician: Billy Pruett Referring Physician: Billy Pruett Performed By: Pati Buchanan, LEO, RVT
== END | disposition home or self-care (01) ==
PROVIDERS: Referring Provider Internal Medicine Cardiovascular Disease; Visit Provider Internal Medicine Cardiovascular Disease
DX: Z95.2 Presence of prosthetic heart valve (principal)
CPT/HCPCS: 93306

== ENCOUNTER → 2025-01-09 | Outpatient (CLI) | payer MEDICARE, BC, SELFPAY ==
[2021-11-02 14:16] VITALS: BMI 21.6
--- NOTE | 2025-01-09 10:44 | RAD_ITS ---
PROCEDURE: CHEST PA AND LATERAL 01/09/2025 REASON FOR EXAM: COUGH TECHNIQUE: Frontal and lateral views of the chest. COMPARISON: 08/24/2023 FINDINGS: The lungs appear clear. Again note of multiple suture lines at the right lower lung, correlate with history. No pleural effusion. Status post median sternotomy and aortic valve replacement again noted. Cardiac and mediastinal contours appear unchanged. RAD/Chest PA and Lateral IMPRESSION: No evidence of acute disease. Reading Location: [id number]
[2025-01-09 12:20] LABS: Hemoglobin 17.7 g/dL (13.0-16.5)
== END | disposition home or self-care (01) ==
LOC: MTLAB 10:40
PROVIDERS: PCP Family Medicine
DX: R05.8 Other specified cough (principal)
CPT/HCPCS: 36415; 71046; 85018; 86140

== ENCOUNTER → 2025-03-05 | Outpatient (CLI) | payer MEDICARE, BC, SELFPAY ==
[2021-11-02 14:16] VITALS: BMI 21.6
--- NOTE | 2025-03-05 12:54 | RAD_ITS ---
EXAM: XR Lumbosacral Spine, 2 or 3 Views CLINICAL INDICATION: FELL THREE WEEKS AGO TENDER TECHNIQUE: Frontal and lateral views of the lumbar spine and sacrum. COMPARISON: No relevant prior studies available. FINDINGS: VERTEBRAE: Moderate to severe endplate degenerative change and disc disease of L4-5. Moderate facet arthropathy of L4 to S1. No acute fracture. Normal alignment. SACRUM/COCCYX: Unremarkable as visualized. No acute fracture. DISC SPACES: No acute findings. No significant narrowing. SOFT TISSUES: Unremarkable. RAD/Lumbar Spine 2 or 3 Views IMPRESSION: Degenerative changes as above. Reading [facility]
== END | disposition home or self-care (01) ==
LOC: MTRAD 12:54
PROVIDERS: PCP Family Medicine
DX: M54.9 Dorsalgia, unspecified (principal)
CPT/HCPCS: 72100